=== PATIENT | male | born 1965 | race Caucasian/White ===

== ENCOUNTER 2020-01-15 10:59 | Emergency (ER) | payer BC, SELFPAY ==
[2020-01-15 11:02] VITALS: BP 142/78; PULSE 95; RESP 20; TEMP 36.8; O2SAT 99
--- NOTE | 2020-01-15 11:55 | PC.NURSE ---
pt refusing iv access at this time, does not want medications that have been ordered. is agreeable for labs to be drawn.
[2020-01-15 12:07] LABS: Basophils Absolute Auto 0.1 K/mm3 (0.0-0.1); Basophils Percent Auto 0.8 % (0.2-1.2); Eosinophils Absolute Auto 0.2 K/mm3 (0-0.3); Eosinophils Percent Auto 2.1 % (0-4.4); Hematocrit 39.9 % (42.0-52.0); Hemoglobin 14.4 g/dL (14.0-18.0); Immature Granulocyte Absolute 0.03 K/mm3 (0.00-0.031); Immature Granulocyte Percent A 0.3 % (0-0.5); Lymphocytes Absolute Auto 2.71 K/mm3 (0.9-3.2); Lymphocytes Percent Auto 28.7 % (18.3-44.2); Mean Corpuscular HGB Conc 36.1 g/dl (32-36); Mean Corpuscular Hemoglobin 34.8 pg (26-34); Mean Corpuscular Volume 96.4 fl (80-100); Mean Platelet Volume 8.9 fl (7.4-10.4); Monocytes Absolute Auto 0.8 K/mm3 (0.1-0.6); Monocytes Percent Auto 8.6 % (2.6-8.5); Neutrophils Absolute Auto 5.6 K/mm3 (1.3-6.7); Neutrophils Percent Auto 59.5 % (45.5-73.1); Platelet Count Result 215 k/mm3 (150-375); Red Blood Count 4.14 M/mm3 (4.6-6.20); Red Cell Distribution Width 12.6 % (11.5-14.5); White Blood Count 9.4 K/mm3 (4.5-10.0)
[2020-01-15 12:12] LABS: Add Urine Microscopic? NO; Appearance Urine Clear (Clear); Bilirubin Urine Negative (Negative); Blood Urine Negative (Negative); Color Urine Yellow (Yellow); Glucose Urine UA Negative (Negative); Ketones Urine Negative (Negative); Leukocyte Esterase Ur Negative LEU/UL (Negative); Nitrate Urine Negative (Negative); Protein Urine Negative (Negative); Specific Grav Ur 1.012 (1.001-1.035); Urobilinogen Urine Negative mg/dL (<2.0)
--- NOTE | 2020-01-15 12:22 | ED.BACK ---
HPI - Back Pain/Injury General Chief Complaint: Back Pain/Injury Stated Complaint: BACK PAIN Time Seen by Provider: 01/15/20 11:05 Related Data Home Medications Medication Instructions Recorded Confirmed carvedilol 12.5 mg tablet 12.5 mg PO Q12H 05/02/19 fenofibrate 50 mg capsule 50 mg PO DAILY 05/02/19 icosapent ethyl 1 gram capsule 2 gm PO BID 05/02/19 rosuvastatin 40 mg tablet 40 mg PO DAILY 05/02/19 ticagrelor 60 mg tablet 60 mg PO Q12H 05/02/19 cholecalciferol (vitamin D3) 125 5,000 unit PO DAILY 05/03/19 mcg (5,000 unit) tablet losartan 100 1 tablet PO DAILY 07/21/19 mg-hydrochlorothiazide 12.5 mg tablet semaglutide 1 mg/dose (2 mg/1.5 1 mg SUB-Q WEEKLY 07/21/19 mL) subcutaneous pen injector Allergies Allergy/AdvReac Type Severity Reaction Status Date / Time No Known Allergies Allergy Verified 01/15/20 12:02 [facility] Past Medical History Medical History (Updated 01/15/20 @ 12:44 by Matt Escobar PA-C) Obesity Screening for thyroid disorder Surgical History Surgical History (Updated 01/15/20 @ 12:23 by Matt Escobar PA-C) History of appendectomy Social History Social History Smoking status: Former smoker Smoking end date: 03/03/19 Alcohol intake: current Exam Narrative: Exam Narrative: GENERAL: Well-appearing, obese, and in no acute distress. HEAD: Normocephalic, atraumatic. EYES: PERRLA and EOMI. ENT: Nares clear, no rhinorrhea or epistaxis. Mucous membranes moist. CHEST: Clear to auscultation. No respiratory distress. No wheezes rales or rhonchi HEART: Regular rate and rhythm. No murmur heard. Normal peripheral pulses. ABDOMEN: Soft, nontender, distended EXTREMITIES: Normal range of motion. No edema. Tenderness across the lower lumbar spine no deformities noted SKIN: Warm, dry, no rash. NEURO: No focal deficits. Alert and oriented x3. Cranial nerves II through XII grossly intact PSYCH: Normal mood and affect. Course Course Emergency Course: Patient in the room in no distress aware of case findings treatment plan and diagnosis Vital Signs Vital signs: Vital Signs Temperature 98.3 F 01/15/20 11:02 Pulse Rate 95 01/15/20 11:02 Respiratory Rate 20 01/15/20 11:02 Blood Pressure 142/78 H 01/15/20 11:02 Pulse Oximetry 99 01/15/20 11:02 Temperature 98.3 F 01/15/20 11:02 Pulse Rate 95 01/15/20 11:02 Respiratory Rate 20 01/15/20 11:02 Blood Pressure 142/78 H 01/15/20 11:02 Pulse Oximetry 99 01/15/20 11:02 MDM - Back Pain/Injury MDM Narrative Medical decision making narrative: Patients pain is positional in nature and localized to back without signs of cord compression or cauda equina based on neurological exam, skeletal exam and history. No fever or other significant factors to suggest osteomyelitis or spinal epidural abscess. No symptoms or signs to suggest pain is referred from abdominal or / cardiopulmonary sources. No pulsatile masses noted on exam. Patient ambulates with steady gait and is stable for outpatient management given case findings. Lab Data Result diagrams: 01/15/20 11:57 01/15/20 11:57 Labs: Lab Results 01/15/20 01/15/20 01/15/20 Range/Units 11:57 11:57 12:03 WBC 9.4 (4.5-10.0) K/mm3 RBC 4.14 L (4.6-6.20) M/mm3 Hgb 14.4 (14.0-18.0) g/dL Hct 39.9 L (42.0-52.0) % MCV 96.4 (80-100) fl MCH 34.8 H (26-34) pg MCHC 36.1 H (32-36) g/dl RDW 12.6 (11.5-14.5) % Plt Count 215 (150-375) k/mm3 MPV 8.9 (7.4-10.4) fl Immature Gran % (Auto) 0.3 (0-0.5) % Neut % (Auto) 59.5 (45.5-73.1) % Lymph % (Auto) 28.7 (18.3-44.2) % Shelby % (Auto) 8.6 H (2.6-8.5) % Eos % (Auto) 2.1 (0-4.4) % Baso % (Auto) 0.8 (0.2-1.2) % Lymph # (Auto) 2.71 (0.9-3.2) K/mm3 Shelby # (Auto) 0.8 H (0.1-0.6) K/mm3 Eos # (Auto) 0.2 (0-0.3) K/mm3 Baso # (Auto)
[2020-01-15 12:23] LABS: Alanine Aminotransferase 21 U/L (4-50); Albumin Level 4.2 g/dL (3.5-5.1); Alkaline Phosphatase 36 U/L (38-126); Anion Gap 9 mmol/L (8-16); Aspartate Amino Transferase 27 U/L (17-59); Bilirubin,Total 0.5 mg/dL (0.2-1.3); Blood Urea Nitrogen 11 mg/dL (9-20); CRP 1.8 mg/dL (<1.0); Carbon Dioxide 23 mmol/L (22-30); Chloride 106 mmol/L (98-107); Estimated CRCL calculation 94 ml/min; Estimated Glomerular Filt Rate > 60; Glucose 120 mg/dL (75-110); Potassium 3.8 mmol/L (3.4-5.0); Sodium 138 mmol/L (137-145)
[2020-01-15 12:58] LABS: Erythrocyte Sedimentation Rate 20 mm/hr (0-20)
[2020-01-15] MEDS: KETOROLAC (*BKC) 60 MG/2 ML VIAL IM (13:02)
[2020-01-15 13:14] VITALS: BP 138/71; PULSE 82; RESP 20; TEMP 36.6; O2SAT 99
== END 2020-01-15 13:16 | disposition home or self-care (01) ==
PROVIDERS: Emergency Medicine Emergency Medical Services; Emergency Provider Emergency Medicine; PCP Family Medicine
DX: M54.5 Low back pain (principal); E66.9 Obesity, unspecified; Z68.34 Body mass index [BMI] 34.0-34.9, adult
CPT/HCPCS: 36415; 80053; 81003; 85025; 85652; 86140; 96372; 99283; J1885

== ENCOUNTER → 2020-03-19 09:28 | Outpatient (CLI) | payer BC, SELFPAY ==
--- NOTE | ~2020-03-19 | XR_ITS ---
XR lumbar spine 2-3V DATE: 03/19/2020 10:02 INDICATION: Low back pain TECHNIQUE: AP, lateral, coned lateral lumbosacral views COMPARISON: 01/05/2016 lumbar spine FINDINGS: There is prominent degenerative disc disease at L1-2, L2-3, moderate degenerative disease a t L3-4. There is grade 1 anterolisthesis and mild degenerative disc disease at L4-5. There is mild degenerative disc disease at L5-S1. There is degenerative change at the apophyseal joints. Included lower thoracic and lumbar pedicles are intact. The sacroiliac joints are normal. There is extensive calcification of the abdominal aorta and iliac arteries. IMPRESSION: Multilevel degenerative disc disease, greatest at L1-2 and L2-3 Degenerative change at the apophyseal joints with associated grade 1 anterolisthesis at L4-5 Reviewed, dictated and finalized at location A. IMPRESSION: Multilevel degenerative disc disease, greatest at L1-2 and L2-3 Degenerative change at the apophyseal joints with associated grade 1 anterolist hesis at L4-5
== END ==
PROVIDERS: PCP Family Medicine; Visit Provider Physician Assistant Medical
DX: M54.5 Low back pain (principal); M51.36 Other intervertebral disc degeneration, lumbar region; M43.16 Spondylolisthesis, lumbar region
CPT/HCPCS: 72100

== ENCOUNTER 2020-06-04 09:31 | Outpatient (NON) | payer BC, SELFPAY ==
[2020-06-04 22:22] LABS: SARS-CoV-2 RNA PCR Negative
== END 2020-06-04 09:32 ==
LOC: ANHCOVIDDT 09:32
PROVIDERS: PCP Family Medicine; Visit Provider Physician Assistant Medical
DX: R09.89 Other specified symptoms and signs involving the circulatory and respiratory systems (principal); Z20.822 Contact with and (suspected) exposure to COVID-19
CPT/HCPCS: C9803; U0003

== ENCOUNTER → 2020-06-06 16:56 | Outpatient (CLI) | payer BC, SELFPAY ==
--- NOTE | ~2020-06-06 | XR_ITS ---
EXAMINATION: XR chest 2V DATE: 06/06/2020 17:31 INDICATION: Acute bronchitis TECHNIQUE: PA and lateral views of the chest were obtained. COMPARISON: Chest radiograph dated 02/16/2019 FINDINGS: The lungs remain clear with no focal airspace opacities, pulmonary edema, pleural effusion or pneumot horax. The cardiomediastinal silhouette is normal. Coronary artery stenting. IMPRESSION: 1. No acute cardiopulmonary disease. Reviewed, dictated and finalized at location A. [employer]
== END ==
PROVIDERS: PCP Family Medicine; Visit Provider Physician Assistant Medical
DX: J20.9 Acute bronchitis, unspecified (principal)
CPT/HCPCS: 71046

== ENCOUNTER 2020-06-19 02:06 | Outpatient (CLI) | payer BC, SELFPAY ==
[2020-06-19 18:12] LABS: SARS-CoV-2 RNA PCR Negative
== END 2020-06-19 02:07 | disposition home or self-care (01) ==
LOC: ANHCOVIDDT 02:06
PROVIDERS: PCP Family Medicine; Visit Provider Internal Medicine Gastroenterology
DX: Z01.812 Encounter for preprocedural laboratory examination (principal); Z20.822 Contact with and (suspected) exposure to COVID-19
CPT/HCPCS: C9803; U0003; U0005

== ENCOUNTER 2020-06-22 01:39 | Day surgery (SDC) | payer BC, SELFPAY ==
[2020-06-18 10:34] VITALS: BMI 36.0
--- NOTE | 2020-06-20 13:29 | WPDANESEPPF ---
Anes - Initial Pre Proc Eval Procedure: Operation Date: 06/22/20 08:30 Proposed Procedures p Colonoscopy - Tashi Garcia MD Date/Time: 06/20/20 13:29 Surgeon: Tashi Garcia MD Pre Op Diagnosis: Diarrhea Patient Data Age: 55 Gender: M Height: 1.78 m Weight: 114 kg Allergies Allergy/AdvReac Type Severity Reaction Status Date / Time No Known Allergies Allergy Verified 06/22/20 07:09 Home Medications Medication Instructions Recorded Confirmed Type carvedilol 12.5 mg tablet 12.5 mg PO Q12H 05/02/19 06/18/20 History fenofibrate 50 mg capsule 50 mg PO DAILY 05/02/19 06/18/20 History icosapent ethyl 1 gram capsule 2 gm PO BID 05/02/19 06/18/20 History rosuvastatin 40 mg tablet 40 mg PO DAILY 05/02/19 06/18/20 History ticagrelor 60 mg tablet 60 mg PO Q12H 05/02/19 06/18/20 History cholecalciferol (vitamin D3) 125 5,000 unit PO DAILY 05/03/19 06/18/20 History mcg (5,000 unit) tablet losartan 100 1 tablet PO DAILY 07/21/19 06/18/20 History mg-hydrochlorothiazide 12.5 mg tablet acetaminophen [Tylenol Arthritis 650 mg PO Q8H PRN #7 tablet 01/15/20 06/18/20 Rx Pain] amlodipine 5 mg tablet 5 mg PO DAILY 03/13/20 06/18/20 History cyclobenzaprine 10 mg tablet 10 mg PO TID PRN #20 tablet 03/13/20 06/18/20 Rx spironolactone 50 mg tablet 50 mg PO DAILY 03/13/20 06/18/20 History albuterol sulfate 90 mcg/actuation 1 puff INHALATION Q4H PRN #8.5 gm 06/06/20 06/18/20 Rx aerosol inhaler sodium,potassium,mag sulfates See Rx Instructions .ROUTE 06/12/20 Rx [Suprep Bowel Prep Kit] .COMPLEX #1 ml gabapentin 300 mg PO TID PRN 06/18/20 06/18/20 History Patient hx anesthesia problems: none Family hx anesthesia problems: none PMFSH Past Medical History Medical History (Updated 06/20/20 @ 13:30 by Francisco J Saucedo DO) BMI 38.0-38.9,adult CAD (coronary artery disease) Essential hypertension Mixed hyperlipidemia Morbidly obese Obesity Screening for thyroid disorder Surgical History Surgical History (Updated 06/20/20 @ 13:30 by Francisco J Saucedo DO) History of appendectomy History of coronary artery stent placement x4 2017 Family History Family History Father Family history of diabetes mellitus in first degree relative Family history of heart disease in male family member before age 55 Mother Family history of malignant neoplasm of breast in first degree relative Other Diabetes mellitus Family history of cardiovascular disease Hypertension Social History Social History Smoking packs per day: 1 Smoking cigarettes per day: 20.0 Years smoked: 20 Smoking pack-years: 20.00 Smoking status: Light tobacco smoker Tobacco type: cigarettes Smoking end date: 03/03/19 Alcohol intake: current Drinks per week: 14 Alcohol use details: BEERS Substance use: never Substance use type: does not use Spiritual care concerns: No Anes - Eval Final PreProcedure Day of Procedure 06/20/20 13:29 Patient weight: obese Heart: regular rate and rhythm Lungs: clear to auscultation and normal air movement Airway: Mallampati scale class III Neurological: alert and oriented Last oral intake: >/= 8 hours ASA classification: III Emergent: no Anesthetic plan: proceed Anesthesia type and monitoring: general GIVS and standard monitoring Informed Consent: The patient's anesthetic plan and its attendant risks and benefits were discussed with the patient/family/POA. Questions were solicited and answers provided to the satisfaction of the patient/family/POA.
[2020-06-22] MEDS: LACTATED RINGERS 1,000 ML 150 ML IV CONT (07:27)
--- NOTE | 2020-06-22 08:09 | WPDGICN ---
Assessment and Plan Assessment and plan (1) Diarrhea: Code(s): R19.7 - Diarrhea, unspecified Status: Acute Assessment and Plan: Patient has had loose stools that have become more noticeable over the last 2 weeks. Plan is to proceed with colonoscopy to evaluate more thoroughly. Fiber supplementation may be of some benefit for possible irritable bowel syndrome. Further recommendations will be given after colonoscopy (2) Morbidly obese: Code(s): E66.01 - Morbid (severe) obesity due to excess calories Status: Acute Assessment and Plan: Patient is significantly overweight. Starting weight loss diet and monitoring weight is strongly advocated for this patient discussed with him today per (3) Screening for colon cancer: Code(s): Z12.11 - Encounter for screening for malignant neoplasm of colon Status: Acute Assessment and Plan: patient has never had a colonoscopy for this reason screening exam will be performed now the is over age 50. Occult blood was described in stool and will be assessed at the time of endoscopy. GI Consult Note Consult date/time: 06/22/20 08:09 HPI: Gary Carrero is a 55 year old male presents for colonoscopy. Patient reports several month history of loose diarrhea stools. This is intensified over the last 2 weeks. Patient denies any bleeding or weight loss. Patient has minimal abdominal pain. Outpatient laboratory stool tests were unremarkable aside from stool positive for occult blood. Patient visualize is no obvious blood in his stools. He reports his only medication is intermittent use of Imodium AED. For control of his stools. He has tried no other modalities to treat his diarrhea. Family history is noncontributory. Patient has not had a prior screening colonoscopy and for this reason screening colonoscopy was suggested. [facility] Past Medical History Medical History BMI 38.0-38.9,adult CAD (coronary artery disease) Essential hypertension Mixed hyperlipidemia Morbidly obese Obesity Screening for thyroid disorder Surgical History Surgical History (Updated 06/20/20 @ 13:30 by Francisco J Saucedo DO) History of appendectomy History of coronary artery stent placement x4 2017 Family History Family History Father Family history of diabetes mellitus in first degree relative Family history of heart disease in male family member before age 55 Mother Family history of malignant neoplasm of breast in first degree relative Other Diabetes mellitus Family history of cardiovascular disease Hypertension Social History Social History Smoking packs per day: 1 Smoking cigarettes per day: 20.0 Years smoked: 20 Smoking pack-years: 20.00 Smoking status: Light tobacco smoker Tobacco type: cigarettes Smoking end date: 03/03/19 Alcohol intake: current Drinks per week: 14 Alcohol use details: BEERS Substance use: never Substance use type: does not use Spiritual care concerns: No Meds Home Medications and Allergies Home Medications Medication Instructions Recorded Confirmed Type carvedilol 12.5 mg tablet 12.5 mg PO Q12H 05/02/19 06/18/20 History fenofibrate 50 mg capsule 50 mg PO DAILY 05/02/19 06/18/20 History icosapent ethyl 1 gram capsule 2 gm PO BID 05/02/19 06/18/20 History rosuvastatin 40 mg tablet 40 mg PO DAILY 05/02/19 06/18/20 History ticagrelor 60 mg tablet 60 mg PO Q12H 05/02/19 06/18/20 History cholecalciferol (vitamin D3) 125 5,000 unit PO DAILY 05/03/19 06/18/20 History mcg (5,000 unit) tablet losartan 100 1 tablet PO DAILY 07/21/19 06/18/20 History mg-hydrochlorothiazide 12.5 mg tablet acetaminophen [Tylenol Arthritis 650 mg PO Q8H PRN #7 tablet 01/15/20 06/18/20 Rx Pain] amlodipine 5 mg tablet 5 mg PO DAILY 03/13/2005/26
[2020-06-22 09:05] VITALS: BP 84/45; PULSE 81; RESP 18; O2SAT 96
[2020-06-22 09:15] VITALS: BP 95/51; PULSE 71; RESP 18; O2SAT 97
== END 2020-06-22 09:36 | disposition home or self-care (01) ==
PROVIDERS: PCP Family Medicine; Visit Provider Internal Medicine Gastroenterology
PROC: 0DJD8ZZ Inspection of Lower Intestinal Tract, Via Natural or Artificial Opening Endoscopic (ICD-10-PCS; CPT 45378; principal; 2020-06-22 08:30)
DX: Z12.11 Encounter for screening for malignant neoplasm of colon (principal); K52.831 Collagenous colitis; K52.832 Lymphocytic colitis; Z79.51 Long term (current) use of inhaled steroids; I25.10 Atherosclerotic heart disease of native coronary artery without angina pectoris; I10 Essential (primary) hypertension; E78.2 Mixed hyperlipidemia; E66.01 Morbid (severe) obesity due to excess calories; Z68.39 Body mass index [BMI] 39.0-39.9, adult; F17.210 Nicotine dependence, cigarettes, uncomplicated
CPT/HCPCS: 45380; 88305; J2001; J2370; J2704; J7120

== ENCOUNTER 2020-10-29 14:10 | Outpatient (CLI) | payer BC, SELFPAY ==
--- NOTE | ~2020-10-29 | US_ITS ---
EXAMINATION:US venous doppler LE BI INDICATION:Bilateral lower extremity pain TECHNIQUE: Multiple grayscale, color flow and Doppler images of the right and left lower extremity de ep venous systems were obtained and reviewed. COMPARISON:03/24/2018 FINDINGS: The common femoral, superficial femoral and popliteal veins demonstrate normal respiratory variation, augmentation and compressibility. Color flow is also seen within the posterior tibial, pe roneal, greater saphenous and profunda veins. IMPRESSION: 1: No lower extremity deep venous thrombosis. Reviewed, dictated and finalized at location B.
--- NOTE | ~2020-10-29 | XR_ITS ---
EXAMINATION: XR knee LT 3V DATE: 10/29/2020 14:50 INDICATION: Left knee pain. TECHNIQUE: 3 views of left knee were obtained. COMPARISON: Left knee radiograph 11/05/2012 FINDINGS: Bone alignment is normal. No fracture. There is mild osteoarthritis of medial and patellofe moral compartments. No knee joint effusion. IMPRESSION: 1. Mild left knee osteoarthritis. Reviewed, dictated and finalized at location A.
--- NOTE | ~2020-10-29 | XR_ITS ---
EXAMINATION: XR lumbar spine 2-3V DATE: 10/29/2020 14:50 INDICATION: Chronic low back pain TECHNIQUE: Anteroposterior and lateral views of the lumbar spine, and cone-down lateral view of the l umbosacral junction were obtained. COMPARISON: 03/19/2020 FINDINGS: Mild lumbar levocurvature which is not appreciated on the prior study and which may be positional. No significant interval change in 3 mm retrolisthesis L2 on L3 and 4-5 mm anterolisthesis L4 on L5. Mod erate disc height loss at L1-L2 and L2-L3, mild disc height loss at L3-L4 and L5-S1. Mild to moderate lower lumbar predominant facet osteoarthritis. Sacral arches and sacroiliac joints are normal. Exten sive atherosclerotic calcific a cyst along the aorta and common iliac arteries. IMPRESSION: 1. Minimal progression of moderate lumbar spondylosis. 2. No significant change in 3 mm retrolisthesis L2 on L3 and 4-5 mm anterolisthesis L4 on L5. Reviewed, dictated and finalized at location A. IMPRESSION: 1. Minimal progression of moderate lumbar spondylosis. 2. No significant change in 3 mm retrolisthesis L2 on L3 and 4-5 mm anterolisth esis L4 on L5.
[2020-10-29 15:10] LABS: Basophils Absolute Auto 0.1 K/mm3 (0.0-0.1); Basophils Percent Auto 0.5 % (0.2-1.2); Eosinophils Percent Auto 0.3 % (0-4.4); Hematocrit 44.6 % (42.0-52.0); Hemoglobin 15.7 g/dL (14.0-18.0); Immature Granulocyte Absolute 0.06 K/mm3 (0.00-0.031); Immature Granulocyte Percent A 0.5 % (0-0.5); Lymphocytes Percent Auto 19.9 % (18.3-44.2); Mean Corpuscular HGB Conc 35.2 g/dl (32-36); Mean Corpuscular Hemoglobin 35.5 pg (26-34); Mean Corpuscular Volume 100.9 fl (80-100); Monocytes Absolute Auto 1.1 K/mm3 (0.1-0.6); Monocytes Percent Auto 9.4 % (2.6-8.5); Neutrophils Percent Auto 69.4 % (45.5-73.1); Platelet Count Result 185 k/mm3 (150-375); Red Blood Count 4.42 M/mm3 (4.6-6.20); Red Cell Distribution Width 12.5 % (11.5-14.5); White Blood Count 11.5 K/mm3 (4.5-10.0)
[2020-10-29 15:30] LABS: D Dimer 0.34 ug/mL (<0.48)
[2020-10-29 16:42] LABS: Anion Gap 9 mmol/L (8-16); Blood Urea Nitrogen 16 mg/dL (9-20); Calcium 9.7 mg/dL (8.4-10.2); Carbon Dioxide 25 mmol/L (22-30); Chloride 105 mmol/L (98-107); Estimated Glomerular Filt Rate > 60; Glucose 107 mg/dL (75-110); Potassium 3.9 mmol/L (3.4-5.0); Sodium 139 mmol/L (137-145); Uric Acid 4.4 mg/dL (3.5-8.5)
== END 2020-10-29 14:11 | disposition home or self-care (01) ==
LOC: ANHIMG 14:15
PROVIDERS: PCP Family Medicine; Visit Provider Nurse Practitioner Family
DX: M79.89 Other specified soft tissue disorders (principal); M79.662 Pain in left lower leg; E66.01 Morbid (severe) obesity due to excess calories; R20.0 Anesthesia of skin; M25.562 Pain in left knee; M47.816 Spondylosis without myelopathy or radiculopathy, lumbar region; M43.16 Spondylolisthesis, lumbar region; M17.12 Unilateral primary osteoarthritis, left knee
CPT/HCPCS: 36415; 72100; 73562; 80048; 84550; 85025; 85380; 93970

== ENCOUNTER 2020-11-01 12:37 | Emergency (ER) | payer BC, SELFPAY ==
--- NOTE | ~2020-11-01 | CT_ITS ---
EXAMINATION: CT lumbar spine w con DATE: 11/01/2020 15:27 INDICATION: Intermittent numbness of the bilateral legs. TECHNIQUE: Computed tomography (CT) of the lumbar spine was performed with 100 mL Omnipaque 350 intra venous contrast. Automated exposure control and iterative reconstruction technique were employed. The dose-length product was 1200.90 mGy-cm. COMPARISON: Lumbar spine radiographs 10/29/20 FINDINGS: There is 3 degrees levocurvature of lumbar spine. There is 3 mm retrolisthesis of L1 on L2 and L2 on L3 and 3 mm anterolisthesis of L4 on L5. There is mild chronic anterior wedging of L1 verte bral body. There is moderately decreased disc height at L1-L2 and L2-L3, mildly decreased disc height at L3-L4, and moderately decreased disc height at L5-S1. Epidural lipomatosis is noted. There is Baa strup disease at L4-L5. The following disc levels are specifically discussed: L1-L2: The disc is bulging. There is mild bilateral facet joint osteoarthritis. There is mild bilater al neural foraminal stenosis. There is moderate central canal stenosis. L2-L3: The disc is bulging. There is severe bilateral facet joint osteoarthritis. There is moderate b ilateral neural foraminal stenosis. There is moderate central canal stenosis. L3-L4: The disc is bulging. There is severe bilateral facet joint osteoarthritis. There is mild right and moderate left neural foraminal stenosis. There is severe central canal stenosis. L4-L5: The disc is bulging. There is severe bilateral facet joint osteoarthritis. There is moderate b ilateral neural foraminal stenosis. There is severe central canal stenosis. L5-S1: The disc is bulging. There is severe bilateral facet joint osteoarthritis. There is mild right and moderate left neural foraminal stenosis. There is severe central canal stenosis. IMPRESSION: 1. Severe lumbar spondylosis. Reviewed, dictated and finalized at location A.
--- NOTE | 2020-11-01 13:02 | ED.GENADULT ---
HPI - General Adult General Chief complaint: Urogenital-Male Stated complaint: GROIN NUMBNESS X WEEKS Time Seen by Provider: 11/01/20 12:54 Source: patient Mode of arrival: ambulatory Limitations: no limitations History of Present Illness HPI narrative: Patient is a 55 year old male who presents to the ED for bilateral lower extremity numbness and pain x 2 weeks. He reports intermittent numbness to buttocks. He reports numbness starts at groin and hip and radiates to left knee pain. Patient reports recently had venous u/s of legs which was negative for DVT. Patient also had xray of lumbar spine and knee. Spine shows no changes but history of DDD and xray knee shows osteoarthritis. Patient reports he is waiting for approval of insurance for MRI. Patient is demanding MRI in ED. Denies loss of bowel or bladder control at this time. Reports pain to bilateral legs and numbness at times. Related Data Home Medications Medication Instructions Recorded Confirmed carvedilol 12.5 mg tablet 12.5 mg PO Q12H 05/02/19 10/29/20 fenofibrate 50 mg capsule 50 mg PO DAILY 05/02/19 10/29/20 icosapent ethyl 1 gram capsule 2 gm PO BID 05/02/19 10/29/20 rosuvastatin 40 mg tablet 40 mg PO DAILY 05/02/19 10/29/20 cholecalciferol (vitamin D3) 125 5,000 unit PO DAILY 05/03/19 10/29/20 mcg (5,000 unit) tablet losartan 100 1 tablet PO DAILY 07/21/19 10/29/20 mg-hydrochlorothiazide 12.5 mg tablet gabapentin 300 mg PO TID PRN 06/18/20 10/29/20 clopidogrel 75 mg tablet 75 mg PO DAILY 10/15/20 10/29/20 Allergies Allergy/AdvReac Type Severity Reaction Status Date / Time No Known Allergies Allergy Verified 10/29/20 12:32 Review of Systems Review of Systems: Narrative: CONSTITUTIONAL: Denies fever, chills, or sweats. EYES: Denies visual changes, redness, or discharge. ENT: Denies rhinorrhea, congestion, sore throat, or otalgia. CARDIOVASCULAR: Denies chest pain, palpitations, or edema. RESPIRATORY: Denies cough or dyspnea. GASTROINTESTINAL: Denies abdominal pain, nausea, vomiting, or diarrhea. GENITOURINARY: Denies dysuria or hematuria. SKIN: Denies rash or itching. MUSCULOSKELETAL: Reports numbness, tingling and pain to bilateral lower extremities reports worse at right groin and hip NEUROLOGIC: Denies headache, numbness, dizziness, or weakness. PSYCHIATRIC: Denies anxiety or depression. [facility] Past Medical History Medical History BMI 38.0-38.9,adult CAD (coronary artery disease) Colonoscopy planned Essential hypertension Microscopic colitis Mixed hyperlipidemia Morbidly obese Obesity Obesity, morbid, BMI 40.0-49.9 Screening for thyroid disorder Tobacco dependence Surgical History Surgical History History of appendectomy History of coronary artery stent placement x4 2017 Family History Family History Father Family history of diabetes mellitus in first degree relative Family history of heart disease in male family member before age 55 Mother Family history of malignant neoplasm of breast in first degree relative Breast cancer Sibling No problems noted. Other Diabetes mellitus Family history of cardiovascular disease Hypertension Social History Social History Smoking packs per day: 1 Smoking cigarettes per day: 20.0 Years smoked: 20 Smoking pack-years: 20.00 Smoking status: Current some day smoker Tobacco type: cigarettes Alcohol intake: current Drinks per week: 14 Substance use: never Substance use type: does not use Additional occupation/education comments: [employer] Gender identity (if verbalized by the patient): Male Spiritual care concerns: No Comments At the time of signature, I have reviewed and agree with nursing past medical, surgical, social, and family histo
[2020-11-01 13:32] VITALS: BP 128/87; PULSE 79; RESP 18; TEMP 36.5; O2SAT 98
--- NOTE | 2020-11-01 13:41 | PC.NURSE ---
Pt unable to urinate at this time, given urinal, declines straight cath - states will continue to try.
[2020-11-01 13:57] LABS: Basophils Absolute Auto 0.1 K/mm3 (0.0-0.1); Basophils Percent Auto 0.9 % (0.2-1.2); Eosinophils Absolute Auto 0.1 K/mm3 (0-0.3); Eosinophils Percent Auto 0.9 % (0-4.4); Hematocrit 44.3 % (42.0-52.0); Hemoglobin 15.2 g/dL (14.0-18.0); Immature Granulocyte Absolute 0.03 K/mm3 (0.00-0.031); Immature Granulocyte Percent A 0.3 % (0-0.5); Lymphocytes Absolute Auto 2.51 K/mm3 (0.9-3.2); Lymphocytes Percent Auto 27.2 % (18.3-44.2); Mean Corpuscular HGB Conc 34.3 g/dl (32-36); Mean Corpuscular Hemoglobin 35.3 pg (26-34); Mean Corpuscular Volume 102.8 fl (80-100); Mean Platelet Volume 9.2 fl (7.4-10.4); Monocytes Percent Auto 10.3 % (2.6-8.5); Neutrophils Absolute Auto 5.6 K/mm3 (1.3-6.7); Neutrophils Percent Auto 60.4 % (45.5-73.1); Platelet Count Result 182 k/mm3 (150-375); Red Blood Count 4.31 M/mm3 (4.6-6.20); Red Cell Distribution Width 12.7 % (11.5-14.5); White Blood Count 9.2 K/mm3 (4.5-10.0)
[2020-11-01 15:01] LABS: Estimated Glomerular Filt Rate 57
[2020-11-01 15:08] LABS: Add Urine Microscopic? YES; Appearance Urine Clear (Clear); Bacteria Urine Trace /hpf; Bilirubin Urine Negative (Negative); Blood Urine Negative (Negative); Color Urine Yellow (Yellow); Glucose Urine UA Negative (Negative); Ketones Urine Negative (Negative); Leukocyte Esterase Ur Negative LEU/UL (Negative); Mucus Urine Rare /lpf; Nitrate Urine Negative (Negative); Protein Urine 1+ mg/dL (Negative); RBC Urine 0-2 /hpf (0-2); Urobilinogen Urine Negative mg/dL (<2.0); WBC Urine 0-3 /hpf
[2020-11-01 15:18] LABS: Alanine Aminotransferase 25 U/L (4-50); Albumin Level 4.1 g/dL (3.5-5.1); Alkaline Phosphatase 30 U/L (38-126); Anion Gap 9 mmol/L (8-16); Aspartate Amino Transferase 30 U/L (17-59); Bilirubin,Total 0.6 mg/dL (0.2-1.3); Blood Urea Nitrogen 19 mg/dL (9-20); Calcium 9.8 mg/dL (8.4-10.2); Carbon Dioxide 24 mmol/L (22-30); Chloride 105 mmol/L (98-107); Estimated Glomerular Filt Rate > 60; Glucose 112 mg/dL (75-110); Potassium 4.1 mmol/L (3.4-5.0); Sodium 138 mmol/L (137-145)
--- NOTE | 2020-11-01 15:26 | PC.NURSE ---
pt to CT scan via stretcher at this time
[2020-11-01 15:51] VITALS: BP 130/81; PULSE 73; RESP 17; O2SAT 98
[2020-11-01 16:46] VITALS: BP 128/77; PULSE 90; RESP 18; O2SAT 100
== END 2020-11-01 16:46 | disposition home or self-care (01) ==
PROVIDERS: Emergency Provider Nurse Practitioner; PCP Family Medicine
DX: M47.26 Other spondylosis with radiculopathy, lumbar region (principal); I25.10 Atherosclerotic heart disease of native coronary artery without angina pectoris; I10 Essential (primary) hypertension; E78.2 Mixed hyperlipidemia; E66.01 Morbid (severe) obesity due to excess calories; Z95.5 Presence of coronary angioplasty implant and graft; F17.210 Nicotine dependence, cigarettes, uncomplicated
CPT/HCPCS: 36415; 72132; 80053; 81001; 85025; 99284; Q9967

== ENCOUNTER 2020-11-16 13:57 | Outpatient (CLI) | payer BC, SELFPAY ==
--- NOTE | ~2020-11-16 | MR_ITS ---
EXAMINATION: MR lumbar spine wo con DATE: 11/16/2020 14:56 INDICATION: Anesthesia of skin. Degeneration of lumbar intervertebral disc. TECHNIQUE: Magnetic resonance imaging (MRI) of the lumbar spine was performed without intravenous con trast. Sequences included sagittal T2-weighted FSE, sagittal T2-weighted FS FSE, sagittal T1-weighted FSE, and axial T2-weighted FSE. COMPARISON: CT lumbar spine 11/01/2020 FINDINGS: There is 3 mm retrolisthesis of L1 on L2 and L2 on L3. There is mild chronic anterior wedgi ng of L1 and L2 vertebral bodies. There is moderately decreased disc height at L1-L2 and L2-L3, mildl y decreased disc height at L3-L4, and moderately decreased disc height at L5-S1. Epidural lipomatosis is noted. The distal spinal cord signal intensity is normal. The conus medullaris is at L1. The foll owing disc levels are specifically discussed: L1-L2: The disc is bulging. There is mild bilateral facet joint osteoarthritis. There is mild bilater al neural foraminal stenosis. There is severe central canal stenosis. L2-L3: The disc is bulging and has an annular fissure. There is severe bilateral facet joint osteoart hritis. There is moderate bilateral neural foraminal stenosis. There is moderate central canal stenos is. L3-L4: The disc is bulging and has an annular fissure. There is severe bilateral facet joint osteoart hritis. There is mild bilateral neural foraminal stenosis. There is severe central canal stenosis. L4-L5: The disc does not extend beyond the endplate margins. There is severe bilateral facet joint os teoarthritis. There is mild bilateral neural foraminal stenosis. There is moderate central canal sten osis. L5-S1: The disc is bulging. There is severe bilateral facet joint osteoarthritis. There is mild bilat eral neural foraminal stenosis. There is severe central canal stenosis. IMPRESSION: 1. Severe lumbar spondylosis with central canal stenosis primarily due to epidural lipomatosis. Reviewed, dictated and finalized at location A. IMPRESSION: 1. Severe lumbar spondylosis with central canal stenosis primarily due to epidu ral lipomatosis.
--- NOTE | ~2020-11-16 | XR_ITS ---
XR knee RT 3V 11/16/2020 14:18 Indication: Right knee pain Procedure: 3 views right knee Comparison: 11/05/2012 Findings: No fracture, subluxation or dislocation. No significant joint effusion. There is atheroscle rosis. No foreign bodies. There is mild osteoarthritis. Impression: 1: Mild osteoarthritis of the right knee. Reviewed, dictated and finalized at location B. Impression: 1: Mild osteoarthritis of the right knee.
== END 2020-11-16 13:58 | disposition home or self-care (01) ==
PROVIDERS: PCP Family Medicine; Visit Provider Nurse Practitioner Family
DX: M51.36 Other intervertebral disc degeneration, lumbar region (principal); R20.0 Anesthesia of skin; M25.561 Pain in right knee; M47.816 Spondylosis without myelopathy or radiculopathy, lumbar region; M48.061 Spinal stenosis, lumbar region without neurogenic claudication; E88.2 Lipomatosis, not elsewhere classified; M17.11 Unilateral primary osteoarthritis, right knee
CPT/HCPCS: 72148; 73562

== ENCOUNTER 2021-03-08 15:37 | Outpatient (CLI) | payer BC, SELFPAY ==
--- NOTE | ~2021-03-08 | MR_ITS ---
EXAMINATION: MR knee RT wo con DATE: 03/08/2021 16:52 INDICATION: Internal derangement of right knee. TECHNIQUE: Magnetic resonance imaging (MRI) of the right knee was performed without intravenous contr ast. Sequences included axial PD-weighted FS FSE, coronal PD-weighted FSE and PD-weighted FS FSE, sag ittal PD-weighted FSE, and sagittal T2-weighted FS FSE. COMPARISON: Right knee radiograph 11/16/2020 FINDINGS: Medial compartment: There is a complex tear involving body of medial meniscus. There is full-thickness cartilage loss of tibial condyle involving the central and medial articular surface with cortical remodeling and mild s ubchondral edema-like marrow signal intensity. There is full-thickness cartilage loss of femoral cond yle involving the central and medial articular surface with subchondral insufficiency fracture charac terized by subchondral sclerosis, less than 1 mm cortical depression, and moderate bone marrow edema. There is extensive partial thickness cartilage loss of tibial condyle and femoral condyle. Lateral compartment: Lateral meniscus is normal. There is cartilage surface irregularity of tibial condyle and femoral con dyle. Patellofemoral compartment: There is deep partial thickness cartilage loss and cartilage fissuring of patellar medial and lateral facets with mild subchondral edema-like marrow signal intensity. There is shallow partial-thickness cartilage loss of medial trochlea. Ligaments and tendons: There is a complete tear of anterior cruciate ligament. Posterior fusion ligament is intact. There ar e changes of prior sprains of medial collateral ligament and fibular collateral ligament characterize d by thickening and increased signal intensity. There is mild patellar tendinopathy. Fluid: There is a small knee joint effusion. There is a moderate-sized Dumas's cyst. There is moderate prepa tellar and superficial infrapatellar bursitis. IMPRESSION: 1. Severe chondrosis of medial compartment, moderate chondrosis of patellofemoral compartment, and mi ld chondrosis of lateral compartment. 2. Subchondral insufficiency fracture of medial femoral condyle. 3. Complete tear of anterior cruciate ligament. 4. Complex tear of medial meniscus. 5. Small knee joint effusion. 6. Moderate-sized Dumas's cyst. Reviewed, dictated and finalized at location A. IMPRESSION: 1. Severe chondrosis of medial compartment, moderate chondrosis of patellofemor al compartment, and mild chondrosis of lateral compartment. 2. Subchondral insufficiency fracture of medial femoral condyle. 3. Complete tear of anterior cruciate ligament. 4. Complex tear of medial meniscus. 5. Small knee joint effusion. 6. Moderate-sized Dumas's cyst.
== END 2021-03-08 15:38 | disposition home or self-care (01) ==
LOC: ANHIMG 15:43
PROVIDERS: PCP Family Medicine; Visit Provider Physician Assistant Surgical
DX: M23.91 Unspecified internal derangement of right knee (principal); M22.2X1 Patellofemoral disorders, right knee; M84.451A Pathological fracture, right femur, initial encounter for fracture; S83.511A Sprain of anterior cruciate ligament of right knee, initial encounter; S83.241A Other tear of medial meniscus, current injury, right knee, initial encounter; M25.461 Effusion, right knee; M71.21 Synovial cyst of popliteal space [Baker], right knee
CPT/HCPCS: 73721

== ENCOUNTER → 2021-06-25 07:36 | Outpatient (CLI) | payer BC, SELFPAY ==
[2021-06-25 19:06] LABS: SARS-CoV-2 RNA PCR Negative
== END ==
PROVIDERS: PCP Family Medicine; Visit Provider Physician Assistant Medical
DX: R68.89 Other general symptoms and signs (principal)
CPT/HCPCS: C9803; U0003; U0005

== ENCOUNTER 2021-07-09 15:32 | Outpatient (CLI) | payer BC, SELFPAY ==
--- NOTE | ~2021-07-09 | XR_ITS ---
XR ribs BI 3V w CXR 2V DATE: 07/09/2021 16:00 INDICATION: Chest pain TECHNIQUE: PA and lateral views. 3 views of right ribs. 3 views of left ribs. COMPARISON: 06/06/2020 2 view chest FINDINGS: Normal heart size. Coronary artery stent and/or coronary artery calcification. There is aor tic arch calcification. No hilar or mediastinal enlargement. No pulmonary infiltrate or consolidation , pleural effusion or pulmonary vascular congestion or pneumothorax. No left or right rib fracture or bone destruction is detected. IMPRESSION: No active cardiopulmonary disease Aortic arch calcification No rib fracture is detected Reviewed, dictated and finalized at location B. 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
--- NOTE | ~2021-07-09 | XR_ITS ---
XR wrist RT min 3V DATE: 07/09/2021 16:00 INDICATION: Ganglion TECHNIQUE: 4 views COMPARISON: None FINDINGS: Focal right wrist soft tissue swelling is noted anterolateral to the distal radius without calcification. No fracture or dislocation, periosteal reaction or bone destruction is detected. Arterial calcification is noted. IMPRESSION: Focal anterolateral wrist focal soft tissue swelling; no significant bony abnormality Reviewed, dictated and finalized at location B. RETE ANALYST IMPRESSION: Focal anterolateral wrist focal soft tissue swelling; no significan t bony abnormality
== END 2021-07-09 15:33 | disposition home or self-care (01) ==
LOC: ANHIMG 15:35
PROVIDERS: PCP Family Medicine; Visit Provider Nurse Practitioner Family
DX: R07.81 Pleurodynia (principal); R10.9 Unspecified abdominal pain; R05.9 Cough, unspecified; M67.40 Ganglion, unspecified site; I70.0 Atherosclerosis of aorta; M79.89 Other specified soft tissue disorders
CPT/HCPCS: 71046; 71110; 73110

== ENCOUNTER 2021-08-06 10:31 | Outpatient (CLI) | payer BC, SELFPAY ==
--- NOTE | ~2021-08-06 | US_ITS ---
US abdomen limited INDICATION: Right upper quadrant pain. PROCEDURE: Realtime right upper abdominal ultrasound. COMPARISON: No prior studies for comparison. FINDINGS: The pancreas is normal without focal mass or pancreatic ductal dilation. Liver echotexture is increased, consistent with fatty infiltration. There is normal directional flow in the portal ve in. The gallbladder is normal without stones, gallbladder wall thickening or pericholecystic fluid. Comm on bile duct measures 4 mm. No sonographic Jolley's sign. IMPRESSION: 1: Hepatic steatosis. Reviewed, dictated and finalized at location B. IMPRESSION: 1: Hepatic steatosis.
== END 2021-08-06 10:32 | disposition home or self-care (01) ==
LOC: ANHIMG 10:32
PROVIDERS: PCP Family Medicine; Visit Provider Nurse Practitioner Family
DX: M89.8X1 Other specified disorders of bone, shoulder (principal); R10.11 Right upper quadrant pain; K76.0 Fatty (change of) liver, not elsewhere classified
CPT/HCPCS: 76705

== ENCOUNTER 2021-08-30 09:38 | Emergency (ER) | payer BC, SELFPAY ==
[2021-08-30 09:47] VITALS: BP 149/87; PULSE 81; RESP 20; TEMP 36.9; O2SAT 100
--- NOTE | 2021-08-30 10:07 | ED.GENADULT ---
HPI - General Adult General Chief complaint: Unspecified Stated complaint: bleeding toenail, blood thinners Time Seen by Provider: 08/30/21 10:05 Source: patient Mode of arrival: ambulatory Limitations: no limitations History of Present Illness HPI narrative: Patient is a 66-year-old male who presents the ED with report of bleeding from his left 1st toe. Patient reports he was trimming his toenails last night around 10 PM when he accidentally clipped the skin around his left first toenail. He has had bleeding from the spot since then. He has tried holding pressure, but does report he has chronic back pain and has difficulty bending over that long. Patient is on Plavix and aspirin due to history of cardiac stents. He has been able to ambulate still. Patient denies any lightheadedness, dizziness, weakness, numbness, falls. No history of diabetes. Tetanus status unknown. Related Data Home Medications Medication Instructions Recorded Confirmed carvedilol 12.5 mg tablet 12.5 mg PO Q12H 05/02/19 08/30/21 fenofibrate 50 mg capsule 50 mg PO DAILY 05/02/19 08/30/21 icosapent ethyl 1 gram capsule 2 gm PO BID 05/02/19 08/30/21 cholecalciferol (vitamin D3) 125 5,000 unit PO DAILY 05/03/19 08/30/21 mcg (5,000 unit) tablet losartan 100 1 tablet PO DAILY 07/21/19 08/30/21 mg-hydrochlorothiazide 12.5 mg tablet clopidogrel 75 mg tablet 75 mg PO DAILY 10/15/20 08/30/21 aspirin [Aspirin Childrens] 81 mg PO DAILY 08/30/21 08/30/21 Allergies Allergy/AdvReac Type Severity Reaction Status Date / Time No Known Allergies Allergy Verified 08/30/21 09:53 Review of Systems Review of Systems: CONSTITUTIONAL: Denies fever. SKIN: Reports bleeding from avulsion on L 1st toe. Denies rash or itching. MUSCULOSKELETAL: Denies pain. NEUROLOGIC: Denies lightheadedness, dizziness, numbness, or weakness. All systems reviewed & are unremarkable except as noted in HPI and below PMFSH Past Medical History Medical History Abdominal pain Arthritis Atherosclerosis of abdominal aorta Bilateral primary osteoarthritis of knee BMI 38.0-38.9,adult BMI 50.0-59.9, adult Bulging discs CAD (coronary artery disease) Central stenosis of spinal canal Colonoscopy planned Conjunctivitis Costochondritis Degenerative disc disease Elevated glucose Elevated WBC count Epidural lipomatosis Essential hypertension Ganglion cyst Heart attack High cholesterol IBS (irritable bowel syndrome) Left knee DJD Microscopic colitis Mixed hyperlipidemia Morbidly obese Numbness Obesity Obesity, morbid, BMI 40.0-49.9 Osteoarthritis, knee Osteoporosis Pain in left knee Pain in right knee Pain of left calf Rib pain Right flank pain Right knee DJD Screening for thyroid disorder Swelling of left lower extremity Tobacco dependence Wears glasses Weight gain Surgical History Surgical History History of appendectomy History of coronary artery stent placement x4 2017 Family History Family History Father Family history of diabetes mellitus in first degree relative Family history of heart disease in male family member before age 55 Heart disease Cerebrovascular accident Mother Family history of malignant neoplasm of breast in first degree relative Breast cancer Sibling Hyperlipidemia Other Arthritis Diabetes mellitus Family history of cardiovascular disease Hypertension Social History Social History Smoking packs per day: 1 Smoking cigarettes per day: 20.0 Years smoked: 20 Smoking pack-years: 20.00 Tobacco type: cigarettes Second hand tobacco smoke exposure: No Alcohol intake: current Drinks per week: 14 Alcohol use details: BEERS Substance use: never Substance use type: does not use Additional occupatio
[2021-08-30] MEDS: TETANUS,DIPHTHERIA,AC PERTUSSIS ADULT (0.5 ML) BOOSTRIX IM (11:07)
[2021-08-30 11:12] VITALS: BP 134/88; PULSE 77; RESP 16; O2SAT 98
== END 2021-08-30 11:13 | disposition home or self-care (01) ==
PROVIDERS: Emergency Provider Emergency Medicine; PCP Family Medicine
DX: S91.102A Unspecified open wound of left great toe without damage to nail, initial encounter (principal); Z79.02 Long term (current) use of antithrombotics/antiplatelets; Z23 Encounter for immunization; I70.0 Atherosclerosis of aorta; I25.10 Atherosclerotic heart disease of native coronary artery without angina pectoris; I10 Essential (primary) hypertension; I25.2 Old myocardial infarction; E78.2 Mixed hyperlipidemia; E66.01 Morbid (severe) obesity due to excess calories; Z68.34 Body mass index [BMI] 34.0-34.9, adult; M17.11 Unilateral primary osteoarthritis, right knee; Z95.5 Presence of coronary angioplasty implant and graft; Z79.82 Long term (current) use of aspirin; F17.210 Nicotine dependence, cigarettes, uncomplicated; W26.8XXA Contact with other sharp object(s), not elsewhere classified, initial encounter
CPT/HCPCS: 12001; 90471; 90715; 99282

== ENCOUNTER 2021-11-12 18:12 | Emergency (ER) | payer BC, SELFPAY ==
[2021-11-12 18:56] VITALS: BP 125/94; PULSE 91; RESP 16; TEMP 36.8; O2SAT 100
[2021-11-12 19:17] LABS: Basophils Absolute Auto 0.1 K/mm3 (0.0-0.1); Basophils Percent Auto 0.8 % (0.2-1.2); Eosinophils Absolute Auto 0.2 K/mm3 (0-0.3); Eosinophils Percent Auto 2.3 % (0-4.4); Hematocrit 42.4 % (42.0-52.0); Hemoglobin 15.1 g/dL (14.0-18.0); Immature Granulocyte Absolute 0.02 K/mm3 (0.00-0.031); Immature Granulocyte Percent A 0.3 % (0-0.5); Lymphocytes Absolute Auto 2.17 K/mm3 (0.9-3.2); Lymphocytes Percent Auto 27.4 % (18.3-44.2); Mean Corpuscular HGB Conc 35.6 g/dl (32-36); Mean Corpuscular Hemoglobin 37.5 pg (26-34); Mean Corpuscular Volume 105.2 fl (80-100); Mean Platelet Volume 8.5 fl (7.4-10.4); Monocytes Absolute Auto 0.8 K/mm3 (0.1-0.6); Monocytes Percent Auto 10.1 % (2.6-8.5); Neutrophils Absolute Auto 4.7 K/mm3 (1.3-6.7); Neutrophils Percent Auto 59.1 % (45.5-73.1); Platelet Count Result 196 k/mm3 (150-375); Red Blood Count 4.03 M/mm3 (4.6-6.20); Red Cell Distribution Width 12.7 % (11.5-14.5); White Blood Count 7.9 K/mm3 (4.5-10.0)
[2021-11-12 19:26] LABS: Alanine Aminotransferase 29 U/L (6-50); Albumin Level 4.4 g/dL (3.5-5.1); Alkaline Phosphatase 33 U/L (38-126); Anion Gap 6 mmol/L (8-16); Aspartate Amino Transferase 28 U/L (17-59); Bilirubin,Total 0.8 mg/dL (0.2-1.3); Blood Urea Nitrogen 15 mg/dL (9-20); Calcium 9.9 mg/dL (8.4-10.2); Carbon Dioxide 25 mmol/L (22-30); Chloride 102 mmol/L (98-107); Estimated CRCL calculation 110 ml/min; Estimated Glomerular Filt Rate > 60; Glucose 110 mg/dL (65-110); Sodium 133 mmol/L (137-145)
[2021-11-12 19:29] LABS: Prothrombin Time 12.8 Seconds (11.1-14.7)
[2021-11-12 19:30] LABS: Partial Thromboplastin Time 25.4 SECONDS (22.3-36.8)
[2021-11-12 21:32] VITALS: BP 142/75; PULSE 79; RESP 18; O2SAT 100
--- NOTE | 2021-11-12 21:40 | ED.GENADULT ---
HPI - General Adult General Chief complaint: Extremity Injury, Lower Stated complaint: left leg injury Time Seen by Provider: 11/12/21 21:25 History of Present Illness HPI narrative: 56-year-old male presenting to the emergency department for evaluation of left lower leg edema. Patient reports he had a ground-level fall approximately 9 days ago. Since that time patient has had extensive swelling and ecchymosis of the left lower leg. Patient does have a cardiac history and does take Plavix. Patient also does report some dark stools as well. Patient denies any prior history of GI bleed. Related Data Home Medications Medication Instructions Recorded Confirmed carvedilol 12.5 mg tablet 12.5 mg PO Q12H 05/02/19 10/23/21 fenofibrate 50 mg capsule 50 mg PO DAILY 05/02/19 10/23/21 icosapent ethyl 1 gram capsule 2 gm PO BID 05/02/19 10/23/21 (Vascepa) cholecalciferol (vitamin D3) 125 5,000 unit PO DAILY 05/03/19 10/23/21 mcg (5,000 unit) tablet clopidogrel 75 mg tablet (Plavix) 75 mg PO DAILY 10/15/20 10/23/21 aspirin 81 mg chewable tablet 81 mg PO DAILY 08/30/21 10/23/21 (Aspirin Childrens) losartan 50 mg tablet 50 mg PO DAILY 10/14/21 10/23/21 hydrochlorothiazide 25 mg tablet 25 mg PO DAILY 10/23/21 10/23/21 Allergies Allergy/AdvReac Type Severity Reaction Status Date / Time No Known Allergies Allergy Verified 10/23/21 07:34 Review of Systems Review of Systems: CONSTITUTIONAL: Denies fever, chills, or sweats. EYES: Denies visual changes, redness, or discharge. ENT: Denies rhinorrhea, congestion, sore throat, or otalgia. CARDIOVASCULAR: Denies chest pain, palpitations, or edema. RESPIRATORY: Denies cough or dyspnea. GASTROINTESTINAL: Denies abdominal pain, nausea, vomiting, or diarrhea. GENITOURINARY: Denies dysuria or hematuria. SKIN: Denies rash or itching. MUSCULOSKELETAL: Chronic back pain and chronic lower extremity pain. See HPI NEUROLOGIC: Denies headache, numbness, or weakness. PSYCHIATRIC: Denies anxiety or depression. [facility] Past Medical History Medical History Abdominal pain Arthritis Atherosclerosis of abdominal aorta Bilateral primary osteoarthritis of knee BMI 38.0-38.9,adult BMI 50.0-59.9, adult Bulging discs CAD (coronary artery disease) Central stenosis of spinal canal Colonoscopy planned Conjunctivitis Costochondritis Degenerative disc disease Elevated glucose Elevated WBC count Epidural lipomatosis Essential hypertension Ganglion cyst Heart attack High cholesterol IBS (irritable bowel syndrome) Left knee DJD Microscopic colitis Mixed hyperlipidemia Morbidly obese Numbness Obesity Obesity, morbid, BMI 40.0-49.9 Osteoarthritis, knee Osteoporosis Pain in left knee Pain in right knee Pain of left calf Rib pain Right flank pain Right knee DJD Screening for thyroid disorder Swelling of left lower extremity Tobacco dependence Wears glasses Weight gain Surgical History Surgical History History of appendectomy History of coronary artery stent placement x4 2017 Family History Family History Father Family history of diabetes mellitus in first degree relative Family history of heart disease in male family member before age 55 Heart disease Cerebrovascular accident Mother Family history of malignant neoplasm of breast in first degree relative Breast cancer Sibling Hyperlipidemia Other Arthritis Diabetes mellitus Family history of cardiovascular disease Hypertension Social History Social History Smoking packs per day: 1 Smoking cigarettes per day: 20.0 Years smoked: 20 Smoking pack-years: 20.00 Smoking status: Former smoker Tobacco type: cigarettes Second hand tobacco smoke exposure: No Smoking end date: 03/03/19 Alc
[2021-11-12 23:17] VITALS: BP 128/83; PULSE 78; RESP 20; O2SAT 96
== END 2021-11-12 23:10 | disposition home or self-care (01) ==
PROVIDERS: Emergency Medicine; Emergency Provider Emergency Medicine; PCP Family Medicine
DX: R60.0 Localized edema (principal); I70.0 Atherosclerosis of aorta; I10 Essential (primary) hypertension; I25.2 Old myocardial infarction; I25.10 Atherosclerotic heart disease of native coronary artery without angina pectoris; E78.2 Mixed hyperlipidemia; E66.01 Morbid (severe) obesity due to excess calories; Z68.41 Body mass index [BMI] 40.0-44.9, adult; M17.0 Bilateral primary osteoarthritis of knee; Z87.891 Personal history of nicotine dependence
CPT/HCPCS: 36415; 80053; 85025; 85610; 85730; 86850; 86900; 86901; 99283

== ENCOUNTER 2021-11-13 09:12 | Outpatient (CLI) | payer BC, SELFPAY ==
--- NOTE | ~2021-11-13 | US_ITS ---
EXAMINATION: US venous doppler [facility] DATE: 11/13/2021 09:47 INDICATION: Left lower limb pain and swelling. TECHNIQUE: Grayscale ultrasound images without and with compression and Doppler ultrasound images of the left lower extremity veins were obtained. COMPARISON: Ultrasound 10/29/2020 FINDINGS: The visualized portions of left common femoral vein, profunda (deep) femoral vein, femoral vein, popl iteal vein, peroneal veins, posterior tibial veins, and greater saphenous vein outflow are patent. Th ere is a 9.3 x 1.1 x 3.1 cm predominantly cystic mass in anterior left lower leg, consistent with a h ematoma. IMPRESSION: 1. No deep venous thrombosis. 2. Predominantly cystic mass in anterior left lower leg, consistent with a hematoma. Reviewed, dictated and finalized at location A. IMPRESSION: 1. No deep venous thrombosis. 2. Predominantly cystic mass in anterior left lower leg, consistent with a stephanie rosario.
== END 2021-11-13 09:13 | disposition home or self-care (01) ==
LOC: ANHIMG 09:13
PROVIDERS: PCP Family Medicine; Visit Provider Emergency Medicine
DX: Z01.818 Encounter for other preprocedural examination (principal); M79.89 Other specified soft tissue disorders
CPT/HCPCS: 93971

== ENCOUNTER 2021-11-20 11:35 | Outpatient (CLI) | payer BC, SELFPAY ==
--- NOTE | ~2021-11-20 | XR_ITS ---
XR tibia fibula LT 2V DATE: 11/20/2021 11:56 INDICATION: Anterior proximal lateral swelling of the lower leg following injury from fall TECHNIQUE: AP and lateral views of the lower leg COMPARISON: None FINDINGS: Femoral, popliteal and trifurcation and dorsalis pedis artery calcifications. Prominent plantar calcaneal enthesopathy. No fracture or dislocation, periosteal reaction or bone destruction of the tibia or fibula. Normal a lignment at the knee and ankle joints. IMPRESSION: No fracture or dislocation of the tibia or fibula Reviewed, dictated and finalized at location B.
== END 2021-11-20 11:36 | disposition home or self-care (01) ==
PROVIDERS: PCP Family Medicine; Visit Provider Nurse Practitioner Family
DX: M79.605 Pain in left leg (principal); I70.202 Unspecified atherosclerosis of native arteries of extremities, left leg; M77.32 Calcaneal spur, left foot
CPT/HCPCS: 73590

== ENCOUNTER 2022-05-02 11:47 | Emergency (ER) | payer BC, SELFPAY ==
[2022-05-02 12:28] VITALS: BP 150/87; PULSE 74; RESP 18; TEMP 36.5; O2SAT 95
[2022-05-02] MEDS: methylPREDNISolone SOD SUCC 125 MG VIAL IM (13:03)
[2022-05-02] MEDS: HYDROmorphone HCL INJ (*CRX) 1 MG/ML SYR IM (13:03)
[2022-05-02] MEDS: ONDANSETRON HCL ODT 4 MG TABLET PO (13:04)
--- NOTE | 2022-05-02 14:09 | ED.BACK ---
HPI - Back Pain/Injury General Chief Complaint: Back Pain/Injury Stated Complaint: back pain since yesterday - chronic back problems Time Seen by Provider: 05/02/22 12:36 Source: patient, EMS and RN notes reviewed Mode of arrival: EMS Limitations: no limitations History of Present Illness HPI Narrative: THis is a 57 year old male with history of chronic back pain, arthritis who presents for evaluation right lower back pain. He developled pain yesterday at 4 pm when he was bending over to put on pants. He states he know this pain is muscular but it has gradually worsened over night. He reports sharp searing pain with movement to right lower back . He denies pain radiating down is legs or her abdomen. He reports having chronic spine issue that will cause his feet to get numb intermittently but he denies that occurring today. He denies leg weakness. He denies nausea, vomiting, fever, chills. He also denies hematuria or urinary incontinence or retention. He has been taking gabapentin twice day for arthritis. He tried taking flexeril for his pain but he states that did not help. Related Data Home Medications Medication Instructions Recorded Confirmed carvedilol 12.5 mg tablet 12.5 mg PO Q12H 05/02/19 10/23/21 fenofibrate 50 mg capsule 50 mg PO DAILY 05/02/19 10/23/21 icosapent ethyl 1 gram capsule 2 gm PO BID 05/02/19 10/23/21 (Vascepa) cholecalciferol (vitamin D3) 125 5,000 unit PO DAILY 05/03/19 10/23/21 mcg (5,000 unit) tablet clopidogrel 75 mg tablet (Plavix) 75 mg PO DAILY 10/15/20 10/23/21 aspirin 81 mg chewable tablet 81 mg PO DAILY 08/30/21 10/23/21 (Aspirin Childrens) losartan 50 mg tablet 50 mg PO DAILY 10/14/21 10/23/21 hydrochlorothiazide 25 mg tablet 25 mg PO DAILY 10/23/21 10/23/21 Allergies Allergy/AdvReac Type Severity Reaction Status Date / Time No Known Allergies Allergy Verified 05/02/22 11:48 Review of Systems Review of Systems: All systems reviewed & are unremarkable except as noted in HPI and below Constitutional: Constitutional: Denies chills, Denies fatigue and Denies fever(s) ENT: Denies nasal congestion and Denies sore throat Cardiovascular: Cardiovascular: Denies chest pain, Denies rapid heart rate and Denies radiating jaw, neck or arm pain Respiratory: Respiratory: Denies chest congestion, Denies cough and Denies dyspnea Gastrointestinal: Gastrointestinal: Denies abdominal pain, Denies nausea and Denies vomiting Genitourinary: Genitourinary: Denies hematuria, Denies oliguria, Denies dysuria and Denies urinary frequency Musculoskeletal: Musculoskeletal: Reports arthralgias Neurologic: Denies headache(s), Denies focal weakness and Denies numbness [facility] Past Medical History Medical History Abdominal pain Arthritis Atherosclerosis of abdominal aorta Bilateral primary osteoarthritis of knee BMI 38.0-38.9,adult BMI 50.0-59.9, adult Bulging discs CAD (coronary artery disease) Central stenosis of spinal canal Colonoscopy planned Conjunctivitis Costochondritis Degenerative disc disease Elevated glucose Elevated WBC count Epidural lipomatosis Essential hypertension Ganglion cyst Heart attack High cholesterol IBS (irritable bowel syndrome) Left knee DJD Microscopic colitis Mixed hyperlipidemia Morbidly obese Numbness Obesity Obesity, morbid, BMI 40.0-49.9 Osteoarthritis, knee Osteoporosis Pain in left knee Pain in right knee Pain of left calf Rib pain Right flank pain Right knee DJD Screening for thyroid disorder Swelling of left lower extremity Tobacco dependence Wears glasses Weight gain Surgical History Surgical History History of appendectomy History of coronary artery stent placement x4 2017 Family History Family History Father Family history of diabetes mellitus in first degree relative
== END 2022-05-02 14:39 | disposition home or self-care (01) ==
PROVIDERS: Emergency Provider General Practice; PCP Nurse Practitioner Family
DX: M54.50 Low back pain, unspecified (principal); G89.29 Other chronic pain; I70.0 Atherosclerosis of aorta; I25.10 Atherosclerotic heart disease of native coronary artery without angina pectoris; I10 Essential (primary) hypertension; I25.2 Old myocardial infarction; E78.2 Mixed hyperlipidemia; M81.0 Age-related osteoporosis without current pathological fracture; M17.0 Bilateral primary osteoarthritis of knee; E66.01 Morbid (severe) obesity due to excess calories; Z68.41 Body mass index [BMI] 40.0-44.9, adult; Z95.5 Presence of coronary angioplasty implant and graft; Z87.891 Personal history of nicotine dependence; Z79.82 Long term (current) use of aspirin
CPT/HCPCS: 96372; 99284; A9270; J1170; J2930

== ENCOUNTER 2022-07-25 09:43 | Emergency (ER) | payer OTHER, SELFPAY ==
--- NOTE | ~2022-07-25 | CT_ITS ---
EXAMINATION: CT abdomen pelvis w con DATE: 07/25/2022 12:30 INDICATION: Right abdominal pain. TECHNIQUE: Computed tomography (CT) of the abdomen and pelvis was performed with 100 mL Omnipaque 350 intravenous contrast. Automated exposure control and iterative reconstruction technique were employe d. The dose-length product was 1577.43 mGy-cm. COMPARISON: None. FINDINGS: The visualized portions of the lung bases demonstrate subpleural bands in the lower lobes. No pleural effusion. The heart size is normal. 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 There are coronary artery calcifications. No pericardial effusi on. The liver, gallbladder, spleen, pancreas, adrenal glands, and left kidney are normal. There is a delayed and decreased right-sided contrast nephrogram. There is mild right hydronephrosis and hydrour eter. There is a 3 mm stone in distal right ureter. There are no dilated loops of bowel. The appendix is not visualized. There are no pathologically enlarged lymph nodes. There is no free intraperitonea l fluid. There is moderate lumbar spondylosis. IMPRESSION: 1. 3 mm stone in distal right ureter with mild right hydronephrosis and hydroureter. Reviewed, dictated and finalized at location A. 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 3 mm stone in distal right ureter with mild right hydronephrosis and hydrour eter.
[2022-07-25 09:59] VITALS: BP 174/96; PULSE 100; RESP 18; TEMP 36.6; O2SAT 97
[2022-07-25 10:32] LABS: Basophils Absolute Auto 0.1 K/mm3 (0.0-0.1); Basophils Percent Auto 0.6 % (0.2-1.2); Eosinophils Absolute Auto 0.2 K/mm3 (0-0.3); Eosinophils Percent Auto 1.3 % (0-4.4); Hematocrit 43.4 % (42.0-52.0); Hemoglobin 15.3 g/dL (14.0-18.0); Immature Granulocyte Absolute 0.05 K/mm3 (0.00-0.031); Immature Granulocyte Percent A 0.4 % (0-0.5); Lymphocytes Absolute Auto 1.78 K/mm3 (0.9-3.2); Lymphocytes Percent Auto 15.5 % (18.3-44.2); Mean Corpuscular HGB Conc 35.3 g/dl (32-36); Mean Corpuscular Hemoglobin 36.1 pg (26-34); Mean Corpuscular Volume 102.4 fl (80-100); Mean Platelet Volume 9.4 fl (7.4-10.4); Monocytes Absolute Auto 1.6 K/mm3 (0.1-0.6); Monocytes Percent Auto 14.3 % (2.6-8.5); Neutrophils Absolute Auto 7.8 K/mm3 (1.3-6.7); Neutrophils Percent Auto 67.9 % (45.5-73.1); Platelet Count Result 188 k/mm3 (150-375); Red Blood Count 4.24 M/mm3 (4.6-6.20); Red Cell Distribution Width 12.7 % (11.5-14.5); White Blood Count 11.5 K/mm3 (4.5-10.0)
[2022-07-25 10:45] LABS: Alanine Aminotransferase 33 U/L (6-50); Albumin Level 4.2 g/dL (3.5-5.1); Alkaline Phosphatase 44 U/L (38-126); Anion Gap 7 mmol/L (8-16); Aspartate Amino Transferase 33 U/L (17-59); Blood Urea Nitrogen 15 mg/dL (9-20); Calcium 9.2 mg/dL (8.4-10.2); Carbon Dioxide 25 mmol/L (22-30); Chloride 101 mmol/L (98-107); Estimated CRCL calculation 63 ml/min; Estimated Glomerular Filt Rate 45; Glucose 104 mg/dL (65-110); Lipase 55 U/L (23-300); Potassium 3.9 mmol/L (3.4-5.0); Sodium 133 mmol/L (137-145)
[2022-07-25 11:48] LABS: Appearance Urine Clear (Clear); Bacteria Urine None Seen /hpf; Bilirubin Urine Negative (Negative); Blood Urine 2+ (Negative); Color Urine Yellow (Yellow); Glucose Urine UA Negative (Negative); Ketones Urine Negative (Negative); Leukocyte Esterase Ur Negative LEU/UL (Negative); Nitrate Urine Negative (Negative); Non Pathogenic Casts 0-2; Protein Urine Negative (Negative); RBC Urine 21-50 /hpf (0-2); Specific Grav Ur 1.015 (1.001-1.035); Squamous Epithelial Cell Urine None seen /hpf (Few); WBC Urine 0-5 /hpf
[2022-07-25] MEDS: SODIUM CHLORIDE 0.9% IV 1,000 ML 999 ML IV CONT (11:55)
[2022-07-25 11:58] LABS: Add Urine Microscopic? YES
--- NOTE | 2022-07-25 12:16 | ED.ABDPAIN ---
HPI - Abdominal Pain General Chief Complaint: Abdominal Pain Stated Complaint: R ABD PAIN X1D Time Seen by Provider: 07/25/22 11:37 History of Present Illness HPI narrative: 57-year-old male with a history of microscopic colitis here for evaluation of right flank and right abdominal pain over the past several days. Patient states that he has not passed gas since yesterday and has not had a bowel movement. Yesterday his bowel movement was normal. Yesterday he had some subjective chills but did not take his temperature. No changes to his urine. He follows with Dr. Guy for his microscopic colitis and has had a colonoscopy recently. Related Data Home Medications Medication Instructions Recorded Confirmed carvedilol 12.5 mg tablet 12.5 mg PO Q12H 05/02/19 10/23/21 fenofibrate 50 mg capsule 50 mg PO DAILY 05/02/19 10/23/21 icosapent ethyl 1 gram capsule 2 gm PO BID 05/02/19 10/23/21 (Vascepa) cholecalciferol (vitamin D3) 125 5,000 unit PO DAILY 05/03/19 10/23/21 mcg (5,000 unit) tablet clopidogrel 75 mg tablet (Plavix) 75 mg PO DAILY 10/15/20 10/23/21 aspirin 81 mg chewable tablet 81 mg PO DAILY 08/30/21 10/23/21 (Aspirin Childrens) losartan 50 mg tablet 50 mg PO DAILY 10/14/21 10/23/21 hydrochlorothiazide 25 mg tablet 25 mg PO DAILY 10/23/21 10/23/21 Allergies Allergy/AdvReac Type Severity Reaction Status Date / Time No Known Allergies Allergy Verified 05/02/22 11:48 Review of Systems Review of Systems: Gen: Denies fevers or chills Eyes: Denies eye pain or visual change ENT: Denies congestion Respiratory: Denies shortness of breath or cough CV: Denies chest pain or palpitations GI: Reports abdominal pain and constipation : denies burning, urgency, frequency or hematuria Musculoskeletal: Denies back pain or muscle pain Neuro: Denies numbness, tingling, weakness or focal weakness Skin: Denies rash Except as documented, all other systems reviewed and negative PMFSH Past Medical History Medical History Abdominal pain Arthritis Atherosclerosis of abdominal aorta Bilateral primary osteoarthritis of knee BMI 38.0-38.9,adult BMI 50.0-59.9, adult Bulging discs CAD (coronary artery disease) Central stenosis of spinal canal Colonoscopy planned Conjunctivitis Costochondritis Degenerative disc disease Elevated glucose Elevated WBC count Epidural lipomatosis Essential hypertension Ganglion cyst Heart attack High cholesterol IBS (irritable bowel syndrome) Left knee DJD Microscopic colitis Mixed hyperlipidemia Morbidly obese Numbness Obesity Obesity, morbid, BMI 40.0-49.9 Osteoarthritis, knee Osteoporosis Pain in left knee Pain in right knee Pain of left calf Rib pain Right flank pain Right knee DJD Screening for thyroid disorder Swelling of left lower extremity Tobacco dependence Wears glasses Weight gain Surgical History Surgical History History of appendectomy History of coronary artery stent placement x4 2017 Family History Family History Father Family history of diabetes mellitus in first degree relative Family history of heart disease in male family member before age 55 Heart disease Cerebrovascular accident Mother Family history of malignant neoplasm of breast in first degree relative Breast cancer Sibling Hyperlipidemia Other Arthritis Diabetes mellitus Family history of cardiovascular disease Hypertension Social History Social History Smoking packs per day: 1 Smoking cigarettes per day: 20.0 Years smoked: 20 Smoking pack-years: 20.00 Smoking status: Former smoker Tobacco type: cigarettes Second hand tobacco smoke exposure: No Smoking end date: 03/03/19 Alcohol intake: current Drinks per week: 14 Alcohol us
[2022-07-25] MEDS: HYDROcodone/acetaminophen (*CRX) 5-325 MG TABLET 1 TAB PO (12:57)
[2022-07-25 13:04] VITALS: BP 159/96; PULSE 76; RESP 16; O2SAT 99
== END 2022-07-25 13:05 | disposition home or self-care (01) ==
PROVIDERS: Emergency Medicine; Emergency Provider Physician Assistant; PCP Nurse Practitioner Family
DX: N13.2 Hydronephrosis with renal and ureteral calculous obstruction (principal); I25.10 Atherosclerotic heart disease of native coronary artery without angina pectoris; I10 Essential (primary) hypertension; I25.2 Old myocardial infarction; E78.00 Pure hypercholesterolemia, unspecified; E66.01 Morbid (severe) obesity due to excess calories; Z68.41 Body mass index [BMI] 40.0-44.9, adult; Z95.5 Presence of coronary angioplasty implant and graft; Z87.891 Personal history of nicotine dependence; Z79.02 Long term (current) use of antithrombotics/antiplatelets; Z79.82 Long term (current) use of aspirin; Z79.51 Long term (current) use of inhaled steroids
CPT/HCPCS: 36415; 74177; 80053; 81001; 83690; 85025; 96360; 99284; A9270; J7030; Q9967

== ENCOUNTER 2022-09-04 15:28 | Outpatient (CLI) | payer OTHER, SELFPAY ==
--- NOTE | ~2022-09-04 | CT_ITS ---
EXAMINATION: CT pelvis wo con DATE: 09/04/2022 15:54 INDICATION: Right ureteral stone TECHNIQUE: Computed tomography (CT) of the pelvis was performed without intravenous contrast. The dos e-length product (DLP) was 1142.88 mGy-cm. Automated exposure control and iterative reconstruction te nique were employed. COMPARISON: 07/25/2022 FINDINGS: The previously described 3 mm stone in the distal right ureter is no longer evident. No sto marielle are identified in the visualized ureters or within the urinary bladder. There are no pathological ly enlarged pelvic lymph nodes. No free intraperitoneal gas or evidence of bowel obstruction. There i s calcified atherosclerosis of the aorta and many of the other arteries. There is moderate lumbar spo ndylosis. IMPRESSION: 1. Interval treatment or passage of the previously described 3 mm stone of the distal right ureter. Reviewed, dictated and finalized at location F.
== END 2022-09-04 15:29 | disposition home or self-care (01) ==
PROVIDERS: PCP Nurse Practitioner Family
DX: N20.1 Calculus of ureter (principal)
CPT/HCPCS: 72192

== ENCOUNTER 2023-01-23 10:40 | Outpatient (CLI) | payer OTHER, SELFPAY ==
--- NOTE | ~2023-01-23 | MR_ITS ---
MRI of the lumbar spine Clinical History: Back pain Technique: Axial T2-weighted images, and sagittal T1-weighted, T2-weighted, and T2 fat-sat images wer e acquired. COMPARISON: 11/16/2020 Findings: There is no acute fracture of the lumbar spine. Stable 3 mm retrolisthesis of L2 over L3, a nd of L3 over L4. Intraosseous hemangioma noted at the L2 vertebral body. No suspicious bone marrow s ignal abnormality seen. At L1-L2, there is severe degenerative disc narrowing, without significant disc bulge or herniation. There is mild facet arthropathy. There is severe thecal sac compression due to extensive epidural fat . Bilateral neural foramina are preserved. At L2-L3, there is severe degenerative disc narrowing with severe facet arthropathy. There is severe thecal sac compression related to extensive epidural fat. No significant disc bulge or herniation. Th ere is moderate bilateral neural foraminal narrowing. At L3-L4, there is moderate degenerative disc change with mild diffuse disc bulge and moderate to adv anced facet arthropathy. There is severe thecal sac compression, largely related to extensive epidura l fat. There is mild right neural foraminal narrowing. Left neural foramen preserved. At L4-L5, there is severe facet arthropathy with mild disc bulge. There is severe thecal sac compress ion largely related to prominent epidural fat. There is mild bilateral neural foraminal narrowing. At L5-S1, there is mild disc bulge with advanced facet arthropathy. There is severe thecal sac compre ssion, which is entirely due to prominent epidural fat. There is mild to moderate left neural foramin al narrowing. Paravertebral soft tissues otherwise are unremarkable.. Impression: Extensive epidural lipomatosis throughout the lumbar spine results in diffuse, severe thecal sac comp ression throughout the lumbar spine. Underlying moderate to advanced degenerative changes, as above. 3 mm retrolisthesis of L2 over L3. 3 mm retrolisthesis of L3 over L4. Reviewed, dictated and finalized at location . Impression: Extensive epidural lipomatosis throughout the lumbar spine results in diffuse, severe thecal sac compression throughout the lumbar spine. Underlying moderate to advanced degenerative changes, as above. 3 mm retrolisthesis of L2 over L3. 3 mm retrolisthesis of L3 over L4.
== END 2023-01-23 10:41 | disposition home or self-care (01) ==
LOC: ANHIMG 10:42
PROVIDERS: PCP Nurse Practitioner Family; Visit Provider Nurse Practitioner Family
DX: M54.50 Low back pain, unspecified (principal)
CPT/HCPCS: 72148

== ENCOUNTER 2023-08-11 07:29 | Day surgery (SDC) | payer OTHER, SELFPAY ==
--- NOTE | 2023-07-27 13:54 | SUR.PREOP ---
pt states no change in health hx/ new time and date provided/acknowledges understanding
--- NOTE | ~2023-08-11 | XR_ITS ---
EXAMINATION: XR fluoroscopy no charge DATE: 08/11/2023 9:10 CDT INDICATION: ALAYNA L4-5 TRANFORAMINAL INJ . TECHNIQUE: 5 fluoroscopic images and 7 cine clips of the lumbar spine were obtained during bilateral L4-5 transforaminal injection, performed by Bobby Heart MD. I was not present during the procedu re. Fluoroscopy exposure time was 102.5 seconds. Air Kerma 120.53 mGy. COMPARISON: None FINDINGS/IMPRESSION: Fluoroscopic documentation of bilateral L4-5 transforaminal injection. Please refer to the operative note for complete procedural details. Reviewed, dictated and finalized at location K.
[2023-08-11 08:00] VITALS: BP 138/90; PULSE 84; RESP 18; TEMP 36.4; O2SAT 99
--- NOTE | 2023-08-11 09:02 | PM.HPGS ---
History of Present Illness History of Present Illness Consent: Risks, benefits, and alternatives have been discussed and questions answered. Patient agrees to proceed with procedure. Chief complaint: Lumbar Radiculopathy Narrative: Gary Carrero is a 58 year old male with chronic, recalcitrant and disabling bilateral lumbar radiculopathy secondary to lumbar spinal stenosis / disc protrusion with failure to respond to aggressive conservative measures including PT, oral and topical analgesics, opioid and nonopioid analgesics, rest, time and activity/behavioral modification for greater than 3 months who presents for bilateral L4-5 transforaminal epidural steroid injection under fluoroscopic guidance and with contrast control. Review of Systems Review of Systems: Patient denies any new infectious, allergic, cardiopulmonary, neurologic or constitutional symptoms or changes in activity tolerance or exercise capacity including new or progressive SOB/FREEMAN, peripheral edema, productive cough, dysuria, nausea/vomiting, diarrhea, weight change, fevers/chills/night sweats, new or progressive neurologic deficit, cognitive or mood changes since last seen, except as documented in the HPI. [facility] Past Medical History Medical History Abdominal pain Arthritis Atherosclerosis of abdominal aorta Bilateral primary osteoarthritis of knee BMI 38.0-38.9,adult BMI 50.0-59.9, adult Bulging discs CAD (coronary artery disease) Central stenosis of spinal canal Colonoscopy planned Conjunctivitis Costochondritis Degenerative disc disease Elevated glucose Elevated WBC count Epidural lipomatosis Essential hypertension Ganglion cyst Heart attack High cholesterol IBS (irritable bowel syndrome) Left knee DJD Microscopic colitis Mixed hyperlipidemia Morbidly obese Numbness Obesity Obesity, morbid, BMI 40.0-49.9 Osteoarthritis, knee Osteoporosis Pain in left knee Pain in right knee Pain of left calf Rib pain Right flank pain Right knee DJD Screening for thyroid disorder Swelling of left lower extremity Tobacco dependence Wears glasses Weight gain Surgical History Surgical History History of appendectomy History of coronary artery stent placement x4 2017 Family History Family History Father Family history of diabetes mellitus in first degree relative Family history of heart disease in male family member before age 55 Heart disease Cerebrovascular accident Mother Family history of malignant neoplasm of breast in first degree relative Breast cancer Sibling Hyperlipidemia Other Arthritis Diabetes mellitus Family history of cardiovascular disease Hypertension Social History Social History (Updated 06/29/23 @ 13:08 by Shonna Garcia [facility]) Years smoked: 20 Smoking status: Current every day smoker Tobacco type: cigarettes Second hand tobacco smoke exposure: No Smoking end date: 03/03/19 Alcohol intake: current Drinks per week: 14 Alcohol use details: 4 per day Substance use: never Substance use type: does not use Lack of Transportation: No Lack of Food: Never True Current Housing: I Have Housing Concerned About Future Housing: No Difficulty Paying Gas/Electric Bills: No Difficulty Paying for Meds: No Currently Unemployed: No Education: High School Diploma/GED Living arrangements: with family Occupation/Education: other Additional occupation/education comments: [employer]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
--- NOTE | 2023-08-11 09:06 | WPDHPUPDATE1 ---
History and Physical Update Update Date/Time: 08/11/23 09:06 History and Physical has been reviewed, including an updated exam of the patient. There are NO changes in the patient's condition. Risks, benefits, and alternatives have been discussed and questions answered. Patient agrees to proceed with procedure.
--- NOTE | 2023-08-11 09:07 | W.PM.PROC2 ---
Procedure Note - Detailed Date of Procedure 08/11/23 Pre-op Diagnosis Lumbar Radiculopathy Post-op Diagnosis Same Procedure Performed bilateral L4-5 transforaminal epidural steroid injection under fluoroscopic guidance with contrast control. Surgeon Bobby Heart MD Anesthesia Local Description of Procedure INFORMED CONSENT: Risks, benefits and alternatives to the procedure were discussed in detail with the patient who expressed explicit understanding and consent to proceed. Patient was informed verbally and in written form regarding the risks associated with the procedure including the low risk of serious infection, bleeding/bruising, allergic reaction, nerve or organ injury, paralysis, procedural site pain or discomfort, worsening pain and/or mobility, failure to treat and/or disfigurement. The patient expressed explicit understanding and consent to proceed. All materials required for the procedure were available prior to procedure start. Site and side was marked prior to procedure and confirmed in the presence of the patient. PROCEDURE IN DETAIL: The patient was brought to the procedural suite and placed in the prone position. Patient was made comfortable with use of pillows under the head/chest, hips and ankles. Skin overlying the injection site was prepared broadly with ChloraPrep applicator and draped in a sterile manner. Aseptic technique was employed throughout. The endplates of the vertebral body at the site of interest were aligned in the AP view. Ipsilateral oblique angulation was utilized to better visualize the neuroforamen of interest. Local anesthesia was established by infiltration with approximately 5 mL of 2% lidocaine via a 1-1/2 inch 27-gauge needle. A 22-gauge 7.0 inch Quincke (no pencil point 7.0 inch available) spinal needle was advanced until the needle approached the 6 o'clock position on the pedicle just superior to the exiting nerve root. on the right at L4-5. Lateral view was utilized to confirm appropriate position of the needle tip within the superior and posterior portion of the respective foramen. In an AP view, 1 mL of Omnipaque 300 contrast medium was injected after negative aspiration for CSF, blood or other bodily fluid, showing appropriate neurogram without evidence of intravascular or intrathecal spread of contrast. Digital subtraction imaging was used with an additional 1ml of the same contrast medium to confirm absence of intravascular contrast spread. A 1mL solution containing 3 mg of betamethasone was injected after negative repeat aspiration. Appropriate spread of the injectate was confirmed with washout of previously injected contrast. No parasthesias were elicited. Needle was removed completely intact without difficulty. The same exact procedure was repeated for all remaining levels on the contralateral side, left L4-5 neuroforamen, modified as necessary to accommodate for the new target location with identical findings and results and no evidence of complication. Images were saved and documented in the patient chart. Patient's skin was cleaned and sterile bandage applied. The patient tolerated the procedure well. The patient was transported to the recovery area in stable condition where they were observed for an appropriate amount of time prior to discharge, without evidence of complication. The patient was instructed to avoid excessive activity for the next 48 hours, including climbing and frequent use of stairs. Showers only for 48 hours. They were instructed not to drive or operate heavy machinery for 24 hours. They are to monitor for severe headaches, fevers, chills, night sweats, erythema/swelling at the site or any other signs of infection, bleeding/bruising, bowel or bladder changes as well as new pain, weakness or numbness in the upper or lower extremity. Should they notice these changes, they are instructed to call our office immediately or report directly to the nearest Emergency Department if no answer or i
[2023-08-11 09:19] VITALS: BP 141/80; PULSE 85; RESP 17; O2SAT 97
[2023-08-11] MEDS: BETAMETHASONE SODIUM PHOSPHATE PF INJ 6 MG/ML VIAL INFILTRATE (09:27)
[2023-08-11 09:29] VITALS: BP 137/78; PULSE 81; RESP 17; O2SAT 95
[2023-08-11 09:35] VITALS: BP 105/74; PULSE 80; RESP 20; O2SAT 98
[2023-08-11] MEDS: LIDOCAINE HCL 2% PF INJ 5 ML VIAL 2 ML INFILTRATE (09:35)
[2023-08-11] MEDS: LIDOCAINE HCL 1% PF INJ 5 ML VIAL 3 ML XX (09:36)
== END 2023-08-11 09:55 | disposition home or self-care (01) ==
PROVIDERS: PCP Family Medicine; Visit Provider Anesthesiology Pain Medicine
PROC: (CPT 64483; principal; 2023-08-11 08:30)
DX: M54.16 Radiculopathy, lumbar region (principal)
CPT/HCPCS: 64483; 99199

== ENCOUNTER 2023-08-13 13:36 | Outpatient (CLI) | payer MEDICARE, OTHER, SELFPAY ==
--- NOTE | ~2023-08-13 | XR_ITS ---
Lumbosacral Spine: AP and lateral views Clinical History: Pain Findings: No acute fracture identified. There is 9 mm retrolisthesis of L2 over L3. There is 8mm ante rolisthesis of L4 over L5. There are mild degenerative disc changes throughout the lumbar spine. No d efinite instability on flexion or extension. There is moderate to advanced facet arthropathy from L2 through S1. The sacroiliac joints are normally outlined. Impression: 9 mm retrolisthesis of L2 over L3. 8 mm anterolisthesis of L4 over L5. [id number] degenerative spondylosis otherwise, as above. Reviewed, dictated and finalized at location M. Impression: 9 mm retrolisthesis of L2 over L3. 8 mm anterolisthesis of L4 over L5. [id number] degenerative spondylosis otherwise, as above.
== END 2023-08-13 13:37 | disposition home or self-care (01) ==
PROVIDERS: PCP Family Medicine; Visit Provider Neurological Surgery
DX: M48.062 Spinal stenosis, lumbar region with neurogenic claudication (principal); M43.06 Spondylolysis, lumbar region
CPT/HCPCS: 72110

== ENCOUNTER 2023-12-22 10:44 | Outpatient (CLI) | payer MEDICARE, SELFPAY ==
--- NOTE | ~2023-12-22 | MR_ITS ---
MRI of the left knee Clinical history: Swelling, mass Technique: Coronal proton density and proton density-weighted images, sagittal proton-density and T2 fat-sat images, and axial proton-density fat-saturated images were acquired. Findings: Anterior and posterior cruciate ligaments are intact. Medial collateral ligament and the la teral collateral ligament complex are intact. Popliteus tendon is intact. There is complex tearing of the anterior horn and body of the medial meniscus. No lateral meniscal te ar seen. There is patchy moderate chondromalacia patella. There is extensive moderate chondral thinning of the femoral trochlea. There is extensive moderate chondromalacia of the medial femoral condyle. There is mild chondromalacia the lateral compartment. Minimal osteophytes are present. Extensor mechanism is intact. Small joint effusion present. Minimal Dumas's cyst. Impression: Complex tearing of the anterior horn and body of the medial meniscus. Mild to moderate tricompartmental degenerative change, as above. Small joint effusion and minimal Dumas's cyst. Reviewed, dictated and finalized at location . Impression: Complex tearing of the anterior horn and body of the medial meniscus. Mild to moderate tricompartmental degenerative change, as above. Small joint effusion and minimal Dumas's cyst.
== END 2023-12-22 10:45 | disposition home or self-care (01) ==
PROVIDERS: PCP Family Medicine; Visit Provider Nurse Practitioner Family
DX: S83.232A Complex tear of medial meniscus, current injury, left knee, initial encounter (principal); M17.12 Unilateral primary osteoarthritis, left knee; M25.462 Effusion, left knee; M71.22 Synovial cyst of popliteal space [Baker], left knee; X58.XXXA Exposure to other specified factors, initial encounter
CPT/HCPCS: 73721

== ENCOUNTER 2024-02-05 12:35 | Outpatient (CLI) | payer OTHER, SELFPAY ==
[2024-02-05 13:16] LABS: Anion Gap 11 mmol/L (4-12); Blood Urea Nitrogen 16 mg/dL (9-20); Calcium 9.3 mg/dL (8.4-10.2); Carbon Dioxide 28 mmol/L (22-30); Chloride 98 mmol/L (98-107); Estimated Glomerular Filt Rate > 60; Glucose 99 mg/dL (65-110); Sodium 137 mmol/L (137-145)
== END 2024-02-05 12:36 | disposition home or self-care (01) ==
LOC: ANHLAB 12:38
PROVIDERS: PCP Family Medicine; Visit Provider Anesthesiology
DX: Z79.899 Other long term (current) drug therapy (principal)
CPT/HCPCS: 36415; 80048

== ENCOUNTER 2024-02-08 00:54 | Day surgery (SDC) | payer MEDICARE, OTHER, SELFPAY ==
[2024-01-29 10:23] VITALS: BMI 45.8
--- NOTE | 2024-01-29 10:33 | PC.NURSE ---
Report to the Outpatient Waiting Room, entrance under the green pavilion located off [facility], at time _1000_ on date _[id number]_. Planned Procedure Time: _1200_.? Time changes happen often and if your time is changed the preop area will call you the afternoon before. - You and your visitor will be asked to self-screen and do not enter if you have any COVID symptoms. Please call surgeon if you need to reschedule. - A mask is optional within the hospital at this time. Patients may have clear liquids (water, carbonated beverages, clear teas, apple juice) until 3 hours prior to surgery with a maximum of 20 ounces. - No food from midnight until time of surgery and no smoking Take only the following medications with a SIP of water on the morning of surgery: ____Nebivilol and if needed may take Gabapenting and or Tylenol DO NOT STOP ANY OF YOUR OTHER PRESCRIPTION MEDICATIONS PRIOR TO SURGERY EXCEPT THE FOLLOWING Medications to discontinue per physician ___Plavix and Aspirin_ Date to take last gkzm__[id number] Zusb stop all vitamins and fish oil on 02-05-2024_ Please no make-up, nail japanese, hairspray, perfume, deodorant, or body powder the day of surgery.? No jewelry (including any body piercings) or valuables the day of surgery, leave them at home.? Please take a shower or bath the night before, or the morning of, surgery with an antibacterial soap.? Wear comfortable, loose fitting clothing.? - Jewelry must be removed prior to entering the operating room.? Rings and piercings that are not removed may be cut off. - The hospital will not accept responsibility for valuables.? - Please leave all valuables, including medications, at home the day of surgery. If you are going home after surgery, a licensed van driver must drive you home.? - NO public transportation without another adult if you receive anesthesia. - We recommend that an adult stay with you for 24 hours following discharge. - We also recommend that you do not drive, make important decision, drink alcoholic beverages, or take any drugs that were not prescribed by your health care provider for at least 24 hours after your discharge time. Follow any additional instructions given to you from your surgeon. Telephone instructions given to __Gary__and asked if any additional questions and then verbalized understanding. Patient advised to call surgeon office or pre surgery nurse liaison [phone] if any additional questions.
--- NOTE | 2024-01-29 10:47 | PC.NURSE ---
Report to the Outpatient Waiting Room, entrance under the green pavilion located off [facility], at time _1000_ on date _[id number]_. Planned Procedure Time: _1200_.? Time changes happen often and if your time is changed the preop area will call you the afternoon before. - You and your visitor will be asked to self-screen and do not enter if you have any COVID symptoms. Please call surgeon if you need to reschedule. - A mask is optional within the hospital at this time. - No food or drink from midnight until time of surgery and no smoking Take only the following medications with a SIP of water on the morning of surgery: ___Nebivilol and if needed Gabapentin and or Tylenol____ DO NOT STOP ANY OF YOUR OTHER PRESCRIPTION MEDICATIONS PRIOR TO SURGERY EXCEPT THE FOLLOWING Medications to discontinue per physician ___Plavix and aspirin 02-01-2024 and also Vitamins and fish oil [phone] Please no make-up, nail tamazight, hairspray, perfume, deodorant, or body powder the day of surgery.? No jewelry (including any body piercings) or valuables the day of surgery, leave them at home.? Please take a shower or bath the night before, or the morning of, surgery with an antibacterial soap.? Wear comfortable, loose fitting clothing.? - Jewelry must be removed prior to entering the operating room.? Rings and piercings that are not removed may be cut off. - The hospital will not accept responsibility for valuables.? - Please leave all valuables, including medications, at home the day of surgery. If you are going home after surgery, a licensed laborer driver must drive you home.? - NO public transportation without another adult if you receive anesthesia. - We recommend that an adult stay with you for 24 hours following discharge. - We also recommend that you do not drive, make important decision, drink alcoholic beverages, or take any drugs that were not prescribed by your health care provider for at least 24 hours after your discharge time. Follow any additional instructions given to you from your surgeon. Telephone instructions given to ___Gary___and asked if any additional questions and then verbalized understanding. Patient advised to call surgeon office or pre surgery nurse liaison [phone] if any additional questions.
[2024-02-08] VITALS (8 sets, daily range): BP systolic 119–161; BP diastolic 65–94; PULSE 68–83; RESP 16–20; TEMP 36.4–36.8; O2SAT 95–100
--- NOTE | ~2024-02-08 | XR_ITS ---
EXAMINATION: XR fluoroscopy no charge DATE: 02/08/2024 12:34 INDICATION: Bilateral L3-L4 and L4-L5 minimally invasive lumbar decompression TECHNIQUE: 12 fluoroscopic images of the bar spine were obtained during procedure performed by Dr. Tali escalante. Radiologist was not present for the imaging or procedure. The amount of fluoroscopy time used dur ing this procedure was 3.3 minutes. Total DAP was 49.6 712 Gycm^2 COMPARISON: None. FINDINGS/IMPRESSION: Images demonstrate the distal tip of a rongeur advanced through a cannula projecting over the interla minar spaces bilaterally at L3-L4 and L4-L5. See procedure note for further detail. Reviewed, dictated and finalized at location B.
[2024-02-08] MEDS: LACTATED RINGERS 1,000 ML 30 ML IV CONT (10:30)
[2024-02-08 11:12] LABS: Anion Gap 10 mmol/L (4-12); Blood Urea Nitrogen 12 mg/dL (9-20); Calcium 9.3 mg/dL (8.4-10.2); Carbon Dioxide 30 mmol/L (22-30); Chloride 97 mmol/L (98-107); Estimated CRCL calculation 112 ml/min; Estimated Glomerular Filt Rate > 60; Glucose 104 mg/dL (65-110); Potassium 4.4 mmol/L (3.4-5.0); Sodium 137 mmol/L (137-145)
--- NOTE | 2024-02-08 11:30 | WPDANESEPPF ---
Anes - Initial Pre Proc Eval Procedure: Operation Date: 02/08/24 12:00 Proposed Procedures p Bilateral L3-4, L4-5 Minimally Invasive Lumbar Decompression Under Fluoroscopic Guidance, Possible Epidurogram - Bobby Heart MD Date/Time: 02/08/24 11:30 Surgeon: Bobby Heart MD Pre Op Diagnosis: spinal stenosis Patient Data Age: 58 Gender: M Height: 1.78 m Weight: 145 kg Allergies Allergy/AdvReac Type Severity Reaction Status Date / Time No Known Allergies Allergy Verified 02/08/24 11:26 Home Medications Medication Instructions Recorded Confirmed Type fenofibrate 50 mg capsule 50 mg PO DAILY 05/02/19 01/29/24 History icosapent ethyl 1 gram capsule 2 gm PO BID 05/02/19 01/29/24 History (Vascepa) cholecalciferol (vitamin D3) 125 5,000 unit PO DAILY 05/03/19 01/29/24 History mcg (5,000 unit) tablet acetaminophen 650 mg 650 mg PO Q8H PRN pain #7 tabs 01/15/20 01/29/24 Rx tablet,extended release (Tylenol Arthritis Pain) clopidogrel 75 mg tablet (Plavix) 75 mg PO DAILY 10/15/20 02/08/24 History rosuvastatin 40 mg tablet See Rx Instructions .Route 02/04/21 01/29/24 Rx .COMPLEX #90 tabs albuterol sulfate 90 mcg/actuation 1 puff inhalation Q4H PRN 06/28/21 01/29/24 Rx aerosol inhaler shortness of breath or wheezing #8.5 grams aspirin 81 mg chewable tablet 81 mg PO DAILY 08/30/21 02/08/24 History (Aspirin Childrens) losartan 50 mg tablet 50 mg PO DAILY 10/14/21 01/29/24 History cyclobenzaprine 10 mg tablet 10 mg PO TID PRN muscle spasm #30 11/20/21 01/29/24 Rx tabs celecoxib 100 mg capsule (Celebrex) 100 mg PO BID #180 caps 10/01/23 01/29/24 Rx furosemide 20 mg tablet 20 mg PO DAILY 12/07/23 01/29/24 History nebivolol 20 mg tablet 20 mg PO DAILY 12/07/23 01/29/24 History gabapentin 300 mg capsule 300 mg PO TID PRN Pain 01/29/24 01/29/24 History Laboratory Tests 02/08/24 10:44 Sodium 137 mmol/L (137-145) Potassium 4.4 mmol/L (3.4-5.0) Chloride 97 L mmol/L (98-107) Carbon Dioxide 30 mmol/L (22-30) Anion Gap 10 mmol/L (4-12) BUN 12 mg/dL (9-20) Creatinine 0.90 mg/dL (0.7-1.3) Estim Creat Clear Calc 112 ml/min Estimated GFR > 60 (59 - ) Glucose 104 mg/dL (65-110) Calcium 9.3 mg/dL (8.4-10.2) Patient hx anesthesia problems: none Family hx anesthesia problems: none Results Review: All pre-operative results and documents have been reviewed as part of the pre-operative evaluation. [facility] Past Medical History Medical History Abdominal pain Arthritis Atherosclerosis of abdominal aorta Bilateral primary osteoarthritis of knee BMI 38.0-38.9,adult BMI 50.0-59.9, adult Bulging discs CAD (coronary artery disease) Central stenosis of spinal canal Colonoscopy planned Conjunctivitis Costochondritis Degenerative disc disease Elevated glucose Elevated WBC count Epidural lipomatosis Essential hypertension Ganglion cyst Heart attack High cholesterol IBS (irritable bowel syndrome) Left knee DJD Mass of left knee Microscopic colitis Mixed hyperlipidemia Morbidly obese Numbness Obesity Obesity, morbid, BMI 40.0-49.9 Osteoarthritis, knee Osteoporosis Pain in left knee Pain in right knee Pain of left calf Rib pain Right flank pain Right knee DJD Screening for thyroid disorder Swelling of left lower extremity Tobacco dependence Wears glasses Weight gain Surgical History Surgical History History of appendectomy History of coronary artery stent placement x4 2017 Family History Family History Father Family history of diabetes mellitus in first degree relative Family history of heart disease in male family member before age 55 Heart disease Cerebrovascular accident Mother Family history of malignant neoplasm of breast in
--- NOTE | 2024-02-08 11:37 | PM.HPGS ---
History of Present Illness History of Present Illness Consent: Risks, benefits, and alternatives have been discussed and questions answered. Patient agrees to proceed with procedure. Chief complaint: spinal stenosis Narrative: Gary Carrero is a 58 year old male with chronic, recalcitrant and disabling bilateral lumbosacral spinal stenosis with neurogenic claudication secondary to degenerative spondylosis and ligamentum flavum hypertrophy with failure to respond to aggressive conservative measures including PT, oral and topical analgesics, opioid and nonopioid analgesics, rest, time and activity/behavioral modification over the past 1-2 years who presents for bilateral L3-4, L4-5 minimally invasive lumbar decompression with possible epidurogram under fluoroscopic guidance. Review of Systems Review of Systems: Patient denies any new infectious, allergic, cardiopulmonary, neurologic or constitutional symptoms or changes in activity tolerance or exercise capacity including new or progressive SOB/FREEMAN, peripheral edema, productive cough, dysuria, nausea/vomiting, diarrhea, weight change, fevers/chills/night sweats, new or progressive neurologic deficit, cognitive or mood changes since last seen, except as documented in the HPI. All systems reviewed & are unremarkable except as noted in HPI and below PMFSH Past Medical History Medical History Abdominal pain Arthritis Atherosclerosis of abdominal aorta Bilateral primary osteoarthritis of knee BMI 38.0-38.9,adult BMI 50.0-59.9, adult Bulging discs CAD (coronary artery disease) Central stenosis of spinal canal Colonoscopy planned Conjunctivitis Costochondritis Degenerative disc disease Elevated glucose Elevated WBC count Epidural lipomatosis Essential hypertension Ganglion cyst Heart attack High cholesterol IBS (irritable bowel syndrome) Left knee DJD Mass of left knee Microscopic colitis Mixed hyperlipidemia Morbidly obese Numbness Obesity Obesity, morbid, BMI 40.0-49.9 Osteoarthritis, knee Osteoporosis Pain in left knee Pain in right knee Pain of left calf Rib pain Right flank pain Right knee DJD Screening for thyroid disorder Swelling of left lower extremity Tobacco dependence Wears glasses Weight gain Surgical History Surgical History History of appendectomy History of coronary artery stent placement x4 2017 Family History Family History Father Family history of diabetes mellitus in first degree relative Family history of heart disease in male family member before age 55 Heart disease Cerebrovascular accident Mother Family history of malignant neoplasm of breast in first degree relative Breast cancer Sibling Hyperlipidemia Other Arthritis Diabetes mellitus Family history of cardiovascular disease Hypertension Social History Social History Smoking packs per day: 1 Smoking cigarettes per day: 20.0 Years smoked: 30 Smoking pack-years: 30.00 Smoking status: Current every day smoker Tobacco type: cigarettes Second hand tobacco smoke exposure: No Smoking end date: 03/03/19 Additional smoking assessment comments: Down to 2 or 3 cigarettes a day. Alcohol intake: current Drinks per week: 14 Alcohol use details: 4 per day Substance use: never Substance use type: does not use Do You Feel Safe in your Home?: Yes Lack of Transportation: No Lack of Food: Never True Current Housing: I Have Housing Concerned About Future Housing: No Difficulty Paying Gas/Electric Bills: No Difficulty Paying for Meds: No Currently Unemployed: No Education: High School Diploma/GED Living arrangements: with family Occupation/Education: other Additional occupation/education comments: [employer]
[2024-02-08] MEDS: ceFAZolin 3 GM/D5W 100 ML 100 ML IVPB (11:46)
--- NOTE | 2024-02-08 11:46 | WPDHPUPDATE1 ---
History and Physical Update Update Date/Time: 02/08/24 11:46 History and Physical has been reviewed, including an updated exam of the patient. There are NO changes in the patient's condition. Risks, benefits, and alternatives have been discussed and questions answered. Patient agrees to proceed with procedure.
--- NOTE | 2024-02-08 11:46 | W.PM.PROC2 ---
Procedure Note - Detailed Date of Procedure 02/08/24 Pre-op Diagnosis lumbar spinal stenosis with neurogenic claudication. Post-op Diagnosis Same Procedure Performed Bilateral Minimally Invasive Lumbar Decompression (MILD) at L3-4, L4-5 under Fluoroscopic Guidance. Surgeon Bobby Heart MD [employer] None Anesthesia Other ([Moderate IV sedation/MAC] with local anesthetic infiltration in the prone position) Description of Procedure INFORMED CONSENT: Risks, benefits, and alternatives to the procedure were discussed in detail with the patient who expressed explicit understanding and consent to proceed. Risks discussed with the patient included but were not limited to risk of serious local or systemic infection, bleeding/bruising, epidural hematoma, dural puncture or tear resulting in CSF leak and acute or chronic post-dural puncture headache, scarring/deformity, immediate or delayed allergic reaction, decreased mobility, failure to treat pain, inadvertent neurologic injury resulting in increased pain, weakness/paralysis or numbness, inadvertent organ injury, need for additional surgery, allergic reaction, heart attack, stroke, seizure, coma, . Anesthetic risks were also briefly discussed by myself and the car retarder operator. The patient expressed understanding and consent to proceed, agreeing that potential benefits outweigh risk of harm. All materials required for the procedure were immediately available prior to procedure start. Site and side were confirmed with the patient, compared carefully to the patient chart and consent, and marked prior to transport to the operating room. Appropriate time out procedure was performed per protocol prior to procedure start. PROCEDURE IN DETAIL: The patient was brought to the operative suite and placed in the Supine position. Appropriate ASA standard monitors were attached. Anesthesia was initiated without difficulty or event. Eyes were protected. Patient was transitioned to the prone position. Pressure points were padded with joints in neutral position. When appropriate, breasts and genitals were evaluated and protected. Eyes were checked and were free from undue pressure. Skin overlying the procedure site was marked with sterile marker. Surgical area was prepared in a typical sterile fashion with ChloraPrep and allowed to dry for at least 3 minutes prior to sterilely draping the surgical site. The lumbar spine was identified in the AP fluoroscopic view with slight cephalad tilt perfectly aligning the endplates at the targeted levels with spinous processes bisecting the transpedicular plane. After identifying the intended incision site approximately 1.5 levels inferior to the level of interest, the area was anesthetized by infiltration with no more than 10ml of a 1:1 admixture of 0.5% PF bupivacaine with epinephrine and 2% PF lidocaine with epinepherine via a 27-gauge needle after negative aspiration. A 22-gauge spinal needle was used to provide additional and adequate local anesthesia to the level of the interspinous ligament, ligamentum flavum and the periosteum of the lamina at the intended treatment levels. In the AP view, a #11 scalpel blade was used to create a single stab incision at the intended incision site on the targeted side. The Vertos MILD kit was opened and the included cannula and trocar assembly was advanced through the incision to contact the midportion of the right lamina just adjacent to the spinous process at L5. Once seated, the lateral view was used to gauge depth demonstrating the most anterior tip of the trocar posterior to the epidural space at all times. The turbine assembler-provided cannula stabilizer was placed over the trocar flush to the patient's lumbar flank. Cannula obturator with handle was removed. Included depth guide was then attached to the insertion port on the cannula and set to an intitial depth of 15 mm. The bone rongeur was advanced to the depth of the lumbar lamina at the
[2024-02-08] MEDS: BUPIVACAINE/EPINEPHRINE 0.5% 50 ML VIAL 10 ML INFILTRATE (12:10)
[2024-02-08] MEDS: LIDOCAINE HCL 1% LOCAL INJ 20 ML VIAL 10 ML INFILTRATE (12:11)
== END 2024-02-08 14:20 | disposition home or self-care (01) ==
PROVIDERS: Anesthesiology; PCP Family Medicine; Visit Provider Anesthesiology Pain Medicine
PROC: (CPT 0275T; principal; 2024-02-08 12:00)
DX: M48.062 Spinal stenosis, lumbar region with neurogenic claudication (principal); I10 Essential (primary) hypertension; K58.9 Irritable bowel syndrome, unspecified; E78.2 Mixed hyperlipidemia; M17.0 Bilateral primary osteoarthritis of knee; M81.0 Age-related osteoporosis without current pathological fracture; I25.2 Old myocardial infarction; I25.10 Atherosclerotic heart disease of native coronary artery without angina pectoris; G89.29 Other chronic pain; F17.210 Nicotine dependence, cigarettes, uncomplicated; E66.01 Morbid (severe) obesity due to excess calories; Z68.43 Body mass index [BMI] 50.0-59.9, adult; Z79.02 Long term (current) use of antithrombotics/antiplatelets; Z79.51 Long term (current) use of inhaled steroids; Z79.82 Long term (current) use of aspirin; Z79.1 Long term (current) use of non-steroidal anti-inflammatories (NSAID); Z98.890 Other specified postprocedural states; Z95.5 Presence of coronary angioplasty implant and graft; Z80.3 Family history of malignant neoplasm of breast; Z82.49 Family history of ischemic heart disease and other diseases of the circulatory system; Z00.6 Encounter for examination for normal comparison and control in clinical research program
CPT/HCPCS: 0275T; 36415; 80048; 99199; C1889; J0690; J7120; Q9965

== ENCOUNTER 2024-06-21 14:15 | Outpatient (RCR) | payer MEDICARE, MEDICAID, SELFPAY ==
--- NOTE | 2024-04-26 13:27 | OPREHPOC ---
Outpatient Therapy Plan of Care This is a Multidisciplinary Plan of Care that may contain components documented by all disciplines (PT, OT, and ST.) PT Problem 1 PT Problem #1 Knowledge Deficit PT Goal 1 Goal / Goal Update *indep with HEP for land and water Target Visit 8 PT Problem 2 PT Problem #2 Pain PT Goal 1 Goal / Goal Update * report pain rating at worst of 8/10 Target Visit 8 PT Goal 2 Goal / Goal Update * self assessment Oswestry rating of 48% limitation in activity level Target Visit 8 PT Problem 3 PT Problem #3 Impaired Functional Mobility PT Goal 1 Goal / Goal Update * maximum walking distance of 250' with cane Target Visit 8 PT Goal 2 Goal / Goal Update * able to go up/down 8 steps with alternating step pattern and one hand railing. Target Visit 8 PT Problem 4 PT Problem #4 Impaired Strength PT Goal 1 Goal / Goal Update * pt able to perform 40 minutes of aquatic exercises Target Visit 8 PT Goal 2 Goal / Goal Update *progression to land exercises and strengthening as tolerated Target Visit 8
--- NOTE | 2024-04-26 13:27 | PTOPEVAL1 ---
Assessment and note entered by Luann Sterling, PT Evaluation Information Assessment Status Evaluation ICD-10 Condition Codes (PT) Pain in low back M54.50,M54.16,R26.9,Weakness R53. 1 Other ICD-10 Condition Codes ( spinal stenosis M 48.062 PT) Onset Jun 2023 Subjective Information chronic issues with back pain, have had for about 5 years, keeps getting worse; 02-08-24: had MILD L 3-4, L 4-[address] Murray-- did not help his pain; have seen ortho dr about knee pain-- have injections, help few months; is not TKR candidate due to cardiac issues; previous PT for back, at another facility- had stim, heat, massage- helped when on but not last; sitting exercises; Activity: use cane when going out in community, do not use in home; indep with bathing, dressing, use motorized cart in shopping store; live with his parents; not working outside of home. Reported Pain Level Pain Score Self Report Additional Pain Score Comments pain range in the past week 0-10/10; radicular to R and L LE, intermittent whole leg ; with standing and walking too long--varies few minutes to 10 minutes, both legs go numb and cannot feel them. with sitting, varies 20- 60 minutes increase pain: standing, walking decrease pain: sit, lie down; gabapentin 2-3x/day tylenol arthritis & muscle relaxers--PRN report sleeping, pain does not wake him up; Assessment PT Clinical Summary Gary has the diagnosis of spinal stenosis, back pain, radicular pain--intermittent into both legs. Oswestry self assessment rating of 56% limitation in activity level. He reports decreased walking, sitting, standing tolerances due to pain. His goal is to be able to walk more and go up/down stairs easier--his bedroom is on the second floor of home. Medical history includes bilateral knee osteoarthritis--gets injections; coronary stents, obesity, MILD of L 3-4 and L 4-5 in Jan. With the evaluation: standing tolerance about 30 seconds, supine tolerance about 1 minute and walking with cane 150'- then had to sit down due to pain. Unable to obtain a full assessment of strength and ROM due to limited activity tolerance Skilled PT services are indicated for modalities to decrease pain; aquatic and land exercises to increase strength and mobility skills, with education for HEP and posture correction. Plan of Care Interventions Aquatic Therapy,Electrical Stimulation,Gait Training,Hot Pack/Cold Pack,Manual Therapy,Neuro Re-education,Patient/Caregiver Education,Therapeutic Activities,Therapeutic Exercise,Ultrasound PT Services Indicated Yes Treatment Frequency and 2x/wk for 8 visits Duration These treatments will address the objective and functional deficits as defined above. The patient will be advanced safely and appropriately in order for the patient to progress towards his/her prior level of function. Additional exercises will be introduced and as well as a comprehensive home exercise program upon discharge, if needed, ?to ensure carryover of functional gains achieved in the clinic. This treatment plan has been reviewed and agreement upon by the patient.
--- NOTE | 2024-05-23 15:28 | PCPTNOTE ---
pt called and canceled appointment due to his father passed.
--- NOTE | 2024-06-03 09:07 | PCPTNOTE ---
pt canceled due to weather
--- NOTE | 2024-07-15 11:40 | PTOPDC ---
Assessment and note entered by Luann Sterling, PT Assessment Status Discharge - Pt Not Present ICD-10 Condition Codes (PT) Pain in low back M54.50,Radiculopathy, lumbar region M54.16,Abnormalities of gait and mobility R26.9,Weakness R53.1 Other ICD-10 Condition Codes ( spinal stenosis M 48.062 PT) Onset Jun 2023 Subjective Information pt was not seen this date. Assessment PT Clinical Summary Gary has received 2 PT sessions in April. He called and canceled 5 appointments due to bad weather and illness. Discharge PT services. The goals were not assessed. Plan of Care PT Services Indicated No
== END 2024-07-15 16:16 | disposition home or self-care (01) ==
LOC: ANHPT 14:15
PROVIDERS: PCP Family Medicine; Visit Provider Anesthesiology Pain Medicine
DX: M48.062 Spinal stenosis, lumbar region with neurogenic claudication (principal); M54.16 Radiculopathy, lumbar region; M47.817 Spondylosis without myelopathy or radiculopathy, lumbosacral region; M54.9 Dorsalgia, unspecified
CPT/HCPCS: 97113; 97161; 97530

== ENCOUNTER 2024-10-03 09:54 | Emergency (ER) | payer OTHER, SELFPAY ==
--- OUTSIDE RECORDS SUMMARY | 2024-10-03 10:01 | XMS_ITS | Clinical Summary ---
Author Organization [facility] Address [address] [place] [id number] Care Team Providers Care Financial Services Specialist Name Role Phone Yemi Bay MD Primary Care Provider [phone] Social History Tobacco Use Types Packs/Day Years Used Date Smoking Tobacco: Never Assessed Sex and Gender Information Value Date Recorded Sex Assigned at Not on file Legal Sex Male 5:16 PM CDT Gender Identity Not on file Sexual Orientation Not on file Plan of Treatment Upcoming Encounters Date Type Department Care Team (Late st Contact Info) Description 10/07/2024 12:30 PM CDT Office Visit [facility] [id number] Jorge Arshad MD [facility] [address] [place] [phone] Health Maintenance Due Date Last Done Comments Colorectal Cancer Screening Colonoscopy (10 Years) 1964 Annual Physical 1967 Hepatitis C 1982 DTaP, Tdap and Td Vaccines ( 1 - Tdap) 1983 Pneumococcal Vaccine: 50+ Years (1 of 1 - PCV) 2014 Zoster Vaccines (1 of 2) 2014 021, 01/05/2021 COVID-19 Vaccine ( - 2023-2 5 season) 2024 02/10/2022, 09/16/2021 RSV Immunization or 60+ Years (1 - 1-dose 75+ series) 2039 Meningococcal B Vaccine Aged Out No l onger eligible based on patient's age to complete this topic Meningococcal Vaccine Aged Out No alphonso jeremy eligible based on patient's age to complete this topic RSV Immunizations Under 20 Months Aged Out No longer eligible b ased on patient's age to complete this [place] [id number] FOREST Care Teams Financial Services Specialist Relationship Specialty Start Date End Date Yemi Bay MD [address] [place], [place] [phone] PCP - General FAMILY PRACTICE 07/08/24
--- OUTSIDE RECORDS SUMMARY | 2024-10-03 10:01 | XMS_ITS | Data Portability ---
Author Organization [email or web address], Main Office Address [address] [place] [address] Assessment Encounter Date Assessment Date Assessment LastModified by Organization Details LastModified Time 11/05/2022 11/05/2022 Will have labs done in Dec 2022 prior to echo. Cardiology dimmet. Not available 11/05/2022 16:14:16 01/14/2023 01/14/2023 Will have labs done in Dec 2022 prior to echo. Cardiology Dimmet. Not available 01/14/2023 11:26:21 04/01/2023 04/01/2023 Will have labs done in Dec 2022 prior to echo. Cardiology Dimmet. Not available 04/01/2023 16:09:28 Plan of Treatment Reminders Order Date Submit Date Provider Last Modified By Organization Details Last Modified Time Details Appointments None recorded. Lab urinalysis, dipstick 2022 023 [facility], [address] [place] [address], [id number], 16:07:10 Referral physical therapist referral - Lower back pain, into bilateral legs. Not sure he can tolerate, but can't get MRI until he tries (or fails) PT 2022 023 [facility], [address], [place], [address], 3 16:46:37 Procedures None recorded. Surgeries None recorded. Imaging MRI, lumbar spine, w/o contrast - 336 lbsHx severe spondylosis lumbar and central canal stenosis. Last MRI lumbar 10/2020 to compare was done at [facility]. 2022 023 [facility], [address], [place], [address], 13:08:10 Medication Orders Chantix Starting Month Box 0.5 mg (11)-1 mg (42) tablets in dose pack 2022 023 [facility] [place], [address], 16:12:10 Patient TargetsNo targets recorded. Patient Instructions Encounter Date Encounter Id Patient Instructions Last Modified By Organization Details Last Modified Time 11/05/2022 [id number] 5 mo fu lumbar back, weight, htn, lipid, smoking, vit d def. Not available 11/05/2022 16:18:41 01/14/2023 [id number] Fu in March or routine check up. Not available 01/14/2023 11:34:43 04/01/2023 [id number] FU in 4-6 mo lumbar stenosis, osteoarthritis, tobacco use, morbid obese, vit d def, hx [place] with 4 stents, HTN, Hyperlipidemia Not available 04/01/2023 16:15:07 Reason for Referral Physical Therapist Referral for Degeneration of lumbar intervertebral disc Lower back pain, into bilateral legs. Not sure he can tolerate, but can't get MRI until he tries (or fails) PT Referring Physician: Frida Banegas, Family Medicine, Encounter Date: 11/05/2022 Results Created Date Observation Date Name Description Value Unit Range Abnormal Flag Note LastModifiedBy Organization Detail LastModifiedTime 08/01/1907/31/2022 urina lysis , dipst ick Leukocytes (reference range: negative thien/ l) Negati ve Not Available [facility] [address], [place], [address], 07/31/2022 14:31:46 08/01/1907/31/2022 urina lysis , dipst ick Nitrite (reference rage: negative mg/dl) negati ve Not Available [address], [address], 07/31/2022 14:31:46 08/01/1907/31/2022 urina lysis , dipst ick Urobilinogen (reference range: 0.2-1 mg/dl) 4 Not Available [address], [address], 07/31/2022 14:31:46 08/01/1907/31/2022 urina lysis , dipst ick Protein (reference range: negative mg/dl) Trace Not Available [address], [address], 07/31/2022 14:31:46 08/01/1907/31/2022 urina lysis , dipst ick pH (reference range: 5-7) 6.5 Not Available [address], [address], 07/31/2022 14:31:46 08/01/1907/31/2022 urina lysis , dipst ick Blood (reference range: negative Adrian/ l) Non-He molyze d: Trace Not Available [address], [address], 07/31/2022 14:31:46 08/01/1907/31/2022 urina lysis , dipst ick Specific [place] (reference range: 1.005-1.030) 1.015 Not Available [address], [address], 07/31/2022 14:31:46 08/01/19 23 07/31/2022 urina lysis , dipst ick Ketone (reference range: negative mg/dl) Trace Not Available [address], [address], 07/31/2022 14:31:46 08/01/19 23 07/31/2022 urina lysis , dipst ick Bilirubin (reference range: negative mg/dl) Small Not Available [address], [address], 07/31/2022 14:31:46 08/01/19 23 07/31/2022 urina lysis , dipst ick Glucose (reference range: negative mg/dl) Negati ve Not Available [address], [address], 07/31/2022 14:31:46 08/01/19 23 07/31/2022 urina lysis , dipst ick Appearance Clear Not Available [address], [address], 07/31/2022 14:31:46 08/01/19 23 07/31/2022 urina lysis , dipst ick Color Yellow Not Available [address], [address], 07/31/2022 14:31:46 07/26/19 23 07/25/2022 CT, abdom en + pelvi s, w/o contr ast No observ ation record ed. [address], [place], [address], 07/25/2022 18:20:04 09/05/19 23 09/04/2022 CT, pelvi s, w/o contr ast No observ ation record ed. [place] [id number] [address], [place], [address], 09/05/2022 07:59:11 01/24/20 23 01/23/2023 MRI, lumba r spine , w/o contr ast No observ ation record ed. [facility] [address], [place], [address], 04/01/2023 16:14:30 11/20/19 24 11/18/2023 home sleep study No observ ation record ed. [email or web address] [facility] [address], [place], [address], 11/23/2023 13:25:03 Result Notes None recorded. Problems Name Problem SNOMED Code Status Onset Date Resolution Date Notes Provider Name and Address Organization Details Recorded Time Bilateral arthritis of knees 238138278353 9108 Active 2021 Not Available [facility] 3 23:11:40 Tobacco user 637980884 Active 2021 Not Available [facility] 3 23:11:40 Cataract 004565306 Active 2021 Not Available [facility] 3 23:11:40 Myocardial infarction 16713899 Active 2021 7 had 4 stints Not Available [facility] 3 23:11:40 Microscopi c colitis 994016301 Active 2021 Not Available [facility] 3 23:11:41 Morbid obesity 002185252 Active 2021 Not Available [facility] 3 23:11:41 Chronic low back pain 532803457 Active 2021 Not Available [facility] 3 23:11:41 Osteoarthr itis of left knee joint 338269462617 109 Active 2021 Not Available [facility] 3 23:11:41 Osteoarthr itis of right knee joint 758473025615 100 Active 2021 Not Available [facility] 3 23:11:41 Vitamin D deficiency 55812194 Active 2021 Not Available [facility] 3 23:11:41 Hypertensi ve disorder 56523864 Active 2021 Not Available [facility] 3 23:11:41 Osteoarthr itis 208937883 Active 2021 Not Available [facility] 3 23:11:41 History of myocardial infarction 956104570 Active 2021 Not Available [facility] 3 23:11:41 Obesity 316410772 Active 2021 Not Available [facility] 3 23:11:41 Epidural lipomatosi s 948869253 Active 2021 Not Available [facility] 3 23:11:41 History of percutaneo us translumin al coronary angioplast y 144493319 Active 2021 Not Available [facility] 3 23:11:41 Pain of bilateral knee joints 250683758923 104 Active 2021 Not Available [facility] 3 23:11:42 Essential hypertensi on 09353195 Active 2021 Not Available [facility] 3 23:11:42 Chronic bronchitis 34818587 Active 2021 Not Available [facility] 3 23:11:42 Smoker 30476638 Active 2021 Not Available [facility] 3 23:11:42 Kidney stone 28065078 Active 2022 Frida Banegas NP [address], [address], [place], [address] , [employer] 3 14:16:52 Degenerati on of lumbar interverte bral disc 11438900 Active 2022 Frida Banegas NP [address], [address], [place], [address] , [employer] 3 15:58:56 Hyperlipid emia 06518500 Active 2022 Frida Banegas NP [address], [address], [place], [address] , [employer] 3 16:09:53 Problem Notes None recorded. Procedures Surgical History Date Name Laterality Status Provider Name and Address Organization Details Recorded Time colonoscopy completed Not Available [facility] 07/23/2022 23:10:48 [facility]end[facility] completed [facility] 23:10:48 Knee arthroscopy/surge ry completed Not Available [facility] 07/23/2022 23:10:48 procedure on heart completed Not Available [facility] 07/23/2022 23:10:48 Imaging Results Imaging Date Name Status LastModified by Organiz ation Details LastModified Time 07/25/2022 CT, abdomen + pelvis, w/o contrast completed [address], [address], 07/25/2022 18:20:04 09/04/2022 CT, pelvis, w/o contrast completed [address], [address], 09/05/2022 07:59:11 01/23/2023 MRI, lumbar spine, w/o contrast completed [address], [address], 04/01/2023 16:14:30 11/18/2023 home sleep study completed [id number] [address], [place], [address], 11/23/2023 13:25:03 Procedure Notes None recorded. Medical Equipment None Reported. Allergies No known drug allergies Medications Name Sig Start Date Stop Date Status Note LastModified by Organization Details LastModified Time losartan 50 mg tablet TAKE 1 TABLET BY MOUTH ONCE DAILY 12/25 completed cardiolo gy Not Available Not Available Not Available cyclobenz aprine 10 mg tablet TAKE 1 TABLET BY MOUTH 3 TIMES A DAY NEEDED FOR MUSCLE SPASMS active Not Available Not Available No t Available carvedilo l 25 mg tablet TAKE 1 TABLET BY MOUTH TWICE DAILY active Not Available Not Available No t Available nicotine 14 mg/24 hr daily transderm al patch Apply 1 patch every day by transder mal route as directed for 30 days. 05/07 completed Not Available Not Available Not Available sulfasala zine 500 mg tablet Take 2 tablets 3 times a day by oral route with meals for 90 days. 07/10 completed Not Available Not Available Not Available azithromy barry 250 mg tablet TAKE 2 TABLETS BY MOUTH TODAY, THEN TAKE 1 TABLET DAILY FOR 4 DAYS 12/04 completed Not Available Not Available Not Available ofloxacin 0.3 % eye drops INSTILL 1 DROP THREE TIMES DAILY INTO SURGICAL EYE BEGINNIN G 2 DAYS PRIOR TO SURGERY 05/07 completed Not Available Not Available Not Available hydrocodo ne 5 mg-acetam inophen 325 mg tablet TAKE 1 TABLET BY MOUTH EVERY 8 HOURS NEEDED FOR PAIN 11/05 completed Not Available Not Available Not Available clopidogr el 75 mg tablet TAKE 1 TABLET BY MOUTH ONCE DAILY active Not Available Not Available No t Available amlodipin e 5 mg tablet TAKE 1 TABLET BY MOUTH EVERY DAY 05/07 completed Not Available Not Available Not Available spironola ctone 25 mg tablet TAKE 1 TABLET BY MOUTH ONCE DAILY active Not Available Not Available No t Available fenofibra te micronize d 134 mg capsule Take 1 capsule every day by oral route. 11/05 completed Not Available Not Available Not Available ketorolac 0.5 % eye drops INSTILL ONE DROP INTO THE SURGICAL EYE FOUR TIMES DAILY. TO BEGIN TWO DAYS PRIOR TO SURGERY 12/06 completed Not Available Not Available Not Available meloxicam 7.5 mg tablet Take 1 tablet every day by oral route as needed for 30 days. 05/07 completed Take with food. Not Available Not Available Not Available prednisol one acetate 1 % eye drops,[employer] INSTILL ONE DROP INTO THE SURGICAL EYE THREE TIMES DAILY. TO BEGIN AFTER SURGERY 05/07 completed Not Available Not Available Not Available methocarb felix 750 mg tablet TAKE 1 TABLET BY MOUTH 4 TIMES DAILY 05/07 completed Not Available Not Available Not Available Kenalog 10 mg/mL suspensio n for injection In office injectio n administ ered by the provider 12/06 completed [facility]: [id number] 20 Not Available Not Available Not Available erythromy barry 5 mg/gram (0.5 %) eye ointment APPLY 0.5 INCH EACH EYE TWICE DAILY. active Not Available Not Available No t Available lidocaine 5 % topical patch 11/05 completed Not Available Not Available Not Available gabapenti n 300 mg capsule TAKE 1 CAPSULE BY MOUTH THREE TIMES DAILY FOR PAIN 2022 active Not Available Not Available Not Avai lable hydrochlo rothiazid e 25 mg tablet Take 1 tablet every day by oral route. 07/31 completed Not Available Not Available Not Available budesonid e DR - ER 3 mg capsule,d elayed,ex tended release TAKE 3 CAPSULES BY MOUTH DAILY 04/01 completed Not Available Not Available Not Available cefuroxim e axetil 500 mg tablet TAKE 1 TABLET BY MOUTH EVERY 12 HOURS FOR 10 DAYS 12/06 completed Not Available Not Available Not Available methylpre dnisolone 4 mg tablets in a dose pack TAKE BY MOUTH DIRECTED ON INSIDE OF PACKAGE 07/10 completed Not Available Not Available Not Available albuterol sulfate HFA 90 mcg/actua tion aerosol inhaler INHALE 1 PUFF BY MOUTH EVERY 4 HOURS NEEDED FOR SHORTNES S OF BREATH OR WHEEZING 2022 active Not Available Not Available Not Avai lable celecoxib 100 mg capsule Take 1 capsule by mouth twice daily active Not Available Not Available No t Available losartan 100 mg tablet TAKE 1 TABLET BY MOUTH ONCE DAILY active Not Available Not Available No t Available spironola ctone 50 mg tablet TAKE 1 TABLET BY MOUTH EVERY DAY 05/07 completed Not Available Not Available Not Available Mapap Arthritis Pain 650 mg tablet,ex tended release TAKE 1 TABLET BY MOUTH EVERY 8 HOURS NEEDED FOR PAIN 12/04 completed Not Available Not Available Not Available cholestyr amine (with sugar) 4 gram oral powder PLEASE SEE ATTACHED FOR DETAILED DIRECTIO NS 12/04 completed Not Available Not Available Not Available rosuvasta tin 40 mg tablet TAKE 1 TABLET BY MOUTH ONCE DAILY active Not Available Not Available No t Available ORTHOVISC 30 mg/2 mL intra-art icular syringe Injectio ns given in the office by the doctor. 09/02 completed [facility]: [id number] 001 Not Available Not Available Not Available losartan 100 mg-hydroc hlorothia zide 12.5 mg tablet TAKE 1 TABLET BY MOUTH EVERY DAY 07/31 completed Not Available Not Available Not Available lidocaine (PF) 10 mg/mL (1 %) injection solution In office injectio n administ ered by the provider 12/06 completed [facility]: [id number] 11-08 Not Available Not Available Not Available varenicli ne tartrate 1 mg tablet TAKE 1 TABLET BY MOUTH TWICE DAILY 04/01 completed Not Available Not Available Not Available varenicli ne tartrate 0.5 mg tablet TAKE 1/2 (ONE-HAROLDO F) TABLET BY MOUTH ONCE DAILY FOR 3 DAYS, THEN TAKE ONE HALF TABLET TWICE DAILY FOR 4 DAYS. CONTINUE ON 1 MG DOSE 09/02 completed Not Available Not Available Not Available fenofibra te nanocryst allized 145 mg tablet TAKE 1 TABLET BY MOUTH ONCE DAILY active Not Available Not Available No t Available mesalamin e 1.2 gram tablet,de layed release Take 2 tablets every day by oral route in the morning for 90 days. 07/31 completed Not Available Not Available Not Available fenofibri c acid (choline) 135 mg capsule,d elayed release TAKE 1 CAPSULE BY MOUTH EVERY DAY 04/01 completed Not Available Not Available Not Available Apriso 0.375 gram capsule,e xtended release Take 4 capsules every day by oral route in the morning. 07/10 completed Not Available Not Available Not Available Suprep Bowel Prep Kit 17.5 gram-3.13 gram-1.6 gram oral solution DILUTE SEE DR. MABRY S PREP INSTRUCT IONS THAT WERE MAILED. 12/04 completed Not Available Not Available Not Available Chantix Starting Month Box 0.5 mg (11)-1 mg (42) tablets in dose pack take as directed on label. 11/05 completed Not Available Not Available Not Available Vascepa 1 gram capsule TAKE 2 CAPSULES BY MOUTH TWICE DAILY active Not Available Not Available No t Available Brilinta 60 mg tablet TAKE 1 TABLET BY MOUTH TWICE A DAY 12/04 completed Not Available Not Available Not Available Vitals Date Recorded Body mass index (BMI) Body height Oxygen saturation Oxygen saturation in Arterial blood by Pulse oximetry Heart rate Respiratory rate Body temperature Body weight Systolic blood pressure Diastolic blood pressure Systolic blood pressure Diastolic blood pressure Provider Name and Address Organization Details Last Updated DateTime 3 46.2 kg/m2 177.8 cm 98 % 98 % 87 /min 16 /min 97 [degF] 710701. 74 g 156 mm[Hg] 87 mm[Hg] 148 mm[Hg] 92 mm[Hg] Not Available [facility] 3 23:11:13 Date Recorded Body height Body mass index (BMI) Body weight Respiratory rate Oxygen saturation Oxygen saturation in Arterial blood by Pulse oximetry Body temperature Heart rate Systolic blood pressure Diastolic blood pressure Provider Name and Address Organization Details Last Updated DateTime 3 177.8 cm 46.2 kg/m2 094564. 74 g 16 /min 98 % 98 % 98.4 [degF] 86 /min 152 mm[Hg] 88 mm[Hg] LUCIA Stubbs [employer] [email or web address] 3 14:03:14 Date Recorded Body height Body mass index (BMI) Body weight Body temperature Heart rate Respiratory rate Oxygen saturation Oxygen saturation in Arterial blood by Pulse oximetry Pain severity - 0-10 verbal numeric rating [Score] - Reported Systolic blood pressure Diastolic blood pressure Provider Name and Address Organization Details Last Updated DateTime 3 177.8 cm 47 kg/m2 198289. 45 g 96.9 [degF] 81 /min 20 /min 94 % 94 % 5 134 mm[Hg] 92 mm[Hg] Frida Mckeon RN [facility] [email or web address] 3 15:51:46 Date Recorded Body height Body mass index (BMI) Body weight Body temperature Heart rate Respiratory rate Oxygen saturation Oxygen saturation in Arterial blood by Pulse oximetry Pain severity - 0-10 verbal numeric rating [Score] - Reported Systolic blood pressure Diastolic blood pressure Provider Name and Address Organization Details Last Updated DateTime 3 177.8 cm 48.2 kg/m2 898681. 44 g 96.4 [degF] 81 /min 20 /min 97 % 97 % 5 114 mm[Hg] 64 mm[Hg] Frida Mckeon RN [email or web address] 3 11:07:10 Date Recorded Body height Body mass index (BMI) Body weight Body temperature Heart rate Respiratory rate Oxygen saturation Oxygen saturation in Arterial blood by Pulse oximetry Pain severity - 0-10 verbal numeric rating [Score] - Reported Systolic blood pressure Diastolic blood pressure Provider Name and Address Organization Details Last Updated DateTime 177.8 cm 48.7 kg/m2 029599. 51 g 96.3 [degF] 80 /min 20 /min 95 % 95 % 5 126 mm[Hg] 70 mm[Hg] Frida Mckeon RN [facility] 15:56:41 Social History Question Answer Notes LastModified by Organization Details LastModified Time Tobacco Smoking Status Current Every Day Smoker Sandra lomas, [facility] 04/01/2023 15:38:32 Do You Have An Advance Directive? No [id number] Information not available 07/23/2022 Do You Wear A Helmet When Biking? No Information not available 04/01/2023 Is Blood Transfusion Acceptable In An Emergency? Yes Information not available 04/01/2023 What Is Your Level Of Caffeine Consumption? Occasional [id number] Information not available 07/23/2022 What Is Your Code Status? Full Code Information not available 04/01/2023 In The 14 Days Before Symptom Onset, Have You Had Close Contact With A Laboratory-confi rmed COVID-19 While That Case Was Ill? No Information not available 04/01/2023 In The 14 Days Before Symptom Onset, Have You Had Close Contact With A Person Who Is Under Investigation For COVID-19 While That Person Was Ill? No Information not available 04/01/2023 What Type Of Diet Are You Following? REGULAR [id number] Information not available 07/23/2022 What Is The Highest Grade Or Level Of School You Have Completed Or The Highest Degree You Have Received? [id number] Information not available 04/01/2023 Have There Been Any Changes To Your Family Or Social Situation? No Information not available 04/01/2023 What Is The Fluoride Status Of Your Home? Unknown Information not available 04/01/2023 Do You Use Insect Repellent Routinely? No Information not available 04/01/2023 Where Do You Live? SingleLevelHouse Information not available 04/01/2023 Do You Have A Medical Power Of Sander And Buffer? No Information not available 04/01/2023 What Was The Date Of Your Most Recent Tobacco Screening? 03/12/2022 Information not available 04/01/2023 Do You Have Any Pets? Yes Information not available 04/01/2023 What Is Your Relationship Status? Single [id number] Information not available 07/23/2022 Do You Use Your Seat Belt Or Car Seat Routinely? Yes Information not available 04/01/2023 Are You Sexually Active? No Information not available 04/01/2023 Do You Have Smoke And Carbon Monoxide Detectors In Your Home? Yes Information not available 04/01/2023 At What Age Did You Start Smoking Tobacco? 16 Information not available 04/01/2023 Are You Passively Exposed To Smoke? Yes Information not available 04/01/2023 Are There Any Smokers In Your House? Yes Information not available 04/01/2023 How Much Tobacco Do You Smoke? No 1-2 A Day [email or web address] Information not available 01/14/2023 Do You Participate In Social Media? Yes Information not available 04/01/2023 Do You Use Sunscreen Routinely? No Information not available 04/01/2023 Have You Recently Traveled Abroad? No Information not available 04/01/2023 Are You Currently In School? No Information not available 04/01/2023 Do You Have Any Dietary Restrictions? No Information not available 04/01/2023 Sex: Male Functional Status Question Answer Note LastModified by Organizat ion Details LastModified Time Do you or have you ever used any other forms of tobacco or nicotine? No Information not available 04/01/2023 What is your level of alcohol consumption? Moderate [id number] Information not available 07/23/2022 Are you currently employed? No Information not available 04/01/2023 What is your exercise level? None [id number] Information not available 07/23/2022 Mental Status Question Answer Note LastModified by Organization D etails LastModified Time Do you feel stressed (tense, restless, nervous, or anxious, or unable to sleep at night)? [id number] Information not available 04/01/2023 Family History Relationship Description Onset Age of this Age Resolved Age Notes LastModified by Organization Details LastModified Time Father Heart disease [id number] Not available 07/23/2022 23:10:48 Father Diabetes mellitus [id number] Not available 07/23/2022 23:10:48 Father Essential hypertension Not available 12/2022 15:38:31 Mother Malignant tumor of breast Not available 2022 15:38:32 Notes:has stints Medical History Condition Response ARTHRITIS Y OBESITY Y USE OF BLOOD THINNERS Y HEART DISEASE/HEART PROBLEMS Y USE OF NSAIDS Y BOWEL PROBLEMS Y BACK / NECK PROBLEMS Y HYPERTENSION Y HIGH CHOLESTEROL / HYPERLIPIDEMIA Y Immunizations Vaccine Type Date Status Note Provider Nam e and Address Organization Details Recorded Time SARS-COV-2 (COVID-19) vaccine, UNSPECIFIED 2 completed Not Available [facility] 07/23/2022 23:12:48 SARS-COV-2 (COVID-19) vaccine, UNSPECIFIED 2 completed Not Available [facility] 07/23/2022 23:12:48 zoster, unspecified formulation 1 completed Not Available [facility] 07/23/2022 23:12:48 pneumococcal, unspecified formulation 1 completed Not Available [facility] 07/23/2022 23:12:48 zoster, unspecified formulation 1 completed Not Available [facility] 07/23/2022 23:12:48 Influenza, split virus, quadrivalent, PF 2 completed Not Available [facility] 07/23/2022 23:12:49 Past Encounters Encounter ID Performer Location Encounter Start Date Encounter Closed Date Diagnosis/Indication Diagnosis SNOMED-CT Code Diagnosis ICD10 Code Diagnosis Note [id number] SHIVA Garcia [facility] [place] [address] [place] [id number] 12/04/2020 00:00:00 12/04/2020 16:47:21 [id number] SHIVA Garcia [facility] [place] [address] [place] [id number] 01/15/2021 00:00:00 01/15/2021 14:42:42 [id number] SHIVA Garcia [facility] [place] [address] [place] [id number] 02/12/2021 00:00:00 02/12/2021 15:31:56 [id number] Santi Lewis MD [facility] [address] [place] [address] 03/14/2021 00:00:00 03/14/2021 12:29:16 [id number] Frida Banegas NP [facility] [place] [address] [place] [address], [place] [address] 12/06/2021 00:00:00 12/06/2021 14:18:46 [id number] Santi Lewis MD [facility] [place] [address] [place] [address] 12/16/2021 00:00:00 12/16/2021 12:04:30 [id number] _ATHN_MIGR ATION_1 _ATHENA_M IGRATION_ DEFAULT_1 _1 , 12/25/2021 00:00:00 12/25/2021 13:18:17 [id number] Santi Lewis MD [facility] [place] [address] [place] [address] 01/06/2022 00:00:00 01/06/2022 11:07:48 [id number] Santi Lewis MD [facility] [place] [address] [place] [address] 01/13/2022 00:00:00 01/13/2022 12:13:58 [id number] Santi Lewis MD [facility] [place] [address] [place] [address] 01/20/2022 00:00:00 01/20/2022 11:38:11 [id number] _ATHN_MIGR ATION_1 _ATHENA_M IGRATION_ DEFAULT_1 _1 , 02/12/2022 00:00:00 02/12/2022 15:31:33 [id number] Quinn Henderson MD [facility] [place] [address] [place] [address] 02/27/2022 00:00:00 02/27/2022 14:28:28 [id number] Quinn Henderson MD [facility] [place] [address] [facility] [address] 03/11/2022 00:00:00 03/11/2022 12:39:47 [id number] _ATHN_MIGR ATION_1 _ATHENA_M IGRATION_ DEFAULT_1 _1 , 03/12/2022 00:00:00 03/12/2022 13:07:26 [id number] Quinn Henderson MD [facility] [place] [address] [place] [address] 03/28/2022 00:00:00 03/28/2022 14:22:48 [id number] Quinn Henderson MD [facility] [place] [address] [place] [address] 05/07/2022 00:00:00 05/07/2022 17:03:52 [id number] Quinn Henderson MD [facility] [place] [address] [place] [address] 05/27/2022 00:00:00 05/27/2022 12:56:19 [id number] Quinn Henderson MD [facility] [place] [address] [place] [address] 07/10/2022 00:00:00 07/10/2022 13:54:07 [id number] Frida Banegas NP [facility] [place] [address] [place] [address] 07/31/2022 13:55:42 07/31/2022 14:47:02 Tobacco user [id number] Z72.0 Chantix started 07/31/22. Pt was told pill or patches is covered. Kidney stone 21623518 N2 0.0 May have passed it. No discomfort . Drinking lots of water. [id number] Frida Banegas NP [address] [address] 11/05/2022 15:31:52 11/05/2022 16:23:02 Osteoarthritis 484803141 M19.90 Tobacco user 412703407 Z 72.0 Chantix started 07/31/22. No longer having taste for cigarettes as of 11/05/22. Smoking no more than 4 daily. Goal to stop completely by dec. Morbid obesity 173039899 E66.01 Diet discussed. Not able to exercise due to pain. Vitamin D deficiency 347 54557 E55.9 vit d supplement . History of myocardial infarction 350134232 I25.2 Clopidogre l daily. Essential hypertension 31129611 I10 Budesonide ER-ER 3 mg, Carvedilol 25 mg po daily. Spironolac tone 25 mg po daily. losartan 100 mg po daily. Degenerati on of lumbar intervertebral disc 59627572 M51.36 gabapentin 300 mg po nightly tid, but only taking at nigh due to fatigue.Fl exeril prn.Celeco xib 100 mg po bid. Hyperlipidemia 24613971 E78.5 Vascepa 1 gm po bid.Rosuva statin 20 mg po nightly.Fe nofibric acid 135 mg [id number] Frida Banegas NP [facility] [place] [address] [place] [address] 01/14/2023 10:51:58 01/14/2023 11:35:51 Chronic low back pain 515133684 M54.50 Has neurosurge ry appt in March 2023.Had MRI October 2020. Severe lumbar spondylosi s with central canal stenosis.U sing cane to walk Osteoarthritis 187011871 M19.90 Bilateral knees shot and needs replaced. Weight gain not helping. Seeing ortho.MVI with d and calcium.Ce lecoxib 100 mg po bid Tobacco user 643743629 Z 72.0 Chantix started 07/31/22. down to 1-2 cigarettes daily. Morbid obesity 080014584 E66.01 Diet discussed. Not able to exercise due to pain.Has gained 9 lbs with trying not to smoke. Vitamin D deficiency 347 90836 E55.9 vit d supplement otc daily. History of myocardial infarction 505604227 I25.2 Clopidogre l daily. Essential hypertension 20086165 I10 Budesonide ER-ER 3 mg, Carvedilol 25 mg po daily. Spironolac tone 25 mg po daily. losartan 100 mg po daily. Degenerati on of lumbar intervertebral disc 45004029 M51.36 gabapentin 300 mg po nightly tid, but only taking at nigh due to fatigue.Fl exeril prn.Celeco xib 100 mg po bid. Hyperlipidemia 61802771 E78.5 Vascepa 1 gm po bid.Rosuva statin 20 mg po nightly.Fe nofibric acid 135 mg [id number] Frida Banegas NP [facility] [address] [address] 04/01/2023 15:37:34 04/01/2023 16:19:00 Chronic low back pain 904094147 M54.50 [address]t [address]. Farhana Hurt [facility] in March 2023.Had MRI October 2020. Severe lumbar spondylosi s with central canal stenosis.U sing cane to walk Osteoarthritis 963847860 M19.90 Bilateral knees shot and needs replaced. Weight gain not helping. Seeing ortho.MVI with d and calcium.Ce lecoxib 100 mg po bid Tobacco user 074684434 Z 72.0 Chantix started 07/31/22. down to 1-2 cigarettes daily. Morbid obesity 056336535 E66.01 Diet discussed. Not able to exercise due to pain.Stabl e for 6 mo. Vitamin D deficiency 347 25618 E55.9 vit d supplement otc daily. History of myocardial infarction 577366134 I25.2 Clopidogre l daily. Essential hypertension 75496150 I10 Budesonide ER-ER 3 mg, Carvedilol 25 mg po daily. Spironolac tone 25 mg po daily. losartan 100 mg po daily. Degenerati on of lumbar intervertebral disc 03951621 M51.36 gabapentin 300 mg po nightly tid, but only taking at nigh due to fatigue.Fl exeril prn.Celeco xib 100 mg po bid. Hyperlipidemia 36840491 E78.5 Vascepa 1 gm po bid.Rosuva statin 40 mg po every other nightFenof ibric acid 135 mg Stented co ronary artery 383018964 Z95.5 4 cardiac stents. Health Concerns Section Related Observation LastModified by Organization Detai ls LastModified Time None Recorded Concern Status LastModified by Organization Details LastModified Time None Recorded Advance Directives Directive N: Payers Encounter Date Sequence Insurance Name Policy Number Policy Acevedo Covered Member ID Acevedo Member ID Guarantor Name 07/31/2022 1 [facility] (MEDICAID HMO) [id number] Gary Carrero [id number] Gary Carrero 11/05/2022 1 [facility] (MEDICAID HMO) [id number] Gary Carrero [id number] Gary Carrero 01/14/2023 1 [facility] (MEDICAID HMO) [id number] Gary Carrero [id number] Gary Carrero 04/01/2023 1 [facility] (MEDICAID HMO) [id number] Gary Carrero [id number] Gary Carrero Notes Date Note Type Note Provider Name and Address Organization Details Recorded Time 07/31/2022 text/html Here for [facility] follow up.. States started to have pain and it started moving. Thursday morning had to go to hospital. Was getting dehydrated. Had a CT scan and diagnosed with kidney stone.Now, not uncomfortable, no issues with urination. No blood in urine. Has been straining urine and hasn't seen any stone. Wants to stop smoking. Was told per insurance he could have pill or patch Frida Banegas NP [address] [facility] [facility] [address], [place], [address], [facility] [employer] 07/31/2022 14:43:12 11/05/2022 text/html Here for check u p. Echo and labs from cardiology.Injecti ons to both knees were helpful. Still using cane. Back pain still present. Can't see neurosurgeon until he gets MRI. MRI was denied per insurance. Needs to have note stating he can't do activity, or refer to PT and they can state if he is unable to do activities. Not using muscle relaxer in a while. Sleeping ok at night. Not needing naps. Feeling pretty good, for myself Frida Banegas NP [address], [place], [address], [employer] 11/05/2022 16:19:38 01/14/2023 text/html Here for check u p. Has almost quit smoking. No cravings like used to.Back pain- went to PT and strengthened legs, but back still painful. Had therapy in [facility] and went for at least 6 weeks. Ready to get MRI for further eval of back. Pain into legs and numbness at times. Knee pain and needing replaced. Seeing ortho Had ECHO yesterday. Has appt with cardiology next week.Had labs done thursday- no results to us today, but he will get it sent. Has been working to stay hydrated and eat better. Joints hurt if dehydrated. Trying to stay off sweets. Frida Banegas NP [address], [place], [address], [employer] 01/14/2023 11:35:01 04/01/2023 text/html Here for 3 mo fu . States he sees the neurosurgeon next week. Female provider. Unsure name or address. Believes it's smart . May be [facility]. Pain in back and in legs. Using cane to get around. Colitis- off and on flares. Seeing GI. Smoking 2 cigarettes daily.thirsty all the time. Frida Banegas NP [address], [place], [address], [employer] 04/01/2023 16:17:50
--- OUTSIDE RECORDS SUMMARY | 2024-10-03 10:01 | XMS_ITS | CONTINUITY OF CARE DOCUMENT ---
Author Name orlando marinaketan Address Unknown Organization [facility] Address [address] [place] [address] Phone [phone] Care Team Providers Care Fraud Representative Name Role Phone Maksim Hollis DO Unavailable [phone] Makenzie [employer] FINISHER[employer], Frida Rubi Unavailable Makenzie HAND FLATWORK FINISHER-BC, Frida Rubi Unavailable PROBLEMS Condition Status Date Provider Notes AMI anterior wall active Maksim Hollis DO CAD active Maksim Hollis DO Dyspnea on exertion active Maksim Hollis DO Hypercholesterolemia active Maksim Hollis DO HTN essential active Maksim Hollis DO Tobacco abuse active Maksim Hollis DO Family Hx heart disease completed - Maksim Hollis DO Claudication Intermittent completed 10/07 - Maksim Hollis DO PVD - unspecified active Maksim Hollis DO Hypertriglyceridemia, severe , improved with meds/diet! active Maksim Hollis DO Overweight active Maksim Hollis DO Sleep apnea active Maksim Hollis DO Sleep apnea has sx will r/o completed 2023 - Maksim Hollis DO Blood glucose abnormal-- 01/23 09/11 Glu 105 completed - Maksim Hollis DO Swelling of bilateral legs completed 01/09 - Maksim Hollis DO ENCOUNTERS Date Type Provider Location Encounter Diag nosis 2 - 2 In-person encounter Office Visit Maksim Hollis DO [facility] Sleep apnea has sx will r/oSleep apnea 0 - 0 In-person encounter Office Visit Maksim Hollis DO [facility] 0 - 0 In-person encounter Office Visit Maksim Hollis DO [facility] Blood glucose abnormal-- 02/06/20 Glu 105 9 - 9 In-person encounter Office Visit Maksim [facility] 2 - 2 In-person encounter Office Visit Maksim Hollis DO [facility] Family Hx heart diseaseSwelling of bilateral legs 8 - 8 In-person encounter Office Visit Maksim Hollis DO [facility] Office - 1 In-person encounter Office Visit Maksim [facility] 2 - 2 In-person encounter Office Visit Mak[facility] - 9 In-person encounter Office Visit [facility] 9 - 9 In-person encounter Office Visit [facility] 4 - 4 In-person encounter Office Visit [facility] 2 - 2 In-person encounter Office Visit Maksim [facility] 4 - 6 In-person encounter Office Visit Y[facility] 5 - 6 In-person encounter Office Visit Maksim Hollis DO [facility] 8 - 8 In-person encounter Office Visit Maksim Hollis DO [facility] Swelling of bilateral legs 2 - 2 In-person encounter Office Visit Maksim Hollis DO [facility] 7 - 7 In-person encounter Office Visit Maksim Hollis DO [facility] 3 - 3 In-person encounter Office Visit Maksim Hollis DO [facility] Overweight 6 - 6 In-person encounter Office Visit Maksim Hollis DO [facility] 0 - 0 In-person encounter Office Visit Maksim Hollis DO [facility] Hypertriglyceridemia, severe, improved with meds/diet! 9 - 9 In-person encounter Office Visit Maksim Hollis DO [facility] 2 - 2 In-person encounter Office Visit Maksim Hollis DO [facility] 8 - 8 In-person encounter Office Visit Maksim Hollis DO [facility] 1 - 1 In-person encounter Office Visit Maksim Hollis DO [facility] 5 - 5 In-person encounter Office Visit Maksim Hollis DO [facility] Claudication IntermittentPVD - unspecified 6 - 6 In-person encounter Office Visit Maksim Hollis DO [facility] 2 - 2 In-person encounter Office Visit Maksim Hollis DO [facility] AMI anterior wallCADDyspnea on exertionHypercholesterolemiaHTN essentialTobacco abuse VITAL SIGNS Date Observation Value Provider Body Mass Index (Ratio) 49.93 kg/m2 Judi Aragon Bunny blood pressure, diastolic 84 mm[Hg] Nick mojica Linn blood pressure, systolic 144 mm[Hg] Kyleigh good Linn oxygen saturation, oximetry 94 % [facility] pulse rate 74 /min [facility] weight E&M 358 [lb_av] [facility] blood pressure, cuff size regular Nick galina Linn height E&M 71 [in_i] [facility] Body Mass Index (Ratio) 49.09 kg/m2 [facility] Mahesh Hollis blood pressure, diastolic 80 mm[Hg] An randi Fernando blood pressure, systolic 127 mm[Hg] Ling makenzie Fernando pulse rate 93 /min Delilah King weight E&M 352 [lb_av] Delilah Fernando blood pressure, cuff size large An randi Fernando height E&M 71 [in_i] Delilah Fernando Body Mass Index (Ratio) 48.81 kg/m2 [facility] Mahesh Hollis DO blood pressure, cuff size large Ke rri Chaseuenetracyfort [facility] blood pressure, diastolic 80 mm[Hg] Ke rri Chaseuenetracyfort [facility] blood pressure, systolic 156 mm[Hg] Ker ri Kimonenfso oxygen saturation, oximetry 96 % Darcy Kimonerupesh respiratory rate E&M 12 /min Darcy G gailenerupesh pulse rate 92 /min Darcy Gruenenfe [facility] weight E&M 350 [lb_av] Darcy Gruenenfe [facility] height E&M 71 [in_i] Darcy Gruenenfe [facility] Body Mass Index (Ratio) 47.83 kg/m2 [facility] Mahesh Hollis DO blood pressure, cuff size large Ke rri Gruenenfelder blood pressure, diastolic 80 mm[Hg] Ke rri Gruenenfelder blood pressure, systolic 122 mm[Hg] Pravin Malinnenfelder oxygen saturation, oximetry 96 % Darcy Hardinelder respiratory rate E&M 12 /min Darcy G ruenenfelder pulse rate 91 /min Darcy Wilfrede lder weight E&M 343 [lb_av] Darcy Grzacknetracye tameraer height E&M 71 [in_i] Darcy Kimonenfe tameraer Body Mass Index (Ratio) 45.74 kg/m2 [facility] Mahesh Bunny DO blood pressure, diastolic 95 mm[Hg] Li nkLog blood pressure, systolic 145 mm[Hg] Valerie kLog blood pressure, diastolic 95 mm[Hg] Ga emerson Car blood pressure, systolic 145 mm[Hg] [facility] jeremi Car oxygen saturation, oximetry 98 % Mely Car pulse rate 94 /min Mely smyth respiratory rate E&M 16 /min Jenn Car weight E&M 328 [lb_av] Mely smyth height E&M 71 [in_i] Mely smyth Body Mass Index (Ratio) 45.32 kg/m2 [facility] Mahesh Bunny DO blood pressure, diastolic 88 mm[Hg] Te ri Nya blood pressure, systolic 133 mm[Hg] Ter i Fay oxygen saturation, oximetry 97 % Yadira Fay respiratory rate E&M 14 /min Yadira Naren omalley pulse rate 81 /min Yadira Fay weight E&M 325 [lb_av] Yadira Fay Body Mass Index (Ratio) 42.95 kg/m2 [facility] blood pressure, cuff size large Ke rri Gruenenfelder blood pressure, diastolic 92 mm[Hg] Ke rri Gruenenfelder blood pressure, systolic 152 mm[Hg] Ker ri Gruenenfelder oxygen saturation, oximetry 98 % Darcy Gruenenfelder respiratory rate E&M 16 /min Darcy G ruenenfelder pulse rate 77 /min Darcy Gruenenfe [facility] weight E&M 308 [lb_av] Darcy Gruenenfe er height E&M 71 [in_i] Darcy Gruenenfe er Body Mass Index (Ratio) 44.35 kg/m2 [facility] blood pressure, diastolic 74 mm[Hg] Li nkLogic blood pressure, systolic 132 mm[Hg] Valerie kLogic blood pressure, cuff size large Ke rri Gruenenfelder blood pressure, diastolic 74 mm[Hg] Ke rri Gruenenfelder blood pressure, systolic 132 mm[Hg] Ker ri Gruenenfelder oxygen saturation, oximetry 95 % Darcy Gruenenfelder respiratory rate E&M 16 /min Darcy G ruenenfelder pulse rate 78 /min Darcy Gruenenfe lder weight E&M 318 [lb_av] Darcy Gruenenfe lder height E&M 71 [in_i] Darcy Gruenenfe er Body Mass Index (Ratio) 40.86 kg/m2 [facility] blood pressure, diastolic 70 mm[Hg] Naila gutiérrezLogic blood pressure, systolic 130 mm[Hg] Valerie kLogic blood pressure, cuff size regular Ramone Whitmore blood pressure, diastolic 70 mm[Hg] Ramone isabiola [place] blood pressure, systolic 130 mm[Hg] Kri stdavid Chackoby pulse rate 83 /min Esperanza Whitmore oxygen saturation, oximetry 98 % Esperanza Whitmore respiratory rate E&M 19 /min Esperanza Whitmore weight E&M 293 [lb_av] Esperanza Chackoby height E&M 71 [in_i] Esperanza Hampton Body Mass Index (Ratio) 40.44 kg/m2 [facility] Mahesh Hollis blood pressure, diastolic 87 mm[Hg] Naila gutiérrezLog blood pressure, systolic 107 mm[Hg] Valerie [facility] blood pressure, diastolic 87 mm[Hg] Basim Brandt blood pressure, systolic 107 mm[Hg] Cassie murrietamakenzie Brandt oxygen saturation, oximetry 98 % Savannahmakenzie Brandt pulse rate 100 /min Savannahmakenzie Brandt blood pressure, resting Yes Santy Raya respiratory rate E&M 18 /min Savannahmakenzie Brandt blood pressure, cuff size regular Basim bagley Karly weight E&M 290 [lb_av] Savannah Karly height E&M 71 [in_i] Savannahmakenzie Brandt Body Mass Index (Ratio) 39.72 kg/m2 [facility] Mahesh Hollis blood pressure, cuff size regular Ramone Whitmore blood pressure, diastolic 80 mm[Hg] Ramone frye Haim blood pressure, systolic 140 mm[Hg] Kri stdavid Chackoby oxygen saturation, oximetry 98 % Esperanza Chackoby respiratory rate E&M 17 /min Esperanza Haim pulse rate 82 /min Esperanza Haim blood pressure, resting Yes Bhaskar Chackoby weight E&M 284.8 [lb_av] Esperanza Haim height E&M 71 [in_i] Esperanza Hampton Body Mass Index (Ratio) 40.16 kg/m2 Prad eep Mahesh Bunny AGUILERA blood pressure, diastolic 68 mm[Hg] Rh onbeth Karly blood pressure, systolic 115 mm[Hg] Rho ndmakenzie Brandt oxygen saturation, oximetry 99 % Savannah Brandt pulse rate 80 /min Savannah Brandt weight E&M 288 [lb_av] Savannah Brandt blood pressure, resting Yes Santy Raya blood pressure, cuff size regular Basim bagley Karly respiratory rate E&M 18 /min Savannah Brandt height E&M 71 [in_i] Savannah Karly Body Mass Index (Ratio) 39.88 kg/m2 Rodritheo Campbell pulse rate 90 /min Angela [facility] blood pressure, diastolic 82 mm[Hg] Br ittany Pipo blood pressure, systolic 120 mm[Hg] Susan ttany [facility] oxygen saturation, oximetry 98 % Angela [facility] weight E&M 286 [lb_av] Angela [facility] respiratory rate E&M 16 /min Moratan y Block height E&M 71 [in_i] Angela [facility] Body Mass Index (Ratio) 39.47 kg/m2 Prad eep Mahesh Hollis DO blood pressure, diastolic 77 mm[Hg] Fe connor Stephens blood pressure, systolic 114 mm[Hg] Fel icia Stephens oxygen saturation, oximetry 97 % Perlita Stephens respiratory rate E&M 16 /min Perlita Stephens pulse rate 83 /min Perlita Stephens weight E&M 283 [lb_av] Perlita Stephens height E&M 71 [in_i] Perlita Stephens Body Mass Index (Ratio) 39.47 kg/m2 [facility] Mahesh [facility] blood pressure, cuff size regular Ramone isty Haim weight E&M 283 [lb_av] Esperanza Haim respiratory rate E&M 18 /min Esperanza Haim oxygen saturation, oximetry 99 % Esperanza Hampton pulse rate 79 /min Esperanza Hampton blood pressure, diastolic 70 mm[Hg] Ramone isty Haim blood pressure, systolic 140 mm[Hg] Kri sty [place] height E&M 71 [in_i] Esperanza [place] Body Mass Index (Ratio) 40.02 kg/m2 [facility] Mahesh [facility] blood pressure, cuff size regular Ramone isabiola [place] blood pressure, diastolic 90 mm[Hg] Ramone isty [place] blood pressure, systolic 150 mm[Hg] Kri sty Haim oxygen saturation, oximetry 95 % Esperanza Haim pulse rate 88 /min Esperanza Hampton respiratory rate E&M 17 /min Esperanza Haim weight E&M 287 [lb_av] Esperanza Haim height E&M 71 [in_i] Esperanza Haim Body Mass Index (Ratio) 38.49 kg/m2 [facility] Mahesh Hollis pulse rate 94 /min Angela Block blood pressure, diastolic 98 mm[Hg] Lindsey Foss blood pressure, systolic 182 mm[Hg] Susan mcelroy Block oxygen saturation, oximetry 97 % Angela Foss weight E&M 276 [lb_av] Angela Block respiratory rate E&M 16 /min Edward hernandez height E&M 71 [in_i] Angela Body Mass Index (Ratio) 37.65 kg/m2 [facility] Mahesh Hollis oxygen saturation, oximetry 98 % Esperanza Haim respiratory rate E&M 17 /min Esperanza Hampton blood pressure, diastolic 90 mm[Hg] Ramone isty Haim blood pressure, systolic 158 mm[Hg] Kri sty [place] pulse rate 83 /min Esperanza Hampton blood pressure, cuff size regular Ramone frye Haim weight E&M 270 [lb_av] Esperanza Haim height E&M 71 [in_i] Esperanza Haim Body Mass Index (Ratio) 37.79 kg/m2 [facility] Mahesh Hollis pulse rate 92 /min Esperanza Hampton blood pressure, diastolic 80 mm[Hg] Ramone isty Hampton blood pressure, systolic 142 mm[Hg] Kri sty [place] oxygen saturation, oximetry 98 % Esperanza Hami respiratory rate E&M 18 /min Esperanza Hampton blood pressure, cuff size regular Ramone isty [place] weight E&M 271 [lb_av] Esperanza Haim height E&M 71 [in_i] Esperanza Haim Body Mass Index (Ratio) 37.10 kg/m2 [facility]h Hollis blood pressure, diastolic 80 mm[Hg] Ramone isty Haim blood pressure, systolic 140 mm[Hg] Kri sty Hampton oxygen saturation, oximetry 97 % Esperanza Hampton respiratory rate E&M 17 /min Esperanza Haim pulse rate 93 /min Esperanza Haim blood pressure, cuff size regular Ramone Chackoby weight E&M 266 [lb_av] Esperanza Haim height E&M 71 [in_i] Esperanza Body Mass Index (Ratio) 35.56 kg/m2 [facility] Mahesh [facility] blood pressure, diastolic 80 mm[Hg] [facility], systolic 122 mm[Hg] Marimar peraza [place] oxygen saturation, oximetry 99 % [facility] respiratory rate E&M 16 /min [facility] 95 /min [facility] weight E&M 255 [lb_av] [facility] height E&M 71 [in_i] Miguel Angel Dyre Body Mass Index (Ratio) 35.28 kg/m2 [facility] Mahesh [facility] blood pressure, cuff size regular Ramone Chacko blood pressure, diastolic 80 mm[Hg] Ramone frye blood pressure, systolic 138 mm[Hg] Geovany mota respiratory rate E&M 16 /min Esperanza pulse rate 96 /min Esperanza oxygen saturation, oximetry 98 % Esperanza weight E&M 253 [lb_av] Esperanza height E&M 71 [in_i] Esperanza Body Mass Index (Ratio) 35.00 kg/m2 [facility] Mahesh [facility] blood pressure, diastolic 80 mm[Hg] Ramone Chacko blood pressure, systolic 130 mm[Hg] Ramonei david oxygen saturation, oximetry 99 % Esperanza Chackoby respiratory rate E&M 16 /min Esperanza Haim pulse rate 82 /min Esperanza Hampton blood pressure, cuff size regular Ramone Chackoby weight E&M 251 [lb_av] Esperanza Hampton height E&M 71 [in_i] Esperanza Body Mass Index (Ratio) 35.00 kg/m2 [facility] Mahesh Hollis blood pressure, cuff size regular Ramone Chackoby respiratory rate E&M 17 /min Esperanza Haim pulse rate 81 /min Esperanza Haim oxygen saturation, oximetry 98 % Esperanza height E&M 71 [in_i] Esperanza weight E&M 251 [lb_av] Esperanza Body Mass Index (Ratio) 36.59 kg/m2 [facility] Mahesh [facility] blood pressure, cuff size regular Ramone Whitmore blood pressure, diastolic 80 mm[Hg] Ramone Chackoby blood pressure, systolic 138 mm[Hg] Geovany mota [place] oxygen saturation, oximetry 98 % Esperanza Chackoby respiratory rate E&M 17 /min Esperanza Haim pulse rate 102 /min Esperanza Haim weight E&M 262.4 [lb_av] Esperanza height E&M 71 [in_i] Esperanza Body Mass Index (Ratio) 37.68 kg/m2 [facility] Mahesh Bunny blood pressure, cuff size large Te reggie Selena blood pressure, diastolic 82 mm[Hg] Te reggie Walters blood pressure, systolic 130 mm[Hg] Garcia Walters oxygen saturation, oximetry 98 % Deisy Walters respiratory rate E&M 18 /min Deisy Nunezhley pulse rate 90 /min Deisy Nunezhley weight E&M 270.2 [lb_av] Deisy hernandez Body Mass Index (Ratio) 37.29 kg/m2 Prad eep Mahesh Hollis DO blood pressure, cuff size large Te reggie Nunezhley blood pressure, diastolic 98 mm[Hg] Te reggie Nunezhley blood pressure, systolic 144 mm[Hg] Garcia Nunezhley height E&M 71 [in_i] Deisy Selena blood pressure, resting Yes Giuseppe Nunezhley oxygen saturation, oximetry 98 % Deisy Walters respiratory rate E&M 18 /min Deisy Walters pulse rate 76 /min Deisy Walters weight E&M 267.4 [lb_av] Deisy hernandez ALLERGIES No Known Drug Allergies RESULTS Date Observation Value Provider Reference Range Interpretation Location hemoglobin A1C, blood, as % of total hemoglobin 5.3 % OF TOTAL HGB LinkLogic <5.7 Normal C-reactive protein, by highly sensitive test 0.5 mg/L LinkLogic Normal basophils as percent of blood leukocytes 1.4 % [facility] Normal eosinophils as percent of blood leukocytes 3.8 % [facility] Normal monocyte count, blood 10.4 % Link[facility] Normal lymphocyte count, blood 38.4 % [facility] Normal neutrophils as percent of blood leukocytes 46 % [facility] Normal basophils, absolute, manual 94 cells/mcL [facility] 0-200 Normal eosinophils, absolute, manual 255 cells/mcL [facility] 15-500 Normal monocytes, absolute, manual 697 cells/mcL [facility] 200-950 Normal lymphocytes, absolute 2573 CELLS/UL [facility] 850-3900 Normal Absolute Neutrophil count 3082 cells/mcL [facility] 2919-1107 Normal mean platelet volume 9.1 fL [facility] 7.5-12.5 Normal platelet count 204 THOUSAND/UL [facility] 140-400 Normal red blood cell distribution width 13.5 % [facility] 11.0-15.0 Normal mean corpuscular hemoglobin concentration, RBC 35.0 G/DL [facility] 32.0-36.0 Normal mean corpuscular hemoglobin, RBC 34.9 pg Link[facility]ic 27.0-33.0 High mean corpuscular volume, RBC 99.8 fL [facility] 80.0-100.0 Normal hematocrit, blood 43.4 % [facility] 38.5-50.0 Normal hemoglobin electrophoresis, blood 15.2 [facility] 13.2-17.1 Normal erythrocyte (RBC) count 4.35 MILLION/UL Link[facility] 4.20-5.80 Normal leukocyte (white blood cells) count, blood 6.7 THOUSAND/UL [facility] 3.8-10.8 Normal NT-pro BNP 97 Link[facility] <125 Normal calcium, serum 9.5 mg/dL [facility] 8.6-10.3 Normal carbon dioxide, venous blood 24 mmol/L [facility] 20-32 Normal chloride, serum 100 mmol/L [facility] 98-110 Normal potassium, serum 4.6 mmol/L [facility] 3.5-5.3 Normal sodium, serum 134 mmol/L [facility] 135-146 Low urea nitrogen/creatinine ratio, serum SEE NOTE: (calc) LinkLogic 6-22 creatinine, serum 1.11 mg/dL Link[facility]ic 0.70-1.30 Normal urea nitrogen, blood 14 mg/dL [facility] 7-25 Normal blood glucose, random 100 mg/dL [facility] 65-99 High microalbumin/creati nine ratio, urine 4 MCG/MG CREAT [facility] <30 Normal microalbumin/total urine volume 7 mg/L [facility] Units converted. See lab report for original value. Normal creatinine, random, urine 181 mg/dL [facility] 20-320 Normal cholesterol, non-HDL, total 96 MG/DL (CALC) [facility] <130 Normal cholesterol/HDL ratio, serum, percent 3.7 (calc) [facility] <5.0 Normal LDL cholesterol, serum 65 MG/DL (CALC) [facility] Normal triglyceride, serum, fasting 298 mg/dL [facility] <150 High HDL cholesterol, serum 36 mg/dL LinkLogic > OR = 40 Low cholesterol, serum 132 mg/dL [facility] <200 Normal pro brain natriuretic peptide 393 pg/mL Link[facility] 0-210 High lipoprotein, beta, serum, point, quantitative, calculated 60 mg/dL Link[facility]ic 0-99 HDL cholesterol, serum 34 mg/dL Link[facility]ic >39 Low triglyceride, serum, random 316 mg/dL [facility] 0-149 High cholesterol, serum 143 mg/dL [facility] 253-506 8197/01 /04 alanine aminotransferase (SGPT), serum 26 1/L [facility] 0-44 aspartate aminotransferase (SGOT), serum 23 1/L [facility] 0-40 alkaline phosphatase, serum 35 1/L [facility] 44-121 Low bilirubin, serum, total 0.5 mg/dL [facility]ic 0.0-1.2 albumin/globulin ratio, serum 2.1 [facility] 1.2-2.2 globulin, serum 2.0 [facility] 1.5-4.5 albumin, serum 4.2 g/dL LinkLogic 3.8-4.9 protein, total, serum 6.2 g/dL Link[facility] 6.0-8.5 calcium, serum 9.0 mg/dL LinkLogic 8.7-10.2 carbon dioxide, venous blood 22 mmol/L Link[facility]ic 20-29 chloride, serum 103 mmol/L [facility] 96-106 potassium, serum 4.4 mmol/L Link[facility]ic 3.5-5.2 sodium, serum 140 mmol/L [facility] 161-611 1780/01 /04 urea nitrogen/creatinine ratio, serum 13 [facility] 9-20 creatinine, serum 0.90 mg/dL [facility] 0.76-1.27 urea nitrogen, blood 12 mg/dL Link[facility]ic 6-24 blood glucose, random 90 mg/dL [facility] 70-99 hemoglobin A1C, blood, as % of total hemoglobin 5.8 % [facility] 4.8-5.6 High basophil count, absolute 0.1 x10E3/uL [facility] 0.0-0.2 Eosinophil Absolute Count 0.2 X10E3/UL Link[facility] 0.0-0.4 monocyte count, blood, automated 0.7 X10E3/UL [facility] 0.1-0.9 lymphocyte count, blood, automated 2.4 X10E3/UL Link[facility] 0.7-3.1 Absolute Neutrophils 2.7 X10E3/UL Link[facility]ic 1.4-7.0 basophils as percent of blood leukocytes 1 % LinkLogic Not Estab. eosinophils as percent of blood leukocytes 4 % LinkLogic Not Estab. monocytes as percent of blood leukocytes 12 % Link[facility]ic Not Estab. lymphocytes as percent of blood leukocytes 38 % [facility] Not Estab. neutrophils as percent of blood leukocytes 45 % [facility] Not Estab. platelet count 181 X10E3/UL [facility] 026-692 6502/01 /04 red blood cell distribution width 12.8 % [facility] 11.6-15.4 mean corpuscular hemoglobin concentration, RBC 35.0 G/DL [facility] 31.5-35.7 mean corpuscular hemoglobin, RBC 36.3 pg [facility] 26.6-33.0 High mean corpuscular volume, RBC 104 fL [facility] 79-97 High hematocrit, blood 44.8 % [facility] 37.5-51.0 hemoglobin, blood 15.7 g/dL Link[facility] 13.0-17.7 erythrocyte (RBC) count 4.33 X10E6/UL Link[facility] 4.14-5.80 leukocyte count, blood 6.1 X10E3/UL [facility] 3.4-10.8 pro brain natriuretic peptide 99 pg/mL [facility] 0-210 HDL cholesterol, serum 30 mg/dL Link[facility]ic >39 Low triglyceride, serum, random 420 mg/dL [facility] 0-149 High cholesterol, serum 136 mg/dL [facility] 710-535 4853/09 /15 calcium, serum 10.5 mg/dL [facility] 8.7-10.2 High carbon dioxide, venous blood 23 mmol/L [facility] 20-29 chloride, serum 102 mmol/L [facility] 96-106 potassium, serum 4.4 mmol/L [facility] 3.5-5.2 sodium, serum 137 mmol/L [facility] 378-545 1635/09 /15 urea nitrogen/creatinine ratio, serum 17 [facility] 9-20 eGFR if 82 mL/min/{1.73_ m2} [facility] >59 eGFR if not 71 mL/min/{1.73_ m2} [facility] >59 creatinine, serum 1.15 mg/dL [facility] 0.76-1.27 urea nitrogen, blood 20 mg/dL [facility] 6-24 blood glucose, random 105 mg/dL [facility] 65-99 High lipoprotein, beta, serum, point, quantitative, calculated 65 mg/dL [facility] 0-99 very low density lipoproteins 50 mg/dL [facility] 5-40 High HDL cholesterol, serum 41 mg/dL [facility] >39 triglyceride, serum, random 249 mg/dL [facility] 0-149 High cholesterol, serum 156 mg/dL [facility] 844-250 2019/08 /22 pro brain natriuretic peptide 190 pg/mL [facility] 0-121 High free thyroxine index 2.0 [facility] 1.2-4.9 triiodothyronine resin uptake 26 % [facility] 24-39 thyroxine, serum, total 7.5 ug/dL [facility] 4.5-12.0 thyroid stimulating hormone, serum 1.420 u[IU]/mL [facility] 0.450-4.500 lipoprotein, beta, serum, point, quantitative, calculated 56 mg/dL [facility] 0-99 very low density lipoproteins 46 mg/dL [facility] 5-40 High HDL cholesterol, serum 38 mg/dL [facility]ic >39 Low triglyceride, serum, random 229 mg/dL [facility] 0-149 High cholesterol, serum 140 mg/dL [facility] [phone]/08 /22 alanine aminotransferase (SGPT), serum 24 1/L [facility] 0-44 aspartate aminotransferase (SGOT), serum 23 1/L [facility] 0-40 alkaline phosphatase, serum 36 1/L [facility] 39-117 Low bilirubin, serum, total 0.5 mg/dL [facility] 0.0-1.2 albumin/globulin ratio, serum 2.0 [facility] 1.2-2.2 globulin, serum 2.4 [facility] 1.5-4.5 albumin, serum 4.7 g/dL [facility] 3.5-5.5 protein, total, serum 7.1 g/dL [facility] 6.0-8.5 calcium, serum 9.8 mg/dL [facility] 8.7-10.2 carbon dioxide, venous blood 20 mmol/L [facility] 20-29 chloride, serum 105 mmol/L [facility] 96-106 potassium, serum 4.2 mmol/L [facility] 3.5-5.2 sodium, serum 142 mmol/L [facility] 349-120 4357/08 /22 urea nitrogen/creatinine ratio, serum 14 [facility] 9-20 eGFR if 113 mL/min/{1.73_ m2} [facility] >59 eGFR if not 98 mL/min/{1.73_ m2} [facility] >59 creatinine, serum 0.87 mg/dL [facility] 0.76-1.27 urea nitrogen, blood 12 mg/dL [facility] 6-24 blood glucose, random 88 mg/dL [facility] 65-99 hemoglobin A1C, blood, as % of total hemoglobin 5.4 % [facility] 4.8-5.6 basophil count, absolute 0.0 x10E3/uL [facility] 0.0-0.2 Eosinophil Absolute Count 0.2 X10E3/UL [facility] 0.0-0.4 monocyte count, blood, automated 0.7 X10E3/UL [facility] 0.1-0.9 lymphocyte count, blood, automated 2.5 X10E3/UL [facility] 0.7-3.1 Absolute Neutrophils 3.4 X10E3/UL [facility] 1.4-7.0 basophils as percent of blood leukocytes 1 % [facility] Not Estab. eosinophils as percent of blood leukocytes 3 % [facility] Not Estab. monocytes as percent of blood leukocytes 11 % [facility] Not Estab. lymphocytes as percent of blood leukocytes 37 % [facility] Not Estab. neutrophils as percent of blood leukocytes 48 % [facility] Not Estab. platelet count 184 X10E3/UL [facility] [phone]/08 /22 red blood cell distribution width 13.8 % [facility] 12.3-15.4 mean corpuscular hemoglobin concentration, RBC 34.8 G/DL [facility] 31.5-35.7 mean corpuscular hemoglobin, RBC 35.1 pg [facility] 26.6-33.0 High mean corpuscular volume, RBC 101 fL [facility] 79-97 High hematocrit, blood 45.4 % [facility] 37.5-51.0 hemoglobin, blood 15.8 g/dL [facility] 13.0-17.7 erythrocyte (RBC) count 4.50 X10E6/UL [facility] 4.14-5.80 leukocyte count, blood 6.9 X10E3/UL [facility] 3.4-10.8 lipoprotein, beta, serum, point, quantitative, calculated 64 mg/dL [facility] 0-99 very low density lipoproteins 43 mg/dL [facility] 5-40 High HDL cholesterol, serum 38 mg/dL [facility] >39 Low triglyceride, serum, random 216 mg/dL [facility] 0-149 High cholesterol, serum 145 mg/dL [facility] 507-120 8620/01 /09 alanine aminotransferase (SGPT), serum 24 1/L [facility] 0-44 aspartate aminotransferase (SGOT), serum 28 1/L [facility] 0-40 alkaline phosphatase, serum 39 1/L [facility] 39-117 bilirubin, serum, total 0.8 mg/dL [facility] 0.0-1.2 albumin/globulin ratio, serum 2.0 [facility] 1.2-2.2 globulin, serum 2.4 [facility] 1.5-4.5 albumin, serum 4.8 g/dL [facility] 3.5-5.5 protein, total, serum 7.2 g/dL [facility] 6.0-8.5 calcium, serum 9.6 mg/dL [facility] 8.7-10.2 carbon dioxide, venous blood 20 mmol/L [facility] 20-29 chloride, serum 100 mmol/L [facility] 96-106 potassium, serum 4.0 mmol/L [facility] 3.5-5.2 sodium, serum 136 mmol/L [facility] 546-530 5497/01 /09 urea nitrogen/creatinine ratio, serum 16 [facility] 9-20 eGFR if 95 mL/min/{1.73_ m2} [facility] >59 eGFR if not 82 mL/min/{1.73_ m2} [facility] >59 creatinine, serum 1.03 mg/dL [facility] 0.76-1.27 urea nitrogen, blood 16 mg/dL [facility] 6-24 blood glucose, random 90 mg/dL [facility] 65-99 hemoglobin A1C, blood, as % of total hemoglobin 5.4 % [facility] 4.8-5.6 pro brain natriuretic peptide 150 pg/mL [facility] 0-121 High free thyroxine index 2.0 [facility] 1.2-4.9 triiodothyronine resin uptake 29 % [facility] 24-39 thyroxine, serum, total 6.9 ug/dL [facility] 4.5-12.0 thyroid stimulating hormone, serum 1.530 u[IU]/mL [facility] 0.450-4.500 lipoprotein, beta, serum, point, quantitative, calculated See report mg/dL [facility] 0-99 very low density lipoproteins See report mg/dL [facility] 5-40 HDL cholesterol, serum 32 mg/dL [facility] >39 Low triglyceride, serum, random 536 mg/dL [facility] 0-149 High cholesterol, serum 154 mg/dL [facility] [phone]/05 /24 basophil count, absolute 0.0 x10E3/uL [facility] 0.0-0.2 Eosinophil Absolute Count 0.2 X10E3/UL [facility] 0.0-0.4 monocyte count, blood, automated 0.7 X10E3/UL [facility] 0.1-0.9 lymphocyte count, blood, automated 2.7 X10E3/UL [facility] 0.7-3.1 Absolute Neutrophils 3.2 X10E3/UL [facility] 1.4-7.0 basophils as percent of blood leukocytes 1 % [facility] Not Estab. eosinophils as percent of blood leukocytes 3 % [facility] Not Estab. monocytes as percent of blood leukocytes 10 % [facility] Not Estab. lymphocytes as percent of blood leukocytes 40 % [facility] Not Estab. neutrophils as percent of blood leukocytes 46 % [facility] Not Estab. platelet count 189 X10E3/UL [facility] 200-886 2279/05 /24 red blood cell distribution width 13.8 % [facility] 12.3-15.4 mean corpuscular hemoglobin concentration, RBC 34.7 G/DL [facility] 31.5-35.7 mean corpuscular hemoglobin, RBC 35.6 pg [facility] 26.6-33.0 High mean corpuscular volume, RBC 103 fL [facility] 79-97 High hematocrit, blood 46.4 % [facility] 37.5-51.0 hemoglobin, blood 16.1 g/dL [facility] 13.0-17.7 erythrocyte (RBC) count 4.52 X10E6/UL [facility] 4.14-5.80 leukocyte count, blood 6.9 X10E3/UL [facility] 3.4-10.8 alanine aminotransferase (SGPT), serum 25 1/L [facility] 0-44 aspartate aminotransferase (SGOT), serum 26 1/L [facility] 0-40 alkaline phosphatase, serum 52 1/L [facility] 39-117 bilirubin, serum, total 0.5 mg/dL [facility] 0.0-1.2 albumin/globulin ratio, serum 2.0 [facility] 1.2-2.2 globulin, serum 2.3 [facility] 1.5-4.5 albumin, serum 4.7 g/dL [facility] 3.5-5.5 protein, total, serum 7.0 g/dL [facility] 6.0-8.5 calcium, serum 9.4 mg/dL [facility] 8.7-10.2 carbon dioxide, venous blood 21 mmol/L [facility] 18-29 chloride, serum 103 mmol/L [facility] 96-106 potassium, serum 4.4 mmol/L [facility] 3.5-5.2 sodium, serum 142 mmol/L [facility] 873-847 2732/05 /24 urea nitrogen/creatinine ratio, serum 15 [facility] 9-20 eGFR if 119 mL/min/{1.73_ m2} [facility] >59 eGFR if not 103 mL/min/{1.73_ m2} [facility] >59 creatinine, serum 0.78 mg/dL [facility] 0.76-1.27 urea nitrogen, blood 12 mg/dL [facility] 6-24 blood glucose, random 84 mg/dL [facility] 65-99 prostate specific antigen 0.6 ng/mL [facility] < OR = 4.0 Normal basophils as percent of blood leukocytes 1.2 % [facility] Normal eosinophils as percent of blood leukocytes 3.1 % [facility] Normal monocyte count, blood 8.7 % [facility] Normal lymphocyte count, blood 49.9 % [facility] Normal neutrophils as percent of blood leukocytes 37.1 % [facility] Normal basophils, absolute, manual 62 cells/mcL [facility] 0-200 Normal eosinophils, absolute, manual 161 cells/mcL [facility] 15-500 Normal monocytes, absolute, manual 452 cells/mcL [facility] 200-950 Normal lymphocytes, absolute 2595 CELLS/UL [facility] 850-3900 Normal Absolute Neutrophil count 1929 cells/mcL [facility] [phone] Normal mean platelet volume 9.3 fL [facility] 7.5-12.5 Normal platelet count 187 THOUSAND/UL [facility] 140-400 Normal red blood cell distribution width 12.9 % [facility] 11.0-15.0 Normal mean corpuscular hemoglobin concentration, RBC 35.1 G/DL [facility] 32.0-36.0 Normal mean corpuscular hemoglobin, RBC 35.7 pg [facility] 27.0-33.0 High mean corpuscular volume, RBC 101.6 fL [facility] 80.0-100.0 High hematocrit, blood 44.7 % [facility] 38.5-50.0 Normal hemoglobin electrophoresis, blood 15.7 [facility] 13.2-17.1 Normal erythrocyte (RBC) count 4.40 MILLION/UL [facility] 4.20-5.80 Normal leukocyte (white blood cells) count, blood 5.2 THOUSAND/UL [facility] 3.8-10.8 Normal alanine aminotransferase (SGPT), serum 29 1/L [facility] 9-46 Normal aspartate aminotransferase (SGOT), serum 26 1/L [facility] 10-35 Normal alkaline phosphatase, serum 48 1/L [facility] 40-115 Normal bilirubin, serum, total 0.5 mg/dL [facility] 0.2-1.2 Normal albumin/globulin ratio, serum 1.8 (calc) [facility] 1.0-2.5 Normal globulins, serum, total 2.4 G/DL (CALC) [facility] 1.9-3.7 Normal albumin, serum 4.4 g/dL [facility] 3.6-5.1 Normal protein, total, serum 6.8 g/dL [facility] 6.1-8.1 Normal calcium, serum 9.3 mg/dL [facility] 8.6-10.3 Normal carbon dioxide, venous blood 22 mmol/L [facility] 20-31 Normal chloride, serum 108 mmol/L [facility] 98-110 Normal potassium, serum 4.0 mmol/L [facility] 3.5-5.3 Normal sodium, serum 141 mmol/L [facility] 135-146 Normal urea nitrogen/creatinine ratio, serum NOT APPLICABLE (calc) [facility] 6-22 Estimated Glomerular Filtration Rate (calc) 125 mL/min/{1.73_ m2} [facility] > OR = 60 Normal creatinine, serum 0.71 mg/dL [facility] 0.70-1.33 Normal urea nitrogen, blood 10 mg/dL [facility] 7-25 Normal blood glucose, random 86 mg/dL [facility] 65-99 Normal cholesterol, non-HDL, total 91 MG/DL (CALC) [facility] <130 Normal cholesterol/HDL ratio, serum, percent 3.9 (calc) [facility] <5.0 Normal LDL cholesterol, serum 56 MG/DL (CALC) [facility] Normal triglyceride, serum, fasting 336 mg/dL [facility] <150 High HDL cholesterol, serum 31 mg/dL [facility] >40 Low cholesterol, serum 122 mg/dL [facility] <200 Normal ferritin, serum 498 ng/mL [facility] 20-380 High NT-pro BNP 671 [facility] High basophils as percent of blood leukocytes 0.9 % [facility] Normal eosinophils as percent of blood leukocytes 2.9 % [facility] Normal monocyte count, blood 8.5 % [facility] Normal lymphocyte count, blood 40.1 % [facility] Normal neutrophils as percent of blood leukocytes 47.6 % [facility] Normal basophils, absolute, manual 57 cells/mcL [facility] 0-200 Normal eosinophils, absolute, manual 183 cells/mcL [facility] 15-500 Normal monocytes, absolute, manual 536 cells/mcL [facility] 200-950 Normal lymphocytes, absolute 2526 CELLS/UL [facility] 850-3900 Normal Absolute Neutrophil count 2999 cells/mcL [facility] 7439-4135 Normal mean platelet volume 7.1 fL [facility] 7.5-12.5 Low platelet count 203 THOUSAND/UL [facility] 140-400 Normal red blood cell distribution width 13.7 % [facility] 11.0-15.0 Normal mean corpuscular hemoglobin concentration, RBC 33.4 G/DL [facility] 32.0-36.0 Normal mean corpuscular hemoglobin, RBC 34.5 pg [facility] 27.0-33.0 High mean corpuscular volume, RBC 103.1 fL [facility] 80.0-100.0 High hematocrit, blood 43.8 % [facility] 38.5-50.0 Normal hemoglobin electrophoresis, blood 14.6 [facility] 13.2-17.1 Normal erythrocyte (RBC) count 4.25 [facility] Normal leukocyte (white blood cells) count, blood 6.3 [facility]AND/[facility] 3.8-10.8 Normal alanine aminotransferase (SGPT), serum 21 1/L [facility] 9-46 Normal aspartate aminotransferase (SGOT), serum 20 1/L [facility] 10-35 Normal alkaline phosphatase, serum 51 1/L [facility] 40-115 Normal bilirubin, serum, total 0.8 mg/dL [facility] 0.2-1.2 Normal albumin/globulin ratio, serum 1.6 (calc) [facility] 1.0-2.5 Normal globulins, serum, total 2.7 G/DL (CALC) [facility] 1.9-3.7 Normal albumin, serum 4.4 g/dL [facility] 3.6-5.1 Normal protein, total, serum 7.1 g/dL [facility] 6.1-8.1 Normal calcium, serum 9.6 mg/dL [facility] 8.6-10.3 Normal carbon dioxide, venous blood 23 mmol/L [facility] 20-31 Normal chloride, serum 105 mmol/L [facility] 98-110 Normal potassium, serum 4.3 mmol/L [facility] 3.5-5.3 Normal sodium, serum 139 mmol/L [facility] 135-146 Normal urea nitrogen/creatinine ratio, serum NOT APPLICABLE (calc) [facility] 6- Estimated Glomerular Filtration Rate (calc) 121 mL/min/{1.73_ m2} [facility] > OR = 60 Normal creatinine, serum 0.77 mg/dL [facility] 0.70-1.33 Normal urea nitrogen, blood 16 mg/dL [facility] 7-25 Normal blood glucose, random 82 mg/dL [facility] 65-99 Normal iron saturation percent, serum 40 % (CALC) [facility] 15-60 Normal iron binding capacity, total 326 MCG/DL (CALC) [facility] 250-425 Normal iron, serum 130 ug/dL [facility] 50-180 Normal cholesterol, non-HDL, total 143 MG/DL (CALC) [facility] Normal cholesterol/HDL ratio, serum, percent 5.1 (calc) [facility] < OR = 5.0 High LDL cholesterol, serum * mg/dL (calc) [facility] <130 triglyceride, serum, fasting 633 mg/dL [facility] <150 High HDL cholesterol, serum 35 mg/dL [facility] > OR = 40 Low cholesterol, serum 178 mg/dL [facility] 125-200 Normal HISTORY OF MEDICATION USE Medication Status Instructions Dates Provider Indications Com ments losartan 100 mg tablet active Take 1 tablet by mouth once daily 07/04 Misty Rushing furosemide 20 mg tablet active Take 1 tablet by mouth once a day 11/09 Maksim Hollis DO nebivolol 20 mg tablet active Take 1 tablet by mouth once a day 11/08 Maksim Hollis DO rosuvastatin 40 mg tablet active Take 1 tablet by mouth once daily 09/28 Misty Rushing losartan 100 mg tablet completed Take 1 tablet by mouth once a day 07/22 - 07/04 Misty Williamazsweetie Vascepa 1 gram capsule active Take 2 capsules by mouth twice daily 07/13 Misty Rushisweetie Zepbound 5 mg/0.5 mL pen injector active Inject 5 mg subcutaneously once a week 06/23 Maksim Hollis DO losartan 100 mg tablet completed Take 1 tablet by mouth once daily 07/16 - 07/22 Darcy Dhillon carvedilol 25 mg tablet completed Take 1 tablet by mouth twice daily 06/20 - 11/08 Maksim Hollis DO clopidogrel 75 mg tablet active Take 1 tablet by mouth once daily Misty Rushisweetei varenicline 1 mg tablet completed - 06/23 Darcy Dhillon Aldactone 25 mg tablet active Take 1 tablet by mouth once a day 09/23 Maksim Hollis DO losartan 100 mg tablet completed Take 1 tablet by mouth once a day new dose 100mg replaces 50mg 12/12 - 07/16 [facility] losartan 50 mg tablet completed Take 1 tablet by mouth once a day 10/03 - 12/12 Maksim Hollis DO hydrochlorothiazi de 25 mg tablet completed Take 1 tablet by mouth once a day 10/03 - 12/12 Darcy Dhillon fenofibrate nanocrystallized 145 mg tablet active Take 1 tablet by mouth once daily 08/16 Misty Linares Tricor 145 mg tablet completed Take 1 tablet by mouth once a day One tablet by mouth once daily 05/27 - 07/26 Manuela King RN losartan-hydrochl orothiazide 100-12.5 mg tablet completed Take 1/2 tablet by mouth once a day Take 1 tablet by mouth once daily - 10/03 Darcy Dhillon Aspirin Childrens 81 mg tablet,chewable active Take 1 tablet by mouth once a day Maksim Hollis DO albuterol sulfate 90 mcg/actuation HFA aerosol inhaler completed - 12/12 Darcy Dhillon celecoxib 100 mg capsule active Take 1 capsule by mouth twice a day Darcy Dhillon losartan-hydrochl orothiazide 100-12.5 mg tablet completed - Esperanza Whitmore gabapentin 300 mg capsule active Take 1 capsule by mouth once a day as needed Darcy Dhillon Plavix 75 mg tablet completed 1 tablet by mouth once a day 09/25 - Darrian Marie budesonide 3 mg capsule,delayed,e xtend.release completed Take 3 capsule by mouth once a day 09/04 - Esperanza Whitmore #[id number], 90 days supply, Prescribed by GERARDO JENKINS, Filled 09/05/2020 ALDACTONE 50 MG ORAL TABLET completed ONE TAB. DAILY 01/09 - 06/26 Maksim Hollis DO FUROSEMIDE 20 MG ORAL TABLET completed take one tablet once daily 11/27 - 01/09 Maksim Hollis DO AMLODIPINE BESYLATE 5 MG ORAL TABLET completed ONE TAB. DAILY 08/17 - 06/26 Maksim Hollis DO HYDROCHLOROTHIAZI DE 12.5 MG ORAL CAPSULE completed ONE TAB. DAILY 10/20 - 11/27 Marguerite Herbert RN replaces the Hyzaar SEMAGLUTIDE/PLACE STANISLAV completed once weekly injection 07/06 - 09/05 Kate Guevara ProAir HFA 90 mcg/actuation HFA aerosol inhaler active as needed 07/11 Maksim Hollis DO ADIPEX-P 37.5 MG ORAL TABLET completed one tab by mouth daily 01/25 - 07/11 Maksim Hollis DO fenofibric acid (choline) 135 mg capsule,delayed release(DR/EC) completed Take 1 capsule by mouth once a day 09/08 - 05/27 Manuela King RN Hyzaar 100-12.5 mg tablet completed 1 tablet by mouth once a day 10/20 - Maksim Hollis DO replaced the Hyzaar LISINOPRIL 20 MG ORAL TABLET completed ONE TAB. DAILY - 10/20 Maksim Hollis DO Vascepa 1 gram capsule completed Take 2 capsule by mouth twice a day 12/20 - 07/13 Misty Rushisweetie EZETIMIBE 10 MG ORAL TABLET completed one tab by mouth daily 10/07 - 01/06 Maksim Hollis DO aspirin 81 mg tablet,delayed release (DR/EC) completed Take 1 tablet by mouth once a day 11/15 - Esperanza Whitmore Coreg 25 mg tablet completed 1 tablet by mouth twice a day 09/23 - 06/20 Misty Rushisweetie BRILINTA 60 MG ORAL TABLET completed Take 1 tablet by mouth twice daily 07/10 - 09/25 Maksimchad Hollis DO rosuvastatin 40 mg tablet completed Take 1 tablet by mouth once a day 10/31 - 09/28 Misty Linares LISINOPRIL 10 MG ORAL TABLET completed ONE TAB. DAILY 09/23 - Maksim Hollis DO IBUPROFEN 600 MG ORAL TABLET completed 2-3 times daily as needed 09/23 - Maksim Hollis DO cholecalciferol (vitamin D3) 125 mcg (5,000 unit) capsule active 1 tablet by mouth once a day 09/23 Esperanzadavid Whitmore 5-MTHF 1 MG ORAL CAPSULE completed 09/23 - Esperanza Whitmore OMEGA-3 FISH OIL 1000 MG ORAL CAPSULE completed One tab. daily 09/23 - 01/06 Maksim Hollis DO SOCIAL HISTORY Date Observation Value Provider drug use no Delilah King alcohol use yes Delilah King smoking/tobacco cess ation, patient education and counseling yes Delilah King chewing tobacco use Current Delilah canales number of years as a smoker 1982 a Delilah King smoking history, tot al pack/day 4-5 cigs a day Delilah King cigarette use yes Delilah King smoking status Current every da y smoker Delilah King seatbelt usage 50 % Mely Cuevas caffeine use, averag e drinks per day 2 /d Mely Car smoking/tobacco cess ation, patient education and counseling yes Mely Car chewing tobacco use Current Mely Car number of years as a smoker 1982 a Mely Car smoking history, tot al pack/day 4-5 cigs a day Mely Car cigarette use yes Mely Mcfadden nd smoking status Current every da y smoker Mely Car seatbelt usage 50 % Yadira Fay caffeine use, averag e drinks per day 2 /d Yadira Fay drug use no Yadira Fay alcohol use yes Yadira Fay chewing tobacco use Current Yadira borges smoking status Current every da y smoker Yadira Fay smoking history, tot al pack/day 4-5 cigs a day Darcy Stoneriky smoking/tobacco cess ation, patient education and counseling yes Darcy Jacquie number of years as a smoker 1982 a Darcy Jacquie cigarette use yes Darcy Stonezackkallie so smoking status Current every da y smoker Darcy Stoneolvintracyso smoking/tobacco cess ation, patient education and counseling yes Darcy Jacquie number of years as a smoker 1982 a Darcy Jacquie cigarette use yes Darcy Stoneolvintracy so smoking status Current every da y smoker Darcy Stoneriky smoking/tobacco cess ation, patient education and counseling yes Esperanza Haim number of years as a smoker 1982 a Esperanza Chackoby cigarette use yes Esperanza Haim smoking status Current every da y smoker Esperanza Haim smoking status Current every da y smoker Savannah Karly smoking/tobacco cess ation, patient education and counseling yes Esperanza Haim number of years as a smoker 1982 a Esperanza Haim cigarette use yes Esperanza Whitmore smoking status Current every da y smoker Esperanza Chackoby smoking status Current every da y smoker Savannah Karly number of grandchildren Yakov Deras MD social history E&M S moking History: P attoya currently smokes every day. P atient has been counseled to quit. Yakov Deras MD social history reviewed E&M revi ewed - no changes required Yakov Deras MD smoking status Current every da y smoker Angela Foss smoking/tobacco cess ation, patient education and counseling yes Angela Foss number of years as a smoker 1982 a Angela Foss cigarette use yes Angela Block smoking/tobacco cess ation, patient education and counseling yes Perlita Stephens number of years as a smoker 1982 a Perlita Stephens cigarette use yes Perlita Stephens smoking status Current every da y smoker Perlita Stephens smoking/tobacco cess ation, patient education and counseling yes Esperanza Chackoby number of years as a smoker 1982 a Esperanza Chackoby cigarette use yes Esperanza Haim smoking status Current every da y smoker Esperanza Chackoby smoking/tobacco cess ation, patient education and counseling yes Esperanza Chackoby number of years as a smoker 1982 a Esperanza Chackoby cigarette use yes Esperanza Haim smoking status Current every da y smoker Esperanza Chackoby smoking/tobacco cess ation, patient education and counseling yes Angela Foss number of years as a smoker 1982 a Angela Foss cigarette use yes Angela Foss smoking status Current every da y smoker Angela Foss smoking/tobacco cess ation, patient education and counseling yes Esperanza Hampton number of years as a smoker 1982 a Esperanza Haim cigarette use yes Esperanza Hampton smoking status Current every da y smoker Esperanza Hampton smoking/tobacco cess ation, patient education and counseling yes Miguel Angel Dyer number of years as a smoker 1982 a Le Mars Dyer cigarette use yes Miguel Angel Dyer smoking status Current every da y smoker Miguel Angel Luceroam smoking/tobacco cess ation, patient education and counseling yes Esperanza Haim number of years as a smoker 1982 a Esperanza Hampton cigarette use yes Esperanza Hampton smoking status Current every da y smoker Esperanza Haim smoking/tobacco cess ation, patient education and counseling yes Esperanza Haim number of years as a smoker 1982 a Esperanza Haim cigarette use yes Esperanza Hampton smoking status Current every da y smoker Esperanza Hampton smoking/tobacco cess ation, patient education and counseling yes Maksim Mahesh Bunny DO number of grandchildren Maksim Smyth O Deisy Walters number of years as a smoker 1982 a Deisyhattie Villarrealey cigarette use yes Deisy Lashle y smoking status Current every da y smoker Deisy Selena FUNCTIONAL STATUS Date Observation Value Provider HRA, CV Assess/Plan, Angina (inactive) Management Plan continue current therapy Maksim Mahesh Bunny DO HRA, CV Assess/Plan, Angina (inactive) Management Plan continue current therapy Maksim Mahesh Bunny DO HRA, CV Assess/Plan, Angina (inactive) Management Plan continue current therapy Yakov Deras MD HRA, CV Assess/Plan, Angina (inactive) Management Plan continue current therapy Maksim Mahesh Bunny DO HRA, CV Assess/Plan, Angina (inactive) Management Plan continue current therapy Maksim Mahesh Bunny DO HRA, CV Assess/Plan, Angina (inactive) Management Plan continue current therapy Maksim Mahesh Bunny DO HRA, CV Assess/Plan, Angina (inactive) Management Plan continue current therapy Maksim Mahesh Bunny DO HRA, CV Assess/Plan, Angina (inactive) Management Plan continue current therapy Maksim Mahesh Bunny DO HRA, CV Assess/Plan, Angina (inactive) Management Plan continue current therapy Maksim Hollis DO HRA, CV Assess/Plan, Angina (inactive) Management Plan continue current therapy Maksim Hollis DO HRA, CV Assess/Plan, Angina (inactive) Management Plan continue current therapy Maksim Hollis HRA, CV Assess/Plan, Angina (inactive) Management Plan continue current therapy Maksim Hollis DO HRA, CV Assess/Plan, Angina (inactive) Management Plan continue current therapy Maksim Hollis DO FAMILY HISTORY Family Member Condition Mother [place] female <65 Father Family History of Hy pertension: Father Family History of Di abetes: Mother Family History Breas t Cancer: INSURANCE PROVIDERS Payer name Policy type / Coverage type [place] red democrat ID [employer] MEDICARE Medicare [id number] ADVANCE DIRECTIVES Name Date DISCUSSED - NO DECISION MADE TREATMENT PLAN Date Name Performer [id number],C, a dipex did not tolerate nor covered by insurance. t ry intermittent fasting. [facility] Mahesh Hollis [id number],C, m ild on chris Maksimchad Hollis [id number],C, o n vescapa/fibrate m uch better L abs 06/16: probnp 393, cmp ok, LDL 60 Trigs 316, cbc ok, a1c 5.8% L ab 01/14: LDL 65, LPa 17, trigs 298 bmp ok, probnp 19, crp nml, cbc ok, a1c5.3% His updated medication list for this problem includes: Fenofibrate Nanocrystallized 145 Mg Tablet (Fenofibrate nanocrystallized) ..... Take 1 tablet by mouth once daily Vascepa 1 Gram Capsule (Icosapent ethyl) ..... Take 2 capsule by mouth twice a day Rosuvastatin 40 Mg Tablet (Rosuvastatin) ..... Take 1 tablet by mouth once a day Maksim Hollis [id number],C, s /p large anterior mi p romus NICOLE to LAD, staged pci to rca 10/08 w ould cont dapt stop brilinta start plavix instead (easy bruising) h as quit smoking o n good meds n eg nuc 01/10 E cho 11/13: EF 50%, apical wall motion abnormality, mild MR/TR a dd aldactone 25 may be able to tolerate now l ipid panel better, LDL < 70 now L abs 06/16: probnp 393, cmp ok, LDL 60 Trigs 316, cbc ok, a1c 5.8% Maksim Hollis DO [id number],C, H e underwent emergency revascularization which was difficult and challenging because of the vessel being calcified and tortuous. I had to use a GuideLiner and ultimately placed 2 long Promus Premier drug-eluting stents in the proximal half of the LAD with a good anatomical result. He had a sizable infarction by enzymes and ECG. The patient was also found to have significant right coronary disease with a long area of tubular stenosis stenosis in the midportion of the vessel and also in the distal portion. this was later stented. Maksim Hollis [id number],C, t rigs were too high [place] [place] not even calculated cause trigs > 600. o n crestor 40 will try holding or take every other day to see if this improves myalgias cant tolerate zetia o n fibrate o n vasecpea R epeat lipids 06/01/18: LDL 64, Trigs 216, HDL 38!!!!\ L ipid 01/10 LDL 56 HDL 38 Trigs 229 1 07/13 LDL 65 Trigs 249 R ecent labs 02/06/20 reviewed: probnp 99 (nml), cr 1.1, k 4.4, LDL 44, Trigs 420 L abs 06/2021: a1c 5.5%, LFTs ok, cbc ok, gfr nml, LDL 41 Trigs 288 L abs 06/16: probnp 393, cmp ok, LDL 60 Trigs 316, cbc ok, a1c 5.8% L ab 01/14: LDL 65, LPa 17, trigs 298 bmp ok, probnp 19, crp nml, cbc ok, a1c5.3% His updated medication list for this problem includes: Fenofibrate Nanocrystallized 145 Mg Tablet (Fenofibrate nanocrystallized) ..... Take 1 tablet by mouth once daily Vascepa 1 Gram Capsule (Icosapent ethyl) ..... Take 2 capsule by mouth twice a day Rosuvastatin 40 Mg Tablet (Rosuvastatin) ..... Take 1 tablet by mouth once a day Maksimrobson Hollis [id number],C, H is updated medication list for this problem includes: Aldactone 25 Mg Tablet (Spironolactone) ..... Take 1 tablet by mouth once a day Coreg 25 Mg Tablet (Carvedilol) ..... 1 tablet by mouth twice a day Losartan 100 Mg Tablet (Losartan) ..... Take 1 tablet by mouth once a day new dose 100mg replaces 50mg Aspirin Childrens 81 Mg Tablet,chewable (Aspirin) ..... Take 1 tablet by mouth once a day BP today: 122/80 P rior BP: 145/95 (09/23/2022) Labs Reviewed: C reat: 1.11 (01/16/2023) C hol: 132 (01/16/2023) HDL: 36 (01/16/2023) LDL: 65 MG/DL (CALC) (01/16/2023) T (01/16/2023) Maksim Mahesh Hollis [id number],C, ehsan Schaeffer Mahesh Bunny [id number],C,a dd aldactone 25 may be able to tolerate now His updated medication list for this problem includes: Coreg 25 Mg Tablet (Carvedilol) ..... 1 tablet by mouth twice a day Losartan 100 Mg Tablet (Losartan) ..... Take 1 tablet by mouth once a day new dose 100mg replaces 50mg Aspirin Childrens 81 Mg Tablet,chewable (Aspirin) ..... Take 1 tablet by mouth once a day BP today: 145/95 P rior BP: 133/88 (04/01/2022) Labs Reviewed: C reat: 0.90 (05/28/2022) C hol: 143 (05/28/2022) HDL: 34 (05/28/2022) Maksim Hollis [id number],C, s /p large anterior mi p romus NICOLE to LAD, staged pci to rca 10/08 w ould cont dapt stop brilinta start plavix instead (easy bruising) h as quit smoking o n good meds n eg nuc 01/10 E cho 11/13: EF 50%, apical wall motion abnormality, mild MR/TR a dd aldactone 25 may be able to tolerate now l ipid panel better, LDL < 70 now L abs 06/16: probnp 393, cmp ok, LDL 60 Trigs 316, cbc ok, a1c 5.8% Maksim Hollis [id number],C, t rigs were too high despite taking otc omega 3 [place] [place] LDL not even calculated cause trigs > 600. o n crestor 40 c ant tolerate zetia o n fibrate on vasecpea R epeat lipids 06/01/18: LDL 64, Trigs 216, HDL 38!!!!\ L ipid 01/10 LDL 56 HDL 38 Trigs 229 1 07/13 LDL 65 Trigs 249 R ecent labs 02/06/20 reviewed: probnp 99 (nml), cr 1.1, k 4.4, LDL 44, Trigs 420 L abs 06/2021: a1c 5.5%, LFTs ok, cbc ok, gfr nml, LDL 41 Trigs 288 L abs 06/16: probnp 393, cmp ok, LDL 60 Trigs 316, cbc ok, a1c 5.8% His updated medication list for this problem includes: Fenofibrate Nanocrystallized 145 Mg Tablet (Fenofibrate nanocrystallized) ..... Take 1 tablet by mouth once daily Vascepa 1 Gram Capsule (Icosapent ethyl) ..... Take 2 capsule by mouth twice a day Rosuvastatin 40 Mg Tablet (Rosuvastatin) ..... Take 1 tablet by mouth once a day Maksimrobson Hollis [id number],C, o n vescapa/fibrate m uch better L abs 06/16: probnp 393, cmp ok, LDL 60 Trigs 316, cbc ok, a1c 5.8% His updated medication list for this problem includes: Fenofibrate Nanocrystallized 145 Mg Tablet (Fenofibrate nanocrystallized) ..... Take 1 tablet by mouth once daily Vascepa 1 Gram Capsule (Icosapent ethyl) ..... Take 2 capsule by mouth twice a day Rosuvastatin 40 Mg Tablet (Rosuvastatin) ..... Take 1 tablet by mouth once a day Maksim Hollis [id number],C, m ild on chris Maksimchad Hollis [id number],C, s /p large anterior mi p romus NICOLE to LAD, staged pci to rca 10/08 w ould cont dapt stop brilinta start plavix instead (easy bruising) h as quit smoking o n good meds n eg nuc 01/10 e cp e f now 50%.01/10 lipid panel better, LDL < 70 now L abs 06/2021: a1c 5.5%, LFTs ok, cbc ok, gfr nml, LDL 41 Trigs 288 [facility] Mahesh Hollis [id number],C, t rigs were too high despite taking otc omega 3 [place] [place] LDL not even calculated cause trigs > 600. o n crestor 40 c ant tolerate zetia o n fibrate on vasecpea R epeat lipids 06/01/18: LDL 64, Trigs 216, HDL 38!!!!\ L ipid 01/10 LDL 56 HDL 38 Trigs 229 1 07/13 LDL 65 Trigs 249 R ecent labs 02/06/20 reviewed: probnp 99 (nml), cr 1.1, k 4.4, LDL 44, Trigs 420 L abs 06/2021: a1c 5.5%, LFTs ok, cbc ok, gfr nml, LDL 41 Trigs 288 [facility] Mahesh Hollis [id number],C,r pm trends ok, opts out now H is updated medication list for this problem includes: Losartan 100 Mg Tablet (Losartan) ..... Take 1 tablet by mouth once a day new dose 100mg replaces 50mg Coreg 25 Mg Tablet (Carvedilol) ..... 1 tablet by mouth twice a day Aspirin Childrens 81 Mg Tablet,chewable (Aspirin) ..... Take 1 tablet by mouth once a day BP today: 133/88 P rior BP: 152/92 (12/12/2021) Labs Reviewed: C reat: 1.15 (02/07/2020) C hol: 136 (02/07/2020) HDL: 30 (02/07/2020) [facility] Mahesh [facility] [id number],C, m ild on chris d enies of any claudication w alks a lot on the job [facility] Mahesh [facility] [id number],C, o n vescapa[facility] [id number],C, a dipex did not tolerate nor covered by insurance. t ry intermittent fasting. i n select r efer anguiano. [facility] Mahesh [facility] [id number],C, L ikely venous insufficiency. Will not add diuretic as he feels dehydrated. He has ordered compression stockings which I advised he wear. o ff amlodipine. [facility] Mahesh [facility] [id number],C,S topped taking hctz last month because he felt dizzy and dehydrated on this medication, in addition to other diuretics. l osartan 50 to 100 n o diuretics His updated medication list for this problem includes: Losartan 50 Mg Tablet (Losartan) ..... Take 1 tablet by mouth once a day Coreg 25 Mg Tablet (Carvedilol) ..... 1 tablet by mouth twice a day Aspirin Childrens 81 Mg Tablet,chewable (Aspirin) ..... Take 1 tablet by mouth once a day BP today: 152/92 P rior BP: 132/74 (10/03/2021) Labs Reviewed: C reat: 1.15 (02/07/2020) C hol: 136 (02/07/2020) HDL: 30 (02/07/2020) Maksim Hollis [id number],C, t rigs were too high despite [place]c [place] 3 [place] [place] LDL not even calculated cause trigs > 600. o n crestor 40 c ant tolerate zetia o n fibrate on vasecpea R epeat lipids 06/01/18: LDL 64, Trigs 216, HDL 38!!!!\ L ipid 01/10 LDL 56 HDL 38 Trigs 229 1 07/13 LDL 65 Trigs 249 R ecent labs 02/06/20 reviewed: probnp 99 (nml), cr 1.1, k 4.4, LDL 44, Trigs 420 L abs 06/2021: a1c 5.5%, LFTs ok, cbc ok, gfr nml, LDL 41 Trigs 288 Maksim Hollis [id number],C, s /p large anterior mi p romus NICOLE to LAD, staged pci to rca 10/08 w ould cont dapt stop brilinta start plavix instead (easy bruising) h as quit smoking o n good meds n eg nuc 01/10 e cp e f now 50%.01/10 lipid panel better, LDL < 70 now L abs 06/2021: a1c 5.5%, LFTs ok, cbc ok, gfr nml, LDL 41 Trigs 288 Maksim Hollis [id number],C, L ikely venous insufficiency. Will not add diuretic as he feels dehydrated. He has ordered compression stockings which I advised he wear. o ff amlodipine. Maksim Hollis [id number],C, H e underwent emergency revascularization which was difficult and challenging because of the vessel being calcified and tortuous. I had to use a GuideLiner and ultimately placed 2 long Promus Premier drug-eluting stents in the proximal half of the LAD with a good anatomical result. He had a sizable infarction by enzymes and ECG. The patient was also found to have significant right coronary disease with a long area of tubular stenosis stenosis in the midportion of the vessel and also in the distal portion. this was later stented. [facility] Mahesh [facility] [id number],C, s /p pci p fts ok. e cho planned [facility] Mahesh [facility] [id number],C, o n vescapa/fibrate m [facility] [id number],C, m ild on chris d enies of any claudication w alks a lot on the job [facility] Mahesh [facility] [id number],C, t rigs were too high despite taking otc [place] 3 [place] [place] LDL not even calculated cause trigs > 600. o n crestor 40 c ant tolerate zetia o n fibrate on vasecpea R epeat lipids 06/01/18: LDL 64, Trigs 216, HDL 38!!!!\ L ipid 01/10 LDL 56 HDL 38 Trigs 229 1 07/13 LDL 65 Trigs 249 R ecent labs 02/06/20 reviewed: probnp 99 (nml), cr 1.1, k 4.4, LDL 44, Trigs 420 L abs 06/2021: a1c 5.5%, LFTs ok, cbc ok, gfr nml, LDL 41 Trigs 288 [facility] Mahesh [facility] [id number],C,D iscussion of benefits for remote patient monitoring took place. Patient gives consent for remote monitoring of physiologic parameters including, but not limited to, weight, blood pressure, pulse oximetry, respiratory flow rate. His updated medication list for this problem includes: Losartan-hydrochlorothiazide 100-12.5 Mg Tablet (Losartan-hydrochlorothiazide) ..... Take 1/2 tablet by mouth once a day take 1 tablet by mouth once daily Coreg 25 Mg Tablet (Carvedilol) ..... 1 tablet by mouth twice a day Aspirin Childrens 81 Mg Tablet,chewable (Aspirin) ..... Take 1 tablet by mouth once a day BP today: 132/74 P rior BP: 130/70 (03/12/2021) Labs Reviewed: C reat: 1.15 (02/07/2020) C hol: 136 (02/07/2020) HDL: 30 (02/07/2020) Maksim Hollis DO [id number],C, H e underwent emergency revascularization which was difficult and challenging because of the vessel being calcified and tortuous. I had to use a GuideLiner and ultimately placed 2 long Promus Premier drug-eluting stents in the proximal half of the LAD with a good anatomical result. He had a sizable infarction by enzymes and ECG. The patient was also found to have significant right coronary disease with a long area of tubular stenosis stenosis in the midportion of the vessel and also in the distal portion. this was later stented. Maksim Hollis DO [id number],C, s /p large anterior mi p romus NICOLE to LAD, staged pci to rca 10/08 w ould cont dapt stop brilinta start plavix instead (easy bruising) h as quit smoking o n good meds n eg nuc 01/10 e cp e f now 50%.01/10 lipid panel better, LDL < 70 now L abs 06/2021: a1c 5.5%, LFTs ok, cbc ok, gfr nml, LDL 41 Trigs 288 Maksim Hollis DO [id number],C, L ikely venous insufficiency. Will not add diuretic as he feels dehydrated. He has ordered compression stockings which I advised he wear. o ff amlodipine. Maksim Hollis DO [id number],C, t rigs were too high despite taking otc [place] 3 [place] [place] LDL not even calculated cause trigs > 600. o n crestor 40 c ant tolerate zetia o n fibrate on vasecpea R epeat lipids 06/01/18: LDL 64, Trigs 216, HDL 38!!!!\ L ipid 01/10 LDL 56 HDL 38 Trigs 229 1 07/13 LDL 65 Trigs 249 R ecent labs 02/06/20 reviewed: probnp 99 (nml), cr 1.1, k 4.4, LDL 44, Trigs 420 Maksim Hollis [id number],C, a dipex did not tolerate nor covered by insurance. t ry intermittent fasting. i n select r efer anguiano. Maksim Hollis [id number],C, L ikely venous insufficiency. Will not add diuretic as he feels dehydrated. He has ordered compression stockings which I advised he wear. o ff amlodipine. Maksim Hollis [id number],C, m ild on chris d enies of any claudication w alks a lot on the job Maksim Hollis [id number],C, t rigs were too high despite taking otc [place] 3 [place] [place] LDL not even calculated cause trigs > 600. o n crestor 40 c ant tolerate zetia o n fibrate on vasecpea R epeat lipids 06/01/18: LDL 64, Trigs 216, HDL 38!!!!\ L ipid 01/10 LDL 56 HDL 38 Trigs 229 1 07/13 LDL 65 Trigs 249 R ecent labs 02/06/20 reviewed: probnp 99 (nml), cr 1.1, k 4.4, LDL 44, Trigs 420 Maksim Hollis [id number],C, H e underwent emergency revascularization which was difficult and challenging because of the vessel being calcified and tortuous. I had to use a GuideLiner and ultimately placed 2 long Promus Premier drug-eluting stents in the proximal half of the LAD with a good anatomical result. He had a sizable infarction by enzymes and ECG. The patient was also found to have significant right coronary disease with a long area of tubular stenosis stenosis in the midportion of the vessel and also in the distal portion. this was later stented. Maksim Hollis [id number],C, s /p large anterior mi p romus NICOLE to LAD, staged pci to rca 10/08 w ould cont dapt stop brilinta start plavix instead (easy bruising) h as quit smoking o n good meds n eg nuc 01/10 e cp e f now 50%.01/10 lipid panel better, LDL < 70 now Maksim Hollis DO [id number],C, T he following medications were removed from the medication list: Aspirin 81 Mg Tablet,delayed Release (dr/ec) (Aspirin) ..... Take 1 tablet by mouth once a day His updated medication list for this problem includes: Coreg 25 Mg Tablet (Carvedilol) ..... 1 tablet by mouth twice a day Hyzaar 100-12.5 Mg Tablet (Losartan-hydrochlorothiazide) ..... 1 tablet by mouth once a day Losartan-hydrochlorothiazide 100-12.5 Mg Tablet (Losartan-hydrochlorothiazide) BP today: 130/70 P rior BP: 107/87 (11/20/2020) Labs Reviewed: C reat: 1.15 (02/07/2020) C hol: 136 (02/07/2020) HDL: 30 (02/07/2020) Mkasim Hollis DO [id number],C, H e underwent emergency revascularization which was difficult and challenging because of the vessel being calcified and tortuous. I had to use a GuideLiner and ultimately placed 2 long Promus Premier drug-eluting stents in the proximal half of the LAD with a good anatomical result. He had a sizable infarction by enzymes and ECG. The patient was also found to have significant right coronary disease with a long area of tubular stenosis stenosis in the midportion of the vessel and also in the distal portion. this was later stented. Maksim Hollis DO [id number],C, s /p large anterior mi p romus NICOLE to LAD, staged pci to rca 10/08 w ould cont dapt stop brilinta start plavix instead (easy bruising) h as quit smoking o n good meds n eg nuc 01/10 e cp e f now 50%.01/10 lipid panel better, LDL < 70 now Maksim Hollis DO [id number],C, t rigs were too high despite taking otc omega 3 [place] [place] LDL not even calculated cause trigs > 600. o n crestor 40 c ant tolerate zetia o n fibrate on vasecpea R epeat lipids 06/01/18: LDL 64, Trigs 216, HDL 38!!!!\ L ipid 01/10 LDL 56 HDL 38 Trigs 229 1 07/13 LDL 65 Trigs 249 R ecent labs 02/06/20 reviewed: probnp 99 (nml), cr 1.1, k 4.4, LDL 44, Trigs 420 r echeck fasting lipids His updated medication list for this problem includes: Fenofibric Acid 135 Mg Oral Capsule Delayed Release (Choline fenofibrate) ..... Take 1 capsule by mouth once daily Vascepa 1gm Cap (Icosapent ethyl) ..... Take 2 capsules by mouth twice daily with food Rosuvastatin Calcium 40 Mg Tab (Rosuvastatin calcium) ..... Take 1 tablet by mouth every day Maksim Hollis [id number],C, H is updated medication list for this problem includes: Hyzaar 100-12.5 Mg Oral Tablet (Losartan potassium-hctz) ..... One daily Aspirin Low Ec 81mg Tab (Aspirin) ..... Take 1 by mouth once daily Coreg 25 Mg Oral Tablet (Carvedilol) ..... One tab. twice daily BP today: 107/87 P rior BP: 140/80 (09/25/2020) Labs Reviewed: C reat: 1.15 (02/07/2020) C hol: 136 (02/07/2020) HDL: 30 (02/07/2020) Maksimchad Hollis [id number],C, m ild on chris d enies of any claudication w alks a lot on the job Maksim Hollis [id number],C, o n vescapa/fibrate m uch better Maksim Hollis [id number],C, a dipex did not tolerate nor covered by insurance. t ry intermittent fasting. i n select Maksim Hollis [id number],C, L ikely venous insufficiency. Will not add diuretic as he feels dehydrated. He has ordered compression stockings which I advised he wear. o ff amlodipine. Maksim Hollis Cardiology: Ross noyola underwent emergency revascularization which was difficult and challenging because of the vessel being calcified and tortuous. I had to use a GuideLiner and ultimately placed 2 long Promus Premier drug-eluting stents in the proximal half of the LAD with a good anatomical result. He had a sizable infarction by enzymes and ECG. The patient was also found to have significant right coronary disease with a long area of tubular stenosis stenosis in the midportion of the vessel and also in the distal portion. this was later stented. Maksim Hollis Cardiology: m ild on chris Maksim Hollis Cardiology: s /p large anterior mi p romus NICOLE to LAD, staged pci to rca 10/08 w ould cont dapt stop brilinta start plavix instead (easy bruising) h as quit smoking o n good meds n eg nuc 01/10 E cho 11/13: EF 50%, apical wall motion abnormality, mild MR/TR a dd aldactone 25 may be able to tolerate now l ipid panel better, LDL < 70 now goal < 55 given risk screen prevail L abs 06/16: probnp 393, cmp ok, LDL 60 Trigs 316, cbc ok, a1c 5.8% Maksim Hollis Cardiology: t rigs were too high despite taking otc [place] 3 [place] [place] LDL not even calculated cause trigs > 600. o n crestor 40 c ant tolerate zetia o n fibrate o n vasecpea R epeat lipids 06/01/18: LDL 64, Trigs 216, HDL 38!!!!\ L ipid 01/10 LDL 56 HDL 38 Trigs 229 1 07/13 LDL 65 Trigs 249 R ecent labs 02/06/20 reviewed: probnp 99 (nml), cr 1.1, k 4.4, LDL 44, Trigs 420 L abs 06/2021: a1c 5.5%, LFTs ok, cbc ok, gfr nml, LDL 41 Trigs 288 L abs 06/16: probnp 393, cmp ok, LDL 60 Trigs 316, cbc ok, a1c 5.8% L ab 01/14: LDL 65, LPa 17, trigs 298 bmp ok, probnp 19, crp nml, cbc ok, a1c5.3% L DL < 70 now goal < 55 given risk ; in PREVAIL. His updated medication list for this problem includes: Vascepa 1 Gram Capsule (Icosapent ethyl) ..... Take 2 capsules by mouth twice daily Fenofibrate Nanocrystallized 145 Mg Tablet (Fenofibrate nanocrystallized) ..... Take 1 tablet by mouth once daily Rosuvastatin 40 Mg Tablet (Rosuvastatin) ..... Take 1 tablet by mouth once daily Maksim Hollis DO Cardiology: H is updated medication list for this problem includes: Furosemide 20 Mg Tablet (Furosemide) ..... Take 1 tablet by mouth once a day Nebivolol 20 Mg Tablet (Nebivolol) ..... Take 1 tablet by mouth once a day Losartan 100 Mg Tablet (Losartan) ..... Take 1 tablet by mouth once a day Aldactone 25 Mg Tablet (Spironolactone) ..... Take 1 tablet by mouth once a day Aspirin Childrens 81 Mg Tablet,chewable (Aspirin) ..... Take 1 tablet by mouth once a day BP today: 144/84 P rior BP: 127/80 (09/22/2023) Labs Reviewed: C reat: 1.11 (01/16/2023) C hol: 132 (01/16/2023) HDL: 36 (01/16/2023) LDL: 65 MG/DL (CALC) (01/16/2023) T (01/16/2023) Maksim Hollis DO Cardiology:severe. c ant tolerate cpap. gonna try nasal. Maksim Hollis DO Cardiology: a dipex did not tolerate nor covered by insurance. t ried glp1 no coverage t ry intermittent fasting. Maksim Hollis DO Cardiology: s /p large anterior mi p romus NICOLE to LAD, staged pci to rca 10/08 w ould cont dapt stop brilinta start plavix instead (easy bruising) h as quit smoking o n good meds n eg nuc 01/10 E cho 11/13: EF 50%, apical wall motion abnormality, mild MR/TR a dd aldactone 25 may be able to tolerate now l ipid panel better, LDL < 70 now goal < 55 given risk screen prevail L abs 06/16: probnp 393, cmp ok, LDL 60 Trigs 316, cbc ok, a1c 5.8% Maksim Hollis Cardiology: o n vescapa/fibrate m uch better L abs 06/16: probnp 393, cmp ok, LDL 60 Trigs 316, cbc ok, a1c 5.8% L ab 01/14: LDL 65, LPa 17, trigs 298 bmp ok, probnp 19, crp nml, cbc ok, a1c5.3% His updated medication list for this problem includes: Fenofibrate Nanocrystallized 145 Mg Tablet (Fenofibrate nanocrystallized) ..... Take 1 tablet by mouth once daily Vascepa 1 Gram Capsule (Icosapent ethyl) ..... Take 2 capsules by mouth twice daily Rosuvastatin 40 Mg Tablet (Rosuvastatin) ..... Take 1 tablet by mouth once a day Maksim Hollis Cardiology: quit Maksim Hollis Cardiology: H is updated medication list for this problem includes: Losartan 100 Mg Tablet (Losartan) ..... Take 1 tablet by mouth once a day Carvedilol 25 Mg Tablet (Carvedilol) ..... Take 1 tablet by mouth twice daily Aldactone 25 Mg Tablet (Spironolactone) ..... Take 1 tablet by mouth once a day Aspirin Childrens 81 Mg Tablet,chewable (Aspirin) ..... Take 1 tablet by mouth once a day BP today: 127/80 P rior BP: 156/80 (06/23/2023) Labs Reviewed: C reat: 1.11 (01/16/2023) C hol: 132 (01/16/2023) HDL: 36 (01/16/2023) LDL: 65 MG/DL (CALC) (01/16/2023) T (01/16/2023) Maksim Hollis DO Cardiology: t rigs were too high despite taking otc omega 3 fish oil ([facility]), LDL not even calculated cause trigs > 600. o n crestor 40 c ant tolerate zetia o n fibrate o n vasecpea R epeat lipids 06/01/18: LDL 64, Trigs 216, HDL 38!!!!\ L ipid 01/10 LDL 56 HDL 38 Trigs 229 1 07/13 LDL 65 Trigs 249 R ecent labs 02/06/20 reviewed: probnp 99 (nml), cr 1.1, k 4.4, LDL 44, Trigs 420 L abs 06/2021: a1c 5.5%, LFTs ok, cbc ok, gfr nml, LDL 41 Trigs 288 L abs 06/16: probnp 393, cmp ok, LDL 60 Trigs 316, cbc ok, a1c 5.8% L ab 01/14: LDL 65, LPa 17, trigs 298 bmp ok, probnp 19, crp nml, cbc ok, a1c5.3% L DL < 70 now goal < 55 given risk ; in PREVAIL. His updated medication list for this problem includes: Fenofibrate Nanocrystallized 145 Mg Tablet (Fenofibrate nanocrystallized) ..... Take 1 tablet by mouth once daily Vascepa 1 Gram Capsule (Icosapent ethyl) ..... Take 2 capsules by mouth twice daily Rosuvastatin 40 Mg Tablet (Rosuvastatin) ..... Take 1 tablet by mouth once a day C HOL: 132 (01/16/2023) LDL: 65 MG/DL (CALC) (01/16/2023) HDL: 36 (01/16/2023) T (01/16/2023) C RP: 0.5 mg/L (01/16/2023) Maksimrobson Hollis DO Cardiology: Ross noyola underwent emergency revascularization which was difficult and challenging because of the vessel being calcified and tortuous. I had to use a GuideLiner and ultimately placed 2 long Promus Premier drug-eluting stents in the proximal half of the LAD with a good anatomical result. He had a sizable infarction by enzymes and ECG. The patient was also found to have significant right coronary disease with a long area of tubular stenosis stenosis in the midportion of the vessel and also in the distal portion. this was later stented. Maksim Hollis DO Cardiology: s /p large anterior mi p romus NICOLE to LAD, staged pci to rca 10/08 w ould cont dapt stop brilinta start plavix instead (easy bruising) h as quit smoking o n good meds n eg nuc 01/10 E cho 11/13: EF 50%, apical wall motion abnormality, mild MR/TR a dd aldactone 25 may be able to tolerate now l ipid panel better, LDL < 70 now goal < 55 given risk screen prevail L abs 06/16: probnp 393, cmp ok, LDL 60 Trigs 316, cbc ok, a1c 5.8% Maksim Hollis DO Cardiology: t rigs were too high despite taking otc [place] 3 [place] [place] LDL not even calculated cause trigs > 600. o n crestor 40 c ant tolerate zetia o n fibrate o n vasecpea R epeat lipids 06/01/18: LDL 64, Trigs 216, HDL 38!!!!\ L ipid 01/10 LDL 56 HDL 38 Trigs 229 1 07/13 LDL 65 Trigs 249 R ecent labs 02/06/20 reviewed: probnp 99 (nml), cr 1.1, k 4.4, LDL 44, Trigs 420 L abs 06/2021: a1c 5.5%, LFTs ok, cbc ok, gfr nml, LDL 41 Trigs 288 L abs 06/16: probnp 393, cmp ok, LDL 60 Trigs 316, cbc ok, a1c 5.8% L ab 01/14: LDL 65, LPa 17, trigs 298 bmp ok, probnp 19, crp nml, cbc ok, a1c5.3% L DL < 70 now goal < 55 given risk screen prevail I spent 53 minutes of direct professional time reviewing previous records, test results, patient histroy and review of systems, physical examination, formulating a plan and providing written correspondance to physicians on the care team. Medical decision making is complex due to the number of high acuity diagnoses and test review. H is updated medication list for this problem includes: Fenofibrate Nanocrystallized 145 Mg Tablet (Fenofibrate nanocrystallized) ..... Take 1 tablet by mouth once daily Vascepa 1 Gram Capsule (Icosapent ethyl) ..... Take 2 capsule by mouth twice a day Rosuvastatin 40 Mg Tablet (Rosuvastatin) ..... Take 1 tablet by mouth once a day [facility]simchad Hollis [facility]: H is updated medication list for this problem includes: Losartan 100 Mg Tablet (Losartan) ..... Take 1 tablet by mouth once daily Carvedilol 25 Mg Tablet (Carvedilol) ..... Take 1 tablet by mouth twice daily Aldactone 25 Mg Tablet (Spironolactone) ..... Take 1 tablet by mouth once a day Aspirin Childrens 81 Mg Tablet,chewable (Aspirin) ..... Take 1 tablet by mouth once a day BP today: 156/80 P rior BP: 122/80 (02/10/2023) Labs Reviewed: C reat: 1.11 (01/16/2023) C hol: 132 (01/16/2023) HDL: 36 (01/16/2023) LDL: 65 MG/DL (CALC) (01/16/2023) T (01/16/2023) [facility]: m ild on chris Maksimrobson Aragon [facility]: o n vescapa/fibrate m uch better L abs 06/16: probnp 393, cmp ok, LDL 60 Trigs 316, cbc ok, a1c 5.8% L ab 01/14: LDL 65, LPa 17, trigs 298 bmp ok, probnp 19, crp nml, cbc ok, a1c5.3% His updated medication list for this problem includes: Fenofibrate Nanocrystallized 145 Mg Tablet (Fenofibrate nanocrystallized) ..... Take 1 tablet by mouth once daily Vascepa 1 Gram Capsule (Icosapent ethyl) ..... Take 2 capsule by mouth twice a day Rosuvastatin 40 Mg Tablet (Rosuvastatin) ..... Take 1 tablet by mouth once a day Maksimrobson Hollis [facility]: a dipex did not tolerate nor covered by insurance. t ry intermittent fasting. Maksimrobson Hollis [facility]: a dipex did not tolerate nor covered by insurance. t ry intermittent fasting. Maksimchad Hollis [facility]: m ild on chris Maksimchad Hollis [facility]: o n vescapa/fibrate m uch better L abs 06/16: probnp 393, cmp ok, LDL 60 Trigs 316, cbc ok, a1c 5.8% L ab 01/14: LDL 65, LPa 17, trigs 298 bmp ok, probnp 19, crp nml, cbc ok, a1c5.3% His updated medication list for this problem includes: Fenofibrate Nanocrystallized 145 Mg Tablet (Fenofibrate nanocrystallized) ..... Take 1 tablet by mouth once daily Vascepa 1 Gram Capsule (Icosapent ethyl) ..... Take 2 capsule by mouth twice a day Rosuvastatin 40 Mg Tablet (Rosuvastatin) ..... Take 1 tablet by mouth once a day [facility]: s /p large anterior mi p romus NICOLE to LAD, staged pci to rca 10/08 w ould cont dapt stop brilinta start plavix instead (easy bruising) h as quit smoking o n good meds n eg nuc 01/10 E cho 11/13: EF 50%, apical wall motion abnormality, mild MR/TR a dd aldactone 25 may be able to tolerate now l ipid panel better, LDL < 70 now L abs 06/16: probnp 393, cmp ok, LDL 60 Trigs 316, cbc ok, a1c 5.8% [facility]: H e underwent emergency revascularization which was difficult and challenging because of the vessel being calcified and tortuous. I had to use a GuideLiner and ultimately placed 2 long Promus Premier drug-eluting stents in the proximal half of the LAD with a good anatomical result. He had a sizable infarction by enzymes and ECG. The patient was also found to have significant right coronary disease with a long area of tubular stenosis stenosis in the midportion of the vessel and also in the distal portion. this was later stented. [facility] Walkerra [facility] Cardiology: t rigs were too high [place]c [place] 3 [place] [place] LDL not even calculated cause trigs > 600. o n crestor 40 will try holding or take every other day to see if this improves myalgias cant tolerate zetia o n fibrate o n vasecpea R epeat lipids 06/01/18: LDL 64, Trigs 216, HDL 38!!!!\ L ipid 01/10 LDL 56 HDL 38 Trigs 229 1 07/13 LDL 65 Trigs 249 R ecent labs 02/06/20 reviewed: probnp 99 (nml), cr 1.1, k 4.4, LDL 44, Trigs 420 L abs 06/2021: a1c 5.5%, LFTs ok, cbc ok, gfr nml, LDL 41 Trigs 288 L abs 06/16: probnp 393, cmp ok, LDL 60 Trigs 316, cbc ok, a1c 5.8% L ab 01/14: LDL 65, LPa 17, trigs 298 bmp ok, probnp 19, crp nml, cbc ok, a1c5.3% His updated medication list for this problem includes: Fenofibrate Nanocrystallized 145 Mg Tablet (Fenofibrate nanocrystallized) ..... Take 1 tablet by mouth once daily Vascepa 1 Gram Capsule (Icosapent ethyl) ..... Take 2 capsule by mouth twice a day Rosuvastatin 40 Mg Tablet (Rosuvastatin) ..... Take 1 tablet by mouth once a day Maksim Mahesh Bunny [facility] Card[facility]: H is updated medication list for this problem includes: Aldactone 25 Mg Tablet (Spironolactone) ..... Take 1 tablet by mouth once a day Coreg 25 Mg Tablet (Carvedilol) ..... 1 tablet by mouth twice a day Losartan 100 Mg Tablet (Losartan) ..... Take 1 tablet by mouth once a day new dose 100mg replaces 50mg Aspirin Childrens 81 Mg Tablet,chewable (Aspirin) ..... Take 1 tablet by mouth once a day BP today: 122/80 P rior BP: 145/95 (09/23/2022) Labs Reviewed: C reat: 1.11 (01/16/2023) C hol: 132 (01/16/2023) HDL: 36 (01/16/2023) LDL: 65 MG/DL (CALC) (01/16/2023) T (01/16/2023) [facility]: quit Maksim Hollis [facility]:add aldac tone 25 may be able to tolerate now His updated medication list for this problem includes: Coreg 25 Mg Tablet (Carvedilol) ..... 1 tablet by mouth twice a day Losartan 100 Mg Tablet (Losartan) ..... Take 1 tablet by mouth once a day new dose 100mg replaces 50mg Aspirin Childrens 81 Mg Tablet,chewable (Aspirin) ..... Take 1 tablet by mouth once a day BP today: 145/95 P rior BP: 133/88 (04/01/2022) Labs Reviewed: C reat: 0.90 (05/28/2022) C hol: 143 (05/28/2022) HDL: 34 (05/28/2022) [facility]sim Hollis [facility]: s /p large anterior mi p romus NICOLE to LAD, staged pci to rca 10/08 w ould cont dapt stop brilinta start plavix instead (easy bruising) h as quit smoking o n good meds n eg nuc 01/10 E cho 11/13: EF 50%, apical wall motion abnormality, mild MR/TR a dd aldactone 25 may be able to tolerate now l ipid panel better, LDL < 70 now L abs 06/16: probnp 393, cmp ok, LDL 60 Trigs 316, cbc ok, a1c 5.8% Maksim Hollis [facility]: t rigs were too high despite taking otc omega 3 [place] [place] LDL not even calculated cause trigs > 600. o n crestor 40 c ant tolerate zetia o n fibrate o n vasecpea R epeat lipids 06/01/18: LDL 64, Trigs 216, HDL 38!!!!\ L ipid 01/10 LDL 56 HDL 38 Trigs 229 1 07/13 LDL 65 Trigs 249 R ecent labs 02/06/20 reviewed: probnp 99 (nml), cr 1.1, k 4.4, LDL 44, Trigs 420 L abs 06/2021: a1c 5.5%, LFTs ok, cbc ok, gfr nml, LDL 41 Trigs 288 L abs 06/16: probnp 393, cmp ok, LDL 60 Trigs 316, cbc ok, a1c 5.8% His updated medication list for this problem includes: Fenofibrate Nanocrystallized 145 Mg Tablet (Fenofibrate nanocrystallized) ..... Take 1 tablet by mouth once daily Vascepa 1 Gram Capsule (Icosapent ethyl) ..... Take 2 capsule by mouth twice a day Rosuvastatin 40 Mg Tablet (Rosuvastatin) ..... Take 1 tablet by mouth once a day [facility] Hollis [facility]: o n vescapa/fibrate m uch better L abs 06/16: probnp 393, cmp ok, LDL 60 Trigs 316, cbc ok, a1c 5.8% His updated medication list for this problem includes: Fenofibrate Nanocrystallized 145 Mg Tablet (Fenofibrate nanocrystallized) ..... Take 1 tablet by mouth once daily Vascepa 1 Gram Capsule (Icosapent ethyl) ..... Take 2 capsule by mouth twice a day Rosuvastatin 40 Mg Tablet (Rosuvastatin) ..... Take 1 tablet by mouth once a day [facility] Holl[facility]: m ild on chris Maksim Hollis [facility]: s /p large anterior mi p romus NICOLE to LAD, staged pci to rca 10/08 w ould cont dapt stop brilinta start plavix instead (easy bruising) h as quit smoking o n good meds n eg nuc 01/10 e cp e f now 50%.01/10 lipid panel better, LDL < 70 now L abs 06/2021: a1c 5.5%, LFTs ok, cbc ok, gfr nml, LDL 41 Trigs 288 Maksim Hollis [facility]: t rigs were too high despite taking otc omega 3 fish oil ([facility]), LDL not even calculated cause trigs > 600. o n crestor 40 c ant tolerate zetia o n fibrate o n vasecpea R epeat lipids 06/01/18: LDL 64, Trigs 216, HDL 38!!!!\ L ipid 01/10 LDL 56 HDL 38 Trigs 229 1 07/13 LDL 65 Trigs 249 R ecent labs 02/06/20 reviewed: probnp 99 (nml), cr 1.1, k 4.4, LDL 44, Trigs 420 L abs 06/2021: a1c 5.5%, LFTs ok, cbc ok, gfr nml, LDL 41 Trigs 288 Maksim Hollis Card[facility]:rpm trend s ok, opts out now H is updated medication list for this problem includes: Losartan 100 Mg Tablet (Losartan) ..... Take 1 tablet by mouth once a day new dose 100mg replaces 50mg Coreg 25 Mg Tablet (Carvedilol) ..... 1 tablet by mouth twice a day Aspirin Childrens 81 Mg Tablet,chewable (Aspirin) ..... Take 1 tablet by mouth once a day BP today: 133/88 Prior BP: 152/92 (12/12/2021) Labs Reviewed: C reat: 1.15 (02/07/2020) C hol: 136 (02/07/2020) HDL: 30 (02/07/2020) [facility]ad Hollis [facility]: m ild on chris d enies of any claudication w alks a lot on the job [facility]: o n vescapa/fibrate m uch better [facility]simchad Hollis [facility]: a dipex did not tolerate nor covered by insurance. t ry intermittent fasting. i n select r efer anguiano. Maksimchad Hollis Cardiology: L ikely venous insufficiency. Will not add diuretic as he feels dehydrated. He has ordered compression stockings which I advised he wear. o ff amlodipine. Maksimchad Hollis Card[facility]:Stopped t aking hctz last month because he felt dizzy and dehydrated on this medication, in addition to other diuretics. l osartan 50 to 100 n o diuretics His updated medication list for this problem includes: Losartan 50 Mg Tablet (Losartan) ..... Take 1 tablet by mouth once a day Coreg 25 Mg Tablet (Carvedilol) ..... 1 tablet by mouth twice a day Aspirin Childrens 81 Mg Tablet,chewable (Aspirin) ..... Take 1 tablet by mouth once a day BP today: 152/92 P rior BP: 132/74 (10/03/2021) Labs Reviewed: C reat: 1.15 (02/07/2020) C hol: 136 (02/07/2020) HDL: 30 (02/07/2020) Maksim Mahesh Hollis [facility]: t rigs were too high despite [place]c [place] 3 [place] [place] LDL not even calculated cause trigs > 600. o n crestor 40 c ant tolerate zetia o n fibrate o n vasecpea R epeat lipids 06/01/18: LDL 64, Trigs 216, HDL 38!!!!\ L ipid 01/10 LDL 56 HDL 38 Trigs 229 1 07/13 LDL 65 Trigs 249 R ecent labs 02/06/20 reviewed: probnp 99 (nml), cr 1.1, k 4.4, LDL 44, Trigs 420 L abs 06/2021: a1c 5.5%, LFTs ok, cbc ok, gfr nml, LDL 41 Trigs 288 Maksimrobson Hollis Cardiology: s /p large anterior mi p romus NICOLE to LAD, staged pci to rca 10/08 w ould cont dapt stop brilinta start plavix instead (easy bruising) h as quit smoking o n good meds n eg nuc 01/10 e cp e f now 50%.01/10 lipid panel better, LDL < 70 now L abs 06/2021: a1c 5.5%, LFTs ok, cbc ok, gfr nml, LDL 41 Trigs 288 Maksim Mahesh Bunny [facility] Cardiology: L ikely venous insufficiency. Will not add diuretic as he feels dehydrated. He has ordered compression stockings which I advised he wear. o ff amlodipine. Maksim Mahesh Bunny [facility]: H e underwent emergency revascularization which was difficult and challenging because of the vessel being calcified and tortuous. I had to use a GuideLiner and ultimately placed 2 long Promus Premier drug-eluting stents in the proximal half of the LAD with a good anatomical result. He had a sizable infarction by enzymes and ECG. The patient was also found to have significant right coronary disease with a long area of tubular stenosis stenosis in the midportion of the vessel and also in the distal portion. this [facility]. [facility]: s /p pci p fts ok. e cho planned [facility]: o n vescapa/fibrate m uch better [facility]: m ild on chris d enies of any claudication w alks a lot on the job [facility]: t rigs were too high despite taking otc omega 3 [place] [place] LDL not even calculated cause trigs > 600. o n crestor 40 c ant tolerate zetia o n fibrate o n vasecpea R epeat lipids 06/01/18: LDL 64, Trigs 216, HDL 38!!!!\ L ipid 01/10 LDL 56 HDL 38 Trigs 229 1 07/13 LDL 65 Trigs 249 R ecent labs 02/06/20 reviewed: probnp 99 (nml), cr 1.1, k 4.4, LDL 44, Trigs 420 L abs 06/2021: a1c 5.5%, LFTs ok, cbc ok, gfr nml, LDL 41 Trigs 288 [facility]:Discussio n of benefits for remote patient monitoring took place. Patient gives consent for remote monitoring of physiologic parameters including, but not limited to, weight, blood pressure, pulse oximetry, respiratory flow rate. His updated medication list for this problem includes: Losartan-hydrochlorothiazide 100-12.5 Mg Tablet (Losartan-hydrochlorothiazide) ..... Take 1/2 tablet by mouth once a day take 1 tablet by mouth once daily Coreg 25 Mg Tablet (Carvedilol) ..... 1 tablet by mouth twice a day Aspirin Childrens 81 Mg Tablet,chewable (Aspirin) ..... Take 1 tablet by mouth once a day BP today: 132/74 P rior BP: 130/70 (03/12/2021) Labs Reviewed: C reat: 1.15 (02/07/2020) C hol: 136 (02/07/2020) HDL: 30 (02/07/2020) Maksim Hollis DO Cardiology: H e underwent emergency revascularization which was difficult and challenging because of the vessel being calcified and tortuous. I had to use a GuideLiner and ultimately placed 2 long Promus Premier drug-eluting stents in the proximal half of the LAD with a good anatomical result. He had a sizable infarction by enzymes and ECG. The patient was also found to have significant right coronary disease with a long area of tubular stenosis stenosis in the midportion of the vessel and also in the distal portion. this was later stented. [facility] Hollis [facility]: s /p large anterior mi p romus NICOLE to LAD, staged pci to rca 10/08 w ould cont dapt stop brilinta start plavix instead (easy bruising) h as quit smoking o n good meds n eg nuc 01/10 e cp e f now 50%.01/10 lipid panel better, LDL < 70 now L abs 06/2021: a1c 5.5%, LFTs ok, cbc ok, gfr nml, LDL 41 Trigs 288 Maksim Hollis DO Cardiology: L ikely venous insufficiency. Will not add diuretic as he feels dehydrated. He has ordered compression stockings which I advised he wear. o ff amlodipine. Maksimrobson Hollis Cardiology: t rigs were too high despite taking otc omega 3 [place] [place] LDL not even calculated cause trigs > 600. o n crestor 40 c ant tolerate zetia o n fibrate o n vasecpea R epeat lipids 06/01/18: LDL 64, Trigs 216, HDL 38!!!!\ L ipid 01/10 LDL 56 HDL 38 Trigs 229 1 07/13 LDL 65 Trigs 249 R ecent labs 02/06/20 reviewed: probnp 99 (nml), cr 1.1, k 4.4, LDL 44, Trigs 420 Maksimrobson Hollis Card[facility]: a dipex did not tolerate nor covered by insurance. t ry intermittent fasting. i n select r efer anguiano. Maksim Hollis DO Cardiology: L ikely venous insufficiency. Will not add diuretic as he feels dehydrated. He has ordered compression stockings which I advised he wear. o ff amlodipine. Maksim Hollis DO Cardiology: m ild on chris d enies of any claudication w alks a lot on the job Maksim Hollis DO Cardiology: t rigs were too high despite taking otc omega 3 [place] [place] LDL not even calculated cause trigs > 600. o n crestor 40 c ant tolerate zetia o n fibrate o n vasecpea R epeat lipids 06/01/18: LDL 64, Trigs 216, HDL 38!!!!\ L ipid 01/10 LDL 56 HDL 38 Trigs 229 1 07/13 LDL 65 Trigs 249 R ecent labs 02/06/20 reviewed: probnp 99 (nml), cr 1.1, k 4.4, LDL 44, Trigs 420 Maksim Hollis [facility]: H e underwent emergency revascularization which was difficult and challenging because of the vessel being calcified and tortuous. I had to use a GuideLiner and ultimately placed 2 long Promus Premier drug-eluting stents in the proximal half of the LAD with a good anatomical result. He had a sizable infarction by enzymes and ECG. The patient was also found to have significant right coronary disease with a long area of tubular stenosis stenosis in the midportion of the vessel and also in the distal portion. this was later stented. Maksim Hollis [facility]: s /p large anterior mi p romus NICOLE to LAD, staged pci to rca 10/08 w ould cont dapt stop brilinta start plavix instead (easy bruising) h as quit smoking o n good meds n eg nuc 01/10 e cp e f now 50%.01/10 lipid panel better, LDL < 70 now Maksim Hollis DO Cardiology: T he following medications were removed from the medication list: Aspirin 81 Mg Tablet,delayed Release (dr/ec) (Aspirin) ..... Take 1 tablet by mouth once a day His updated medication list for this problem includes: Coreg 25 Mg Tablet (Carvedilol) ..... 1 tablet by mouth twice a day Hyzaar 100-12.5 Mg Tablet (Losartan-hydrochlorothiazide) ..... 1 tablet by mouth once a day Losartan-hydrochlorothiazide 100-12.5 Mg Tablet (Losartan-hydrochlorothiazide) BP today: 130/70 P rior BP: 107/87 (11/20/2020) Labs Reviewed: C reat: 1.15 (02/07/2020) C hol: 136 (02/07/2020) HDL: 30 (02/07/2020) Maksimrobson Hollis Cardiology: Ross noyola underwent emergency revascularization which was difficult and challenging because of the vessel being calcified and tortuous. I had to use a GuideLiner and ultimately placed 2 long Promus Premier drug-eluting stents in the proximal half of the LAD with a good anatomical result. He had a sizable infarction by enzymes and ECG. The patient was also found to have significant right coronary disease with a long area of tubular stenosis stenosis in the midportion of the vessel and also in the distal portion. this was later stented. Maksimrobson Hollis Cardiology: s /p large anterior mi p romus NICOLE to LAD, staged pci to rca 10/08 w ould cont dapt stop brilinta start plavix instead (easy bruising) h as quit smoking o n good meds n eg nuc 01/10 e cp e f now 50%.01/10 lipid panel better, LDL < 70 now Maksimrobson Hollis [facility]: t rigs were too high despite taking otc omega 3 [place] [place] LDL not even calculated cause trigs > 600. o n crestor 40 c ant tolerate zetia o n fibrate o n vasecpea R epeat lipids 06/01/18: LDL 64, Trigs 216, HDL 38!!!!\ L ipid 01/10 LDL 56 HDL 38 Trigs 229 1 07/13 LDL 65 Trigs 249 R ecent labs 02/06/20 reviewed: probnp 99 (nml), cr 1.1, k 4.4, LDL 44, Trigs 420 r echeck fasting lipids His updated medication list for this problem includes: Fenofibric Acid 135 Mg Oral Capsule Delayed Release (Choline fenofibrate) ..... Take 1 capsule by mouth once daily Vascepa 1gm Cap (Icosapent ethyl) ..... Take 2 capsules by mouth twice daily with food Rosuvastatin Calcium 40 Mg Tab (Rosuvastatin calcium) ..... Take 1 tablet by mouth every day Maksimchad Hollis [facility]: H is updated medication list for this problem includes: Hyzaar 100-12.5 Mg Oral Tablet (Losartan potassium-hctz) ..... One daily Aspirin Low Ec 81mg Tab (Aspirin) ..... Take 1 by mouth once daily Coreg 25 Mg Oral Tablet (Carvedilol) ..... One tab. twice daily BP today: 107/87 P rior BP: 140/80 (09/25/2020) Labs Reviewed: C reat: 1.15 (02/07/2020) C hol: 136 (02/07/2020) HDL: 30 (02/07/2020) [facility]: m ild on chris d enies of any claudication w alks a lot on the job Maksimchad Aragon [facility]: o n vescapa/fibrate m uch better [facility]: a dipex did not tolerate nor covered by insurance. t ry intermittent fasting. i n select Maksimchad Hollis Cardiology: L ikely venous insufficiency. Will not add diuretic as he feels dehydrated. He has ordered compression stockings which I advised he wear. o ff amlodipine. [facility]: i mproved s /p pci p fts ok. Maksimchad Hollis Cardiology: o n vescapa/fibrate m uch better [facility]: m ild on chris d enies of any claudication w alks a lot on the job Maksim Hollis DO Cardiology: H is updated medication list for this problem includes: Hyzaar 100-12.5 Mg Oral Tablet (Losartan potassium-hctz) ..... One daily Aspirin Low Ec 81mg Tab (Aspirin) ..... Take 1 by mouth once daily Coreg 25 Mg Oral Tablet (Carvedilol) ..... One tab. twice daily BP today: 140/80 P rior BP: 115/68 (06/26/2020) Labs Reviewed: C reat: 1.15 (02/07/2020) C hol: 136 (02/07/2020) HDL: 30 (02/07/2020) Maksim Mahesh Hollis Cardiology: t rigs were too high despite taking otc omega 3 fish oil ([place]), LDL not even calculated cause trigs > 600. o n crestor 40 c ant tolerate zetia o n fibrate o n vasecpea R epeat lipids 06/01/18: LDL 64, Trigs 216, HDL 38!!!!\ L ipid 01/10 LDL 56 HDL 38 Trigs 229 1 07/13 LDL 65 Trigs 249 R ecent labs 02/06/20 reviewed: probnp 99 (nml), cr 1.1, k 4.4, LDL 44, Trigs 420 His updated medication list for this problem includes: Fenofibric Acid 135 Mg Oral Capsule Delayed Release (Choline fenofibrate) ..... Take 1 capsule by mouth once daily Vascepa 1gm Cap (Icosapent ethyl) ..... Take 2 capsules by mouth twice daily with food Rosuvastatin Calcium 40 Mg Tab (Rosuvastatin calcium) ..... Take 1 tablet by mouth every day Maksimrobson Hollis Cardiology: s /p large anterior mi p romus NICOLE to LAD, staged pci to rca 10/08 w ould cont dapt stop brilinta start plavix instead (easy bruising) h as quit smoking o n good meds n eg nuc 01/10 e cp e f now 50%.01/10 lipid panel better, LDL < 70 now Maksim Mahesh Walkerra [facility]ERA Cardiology: H e underwent emergency revascularization which was difficult and challenging because of the vessel being calcified and tortuous. I had to use a GuideLiner and ultimately placed 2 long Promus Premier drug-eluting stents in the proximal half of the LAD with a good anatomical result. He had a sizable infarction by enzymes and ECG. The patient was also found to have significant right coronary disease with a long area of tubular stenosis stenosis in the midportion of the vessel and also in the distal portion. this was later stented. Maksim Hollis Cardiology: L ikely venous insufficiency. Will not add diuretic as he feels dehydrated. He has ordered compression stockings which I advised he wear. o ff amlodipine. Maksim Mahesh Hollis Cardiology: o n vescapa/fibrate m uch better [facility]: H dennys underwent emergency revascularization which was difficult and challenging because of the vessel being calcified and tortuous. I had to use a GuideLiner and ultimately placed 2 long Promus Premier drug-eluting stents in the proximal half of the LAD with a good anatomical result. He had a sizable infarction by enzymes and ECG. The patient was also found to have significant right coronary disease with a long area of tubular stenosis stenosis in the midportion of the vessel and also in the distal portion. this was later stented. Maksim Mahesh Hollis Cardiology: t rigs were too high despite taking otc omega 3 fish oil ([facility]), LDL not even calculated cause trigs > 600. o n crestor 40 c ant tolerate zetia o n fibrate o n vasecpea R epeat lipids 06/01/18: LDL 64, Trigs 216, HDL 38!!!!\ L ipid 01/10 LDL 56 HDL 38 Trigs 229 1 07/13 LDL 65 Trigs 249 R ecent labs 02/06/20 reviewed: probnp 99 (nml), cr 1.1, k 4.4, LDL 44, Trigs 420 His updated medication list for this problem includes: Fenofibric Acid 135 Mg Oral Capsule Delayed Release (Choline fenofibrate) ..... Take 1 capsule by mouth once daily Vascepa 1gm Cap (Icosapent ethyl) ..... Take 2 capsules by mouth twice daily with food Rosuvastatin Calcium 40 Mg Tab (Rosuvastatin calcium) ..... Take 1 tablet by mouth every day Maksim Hollis Cardiology: H is updated medication list for this problem includes: Aldactone 50 Mg Oral Tablet (Spironolactone) ..... One tab. daily Amlodipine Besylate 5 Mg Oral Tablet (Amlodipine besylate) ..... One tab. daily Hyzaar 100-12.5 Mg Oral Tablet (Losartan potassium-hctz) ..... One daily Aspirin Low Ec 81mg Tab (Aspirin) ..... Take 1 by mouth once daily Coreg 25 Mg Oral Tablet (Carvedilol) ..... One tab. twice daily BP today: 115/68 P rior BP: 120/82 (05/28/2020) Labs Reviewed: C reat: 1.15 (02/07/2020) C hol: 136 (02/07/2020) HDL: 30 (02/07/2020) Maksimrobson Hollis Cardiology: s /p large anterior mi p romus NICOLE to LAD, staged pci to rca 10/08 w ould cont dapt brilinta 60 bid h as quit smoking o n good meds n eg nuc 01/10 e cp e f now 50%.01/10 lipid panel better, LDL < 70 now Maksimrobson Hollis DO Cardiology: m ild on chris d enies of any claudication w alks a lot on the job Maksimrobson Hollis Cardiology: L ikely venous insufficiency. Will not add diuretic as he feels dehydrated. He has ordered compression stockings which I advised he wear. s top amlodipine. Maksim Mahesh Hollis Cardiology:trigs wer e too high [place] 3 [place] [place] LDL not even calculated cause trigs > 600. o n crestor 40 c ant tolerate zetia o n fibrate o n vasecpea R epeat lipids 06/01/18: LDL 64, Trigs 216, HDL 38!!!!\ L ipid 01/10 LDL 56 HDL 38 Trigs 229 1 07/13 LDL 65 Trigs 249 R ecent labs 02/06/20 reviewed: probnp 99 (nml), cr 1.1, k 4.4, LDL 44, Trigs 420 His updated medication list for this problem includes: Fenofibric Acid 135 Mg Oral Capsule Delayed Release (Choline fenofibrate) ..... Take 1 capsule by mouth once daily Vascepa 1gm Cap (Icosapent ethyl) ..... Take 2 capsules by mouth twice daily with food Rosuvastatin Calcium 40 Mg Tab (Rosuvastatin calcium) ..... Take 1 tablet by mouth every day [facility]:on vescap a/fibrate m uch better [facility] Cardiology:Blood pre ssure control is satisfactory. Advised reduced sodium intake and routine monitoring of the blood pressure. We aim for less than 130/80. [facility]:mild on a bi d enies of any claudication w alks a lot on the job [facility] Cardiology:Likely ve nous insufficiency. Will not add diuretic as he feels dehydrated. He has ordered compression stockings which I advised he wear. Will order venous doppler with reflux and he will f/u with Dr. Hollis. [facility]:s/p large anterior mi p romus NICOLE to LAD, staged pci to rca 10/08 w ould cont dapt brilinta 60 bid h as quit smoking o n good meds n eg nuc 01/10 e cp e f now 50%.01/10 lipid panel better, LDL < 70 now [facility] [place] [facility]: m ild on chris Maksim Mahesh Bunny DO Cardiology: s /p large anterior mi p romus NICOLE to LAD, staged pci to rca 10/08 w ould cont dapt brilinta 60 bid h as quit smoking o n good meds n eg nuc 01/10 e cp e f now 50%.01/10 lipid panel better, LDL < 70 now!! Maksim Mahesh Bunny DO Cardiology: t rigs were too high despite taking [place]c [place] 3 [place] [place] LDL not even calculated cause trigs > 600. o n crestor 40 c ant tolerate zetia o n fibrate o n vasecpea R epeat lipids 06/01/18: LDL 64, Trigs 216, HDL 38!!!!\ L ipid 01/10 LDL 56 HDL 38 Trigs 229 1 07/13 LDL 65 Trigs 249 R ecent labs 02/06/20 reviewed: probnp 99 (nml), cr 1.1, k 4.4, LDL 44, Trigs 420 His updated medication list for this problem includes: Fenofibric Acid 135 Mg Oral Capsule Delayed Release (Choline fenofibrate) ..... Take 1 capsule by mouth once daily Vascepa 1gm Cap (Icosapent ethyl) ..... Take 2 capsules by mouth twice daily with food Rosuvastatin Calcium 40 Mg Tab (Rosuvastatin calcium) ..... Take 1 tablet by mouth every day [facility] Mahes[facility] Cardiology: a dipex did not tolerate nor covered by insurance. t ry intermittent fasting. i n select [facility] Cardiology:check pro bnp s top lasix t ry aldactone o n hctz low dose with losartan already [facility] Cardiology: t rigs were too high despite taking otc omega 3 fish oil [place] [place] LDL not even calculated cause trigs > 600. o n crestor 40 c ant tolerate zetia o n fibrate o n vasecpea R epeat lipids 06/01/18: LDL 64, Trigs 216, HDL 38!!!!\ L ipid 01/10 LDL 56 HDL 38 Trigs 229 1 07/13 LDL 65 Trigs 249 [facility]: a dipex did not tolerate nor covered by insurance. t ry intermittent fasting. i n select [facility] Cardiology: o n vescapa/fibrate m uch better! [facility] Cardiology: t rigs were too high despite taking otc omega 3 [place] [place] LDL not even calculated cause trigs > 600. o n crestor 40 c ant tolerate zetia o n fibrate o n vasecpea R epeat lipids 06/01/18: LDL 64, Trigs 216, HDL 38!!!!\ L ipid 01/10 LDL 56 HDL 38 Trigs 229 1 07/13 LDL 65 Trigs 249 Maksim Hollis Cardiology: H is updated medication list for this problem includes: Furosemide 20 Mg Oral Tablet (Furosemide) ..... Take one tablet once daily Amlodipine Besylate 5 Mg Oral Tablet (Amlodipine besylate) ..... One tab. daily Losartan Potassium 100 Mg Oral Tablet (Losartan potassium) ..... Take one tablet daily Aspirin Low Ec 81mg Tab (Aspirin) ..... Take 1 by mouth once daily Coreg 25 Mg Oral Tablet (Carvedilol) ..... One tab. twice daily BP today: 140/70 P rior BP: 150/90 (08/04/2019) Labs Reviewed: C reat: 0.87 (01/13/2019) C hol: 156 (05/11/2019) HDL: 41 (05/11/2019) Maksim Hollis Cardiology: s /p large anterior mi p romus NICOLE to LAD, staged pci to rca 10/08 w ould cont dapt brilinta 60 bid h as quit smoking o n good meds n eg nuc 01/10 e cp e f now 50%.01/10 lipid panel better, LDL < 70 now!! Maksim Hollis Cardiology: m ild on chris Maksimhcad Hollis Cardiology: t rigs were too high despite taking otc omega 3 [place] [place] LDL not even calculated cause trigs > 600. o n crestor 40 c ant tolerate zetia o n fibrate o n vasecpea R epeat lipids 06/01/18: LDL 64, Trigs 216, HDL 38!!!!\ L ipid 01/10 LDL 56 HDL 38 Trigs 229 1 07/13 LDL 65 Trigs 249 Maksim Hollis Cardiology: H e underwent emergency revascularization which was difficult and challenging because of the vessel being calcified and tortuous. I had to use a GuideLiner and ultimately placed 2 long Promus Premier drug-eluting stents in the proximal half of the LAD with a good anatomical result. He had a sizable infarction by enzymes and ECG. The patient was also found to have significant right coronary disease with a long area of tubular stenosis stenosis in the midportion of the vessel and also in the distal portion. this was later stented. Maksim Hollis Cardiology: s /p large anterior mi p romus NICOLE to LAD, staged pci to rca 10/08 w ould cont dapt brilinta 60 bid h as quit smoking o n good meds n eg nuc 01/10 e cp e f now 50%.01/10 lipid panel better, LDL < 70 now!! Maksimchad Hollis Cardiology:increase coreg to 25 bid. a dd amlodipine 5 if needed BP today: 150/90 P rior BP: 182/98 (05/10/2019) Labs Reviewed: C reat: 0.87 (01/13/2019) C hol: 156 (05/11/2019) HDL: 41 (05/11/2019) His updated medication list for this problem includes: Hyzaar 100-12.5 Mg Oral Tablet (Losartan potassium-hctz) ..... One tab. daily Aspirin Low Ec 81mg Tab (Aspirin) ..... Take 1 by mouth once daily Carvedilol 12.5 Mg Oral Tablet (Carvedilol) ..... One tab twice a day Maksimchad Hollis Cardiology: m ild on chris Maksimchad Aragon Bunny Cardiology: o n vescapa/fibrate m uch better! Maksim Mahesh [facility] Cardiology: a dipex did not tolerate nor covered by insurance. t ry intermittent fasting. i n select Maksimchad Hollis Cardiology: quit Maksim Hollis Cardiology: H e underwent emergency revascularization which was difficult and challenging because of the vessel being calcified and tortuous. I had to use a GuideLiner and ultimately placed 2 long Promus Premier drug-eluting stents in the proximal half of the LAD with a good anatomical result. He had a sizable infarction by enzymes and ECG. The patient was also found to have significant right coronary disease with a long area of tubular stenosis stenosis in the midportion of the vessel and also in the distal portion. this was later stented. Maksim Hollis Cardiology: i mproved s /p pci p fts ok. Maksim Hollis Cardiology:adipex di d not tolerate nor covered by insurance. t ry intermittent fasting. s elect? Maksim Hollis Cardiology:losartan 50 to hyzaar 100/12.5 H is updated medication list for this problem includes: Hyzaar 100-12.5 Mg Oral Tablet (Losartan potassium-hctz) ..... One tab. daily Aspirin Low Ec 81mg Tab (Aspirin) ..... Take 1 by mouth once daily Carvedilol 12.5 Mg Oral Tablet (Carvedilol) ..... One tab twice a day BP today: 182/98 P rior BP: 158/90 (01/25/2019) Labs Reviewed: C reat: 0.87 (01/13/2019) C hol: 140 (01/13/2019) HDL: 38 (01/13/2019) Maksim Hollis Cardiology: o n vescapa/fibrate m uch better! Maksimchad Hollis Cardiology: m ild on chris Maksimchad Hollis Cardiology: s /p large anterior mi p romus NICOLE to LAD, staged pci to rca 10/08 w ould cont dapt brilinta 60 bid h as quit smoking o n good meds n eg nuc 01/10 e cp e f now 50%.01/10 lipid panel better, LDL < 70 now!! Maksim Hollis Cardiology: t rigs were too high despite taking [place]c [place] 3 [place] [place] LDL not even calculated cause trigs > 600. o n crestor 40 c ant tolerate zetia o n fibrate o n vasecpea R epeat lipids 06/01/18: LDL 64, Trigs 216, HDL 38!!!!\ L ipid 01/10 LDL 56 HDL 38 Trigs 229 r echeck today Maksim Hollis Cardiology:will give adipex. t ry intermittent fasting. Maksimchad Hollis Cardiology: i mproved s /p pci p fts ok. [facility] Ross noyola underwent emergency revascularization which was difficult and challenging because of the vessel being calcified and tortuous. I had to use a GuideLiner and ultimately placed 2 long Promus Premier drug-eluting stents in the proximal half of the LAD with a good anatomical result. He had a sizable infarction by enzymes and ECG. The patient was also found to have significant right coronary disease with a long area of tubular stenosis stenosis in the midportion of the vessel and also in the distal portion. this was later stented. [facility]: H is updated medication list for this problem includes: Losartan Potassium 50 Mg Oral Tablet (Losartan potassium) ..... Take one tablet daily Aspirin Low Ec 81mg Tab (Aspirin) ..... Take 1 by mouth once daily Carvedilol 12.5 Mg Oral Tablet (Carvedilol) ..... One tab twice a day BP today: 158/90 P rior BP: 142/80 (12/28/2018) Labs Reviewed: C reat: 0.87 (01/13/2019) C hol: 140 (01/13/2019) HDL: 38 (01/13/2019) [facility] Cardiology: o n vescapa/fibrate m uch better! [facility] Cardiology: m ild on chris [facility] Cardiology: s /p large anterior mi p romus NICOLE to LAD, staged pci to rca 10/08 w ould cont dapt brilinta 60 bid h as quit smoking o n good meds n eg nuc 01/10 e cp e f now 50%. lipid panel better, LDL < 70 now!! Maksim Hollis Cardiology: t rigs were too high despite taking otc omega 3 [place] [place] LDL not even calculated cause trigs > 600. o n crestor 40 c ant tolerate zetia o n fibrate o n vasecpea R epeat lipids 06/01/18: LDL 64, Trigs 216, HDL 38!!!!\ L ipid 01/10 LDL 56 HDL 38 Trigs 229 Maksimchad Hollis Cardiology:s/p large anterior mi p romus NICOLE to LAD, staged pci to rca 10/08 w ould cont dapt go brilinta 60 bid now h as quit smoking o n good meds m ore dyspnea ? anginal equivalent check stress test e cp if tests ok? e f now 55%. lipid panel better, LDL < 70 now!! Maksimrobson Hollis Cardiology: H e underwent emergency revascularization which was difficult and challenging because of the vessel being calcified and tortuous. I had to use a GuideLiner and ultimately placed 2 long Promus Premier drug-eluting stents in the proximal half of the LAD with a good anatomical result. He had a sizable infarction by enzymes and ECG. The patient was also found to have significant right coronary disease with a long area of tubular stenosis stenosis in the midportion of the vessel and also in the distal portion. this was later stented. Maksim Mahesh B[facility] Cardiology: m ild on chris Maksimchad Hollis Cardiology: t rigs were too high despite taking otc omega 3 fish oil ([employer]), LDL not even calculated cause trigs > 600. o n crestor 40 c ant tolerate zetia o n fibrate o n vasecpea R epeat lipids 06/01/18: LDL 64, Trigs 216, HDL 38!!!!\ LFTs ok Maksimrobson Walkerra Cardiology: H is updated medication list for this problem includes: Losartan Potassium 50 Mg Oral Tablet (Losartan potassium) ..... Take one tablet daily Aspirin Low Ec 81mg Tab (Aspirin) ..... Take 1 by mouth once daily Carvedilol 12.5 Mg Oral Tablet (Carvedilol) ..... One tab twice a day BP today: 142/80 P rior BP: 140/80 (06/03/2018) Labs Reviewed: C reat: 1.03 (06/02/2018) C hol: 145 (06/02/2018) HDL: 38 (06/02/2018) Maksimchad Hollis DO Cardiology: o n vescapa/fibrate m [facility] better! Maksim Hollis DO Cardiology:s/p large anterior mi p romus NICOLE to LAD, staged pci to rca 10/08 w ould cont dapt go brilinta 60 bid now h as quit smoking o n good meds m ore dyspnea ? anginal equivalent check stress test e f now 55%. lipid panel better, LDL < 70 now!! Maksim Hollis Cardiology: H is updated medication list for this problem includes: Losartan Potassium 50 Mg Oral Tablet (Losartan potassium) ..... Take one tablet daily Aspirin Adult Low Dose 81 Mg Oral Tablet Delayed Release (Aspirin) ..... One tab by mouth daily Carvedilol 12.5 Mg Oral Tablet (Carvedilol) ..... One tab twice a day BP today: 140/80 P rior BP: 122/80 (10/20/2017) L abs Reviewed: C reat: 1.03 (06/02/2018) C hol: 145 (06/02/2018) HDL: 38 (06/02/2018) Maksimchad Hollis Cardiology: i mproved s /p pci p fts ok. Maksim Hollis Cardiology: o n vescapa/fibrate m [facility] better! Maksim Hollis Cardiology: m ild on chris Maksimchad Hollis DO Cardiology: s /p large anterior mi p romus NICOLE to LAD, staged pci to rca 10/08 w ould cont dapt go brilinta 60 bid now n eeds to quit smoking almost there o n good meds e f now 55%. l ipid panel better, LDL < 70 now!! e xercise program. trigs were too high despite taking otc [place] 3 [place] [place] LDL not even calculated cause trigs > 600. o n crestor 40 c ant tolerate zetia o n fibrate o n vasecpea R epeat lipids 06/01/18: LDL 64, Trigs 216, HDL 38!!!!\ LFTs ok Maksim Hollis DO Cardiology: t rigs were too high despite taking otc omega 3 fish oil ([facility]), LDL not even calculated cause trigs > 600. o n crestor 40 c ant tolerate zetia o n fibrate o n vasecpea R epeat lipids 06/01/18: LDL 64, Trigs 216, HDL 38!!!!\ LFTs ok [facility]: n eeds to quit [facility]: m ild on chris [facility] Cardiology:adjust, s tart losartan instead of lisinopril The following medications were removed from the medication list: Lisinopril 20 Mg Oral Tablet (Lisinopril) ..... One tab. daily H is updated medication list for this problem includes: Losartan Potassium 50 Mg Oral Tablet (Losartan potassium) ..... Take one tablet daily Aspirin Adult Low Dose 81 Mg Oral Tablet Delayed Release (Aspirin) ..... One tab by mouth daily Carvedilol 12.5 Mg Oral Tablet (Carvedilol) ..... One tab twice a day BP today: 122/80 P rior BP: 138/80 (07/16/2017) Labs Reviewed: C reat: 0.78 (10/15/2017) C hol: 154 (10/15/2017) HDL: 32 (10/15/2017) [facility] Cardiology: Ross noyola underwent emergency revascularization which was difficult and challenging because of the vessel being calcified and tortuous. I had to use a GuideLiner and ultimately placed 2 long Promus Premier drug-eluting stents in the proximal half of the LAD with a good anatomical result. He had a sizable infarction by enzymes and ECG. The patient was also found to have significant right coronary disease with a long area of tubular stenosis stenosis in the midportion of the vessel and also in the distal portion. this was later stented. [facility]: s /p large anterior mi p romus NICOLE to LAD, staged pci to rca 10/08 w ould cont dapt go brilinta 60 bid now n eeds to quit smoking almost there o n good meds e f now 55%. lipid panel noted e xercise program. [facility] Cardiology: jean-pierre rubi ipid panel noted. e xercise program. w hole diet s tart fibric acid r epeat in 3 mo [facility] Cardiology: H is updated medication list for this problem includes: Lisinopril 20 Mg Oral Tablet (Lisinopril) ..... One tab. daily Aspirin Adult Low Dose 81 Mg Oral Tablet Delayed Release (Aspirin) ..... One tab by mouth daily Carvedilol 12.5 Mg Oral Tablet (Carvedilol) ..... One tab twice a day BP today: 138/80 P rior BP: 130/80 (04/21/2017) Labs Reviewed: Creat: 0.71 (04/12/2017) C hol: 122 (04/12/2017) HDL: 31 (04/12/2017) LDL: 56 MG/DL (CALC) (04/12/2017) T (04/12/2017) [facility]: Ross e underwent emergency revascularization which was difficult and challenging because of the vessel being calcified and tortuous. I had to use a GuideLiner and ultimately placed 2 long Promus Premier drug-eluting stents in the proximal half of the LAD with a good anatomical result. He had a sizable infarction by enzymes and ECG. The patient was also found to have significant right coronary disease with a long area of tubular stenosis stenosis in the midportion of the vessel and also in the distal portion. this was later stented. [facility]: jean-pierre rubi ipid panel noted. trigs improving. talked whole 30. e xercise program. [facility]: m ild on chris [facility] Cardiology: s /p large anterior mi p romus NICOLE to LAD, staged pci to rca 10/08 w ould cont dapt go brilinta 60 bid now n eeds to quit smoking almost there o n good meds e f now 55%. l ipid panel noted. trigs improving. talked whole 30. e xercise program. [facility]: Ross is updated medication list for this problem includes: Lisinopril 20 Mg Oral Tablet (Lisinopril) ..... One tab. daily Aspirin Adult Low Dose 81 Mg Oral Tablet Delayed Release (Aspirin) ..... One tab by mouth daily Carvedilol 12.5 Mg Oral Tablet (Carvedilol) ..... One tab twice a day BP today: 130/80 P rior BP: 138/80 (01/06/2017) Labs Reviewed: Creat: 0.71 (04/12/2017) C hol: 122 (04/12/2017) HDL: 31 (04/12/2017) LDL: 56 MG/DL (CALC) (04/12/2017) T (04/12/2017) [facility] Cardiology: Ross noyola underwent emergency revascularization which was difficult and challenging because of the vessel being calcified and tortuous. I had to use a GuideLiner and ultimately placed 2 long Promus Premier drug-eluting stents in the proximal half of the LAD with a good anatomical result. He had a sizable infarction by enzymes and ECG. The patient was also found to have significant right coronary disease with a long area of tubular stenosis stenosis in the midportion of the vessel and also in the distal portion. this was later stented. [facility] Cardiology:improved s /p pci p fts ok. [facility] Cardiology: o n vescapa l ipid panel noted. trigs improving. talked whole 30. e xercise program. lipids in 6 mo around 10/09 [facility]: m ild on chris [facility] Cardiology: s /p large anterior mi p romus NICOLE to LAD, staged pci to rca 10/08 n eeds dapt at least 6 mo through 11/08 lets go to 60 bid around 08/09. (mi was 07/23/16). n eeds to quit smoking on good meds e f now 55%. lipid panel noted. trigs improving. talked whole 30. e xercise program. lipids in 6 mo around 10/09 Maksim Hollis DO Cardiology: Ross noyola underwent emergency revascularization which was difficult and challenging because of the vessel being calcified and tortuous. I had to use a GuideLiner and ultimately placed 2 long Promus Premier drug-eluting stents in the proximal half of the LAD with a good anatomical result. He had a sizable infarction by enzymes and ECG. The patient was also found to have significant right coronary disease with a long area of tubular stenosis stenosis in the midportion of the vessel and also in the distal portion. this was later stented. Maksimrobson Hollis DO Cardiology: m ild on chris Maksimchad Hollis DO Cardiology: t rigs too high despite taking otc [place] 3 [place] [place] LDL not even calculated cause trigs > 600. o n crestor 40 c ant tolerate zetia n eed to get trigs down so can get accurage LDL then may need repatha. l ets do vascepa instead of otc fish oil first. await repeat lipid panel. Maksim Hollis DO Cardiology:lisinopri l 20mg a day, can increase to 40 if needed. i Keraderm refused sleep study. The following medications were removed from the medication list: Lisinopril 10 Mg Tabs (Lisinopril) ..... One tab. daily His updated medication list for this problem includes: Lisinopril 20 Mg Tabs (Lisinopril) ..... One tab. daily Aspirin Adult Low Dose 81 Mg Oral Tbec (Aspirin) ..... One tab by mouth daily Carvedilol 12.5 Mg Tabs (Carvedilol) ..... One tab twice a day Prior BP: 138/80 (01/06/2017) Labs Reviewed: C reat: 0.77 (10/11/2016) C hol: 178 (10/11/2016) HDL: 35 (10/11/2016) LDL: * mg/dL (calc) (10/11/2016) T (10/11/2016) Maksim Hollis DO Cardiology:on vescap a w ill recheck panel soon [facility]:s/p large anterior mi p romus NICOLE to LAD, staged pci to rca 10/08 n eeds dapt at least 6 mo through 11/08 lets go to 60 bid around 08/09. (mi was 07/23/16). n eeds to quit smoking o n good meds e f now 55%. [facility] Cardiology: t rigs too high despite taking otc omega 3 [place] [place] LDL not even calculated cause trigs > 600. o n crestor 40 c ant tolerate zetia n eed to get trigs down so can get accurage LDL then may need repatha. l ets do vascepa instead of otc fish oil first. [facility] Cardiology: s /p pci p fts ok. [facility] Cardiology: Ross noyola underwent emergency revascularization which was difficult and challenging because of the vessel being calcified and tortuous. I had to use a GuideLiner and ultimately placed 2 long Promus Premier drug-eluting stents in the proximal half of the LAD with a good anatomical result. He had a sizable infarction by enzymes and ECG. The patient was also found to have significant right coronary disease with a long area of tubular stenosis stenosis in the midportion of the vessel and also in the distal portion. this was later stented. [facility]: H is updated medication list for this problem includes: Aspirin Adult Low Dose 81 Mg Oral Tbec (Aspirin) ..... One tab by mouth daily Carvedilol 12.5 Mg Tabs (Carvedilol) ..... One tab twice a day Lisinopril 10 Mg Tabs (Lisinopril) ..... One tab. daily BP today: 138/80 P rior BP: 130/82 (10/07/2016) Labs Reviewed: C reat: 0.77 (10/11/2016) C hol: 178 (10/11/2016) HDL: 35 (10/11/2016) LDL: * mg/dL (calc) (10/11/2016) T (10/11/2016) [facility] Mahesh [facility]: n eeds to quit Maksimrobson Aragon [facility]:mild on chris Maksim mojica [facility]: s /p large anterior mi p romus NICOLE to LAD, staged pci to rca 10/08 n eeds dapt at least 6 mo through 11/08 lets go to 60 bid around 08/09. (mi was 07/23/16). n eeds to quit smoking o n good meds e f now 55%. [facility]: w ill get lipid panel o n crestor 40 w ill recheck will start zetia then if not at goal repatha [facility]:s/p pci p fts [facility]: H e underwent emergency revascularization which was difficult and challenging because of the vessel being calcified and tortuous. I had to use a GuideLiner and ultimately placed 2 long Promus Premier drug-eluting stents in the proximal half of the LAD with a good anatomical result. He had a sizable infarction by enzymes and ECG. The patient was also found to have significant right coronary disease with a long area of tubular stenosis stenosis in the midportion of the vessel and also in the distal portion [facility]: n [facility] to [facility]: w ill get lipid panel o n crestor [facility]: H is updated medication list for this problem includes: Aspirin Adult Low Dose 81 Mg Oral Tbec (Aspirin) ..... One tab by mouth daily Carvedilol 12.5 Mg Tabs (Carvedilol) ..... One tab twice a day Lisinopril 10 Mg Tabs (Lisinopril) ..... One tab. daily BP today: 130/82 P rior BP: 144/98 (09/23/2016) [facility] Mahesh [facility]: s /p large anterior mi p romus NICOLE to LAD, staged pci to rca 10/08 n eeds dapt at least 6 mo through 11/08 n eeds to quit smoking o n good meds e cho in 3 mo e f 40% right now Maksim Hollis DO Cardiology: H is updated medication list for this problem includes: Aspirin Adult Low Dose 81 Mg Oral Tbec (Aspirin) ..... One tab by mouth daily Carvedilol 12.5 Mg Tabs (Carvedilol) ..... One tab twice a day Lisinopril 10 Mg Tabs (Lisinopril) ..... One tab. daily BP today: 144/98 Maksim Hollis DO Cardiology:needs to quit Maksim Hollis DO Cardiology:will get lipid panel o n kimmyor Maksim Hollis DO Cardiology:plan pci rca if still sob after can try plavix or effient instead of brilinta n eed echo report Maksim Hollis DO Cardiology:He underw ent emergency revascularization which was difficult and challenging because of the vessel being calcified and tortuous. I had to use a GuideLiner and ultimately placed 2 long Promus Premier drug-eluting stents in the proximal half of the LAD with a good anatomical result. He had a sizable infarction by enzymes and ECG. The patient was also found to have significant right coronary disease with a long area of tubular stenosis stenosis in the midportion of the vessel and also in the distal portion Maksim Hollis DO Cardiology:s/p large anterior mi p romus NICOLE to LAD n eeds dapt one year s tage PCI to RCA planned will arrange n eed copy of echo n eeds to quit smoking o n good meds Maksim Hollis DO Date Name CRP, high sensitivit y CBC (INCLUDES DIFF/P LT) Microalb/Creatinine Urine, Random HEMOGLOBIN A1c PROBNP, N TERMINAL BASIC METABOLIC PANE L W/EGFR Lipoprotein (a) LIPID PANEL EKG Complete Echo EKG COMPREHENSIVE METABO LIC PANEL, W/EGFR CBC (INCLUDES DIFF/P LT) HEMOGLOBIN A1c PROBNP, N TERMINAL LIPID PANEL RPM (remote patient monitoring) Complete Echo COMPREHENSIVE METABO LIC PANEL, W/EGFR LIPID PANEL Arterial Duplex Bi-L ower EX Aorta Duplex Ultraso und HEMOGLOBIN A1c CBC (INCLUDES DIFF/P LT) LIPID PANEL COMPREHENSIVE METABO LIC PANEL, W/EGFR Venous Doppler Bilat eral LE - Reflux LIPID PANEL PROBNP, N TERMINAL BASIC METABOLIC PANE L W/EGFR LIPID PANEL THYROID PANEL WITH T SH, 3RD GENERATION HEMOGLOBIN A1c CBC (INCLUDES DIFF/P LT) COMPREHENSIVE METABO LIC PANEL, W/EGFR LIPID PANEL PROBNP, N TERMINAL Complete Echo Stress Exercise Card iolite Carotid Duplex Bilat eral HEMOGLOBIN A1c LIPID PANEL COMPREHENSIVE METABO LIC PANEL, W/EGFR THYROID PANEL WITH T SH, 3RD GENERATION CBC (INCLUDES DIFF/P LT) PROBNP, N TERMINAL LIPID PANEL COMPREHENSIVE METABO LIC PANEL, W/EGFR LIPID PANEL COMPREHENSIVE METABO LIC PANEL, W/EGFR VITAMIN D, 25-HYDROX Y, LC/MS/MS TSH, 3RD GENERATION W/REFLEX TO FT4 IRON AND TOTAL IRON BINDING CAPACITY FERRITIN CBC (INCLUDES DIFF/P LT) PROBNP, N TERMINAL LIPID PANEL COMPREHENSIVE METABO LIC PANEL, W/EGFR HISTORY OF PROCEDURES Procedure Date Procedure Name Provider Procedure Notes S tatus Complex e/m visit add on Maksim Mahesh Bunny DO completed EKG Maksim Mahesh Bunny DO completed EKG Mkasim Mahesh Bunny DO completed EKG Maksim Mahesh Bunny DO completed EKG Maksim Mahesh Bunny DO completed EKG Maksim Mahesh Bunny DO completed EKG Maksim Mahesh Bunny DO completed EKG Maksim Mahesh Bunny DO completed EKG Maksim Mahesh Bunny DO completed EKG Maksim Mahesh Bunny DO completed EKG Maksim Mahesh Bunny DO completed EKG Yakov Deras MD complet ed EKG Maksim Mahesh Bunny DO completed EKG Makism Mahesh Bunny DO completed EKG Maksim Mahesh Bunny DO completed EKG Maksim Mahesh Bunny DO completed EKG Maksim Mahesh Bunny DO completed Stress EKG Sorin angeles MD completed Regadenoson, 4 units Jesse Ortega MD completed Cardiolite, 2 units Jesse Ortega MD completed SPECT Images Jesse Ortega MD com pleted EKG Maksim Mahesh Walkerra DO completed EKG Maksim Mahesh Walkerra DO completed EKG Maksim Mahesh Walkerra DO completed EKG Maksim Mahesh Walkerra DO completed EKG Maksim Mahesh Walkerra DO completed SNOMED-CT: [id number] Current Medications Documented Maksim Hollis DO completed EKG Maksimchad Hollis DO completed SNOMED-CT: [id number] Current Medications Documented Maksimchad Hollis DO completed EKG Maksimchad Hollis DO completed SNOMED-CT: [id number] Current Medications Documented Maksim Hollis DO completed FVC / MVV with bronchodilator - 83149 Maksim Hollis DO completed FRC - 50199 Maksimchad Hollis DO completed SpO2 - 01761 Maksim Hollis DO completed DLCO - 83338 Maksim Hollis DO completed EKG Maksim Hollis DO completed SNOMED-CT: [id number] Current Medications Documented Maksim Hollis DO completed EKG Maksimchad Hollis DO completed SNOMED-CT: [id number] Current Medications Documented Maksim Hollis DO completed
--- OUTSIDE RECORDS SUMMARY | 2024-10-03 10:01 | XMS_ITS | Clinical Summary ---
Author Organization [facility] Address [address] [place] [phone] Care Team Providers Care Volcanology Teacher Name Role Phone Frida Banegas DRILL SHARPENER Primary Care Provider + Allergies No known active allergies Medications ticagrelor (BRILINTA) 90 mg tablet take 1 tablet by oral route 2 times every day 0 0 08/19/2016 Active rosuvastatin (CRESTOR) 40 mg tablet take 1/2 Tablet by oral route every day 0 0 08/19/2016 Active carvedilol (COREG) 25 mg tablet take 1 by Oral route 2 times every day 0 0 08/19/2016 Active CHILDREN'S ASPIRIN 81 mg chewable tablet CHEW AND SWALLOW ONE TABLET BY MOUTH ONCE DAILY 30 tablet 5 01/20/2017 Active lisinopril (PRINIVIL,ZESTR IL) 10 mg tablet TAKE ONE TABLET BY MOUTH ONCE DAILY 30 tablet 2 02/16/2017 Active Active Problems Problem Noted Date Diagnosed Date Right ureteral stone 08/21/2022 Family History Medical History Relation Name Comments Other Father 2 Alive and well; Other Mother 2 Alive and well; Relation Name Status Comments Father 1 Alive Father 2 Mother 1 Alive Mother 2 Social History Tobacco Use Types Packs/Day Years Used Date Smoking Tobacco: Light Smoker Comments:Smoking History Pac ks/day: 3 Cigarettes Alcohol Use Standard Drinks/Week Comments Yes 0 (1 standard drink = 0.6 oz pur e alcohol) Personal Safety Answer Date Recorded Getting School Help Needed Not on file 06/01 Sex and Gender Information Value Date Recorded Sex Assigned at Not on file 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 Gender Identity Not on file Sexual Orientation Not on file Obstetrics History Last Filed Vital Signs Vital Sign Reading Time Taken Comments Blood Pressure 139/86 08/21/2022 1:05 PM CDT Pulse 75 08/21/2022 1:05 PM CDT Temperature 36.9 C (98.5 F) 08/21/2022 1:05 PM CDT Respiratory Rate - - Oxygen Saturation - - Inhaled Oxygen Concentration - - Weight 146.9 kg (323 lb 12.8 oz) 08/21/2022 1:05 PM CDT Height 177.8 cm (5' 10 ) 08/19/2016 1:57 PM CDT Body Mass Index 46.46 08/19/2016 1:57 PM CDT Plan of Treatment Health Maintenance Due Date Last Done Comments Colon Cancer Screening-Colonoscopy 1964 Depression Screening 1964 Hepatitis C Screening 1964 Prostate Cancer Screening-PSA 1964 Hepatitis B Screening 1982 Regular Well Visit/Exam 18-64 1982 Pneumococcal vaccine <65 (2 of 2 - PCV) 03/10/2022 03/10/2021, 03/10/2021 Covid-19 Vaccine (2023-2 5 season) 2024 02/10/2022, 09/16/2021, 02/18/2021, Additional history exists Influenza Vaccine (Season Ended) 2025 03/11/2022, 02/03/2021, 02/19/2020, Additional history exists DTaP/Tdap/Td Vaccine (2 - Td or Tdap) 08/31/2031 08/30/2021 Zoster Vaccine Completed 03/10/2021, 02/22, 01/05/2021, Additional history exists Insurance [employer] [facility] Care Teams Volcanology Teacher Relationship Specialty Start Date End Date Frida Banegas NP PCP - General Nurse Practitioner 08/21/22
--- OUTSIDE RECORDS SUMMARY | 2024-10-03 10:01 | XMS_ITS | Referral Summary ---
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
--- OUTSIDE RECORDS SUMMARY | 2024-10-03 10:01 | XMS_ITS | Encounter Summary ---
Author Organization [facility] Address [address] [address] Care Team Providers Care Trench Digger Helper Name Role Phone Yemi Bay MD Primary Care Provider + [phone] Miscellaneous, Not In File Primary Care Provider Unavailable Miscellaneous, Not In File Primary Care Provider Unavailable Yemi Bay MD Primary Care Provider + [phone] Miscellaneous, Not In File Primary Care Provider Unavailable Unknown, Notinfile Primary Care Provider Unavail able Frida Banegas SCHOOL BOAT DRIVER Primary Care Provider + Encounter Details Date Type Department Care Team (Late st Contact Info) Description 08/14/2016 Orders Only [facility] ProviderChristina MD [address] [place] [id number] Social History Tobacco Use Types Packs/Day Years Used Date Smoking Tobacco: Never Assessed Sex and Gender Information Value Date Recorded Sex Assigned at Not on file 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 Historical Provider [facility] RIVERA SHEEHAN Final Result documented in this encounter Visit Diagnoses Not on filedocumented in this encounter Care Teams Trench Digger Helper Relationship Specialty Start Date End Date Yemi Bay MD PCP - General 08/22/16 08/31/16 Miscellaneous, Not In File PCP - General 09/04/16 Miscellaneous, Not In File PCP - General 09/01/16 Yemi Bay MD PCP - General 09/10/16 09/23/16 Miscellaneous, Not In File PCP - General 09/24/16 3 Unknown, Notinfile PCP - General 07/28/22 07/28/22 Frida Banegas NP PCP - General Nurse Practitioner 08/21/22 documented as of this encounter
--- OUTSIDE RECORDS SUMMARY | 2024-10-03 10:01 | XMS_ITS | Clinical Summary ---
Author Organization [facility] Address [address] [place] [address] Care Team Providers Care Game Artist Name Role Phone Steven Prado Primary Care Provider [phone] Source Comments [facility],non-owned Affiliates and Associated Physician Practices is amultiple site organization consisting of ambulatory clinics and hospital sitesin [place], [place], [place] and [place]. This disclosure is being madepursuant to the Care Everywhere program and may not contain all information available regarding this patient. Last updated 18.[facility] Allergies No known active allergies Medications * Be aware that medications may not be up to date on this document. Alwaysverify current medications with the patient. aspirin (ASPIRIN) 81 MG chew tablet Take 81 mg by mouth once daily Active cyclobenzaprine (FLEXERIL) 10 MG tablet Take 10 mg by mouth 3 times daily as needed for Muscle Spasms Active rosuvastatin (CRESTOR) 40 MG tablet Take 1 Tab by mouth once daily 30 Tab 5 10/03/2016 Active lisinopril (PRINIVIL; ZESTRIL) 40 MG tablet Take 1 Tab by mouth once daily 30 Tab 5 10/03/2016 Active carvedilol (COREG) 12.5 MG tablet Take 1 Tab by mouth 2 times daily with morning and evening meal 60 Tab 5 10/03/2016 Active ticagrelor (BRILINTA) 90 MG tablet Take 1 Tab by mouth 2 times daily 60 Tab 5 10/03/2016 Active orphenadrine citrate CR 12hr (NORFLEX) 100 MG tablet Take 1 tablet by mouth every 12 hours as needed for Muscle Spasms 15 tablet 10/31/2017 Active HYDROcodone-samir taminophen (NORCO) 5-325 MG tablet Take 1 tablet by mouth every 4 hours as needed for Pain 10 tablet 10/31/2017 Active ibuprofen (MOTRIN) 600 MG tablet Take 1 tablet by mouth every 6 hours as needed for Pain 20 tablet 10/31/2017 Active Social History Tobacco Use Types Packs/Day Years Used Date Smoking Tobacco: Every Day Cigarettes Smokeless Tobacco: Never Sex and Gender Information Value Date Recorded Sex Assigned at Not on file Legal Sex Male 10:55 AM CDT Gender Identity Not on file Sexual Orientation Not on file Last Filed Vital Signs Vital Sign Reading Time Taken Comments Blood Pressure 134/95 10/31/2017 6:30 PM CDT Pulse 83 10/31/2017 6:30 PM CDT Temperature 36.7 C (98.1 F) 10/31/2017 2:18 PM CDT Respiratory Rate 12 10/31/2017 5:15 PM CDT Oxygen Saturation 97% 10/31/2017 6:30 PM CDT Inhaled Oxygen Concentration - - Weight 111.1 kg (245 lb) 10/31/2017 2:22 PM CDT Height 180.3 cm (5' 11 ) 10/31/2017 2:22 PM CDT Body Mass Index 34.17 10/31/2017 2:22 PM CDT Plan of Treatment Health Maintenance Due Date Last Done Comments COLOGUARD (AGES 45-75) - COL ON CA SCREENING 1964 COLON MONITORING 1964 COLONOSCOPY - COLON CA SCREENING 1964 CT COLONOGRAPHY - COLON CA SCREENING 1964 Colorectal Cancer Screening 1964 FIT - COLON CA SCREENING 1964 FLEX SIG - COLON CA SCREENING 1964 HIV SCREENING 1979 HEPATITIS C SCREENING 04/10/1982 DTAP/TDAP/TD VACCINES (1 - Tdap) 1983 PNEUMOCOCCAL VACCINE 50+ (1 of 2 - PCV) 1983 ZOSTER VACCINE (1 of 2) 2014 COVID-19 VACCINE ( - 2023-2 5 season) 2024 DEPRESSION SCREENING 05/25/2024 INFLUENZA VACCINE (Season Ended) 2025 Respiratory Syncytial Virus (RSV) Vaccine Pt: or over 60 yrs (1 - 1-dose 75+ series) 2039 HEPATITIS B VACCINE Aged Out No longe r eligible based on patient's age to complete this topic HIB VACCINE Aged Out No longer eligi ble based on patient's age to complete this topic HPV VACCINE Aged Out No longer eligi ble based on patient's age to complete this topic MENINGOCOCCAL (Group B) VACC INE SHARED DECISION-MAKING Aged Out No longer eligibl e based on patient's age to complete this topic MENINGOCOCCAL GROUPS A/C/Y/W VACCINE Aged Out No longer eligible b ased on patient's age to complete this topic Insurance [facility] Advance Directives Documents on File Type Date Recorded Patient Acquisitions Logistics Analyst Expl anation Adv Directive/Living Will/POA 09/29/2016 * Full Code (Latest Code Status on File) Date Activated Date Inactivated Comments 10/02/2016 10:20 AM 10/03/2016 4:04 PM Care Teams Game Artist Relationship Specialty Start Date End Date Steven Prado [address] [place] [address] PCP - General 06/25/20
[2024-10-03 10:09] VITALS: BP 156/58; PULSE 86; RESP 18; TEMP 36.7; O2SAT 100
--- OUTSIDE RECORDS SUMMARY | 2024-10-03 10:29 | XMS_ITS | Clinical Summary ---
Author Organization [facility] [employer] Address [address] [place] [address] Care Team Providers Care Instructor Adjunct Pharmacy Technician Name Role Phone Steven Prado Primary Care Provider [phone] Source Comments [facility] [employer],non-owned Affiliates and Associated Physician Practices is amultiple site organization consisting of ambulatory clinics and hospital sitesin [place], [place], [place] and [place]. This disclosure is being madepursuant to the Care Everywhere program and may not contain all information available regarding this patient. Last updated 18.[facility] [employer] Allergies No known active allergies Medications * [...] patient's age to complete this topic Insurance [facility] Address: [facility] [id number] [place] [address] Advance Directives Documents on File Type Date Recorded Patient Splitting Machine Operator Expl anation Adv Directive/Living Will/POA 09/29/2016 * Full Code (Latest Code Status on File) Date Activated Date Inactivated Comments 10/02/2016 10:20 AM 10/03/2016 4:04 PM Care Teams Instructor Adjunct Pharmacy Technician Relationship Specialty Start Date End Date Steven Prado [address] [facility] [place] [address] PCP - General 06/25/20
--- OUTSIDE RECORDS SUMMARY | 2024-10-03 10:30 | XMS_ITS | Clinical Summary ---
Author Organization [facility] Address [address] [place] [id number] Care Team Providers Care Director Of Corporate Sales Name Role Phone Yemi Bay MD Primary Care Provider [phone] Social History Tobacco Use Types Packs/Day Years Used Date Smoking Tobacco: Never Assessed Sex and Gender Information Value Date Recorded Sex Assigned at Not on file Legal Sex Male 5:16 PM CDT Gender Identity Not on file Sexual Orientation Not on file Plan of Treatment Upcoming Encounters Date Type Department Care Team (Late st Contact Info) Description 10/07/2024 12:30 PM CDT Office Visit [facility] [phone] Jorge Arshad MD [address] [facility] [address] [place] [phone] Health Maintenance Due Date Last Done [...] complete [place] [address] [place] Care Teams Director Of Corporate Sales Relationship Specialty Start Date End Date Yemi Bay MD [address] [place], [place] [id number] PCP - General FAMILY PRACTICE 07/08/24
--- OUTSIDE RECORDS SUMMARY | 2024-10-03 10:30 | XMS_ITS | CONTINUITY OF CARE DOCUMENT ---
Author Name orlando marinaketan Address Unknown Organization [facility] Address [address] [place] [address] Phone [phone] Care Team Providers Care Derrick Barge Operator Name Role Phone Maksim Hollis DO Unavailable [phone] Makenzie LIQUID FLAVOR COMPOUNDER-BC, Frida Rubi Unavailable Makenzie LIQUID FLAVOR COMPOUNDER-BC, Frida Rubi Unavailable PROBLEMS Condition Status Date [...] Hollis DO Overweight active Maksim Hollis DO Swelling of bilateral legs completed 01/09 - Maksim Hollis DO Blood glucose abnormal-- 01/23 09/11 Glu 105 completed - Maksim Hollis DO Sleep apnea has sx will r/o completed 2023 - Maksim Hollis DO Sleep apnea active Maksim Hollis DO ENCOUNTERS Date Type Provider Location Encounter Diag nosis 2 - 2 In-person encounter Office Visit Maksim Hollis DO [facility] Sleep apnea has sx will r/oSleep apnea 0 - 0 In-person encounter Office Visit Maksim Hollis [facility] 0 - 0 In-person encounter Office Visit Mak[facility] Holl[facility] Blood glucose abnormal-- 02/06/20 Glu 105 9 - 9 In-person encounter Office Visit Maksim [facility] 2 - 2 In-person encounter Office Visit Maksim Hollis DO [facility] Family Hx heart diseaseSwelling of bilateral legs 8 - 8 In-person encounter Office Visit Maksim Hollis DO [facility] 1 - 1 In-person encounter Office [...] In-person encounter Office Visit Maksim Hollis DO [facility] 8 - 8 In-person encounter Office Visit Maksim Hollis DO [facility] Swelling of bilateral legs 2 - 2 In-person encounter Office Visit Maksim Hollis DO [facility] 7 - 7 In-person encounter Office Visit Maksim Hollis DO [facility] 3 - 3 In-person encounter Office Visit Maksim Hollis DO [facility] Overweight 6 - 6 In-person encounter Office Visit Maksim Hollis DO [facility] 0 - 0 In-person encounter Office Visit Maksim Hollis DO [facility] Hypertriglyceridemia, severe, improved with meds/diet! 9 - 9 In-person encounter Office Visit Maksim Hollis DO [facility] 2 - 2 In-person encounter Office Visit Maksim Hollis DO [facility] 8 - 8 In-person encounter Office Visit Maksim Hollis DO [facility] 1 - 1 In-person encounter Office Visit Maksim Hollis DO [facility] 5 - 5 In-person encounter Office Visit Maksim Hollis DO [facility] Claudication IntermittentPVD - unspecified 6 - 6 In-person encounter Office Visit Maksim Hollis DO [facility] 2 - 2 In-person encounter Office Visit Maksim Hollis DO [facility] AMI anterior wallCADDyspnea on exertionHypercholesterolemiaHTN essentialTobacco abuse VITAL SIGNS Date Observation Value Provider Body Mass Index (Ratio) 49.93 kg/m2 Judi Aragon Bunny blood pressure, diastolic 84 mm[Hg] Nick mojica Linn blood pressure, systolic 144 mm[Hg] Kyleigh good Linn oxygen saturation, oximetry 94 % [facility] pulse rate 74 /min [facility]inn weight E&M 358 [lb_av] [facility] Linn blood pressure, cuff size regular Nick galina Linn height E&M 71 [in_i] [facility] Linn Body Mass Index (Ratio) 49.09 kg/m2 [facility] Mahesh Hollis blood pressure, diastolic 80 mm[Hg] An randi Fernando blood pressure, systolic 127 mm[Hg] Ling makenzie Fernando pulse rate 93 /min Delilah King weight E&M 352 [lb_av] Delilah Fernando blood pressure, cuff size large An randi Fernando height E&M 71 [in_i] Delilah Fernando Body Mass Index (Ratio) 48.81 kg/m2 [facility] Mahesh Hollis DO blood pressure, cuff size large Ke rri [facility] blood pressure, diastolic 80 mm[Hg] Ke rri [facility] blood pressure, systolic 156 mm[Hg] Ker ri Kimonenfso oxygen saturation, oximetry 96 % Darcy Kimonerupesh respiratory rate E&M 12 /min Darcy G gailenerupesh pulse rate 92 /min Darcy Gruenenfe [facility] weight E&M 350 [lb_av] Darcy Gruenenfe [facility] height E&M 71 [in_i] Darcy Gruenenfe [facility] Body Mass Index (Ratio) 47.83 kg/m2 [facility] Mahesh Hollis DO blood pressure, [...] Body Mass Index (Ratio) 45.74 kg/m2 [facility] Mahesh Bunny DO blood pressure, diastolic 95 mm[Hg] Li nkLog blood pressure, systolic 145 mm[Hg] Valerie kLog blood pressure, diastolic 95 mm[Hg] Tx emerson Car blood pressure, systolic 145 mm[Hg] [facility] jeremi Car oxygen saturation, oximetry 98 % Mely Car pulse rate 94 /min Mely smyth respiratory rate E&M 16 /min Jenn Car weight E&M 328 [lb_av] Mely smyth height E&M 71 [in_i] Mely smyth Body Mass Index (Ratio) 45.32 kg/m2 [facility] Mahesh Bunny DO blood pressure, diastolic 88 mm[Hg] Te ri Nya blood pressure, systolic 133 mm[Hg] Ter i Fay oxygen saturation, oximetry 97 % Yadira Fay respiratory rate E&M 14 /min Yadira Naren omalley pulse rate 81 /min Yadira Fay weight E&M 325 [lb_av] Yadira Fay Body Mass Index (Ratio) 42.95 kg/m2 [facility] blood pressure, cuff size large Ke rri Gruenenfelder blood pressure, diastolic 92 mm[Hg] Ke rri Gruenenfelder blood pressure, systolic 152 mm[Hg] Ker ri Gruenenfelder oxygen saturation, oximetry 98 % Darcy Gruenenfelder respiratory rate E&M 16 /min Darcy G ruenenfelder pulse rate 77 /min Darcy Gruenenfe [facility] weight E&M 308 [lb_av] Darcy Gruenenfe er height E&M 71 [in_i] Darcy Gruenenfe er Body Mass Index (Ratio) 44.35 kg/m2 [facility] blood pressure, diastolic 74 mm[Hg] Li nkLogic [...] er Body Mass Index (Ratio) 40.86 kg/m2 [facility] blood pressure, diastolic 70 mm[Hg] Naila gutiérrezLogic blood pressure, systolic 130 mm[Hg] Valerie kLogic blood pressure, cuff size regular Ramone Whitmore blood pressure, diastolic 70 mm[Hg] Ramone isabiola Kenney blood pressure, systolic 130 mm[Hg] Kri stdavid Chackoby pulse rate 83 /min Esperanza Whitmore oxygen saturation, oximetry 98 % Esperanza Whitmore respiratory rate E&M 19 /min Esperanza Whitmore weight E&M 293 [lb_av] Esperanza Chackoby height E&M 71 [in_i] Esperanza Kenney Body Mass Index (Ratio) 40.44 kg/m2 [facility] Mahesh Hollis blood pressure, diastolic 87 mm[Hg] Naila gutiérrezLog blood pressure, systolic 107 mm[Hg] Valerie [facility] blood [facility], diastolic 87 mm[Hg] Basim [...] Brandt Body Mass Index (Ratio) 39.72 kg/m2 [facility] Mahesh Hollis blood pressure, cuff size regular Ramone Whitmore blood pressure, diastolic 80 mm[Hg] Ramone frye Haim blood pressure, systolic 140 mm[Hg] Kri stdavid Chackoby oxygen saturation, oximetry 98 % Esperanza Chackoby respiratory rate E&M 17 /min Esperanza Haim pulse rate 82 /min Esperanza Haim blood pressure, resting Yes Bhaskar Chackoby weight E&M 284.8 [lb_av] Esperanza Haim height E&M 71 [in_i] Esperanza Kenney Body Mass Index (Ratio) 40.16 kg/m2 Prad [...] Rodritheo Campbell pulse rate 90 /min Angela [facility] blood pressure, diastolic 82 mm[Hg] Br ittany Pipo blood pressure, systolic 120 mm[Hg] Susan ttany [facility] oxygen saturation, oximetry 98 % Angela [facility] weight E&M 286 [lb_av] Angela [facility] respiratory rate E&M 16 /min Moratan y Block height E&M 71 [in_i] Angela [facility] Body Mass Index (Ratio) 39.47 kg/m2 Prad [...] Body Mass Index (Ratio) 39.47 kg/m2 [facility] Mahesh [facility] blood pressure, cuff size regular Ramone isty Haim weight E&M 283 [lb_av] Esperanza Haim respiratory rate E&M 18 /min Esperanza Haim oxygen saturation, oximetry 99 % Esperanza Kenney pulse rate 79 /min Esperanza Kenney blood pressure, diastolic 70 mm[Hg] Ramone isty Haim blood pressure, systolic 140 mm[Hg] Kri sty Kenney height E&M 71 [in_i] Esperanza Kenney Body Mass Index (Ratio) 40.02 kg/m2 [facility] Mahesh [facility] blood pressure, cuff size regular Raomne isabiola Kenney blood pressure, diastolic 90 mm[Hg] Ramone isty Kenney blood pressure, systolic 150 mm[Hg] Kri sty Haim oxygen saturation, oximetry 95 % Esperanza Haim pulse rate 88 /min Esperanza Kenney respiratory rate E&M 17 /min Esperanza Haim weight E&M 287 [lb_av] Esperanza Haim height E&M 71 [in_i] Esperanza Haim Body Mass Index (Ratio) 38.49 kg/m2 [facility] Mahesh Hollis pulse rate 94 /min Angela Block blood pressure, diastolic 98 mm[Hg] Lindsey Foss blood pressure, systolic 182 mm[Hg] Susan mcelroy Block oxygen saturation, oximetry 97 % Angela Foss weight E&M 276 [lb_av] Angela Block respiratory rate E&M 16 /min Edward hernandez height E&M 71 [in_i] Angela Body Mass Index (Ratio) 37.65 kg/m2 [facility] Mahesh Hollis oxygen saturation, oximetry 98 % Esperanza Haim respiratory rate E&M 17 /min Esperanza Kenney blood pressure, diastolic 90 mm[Hg] Ramone isty Haim blood pressure, systolic 158 mm[Hg] Kri sty Kenney pulse rate 83 /min Esperanza Kenney blood pressure, cuff size regular Ramone frye Haim weight E&M 270 [lb_av] Esperanza Haim height E&M 71 [in_i] Esperanza Haim Body Mass Index (Ratio) 37.79 kg/m2 [facility] Mahesh Hollis pulse rate 92 /min Esperanza Kenney blood pressure, diastolic 80 mm[Hg] Ramone isty Kenney blood pressure, systolic 142 mm[Hg] Kri sty Kenney oxygen saturation, oximetry 98 % Esperanza Haim respiratory rate E&M 18 /min Esperanza Kenney blood pressure, cuff size regular Ramone isty Kenney weight E&M 271 [lb_av] Esperanza Haim height E&M 71 [in_i] Esperanza Haim Body Mass Index (Ratio) 37.10 kg/m2 [facility] Hollis blood pressure, diastolic 80 mm[Hg] Ramone isty Haim blood pressure, systolic 140 mm[Hg] Kri sty Kenney oxygen saturation, oximetry 97 % Esperanza Kenney respiratory rate E&M 17 /min Esperanza Haim pulse rate 93 /min Esperanza Haim blood pressure, cuff size regular Ramone Chackoby weight E&M 266 [lb_av] Esperanza Haim height E&M 71 [in_i] Esperanza Body Mass Index (Ratio) 35.56 kg/m2 [facility] Mahesh [facility] blood pressure, diastolic 80 mm[Hg] [facility] blood pressure, systolic 122 mm[Hg] Marimar peraza [place] oxygen saturation, oximetry 99 % [facility] respiratory rate E&M 16 /min [facility] pulse rate 95 /min [facility] weight E&M 255 [lb_av] Miguel [facility] height E&M 71 [in_i] Miguel Angel Dyer Body Mass Index (Ratio) 35.28 kg/m2 [facility] Mahesh [facility] blood pressure, cuff size regular Ramone Chacko blood pressure, diastolic 80 mm[Hg] Ramone frye blood pressure, systolic 138 mm[Hg] Geovany mota respiratory rate E&M 16 /min Esperanza pulse rate 96 /min Esperanza oxygen saturation, oximetry 98 % Esperanza weight E&M 253 [lb_av] Esperanza height E&M 71 [in_i] Esperanza Body Mass Index (Ratio) 35.00 kg/m2 [facility] Mahesh [facility] blood pressure, diastolic 80 mm[Hg] Ramone Chacko blood pressure, systolic 130 mm[Hg] Ramonei david oxygen saturation, oximetry 99 % Esperanza Chackoby respiratory rate E&M 16 /min Esperanza Haim pulse rate 82 /min Esperanza Kenney blood pressure, cuff size regular Ramone Chackoby weight E&M 251 [lb_av] Esperanza Kenney height E&M 71 [in_i] Esperanza Body Mass Index (Ratio) 35.00 kg/m2 [facility] Mahesh Hollis blood pressure, cuff size regular Ramone Chackoby respiratory rate E&M 17 /min Esperanza Haim pulse rate 81 /min Esperanza Haim oxygen saturation, oximetry 98 % Esperanza height E&M 71 [in_i] Esperanza weight E&M 251 [lb_av] Esperanza Body Mass Index (Ratio) 36.59 kg/m2 [facility] Mahesh [facility] blood pressure, cuff size regular Ramone Whitmore blood pressure, diastolic 80 mm[Hg] Ramone Chackoby blood pressure, systolic 138 mm[Hg] Geovany mota Kenney oxygen saturation, oximetry 98 % Esperanza Chackoby respiratory rate E&M 17 /min Esperanza Haim pulse rate 102 /min Esperanza Haim weight E&M 262.4 [lb_av] Esperanza height E&M 71 [in_i] Esperanza Body Mass Index (Ratio) 37.68 kg/m2 [facility] Mahesh Bunny blood pressure, cuff [...] Normal Absolute Neutrophil count 3082 cells/mcL LinkLogic [phone] Normal mean platelet volume 9.1 fL LinkLogic [...] 0-149 High cholesterol, serum 143 mg/dL LinkLogic [phone]/01 /04 alanine aminotransferase (SGPT), serum 26 1/L [...] LinkLogic 3.5-5.2 sodium, serum 140 mmol/L LinkLogic [phone]/01 /04 urea nitrogen/creatinine ratio, serum 13 LinkLogic [...] Not Estab. platelet count 181 X10E3/UL LinkLogic [phone]/01 /04 red blood cell distribution width 12.8 [...] 0-149 High cholesterol, serum 136 mg/dL LinkLogic [phone]/09 /15 calcium, serum 10.5 mg/dL LinkLog[facility] 8.7-10.2 High carbon dioxide, venous blood 23 mmol/L LinkLog[facility] 20-29 chloride, serum 102 mmol/L [facility] 96-106 potassium, serum 4.4 mmol/L LinkLog[facility] 3.5-5.2 sodium, serum 137 mmol/L [facility] [phone]/09 /15 urea nitrogen/creatinine ratio, serum 17 LinkLogic [...] 0-149 High cholesterol, serum 156 mg/dL LinkLogic [phone]/08 /22 pro brain natriuretic peptide 190 pg/mL [...] 0-149 High cholesterol, serum 140 mg/dL LinkLogic [phone]/08 /22 alanine aminotransferase (SGPT), serum 24 1/L [...] LinkLogic 3.5-5.2 sodium, serum 142 mmol/L LinkLogic [phone]/08 /22 urea nitrogen/creatinine ratio, serum 14 LinkLogic [...] Not Estab. platelet count 184 X10E3/UL LinkLogic [phone]/08 /22 red blood cell distribution width 13.8 [...] 0-149 High cholesterol, serum 145 mg/dL LinkLogic [phone]/01 /09 alanine aminotransferase (SGPT), serum 24 1/L [...] LinkLogic 3.5-5.2 sodium, serum 136 mmol/L LinkLogic [phone]/01 /09 urea nitrogen/creatinine ratio, serum 16 LinkLogic [...] 0-149 High cholesterol, serum 154 mg/dL LinkLogic [phone]/05 /24 basophil count, absolute 0.0 x10E3/uL LinkLogic [...] Not Estab. platelet count 189 X10E3/UL LinkLogic [phone]/05 /24 red blood cell distribution width 13.8 [...] LinkLogic 3.5-5.2 sodium, serum 142 mmol/L LinkLogic [phone]/05 /24 urea nitrogen/creatinine ratio, serum 15 LinkLogic [...] Normal Absolute Neutrophil count 1929 cells/mcL LinkLogic [phone] Normal mean platelet volume 9.3 fL LinkLogic [...] Normal Absolute Neutrophil count 2999 cells/mcL LinkLog [phone] Normal mean platelet volume 7.1 fL [facility] 7.5-12.5 Low platelet count 203 THOUSAND/UL [facility] 140-400 Normal red blood cell distribution width 13.7 % LinkLog 11.0-15.0 Normal mean corpuscular hemoglobin concentration, RBC 33.4 G/DL LinkLog 32.0-36.0 Normal mean corpuscular hemoglobin, RBC 34.5 pg LinkLog 27.0-33.0 High mean corpuscular volume, RBC 103.1 fL [facility] 80.0-100.0 High hematocrit, blood 43.8 % LinkLog 38.5-50.0 Normal hemoglobin electrophoresis, blood 14.6 LinkLog 13.2-17.1 Normal erythrocyte (RBC) count 4.25 MILLION/[facility] 4[facility]5.80 Normal leukocyte (white blood cells) count, blood 6.3 THOUSAND/UL [facility] 3.8-10.8 Normal alanine aminotransferase (SGPT), serum 21 1/L [facility] 9-46 Normal aspartate aminotransferase (SGOT), serum [...] once a day 07/22 - 07/04 Misty Williamaksweetie Vascepa 1 gram capsule active Take 2 [...] 1 tablet by mouth once daily Misty Rushisweetie varenicline 1 mg tablet completed - 06/23 Darcy Dhillon Aldactone 25 mg tablet active Take 1 tablet by mouth once a day 09/23 Maksim Hollis DO losartan 100 mg tablet completed Take 1 tablet by mouth once a day new dose 100mg replaces 50mg 12/12 - 07/16 [facility] Specialist losartan 50 mg tablet completed [...] ation, patient education and counseling yes Esperanza Kenney number of years as a smoker 1982 a Esperanza Haim cigarette use yes Esperanza Kenney smoking status Current every da y smoker Esperanza Kenney smoking/tobacco cess ation, patient education and counseling yes Miguel Angel Dyer number of years as a smoker 1982 a Sapphire Dyer cigarette use yes Miguel Angel Dyer smoking status Current every da y smoker Miguel Angel Luceroam smoking/tobacco cess ation, patient education and counseling yes Esperanza Haim number of years as a smoker 1982 a Esperanza Kenney cigarette use yes Esperanza Kenney smoking status Current every da y smoker Esperanza Haim smoking/tobacco cess ation, patient education and counseling yes Esperanza Haim number of years as a smoker 1982 a Esperanza Haim cigarette use yes Esperanza Kenney smoking status Current every da y smoker Esperanza Kenney smoking/tobacco cess ation, patient education and counseling [...] DO FAMILY HISTORY Family Member Condition Mother [place] female <65 Father Family History of Hy pertension: Father Family History of Di abetes: Mother Family History Breas t Cancer: INSURANCE PROVIDERS Payer name Policy type / Coverage type Rutledge red republican ID MARTINEZ MEDICARE Medicare [id number] ADVANCE DIRECTIVES Name Date DISCUSSED - NO DECISION MADE TREATMENT PLAN Date Name Performer [id number],C, a dipex did not tolerate nor covered by insurance. t ry intermittent fasting. [facility] Mahesh Hollis [id number],C, m ild on chris Maksimchad Hollis [id number],C, o n vescapa/fibrate m uch better L [...] by mouth once a day Maksim Hollis [id number],C, s /p large anterior mi p romus [...] cbc ok, a1c 5.8% Maksim Hollis DO [id number],C, H e underwent emergency revascularization which was [...] portion. this was later stented. Maksim Hollis [id number],C, t rigs were too high despite taking otc omega 3 fish oil ([facility]), LDL not even calculated cause trigs > [...] by mouth once a day Maksimrobson Hollis [id number],C, H is updated medication list for this [...] ([facility]) (01/16/2023) T (01/16/2023) Maksim Mahesh Hollis [id number],C, ehsan Schaeffer Mahesh Bunny [id number],C,a dd aldactone 25 may be able to [...] 143 (05/28/2022) HDL: 34 (05/28/2022) Maksim Hollis [id number],C, s /p large anterior mi p romus [...] 316, cbc ok, a1c 5.8% Maksim Hollis [id number],C, t rigs were too high despite taking otc omega 3 fish oil ([facility]), LDL not even calculated cause trigs > [...] by mouth once a day Maksimrobson Hollis [id number],C, o n vescapa/fibrate m uch better L [...] by mouth once a day Maksim Hollis [id number],C, m ild on chris Maksimchad Hollis [id number],C, s /p large anterior mi p romus [...] ok, gfr nml, LDL 41 Trigs 288 [facility] Mahesh Hollis [id number],C, t rigs were too high despite taking otc omega 3 fish oil ([facility]), LDL not even calculated cause trigs > [...] ok, gfr nml, LDL 41 Trigs 288 [facility] Mahesh Hollis [id number],C,r pm trends ok, opts out now H [...] C hol: 136 (02/07/2020) HDL: 30 (02/07/2020) [facility] Mahesh [facility] [id number],C, m ild on chris d enies of any claudication w alks a lot on the job [facility] Mahesh [facility] [id number],C, o n vescapa/fibrate m uch better [facility] [id number],C, a dipex did not tolerate nor covered by insurance. t ry intermittent fasting. i n select r efer anguiano. [facility] Mahesh [facility] [id number],C, L ikely venous insufficiency. Will not add diuretic as he feels dehydrated. He has ordered compression stockings which I advised he wear. o ff amlodipine. [facility] Mahesh [facility] [id number],C,S topped taking hctz last month because he [...] 136 (02/07/2020) HDL: 30 (02/07/2020) Maksim Hollis [id number],C, t rigs were too high despite taking otc omega 3 fish oil ([facility]), LDL not even calculated cause trigs > [...] nml, LDL 41 Trigs 288 Maksim Hollis [id number],C, s /p large anterior mi p romus [...] nml, LDL 41 Trigs 288 Maksim Hollis [id number],C, L ikely venous insufficiency. Will not add diuretic as he feels dehydrated. He has ordered compression stockings which I advised he wear. o ff amlodipine. Maksim Hollis [id number],C, H e underwent emergency revascularization which was [...] the distal portion. this was later stented. [facility] Mahesh [facility] [id number],C, s /p pci p fts ok. e cho planned [facility] Mahesh [facility] [id number],C, o n vescapa/fibrate m uch better [facility] [id number],C, m ild on chris d enies of any claudication w alks a lot on the job [facility] Mahesh [facility] [id number],C, t rigs were too high despite taking otc omega 3 fish oil ([facility]), LDL not even calculated cause trigs > [...] ok, gfr nml, LDL 41 Trigs 288 [facility] Mahesh [facility] [id number],C,D iscussion of benefits for remote patient monitoring [...] (02/07/2020) HDL: 30 (02/07/2020) Maksim Hollis DO [id number],C, H e underwent emergency revascularization which was [...] this was later stented. Maksim Hollis DO [id number],C, s /p large anterior mi p romus [...] LDL 41 Trigs 288 Maksim Hollis DO [id number],C, L ikely venous insufficiency. Will not add diuretic as he feels dehydrated. He has ordered compression stockings which I advised he wear. o ff amlodipine. Maksim Hollis DO [id number],C, t rigs were too high despite taking otc omega 3 fish oil ([facility]), LDL not even calculated cause trigs > [...] 4.4, LDL 44, Trigs 420 Maksim Hollis [id number],C, a dipex did not tolerate nor covered by insurance. t ry intermittent fasting. i n select r efer anguiano. Maksim Hollis [id number],C, L ikely venous insufficiency. Will not add diuretic as he feels dehydrated. He has ordered compression stockings which I advised he wear. o ff amlodipine. Maksim Hollis [id number],C, m ild on chris d enies of any claudication w alks a lot on the job Maksim Hollis [id number],C, t rigs were too high despite taking otc omega 3 fish oil ([facility]), LDL not even calculated cause trigs > [...] 4.4, LDL 44, Trigs 420 Maksim Hollis [id number],C, H e underwent emergency revascularization which was [...] portion. this was later stented. Maksim Hollis [id number],C, s /p large anterior mi p romus NICOLE to LAD, staged pci to rca 10/08 w ould cont dapt stop brilinta start plavix instead (easy bruising) h as quit smoking o n good meds n eg nuc 01/10 e cp e f now 50%.01/10 lipid panel better, LDL < 70 now Maksim Hollis DO [id number],C, T he following medications were removed from [...] (02/07/2020) HDL: 30 (02/07/2020) Maksim Hollis DO [id number],C, H e underwent emergency revascularization which was [...] this was later stented. Maksim Hollis DO [id number],C, s /p large anterior mi p romus NICOLE to LAD, staged pci to rca 10/08 w ould cont dapt stop brilinta start plavix instead (easy bruising) h as quit smoking o n good meds n eg nuc 01/10 e cp e f now 50%.01/10 lipid panel better, LDL < 70 now Maksim Hollis DO [id number],C, t rigs were too high despite taking otc omega 3 fish oil ([facility]), LDL not even calculated cause trigs > [...] tablet by mouth every day Maksim Hollis [id number],C, H is updated medication list for this [...] 136 (02/07/2020) HDL: 30 (02/07/2020) Maksimchad Hollis [id number],C, m ild on chris d enies of any claudication w alks a lot on the job Maksim Hollis [id number],C, o n vescapa/fibrate m uch better Maksim Hollis [id number],C, a dipex did not tolerate nor covered by insurance. t ry intermittent fasting. i n select Maksim Hollis [id number],C, L ikely venous insufficiency. Will not add diuretic as he feels dehydrated. He has ordered compression stockings which I advised he wear. o ff amlodipine. Maksim Hollis Cardiology: oRss noyola underwent emergency revascularization which was difficult [...] despite taking otc omega 3 fish oil ([facility]), LDL not even calculated cause trigs > [...] despite taking otc omega 3 fish oil (formerly [facility], [facility]1983 [place]), LDL not even calculated cause trigs [...] s /p large anterior mi p romus NICOEL to LAD, staged pci to rca 10/08 [...] despite taking otc omega 3 fish oil ([facility]), LDL not even calculated cause trigs > [...] LDL: 65 MG/DL (CALC) (01/16/2023) T (01/16/2023) [facility] Cardiology: m ild on chris Maksimrobson Ar[facility] Cardiology: o n vescapa/fibrate m uch better [...] 1 tablet by mouth once a day [facility]: s /p large anterior mi p [...] 60 Trigs 316, cbc ok, a1c 5.8% [facility] Cardiology: H e underwent emergency revascularization which [...] the distal portion. this was later stented. [facility] Mahesh Walekrra AGUILERA Cardiology: t rigs were too high despite taking otc omega 3 fish oil ([facility]), LDL not even calculated cause trigs > [...] despite taking otc omega 3 fish oil ([facility]), LDL not even calculated cause trigs > [...] despite taking otc omega 3 fish oil (formerly [facility], 1928[facility] [place]), LDL not even calculated cause trigs [...] despite taking otc omega 3 fish oil ([facility]), LDL not even calculated cause trigs > [...] the distal portion. this was later stented. [facility]: s /p pci p fts ok. e cho planned [facility] Cardiology: o n vescapa/fibrate m uch better [facility]: m ild on chris d enies of any claudication w alks a lot on the job [facility] Cardiology: t rigs were too high despite taking otc omega 3 fish oil ([facility]), LDL not even calculated cause trigs > [...] ok, gfr nml, LDL 41 Trigs 288 [facility] Cardiology:Discussio n of benefits for remote patient [...] despite taking otc omega 3 fish oil ([facility]), LDL not even calculated cause trigs > [...] Maksim Hollis DO Cardiology: m ild on hcris d enies of any claudication w alks a lot on the job Maksim Hollis DO Cardiology: t rigs were too high despite taking otc omega 3 fish oil ([facility]), LDL not even calculated cause trigs > [...] despite taking otc omega 3 fish oil ([facility]), LDL not even calculated cause trigs > [...] C hol: 136 (02/07/2020) HDL: 30 (02/07/2020) [facility] Cardiology: m ild on chris d enies of any claudication w alks a lot on the job Maksimchad [facility] Cardiology: o n vescapa/fibrate m uch better [facility] Cardiology: a dipex did not tolerate nor covered by insurance. t ry intermittent fasting. i n select Maksimchad Hollis Cardiology: L ikely venous insufficiency. Will not add diuretic as he feels dehydrated. He has ordered compression stockings which I advised he wear. o ff amlodipine. Maksim [facility]: i mproved s /p pci p fts ok. Maksimchad Hollis Cardiology: o n vescapa/fibrate m uch better Maksim [facility]: m ild on chris d enies [...] despite taking otc omega 3 fish oil ([employer]), LDL not even calculated cause trigs > [...] Cardiology: o n vescapa/fibrate m uch better [facility]: H dennys underwent emergency revascularization which [...] despite taking otc omega 3 fish oil (formerly [facility], [facility] [place]), LDL not even calculated cause trigs [...] despite taking otc omega 3 fish oil ([facility]), LDL not even calculated cause trigs > [...] [facility]:on vescap a/fibrate m uch better [facility] Cardiology:Blood pre ssure control is satisfactory. Advised reduced sodium intake and routine monitoring of the blood pressure. We aim for less than 130/80. [facility] Cardiology:mild on a bi d enies of any claudication w alks a lot on the job [facility] Cardiology:Likely ve nous insufficiency. Will not [...] despite taking otc omega 3 fish oil ([facility]), LDL not even calculated cause trigs > [...] Take 1 tablet by mouth every day [facility] Cardiology: a dipex did not tolerate nor covered by insurance. t ry intermittent fasting. i n select [facility] Cardiology:check pro bnp s top lasix t ry aldactone o n hctz low dose with losartan already [facility] Cardiology: t rigs were too high despite taking otc omega 3 fish oil ([facility]), LDL not even calculated cause trigs > 600. o n crestor 40 c ant tolerate zetia o n fibrate o n vasecpea R epeat lipids 06/01/18: LDL 64, Trigs 216, HDL 38!!!!\ L ipid 01/10 LDL 56 HDL 38 Trigs 229 1 07/13 LDL 65 Trigs 249 [facility] Cardiology: a dipex did not tolerate nor covered by insurance. t ry intermittent fasting. i n select [facility] Cardiology: o n vescapa/fibrate m uch better! [facility] Cardiology: t rigs were too high despite taking otc omega 3 fish oil ([facility]), LDL not even calculated cause trigs > [...] despite taking otc omega 3 fish oil ([facility]), LDL not even calculated cause trigs > [...] n vescapa/fibrate m uch better! Maksim [facility]hes[facility] Cardiology: a dipex did not tolerate nor [...] despite taking otc omega 3 fish oil ([facility]), LDL not even calculated cause trigs > [...] [facility]: Ross noyola underwent emergency revascularization which [...] [facility]: H is updated medication list for [...] C hol: 140 (01/13/2019) HDL: 38 (01/13/2019) [facility] Cardiology: o n vescapa/fibrate m uch better! [facility] Cardiology: m ild on chris [facility] Cardiology: s /p large anterior mi p romus NICOLE to LAD, staged pci to rca 10/08 w ould cont dapt brilinta 60 bid h as quit smoking o n good meds n eg nuc 01/10 e cp e f now 50%. lipid panel better, LDL < 70 now!! Maksim Hollis Cardiology: t rigs were too high despite taking otc omega 3 fish oil ([facility]), LDL not even calculated cause trigs > [...] despite taking otc omega 3 fish oil ([employer]), LDL not even calculated cause trigs > [...] Hollis DO Cardiology: o n vescapa/fibrate m [facility] better! Maksim Hollis DO Cardiology:s/p large anterior [...] Maksim Hollis Cardiology: o n vescapa/fibrate m [facility] better! Maksim Hollis Cardiology: m ild on [...] despite taking otc omega 3 fish oil ([facility]), LDL not even calculated cause trigs > 600. o n crestor 40 c ant tolerate zetia o n fibrate o n vasecpea R epeat lipids 06/01/18: LDL 64, Trigs 216, HDL 38!!!!\ LFTs ok Maksim Hollis DO Cardiology: t rigs were too high despite taking otc omega 3 fish oil (formerly [facility], [facility] [place]), LDL not even calculated cause trigs > 600. o n crestor 40 c ant tolerate zetia o n fibrate o n vasecpea R epeat lipids 06/01/18: LDL 64, Trigs 216, HDL 38!!!!\ LFTs ok [facility]: n eeds to quit [facility] Cardiology: m ild on chris [facility] Cardiology:adjust, s tart losartan instead of lisinopril [...] C hol: 154 (10/15/2017) HDL: 32 (10/15/2017) [facility] Cardiology: Ross noyola underwent emergency revascularization [...] the distal portion. this was later stented. [facility] Cardiology: s /p large anterior mi p romus NICOLE to LAD, staged pci to rca 10/08 w ould cont dapt go brilinta 60 bid now n eeds to quit smoking almost there o n good meds e f now 55%. lipid panel noted e xercise program. [facility] Cardiology: jean-pierre rubi ipid panel noted. e xercise program. w hole diet s tart fibric acid r epeat in 3 mo [facility] Cardiology: H is updated medication list for [...] LDL: 56 MG/DL (CALC) (04/12/2017) T (04/12/2017) [facility] Cardiology: Ross e underwent emergency revascularization which [...] the distal portion. this was later stented. [facility] Cardiology: jean-pierre rubi ipid panel noted. trigs improving. talked whole 30. e xercise program. [facility] Cardiology: m ild on chris [facility] Cardiology: s /p large anterior mi p romus NICOLE to LAD, staged pci to rca 10/08 w ould cont dapt go brilinta 60 bid now n eeds to quit smoking almost there o n good meds e f now 55%. l ipid panel noted. trigs improving. talked whole 30. e xercise program. [facility] Cardiology: Ross is updated medication list for [...] LDL: 56 MG/DL (CALC) (04/12/2017) T (04/12/2017) [facility] Cardiology: Ross noyola underwent emergency revascularization [...] the distal portion. this was later stented. [facility] Cardiology:improved s /p pci p fts ok. [facility] Cardiology: o n vescapa l ipid panel noted. trigs improving. talked whole 30. e xercise program. lipids in 6 mo around 10/09 [facility] Card[facility]: m ild on chris [facility] Cardiology: s /p large anterior mi [...] despite taking otc omega 3 fish oil ([facility]), LDL not even calculated cause trigs > 600. o n crestor 40 c ant tolerate zetia n eed to get trigs down so can get accurage LDL then may need repatha. l ets do vascepa instead of otc fish oil first. await repeat lipid panel. Maksim Hollis DO Cardiology:lisinopri l 20mg a day, can increase to 40 if needed. i [employer] refused sleep study. The following medications were [...] vescap a w ill recheck panel soon [facility] Cardiology:s/p large anterior mi p romus NICOLE to LAD, staged pci to rca 10/08 n eeds dapt at least 6 mo through 11/08 lets go to 60 bid around 08/09. (mi was 07/23/16). n eeds to quit smoking o n good meds e f now 55%. [facility] Cardiology: t rigs too high despite taking otc omega 3 fish oil ([facility]), LDL not even calculated cause trigs > 600. o n crestor 40 c ant tolerate zetia n eed to get trigs down so can get accurage LDL then may need repatha. l ets do vascepa instead of otc fish oil first. [facility] Cardiology: s /p pci p fts ok. [facility] Cardiology: Ross noyola underwent emergency revascularization [...] the distal portion. this was later stented. [facility] Cardiology: H is updated medication list [...] LDL: * mg/dL (calc) (10/11/2016) T (10/11/2016) [facility] Cardiology: n eeds to quit Maksimrobson Aragon [facility] Cardiology:mild on chris Maksim mojica [facility] Cardiology: s /p large anterior mi p romus NICOLE to LAD, staged pci to rca 10/08 n eeds dapt at least 6 mo through 11/08 lets go to 60 bid around 08/09. (mi was 07/23/16). n eeds to quit smoking o n good meds e f now 55%. [facility] Card[facility]: w ill get lipid panel o n crestor 40 w ill recheck will start zetia then if not at goal repatha [facility] Cardiology:s/p pci p fts [facility] Cardiology: H e underwent emergency revascularization which [...] vessel and also in the distal portion [facility] Cardiology: n eeds to quit [facility] Cardiology: w ill get lipid panel o n crestor [facility] Cardiology: H is updated medication list for this problem includes: Aspirin Adult Low Dose 81 Mg Oral Tbec (Aspirin) ..... One tab by mouth daily Carvedilol 12.5 Mg Tabs (Carvedilol) ..... One tab twice a day Lisinopril 10 Mg Tabs (Lisinopril) ..... One tab. daily BP today: 130/82 P rior BP: 144/98 (09/23/2016) [facility] Cardiology: s /p large anterior mi p [...] EKG Maksim Mahesh Walkerra DO completed SNOMED-CT: [id number] Current Medications Documented Maksim Hollis DO completed EKG Maksimchad Hollis DO completed SNOMED-CT: [id number] Current Medications Documented Maksimchad Hollis DO completed EKG Maksimchad Hollis DO completed SNOMED-CT: [id number] Current Medications Documented Maksim Hollis DO completed FVC / MVV with bronchodilator - 27154 Maksim Hollis DO completed FRC - 52716 Maksimchad Hollis DO completed SpO2 - 72435 Maksim Hollis DO completed DLCO - 87571 Maksim Hollis DO completed EKG Maksim Hollis DO completed SNOMED-CT: [id number] Current Medications Documented Maksim Hollis DO completed EKG Maksimchad Hollis DO completed SNOMED-CT: [id number] Current Medications Documented Maksim Hollis DO completed
--- OUTSIDE RECORDS SUMMARY | 2024-10-03 10:30 | XMS_ITS | Referral Summary ---
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
--- OUTSIDE RECORDS SUMMARY | 2024-10-03 10:30 | XMS_ITS | Encounter Summary ---
Author Organization [facility] Address [address] [address] Care Team Providers Care Tester Armature Or Fields Name Role Phone Yemi Bay MD Primary Care Provider + [phone] Miscellaneous, Not In File Primary Care Provider Unavailable Miscellaneous, Not In File Primary Care Provider Unavailable Yemi Bay MD Primary Care Provider + [phone] Miscellaneous, Not In File Primary Care Provider Unavailable Unknown, Notinfile Primary Care Provider Unavail able Frida Banegas RECRUITER COORDINATOR Primary Care Provider + Encounter Details Date Type Department Care Team (Late st Contact Info) Description 08/14/2016 Orders Only [facility] ProviderChristina MD [address] [place] [id number] Social History Tobacco Use Types Packs/Day Years Used Date Smoking Tobacco: Never Assessed Sex and Gender Information Value Date Recorded Sex Assigned at Not on file 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
--- OUTSIDE RECORDS SUMMARY | 2024-10-03 10:30 | XMS_ITS | Clinical Summary ---
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
--- NOTE | 2024-10-03 10:45 | ED.SKABFB ---
HPI - Skin/Abscess/Foreign Bdy General Chief complaint: Skin/Abscess/Foreign Body Stated complaint: LUMP ON BACK Time Seen by Provider: 10/03/24 10:17 History of Present Illness HPI narrative: 59-year-old male presenting with abscess. States that about 2 days ago he noticed a scab in the middle of his upper back. He had his mom take a look and she drained a large amount of pus despite pushing on it. States that since that time it has been draining pus and blood. States that he was concerned for blood infection so he came in for evaluation. Denies fevers, vomiting, or other systemic symptoms but states he ?just does not feel right?. Related Data Home Medications ?Medication ?Instructions ?Recorded ?Confirmed ?Last Taken ?Type cholecalciferol (vitamin D3) 125 5,000 unit PO DAILY 05/03/19 07/04/24 08/10/23 History mcg (5,000 unit) tablet clopidogrel 75 mg tablet (Plavix) 75 mg PO DAILY 10/15/20 07/04/24 02/01/24 History aspirin 81 mg chewable tablet 81 mg PO DAILY 08/30/21 07/04/24 02/01/24 History (Aspirin Childrens) losartan 50 mg tablet 50 mg PO DAILY 10/14/21 07/04/24 08/11/23 History furosemide 20 mg tablet 20 mg PO DAILY 12/07/23 07/04/24 Unknown History nebivolol 20 mg tablet 20 mg PO DAILY 12/07/23 07/04/24 Unknown History gabapentin 300 mg capsule 300 mg PO TID PRN Pain 01/29/24 07/04/24 Unknown History Allergies Allergy/AdvReac Type Severity Reaction Status Date / Time No Known Allergies Allergy Verified 09/19/24 11:35 Review of Systems Review of Systems: All systems reviewed & are unremarkable except as noted in HPI and below PMFSH Past Medical History Medical History Elevated WBC count Elevated WBC count Sinusitis, acute Sebaceous cyst Changing skin lesion Acute bronchitis Acute postoperative pain Pain in left leg Pain of right scapula Hematoma Screening for prostate cancer Ureteral calculus Diarrhea Vitamin deficiency, unspecified Mass of left knee Arthritis Osteoporosis IBS (irritable bowel syndrome) Abdominal pain Heart attack High cholesterol Wears glasses Weight gain BMI 50.0-59.9, adult Bilateral primary osteoarthritis of knee Left knee DJD Right knee DJD Ganglion cyst Conjunctivitis Costochondritis Elevated glucose Right flank pain Rib pain Central stenosis of spinal canal Epidural lipomatosis Bulging discs Osteoarthritis, knee Pain in right knee Atherosclerosis of abdominal aorta Pain of left calf Degenerative disc disease Pain in left knee Swelling of left lower extremity Numbness Colonoscopy planned Obesity, morbid, BMI 40.0-49.9 Tobacco dependence Microscopic colitis CAD (coronary artery disease) Essential hypertension Mixed hyperlipidemia BMI 38.0-38.9,adult Morbidly obese Obesity Screening for thyroid disorder Surgical History Surgical History History of lumbar surgery History of coronary artery stent placement x4 2017 History of appendectomy Family History Family History Father Family history of diabetes mellitus in first degree relative Family history of heart disease in male family member before age 55 Heart disease Cerebrovascular accident Mother Family history of malignant neoplasm of breast in first degree relative Breast cancer Sibling Hyperlipidemia Other Arthritis Diabetes mellitus Family history of cardiovascular disease Hypertension Social History Social History Smoking packs per day: 1 Smoking cigarettes per day: 20.0 Years smoked: 30 Smoking pack-years: 30.00 Smoking status: Current every day smoker Tobacco type: cigarettes Second hand tobacco smoke exposure: No Smoking end date: 03/03/19 Additional smoking assessment comments: Down to 2 or 3 cigarettes a day. 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 EYES: PERRLA and EOMI. ENT: Mucous membranes moist. NECK: Supple. CHEST: Clear to auscultation. No respiratory distress. HEART: Regular rate and rhythm. ABDOMEN: Soft, nontender, nondistended EXTREMITIES: Normal range of motion. SKIN: Warm, dry, draining abscess mid upper back with purulent/bloody discharge and mild surrounding erythema without streaking or induration NEURO: No focal deficits. Alert and oriented x3. PSYCH: Normal mood and affect. Course Vital Signs Vital signs: Vital Signs Temperature 98.0 F 10/03/24 10:09 Pulse Rate 86 10/03/24 10:09 Respiratory Rate 18 10/03/24 10:09 Blood Pressure 156/58 H 10/03/24 10:09 Pulse Oximetry 100 10/03/24 10:09 Oxygen Delivery Room Air 10/03/24 10:09 Temperature 98.0 F 10/03/24 10:09 Pulse Rate 86 10/03/24 10:09 Respiratory Rate 18 10/03/24 10:09 Blood Pressure 156/58 H 10/03/24 10:09 Pulse Oximetry 100 10/03/24 10:09 Oxygen Delivery Room Air 10/03/24 10:09 MDM - Skin/Abscess/Foreign Bdy MDM Narrative Medical decision making narrative: 59year-old male with abscess on his upper back. He does have an abscess in his mid upper back that is actively draining bloody purulent material. There is small amount of surrounding erythema consistent with cellulitis. His vital signs are within normal limits, afebrile. I do not appreciate any fluctuance or significant induration on exam. Do not suspect a deeper infection at this time. Discussed appropriate supportive care with regular hot compress use will send out on antibiotics for the surrounding cellulitis. Recommend close PCP follow-up. Patient is agreeable this plan. Discharged in stable condition. Differential Diagnosis Differential diagnosis: Likely abscess of skin or subcutaneous tissue and cellulitis Medical Records Attestation: I reviewed the patient's medical records. Critical Care Time Critical Care Time Critical Care Time: No Discharge Plan Discharge Clinical Impression: Abscess of back, Cellulitis Patient Disposition: Home Condition: Stable Instructions: Antibiotic Form, Cellulitis (ED), Abscess (ED) Additional Instructions: Please complete the antibiotics as prescribed and apply a warm compress to the area 4 times a day. Keep the area clean with soapy water. Follow-up closely with your PCP. If your symptoms worsen or other concerning symptoms arise, please return to the ER. Patient Language: Citizen Of [place] Prescriptions: New cephalexin 500 mg capsule 500 mg PO Q6H 5 Days Qty: 20 0RF doxycycline hyclate 100 mg tablet 100 mg PO Q12H 5 Days Qty: 10 0RF No Action cholecalciferol (vitamin D3) 5,000 unit tablet 5,000 unit PO DAILY losartan 50 mg tablet 50 mg PO DAILY furosemide 20 mg tablet 20 mg PO DAILY nebivolol 20 mg tablet 20 mg PO DAILY icosapent ethyl [Vascepa] 1 gram capsule 2 g PO BID Qty: 360 3RF cyclobenzaprine 10 mg tablet 10 mg PO TID PRN (Reason: muscle spasm) Qty: 30 3RF clopidogrel [Plavix] 75 mg tablet 75 mg PO DAILY albuterol sulfate 90 mcg/actuation HFA aerosol inhaler 1 puff INHALATION Q4H PRN (Reason: shortness of breath or wheezing) Qty: 8.5 3RF acetaminophen [Tylenol Arthritis Pain] 650 mg tablet extended release 650 mg PO Q8H PRN (Reason: pain) Qty: 7 0RF aspirin [Aspirin Childrens] 81 mg tablet,chewable 81 mg PO DAILY gabapentin 300 mg capsule 300 mg PO TID PRN (Reason: Pain) Rx Instructions: TAKE 1 CAPSULE BY MOUTH THREE TIMES A DAY rosuvastatin 40 mg tablet See Rx Instructions .ROUTE .COMPLEX Qty: 90 3RF Dose Instruction: TAKE 1 TABLET BY MOUTH EVERY DAY Rx Instructions: TAKE 1 TABLET BY MOUTH EVERY DAY celecoxib [Celebrex] 100 mg capsule 100 mg PO BID Qty: 180 2RF fenofibrate nanocrystallized 145 mg tablet 145 mg PO ONCE Qty: 20 0RF Follow-up/Referrals: Yemi Bay MD [Primary Care Provider] -
--- NOTE | 2024-10-03 12:04 | PC.NURSE ---
Per Dr. Rosario, wound culture not needed.
[2024-10-03 12:05] VITALS: BP 151/94; PULSE 71; RESP 16; O2SAT 97
== END 2024-10-03 12:07 | disposition home or self-care (01) ==
PROVIDERS: Emergency Provider Emergency Medicine; PCP Family Medicine
DX: L02.212 Cutaneous abscess of back [any part, except buttock and flank] (principal); L03.312 Cellulitis of back [any part except buttock and flank]; I10 Essential (primary) hypertension; I25.10 Atherosclerotic heart disease of native coronary artery without angina pectoris; E78.2 Mixed hyperlipidemia; E66.01 Morbid (severe) obesity due to excess calories; Z68.43 Body mass index [BMI] 50.0-59.9, adult; K58.9 Irritable bowel syndrome, unspecified; M19.90 Unspecified osteoarthritis, unspecified site; M81.0 Age-related osteoporosis without current pathological fracture; M17.0 Bilateral primary osteoarthritis of knee; Z95.5 Presence of coronary angioplasty implant and graft; Z87.891 Personal history of nicotine dependence; Z79.82 Long term (current) use of aspirin; Z79.899 Other long term (current) drug therapy
CPT/HCPCS: 99283

== ENCOUNTER 2025-04-19 10:45 | Emergency (ER) | payer OTHER, SELFPAY ==
--- OUTSIDE RECORDS SUMMARY | 2025-02-14 05:28 | XMS_ITS | Continuity of Care Document ---
Author Organization [facility] Address [address] [place] [address] Phone Care Team Providers Care Radiation Oncology Therapist Name Role Phone Jordan FIERRO, FAC, Jesse Unavailable Unavail able Allergies, Adverse Reactions, Alerts Substance Reaction Status Criticality No Known Allergies Active No Inform ation Medications Medication Instructions Dosage Effective Dates (start - stop) Status Comments Vascepa 1 gram capsule - Act bj nebivolol 20 mg tablet take 1 tablet by oral route every day 20 MG - Active celecoxib 100 mg capsule TAKE 1 CAPSULE BY MOUTH TWICE DAILY - Active clopidogrel 75 mg tablet TAKE 1 TABLET B Y MOUTH ONCE DAILY - Active fenofibrate nanocrystallized 145 mg tablet TAKE 1 TABLET BY MOUTH ONCE DAILY - Active losartan 100 mg tablet TAKE 1 TABLET BY MOUTH ONCE DAILY - Active rosuvastatin 40 mg tablet TAKE 1 TABLET BY MOUTH ONCE DAILY - Active furosemide 20 mg tablet take 1 tablet by mouth once daily - Active cyclobenzaprine 10 mg tablet TAKE 1 TABLET BY MOUTH THREE TIMES DAILY NEEDED FOR MUSCLE SPASM - Active gabapentin 300 mg capsule - Active Procedures Procedure Date Complex e/m visit add on ELECTROCARDIOGRAM, COMPLETE OFFICE/OUTPATIENT VISIT, EST RESEARCH Advance Directives Directive Yes / No Effective Date File Name No Information Encounters Encounter Description Practice Location Reason(s) For Visit Diagnoses Date Provider Providers Copied on Encounter [facility], [address] [place] [address], [id number] , tel: [phone] [facility] No Information 5 Saheta Sanjaya. [address], [place], [place], [id number] , . tel: [phone] OFFICE/OUTPA TIENT VISIT, EST [facility], [address] [place] [address], [id number] , tel: [phone] [facility] FOLLOW UP (chief complaint) Body mass index [BMI] 50.0-59.9, adultSleep apneaEssential hypertensionHyper cholesterolaemiaC ADAcute anterior wall [place] Jan- 5 Saheta Sanjaya. [address], [place], [place], [id number] , [place]. tel: [phone] Referring Provider: Yemi Bay, [address], [place], [address]. tel:[phone] [facility], [address] [place] [address], [id number] , [place] tel: [phone] [facility] No Information 5 Bunny Schaeffer. [address] , [place], [address], [place]. tel:[phone] Referring Provider: Maksim Wu, [address] [place], [address]. tel:[phone] [facility], [address] [place] [address], [id number] , tel: [phone] [facility] No Information 5 Saheta Sanjaya. [address], [place], [place], [id number] , . tel: [phone] [facility], [address] [place] [address], [id number] , tel: [phone] [facility] No Information 0 5 Saheta Sanjaya. [address], [place], [place], [id number] , . tel: [phone] [facility], [address] [facility], [place], [place], [id number] , tel: [phone] [facility] No Information 5 Jordan Molina. [address] [facility], [place], [place], [id number] , . tel: [phone] Family History Family Member Type Diagnosis Age At Onset Father Problem (finding) Cardiac problems Payers Payer name Insurance type Covered alliance party ID Authortresaa marva(s) [employer] MED[place]ARE [place] MB [id number] Social History Type Description Quantity Date Captured Comments Alcohol Use Details Unknown Caffeine Use Details Unknown Tobacco Use Status Smoking Status No Information Sex Male Chief Complaint And Reason For Visit No Information Reason For Referral Reason For Referral No Information Plan Of Treatment Date Type Action Status Goal Dietary manageme nt education, guidance, and counseling completed Appointment Gary Carrero BOOKED Appointment Gary Carrero BOOKED History Of Present Illness Encounter Date Complaint History Of Prese nt Illness FOLLOW UP Functional Status Date Functional Assessmen t No Information Instructions Date Instruction Additional Infor mation Dietary management e ducation, guidance, and counseling Related to Body mass index [BMI] 50.0-59.9, adult Assessments Type Assessment Date No Information Patient Care Teams Name Effective Dates (start - stop) Status Members No Information
--- OUTSIDE RECORDS SUMMARY | 2025-02-14 05:28 | XMS_ITS | Continuity of Care Document ---
Author Organization [facility] Address [address] [place] [address] Phone Care Team Providers Care Director Operating Room Name Role Phone Jordan FIERRO, FAC, Jesse Unavailable Unavail able Allergies, Adverse Reactions, Alerts Substance Reaction Status Criticality No Known Allergies Active No Inform ation Medications Medication Instructions Dosage Effective Dates (start - stop) Status Comments Vascepa 1 gram capsule - Act bj nebivolol 20 mg tablet take 1 tablet by oral route every day 20 MG - Active clopidogrel 75 mg tablet TAKE 1 TABLET B Y MOUTH ONCE DAILY - Active celecoxib 100 mg capsule TAKE 1 CAPSULE BY MOUTH TWICE DAILY - Active fenofibrate nanocrystallized 145 mg [...] Diagnoses Date Provider Providers Copied on Encounter [facility], [address] [place] [address], [id number] , tel: [phone] [facility] No Information 5 Saheta Sanjaya. [address], [place], [place], [id number] , . tel: [phone] OFFICE/OUTPA TIENT VISIT, EST [facility], [address] [place] [address], [id number] , tel: [phone] [facility] FOLLOW UP (chief complaint) Body mass index [BMI] 50.0-59.9, adultSleep apneaEssential hypertensionHyper cholesterolaemiaC ADAcute anterior wall [place] Jan- 5 Saheta Sanjaya. [address], [place], [place], [id number] , [place]. tel: [phone] Referring Provider: Yemi Bay, [address], [place], [address]. tel:[phone] [facility], [address] [place] [address], [id number] , [place] tel: [phone] [facility] Research No Information 5 Bunny Schaeffer. [address] , [place], [address], [place]. tel:[phone] Referring Provider: Maksim Wu, [address] [place], [address]. tel:[phone] [facility], [address] [place] [address], [id number] , tel: [phone] [facility] No Information 5 Saheta Sanjaya. [address], [place], [place], [id number] , . tel: [phone] [facility], [address] [place] [address], [id number] , tel: [phone] [facility] No Information 0 5 Saheta Sanjaya. [address], [place], [place], [id number] , . tel: [phone] [facility], [address] [facility], [place], [place], [id number] , tel: [phone] [facility] No Information 5 Jordan Molina. [address] [facility], [place], [place], [id number] , . tel: [phone] Family History Family Member Type Diagnosis Age At Onset Father Problem (finding) Cardiac problems Payers Payer name Insurance type Covered libertarian ID Authortresaa marva(s) [employer]INE[employer] [place] [id number] Social History Type Description Quantity Date Captured [...]
--- NOTE | ~2025-04-19 | CT_ITS ---
CT HEAD NON-CONTRAST Clinical History: weakness Comparison: None Technique: Unenhanced axial images skull base to vertex Coronal, sagittal reformats CT images acquired with automatic exposure control for dose reduction DLP: 681 mGy-cm Findings: Mild white matter changes, typically chronic microvascular ischemic disease. Sulci, ventricles: Unremarkable. No intracerebral hemorrhage. No evidence acute territorial infarct. No mass effect, midline shift. Bony calvarium intact. Visualized paranasal sinuses: Clear. Mastoid air cells: Clear. IMPRESSION: 1. No acute intracranial findings. Reviewed, dictated and finalized at location R. HOLOGIST CHIEF
--- NOTE | ~2025-04-19 | CT_ITS ---
CT abdomen pelvis w con Clinical History: diarrhea/vomiting . Comparison: 07/25/2022 Technique: Axial images lung bases to symphysis pubis IV contrast information not listed in PACS Coronal, sagittal reformats CT images acquired with automatic exposure control for dose reduction DLP: 2081 mGy-cm Findings: Lung bases: Clear. Visualized heart and pericardium: Unremarkable. Liver: Enlarged. Steatosis. Gallbladder: Unremarkable. Spleen: Unremarkable. Pancreas: Unremarkable. Adrenal glands: Unremarkable. Kidneys: Right kidney- No hydronephrosis. Tiny stones. Left kidney- No hydronephrosis. No renal stones. Distal esophagus/stomach: Unremarkable. Small bowel loops: Normal caliber and wall thickness. Colon: Normal caliber and wall thickness. Appendix not seen. Air-fluid levels consistent with diarrheal state. Nodes: No enlarged nodes. Small retroperitoneal nodes persist. Peritoneum: No ascites. No free air. Urinary bladder: Wall thickening. Prostate: Unremarkable. Bones: No acute bony abnormality. Soft tissues: Unremarkable. Aorta: No aneurysm or dissection. Atherosclerotic disease. IVC: Unremarkable. Main portal vein/SMV/splenic vein: Patent. IMPRESSION: 1. Suspect cystitis. 2. Otherwise no acute inflammatory process. 3. Additional findings as above. Reviewed, dictated and finalized at location R. STIGATOR [employer]
--- NOTE | ~2025-04-19 | XR_ITS ---
EXAMINATION: XR chest 2V, 04/19/2025 14:00 REHABILITATION TECH HISTORY: weakness COMPARISON: No comparisons available. Technique: 2 views obtained. Findings: Moderate pulmonary venous congestion. No pneumothorax. Moderate cardiomegaly. Mediastinal and hilar contours are within normal limits. Bony thorax no acute abnormality. Impression: CHF Reviewed, dictated and finalized at location P. BILITATION TECH Impression: CHF
[2025-04-19 10:48] VITALS: BP 113/84; PULSE 88; RESP 16; TEMP 36.4; O2SAT 98
--- NOTE | 2025-04-19 10:52 | ECG_ITS ---
Test Date: 2025-04-19 10:59:43 Measurements Intervals May Rate: 83 P: 28 TX: 141 QRS: -20 QRSD: 93 T: 33 QT: 377 QTc: 445 Interpretive Statements SINUS RHYTHM ANTERIOR MYOCARDIAL INFARCTION , OF INDETERMINATE AGE [40+ ms Q WAVE AND/OR ST/T ABNORMALITY IN V3/V4] INFERIOR MYOCARDIAL INFARCTION , PROBABLY OLD [40+ ms Q WAVE AND/OR ST/T ABNORMALITY IN II/aVF] No previous ECG available for comparison Electronically Signed On 04-19-2025 13:40:59 DUDE WRANGLER by Julio Cesar Mooney M.D.
--- OUTSIDE RECORDS SUMMARY | 2025-04-19 11:34 | XMS_ITS | Clinical Summary ---
Author Organization [facility] Jeremy angeles [facility] Address [address] [address] Care Team Providers Care Paint Maker Name Role Phone Unavailable Primary Care Provider Unavailabl e Social History Tobacco Use Types Packs/Day Years Used Date Smoking Tobacco: Never Assessed Sex and Gender Information Value Date Recorded Sex Assigned at Not on file Legal Sex Male 11:53 AM CDT Gender Identity Not on file Sexual Orientation Not on file Plan of Treatment Upcoming Encounters Date Type Department Care Team (Late st Contact Info) Description 06/12/2025 10:30 AM ENGLISH INSTRUCTOR Office Visit [facility] Oncology and Hematology - Joshua [address] [facility] [address] [place] [address] Brandon Corado MD [address] [facility] [address] [place] [address] Health Maintenance Due Date Last Done Comments DTAP/TDAP/TD VACCINES (1 - Tdap) 1983 COLORECTAL SCREENING 2009 Colorectal Cancer Screening 2009 FIT-DNA Q 3 years 2009 FIT/FOBT Q 1 year 2009 Flex Sig/CT Colonography Q 5 years 2009 ZOSTER VACCINE (1 of 2) 2014 INFLUENZA VACCINE (#1) 2024 RSV VACCINE (60+ or ) (1 - 1-dose 75+ series) 2039 Insurance [place]
--- OUTSIDE RECORDS SUMMARY | 2025-04-19 11:34 | XMS_ITS | Clinical Summary ---
Author Organization [facility] Address [address] [place] [address] Care Team Providers Care Autopsy Pathologist Name Role Phone Steven Prado Primary Care Provider [phone] Source Comments [facility],non-owned Affiliates and Associated Physician Practices is amultiple site organization consisting of ambulatory clinics and hospital sitesin [place], [place], [place] and [place]. This disclosure is being madepursuant to the Care Everywhere program and may not contain all information available regarding this patient. Last updated 18.[facility] Allergies No known active allergies Medications * [...] 2:22 PM CDT Height 180.3 cm (5' 11) 10/31/2017 2:22 PM CDT Body Mass Index [...] 1983 ZOSTER VACCINE (1 of 2) 2014 DEPRESSION SCREENING 05/25/2024 COVID-19 VACCINE ( - 2024-2 6 season) 2025 INFLUENZA VACCINE (#1) 2025 Respiratory Syncytial Virus (RSV) Vaccine Pt: [...] patient's age to complete this topic Insurance [facility] Address: [facility] [id number] [place] [address] Advance Directives Documents on File Type Date Recorded Patient Housing Development Specialist Expl anation Adv Directive/Living Will/POA 09/29/2016 * Full Code (Latest Code Status on File) Date Activated Date Inactivated Comments 10/02/2016 10:20 AM 10/03/2016 4:04 PM Care Teams Autopsy Pathologist Relationship Specialty Start Date End Date Steven Prado [address] [facility] [place] [address] PCP - General 06/25/20
--- OUTSIDE RECORDS SUMMARY | 2025-04-19 11:34 | XMS_ITS | Encounter Summary ---
Author Organization [facility] Address [address] [address] Care Team Providers Care Tower Excavator Operator Name Role Phone Yemi Bay MD Primary Care Provider + [phone] Miscellaneous, Not In File Primary Care Provider Unavailable Miscellaneous, Not In File Primary Care Provider Unavailable Yemi Bay MD Primary Care Provider + [phone] Miscellaneous, Not In File Primary Care Provider Unavailable Unknown, Notinfile Primary Care Provider Unavail able Frida Banegas SHIELD OPERATOR Primary Care Provider + Encounter Details Date Type Department Care Team (Late st Contact Info) Description 08/14/2016 Orders Only [facility] ProviderChristina MD [address] [place] [address] Social History Tobacco Use Types Packs/Day Years Used Date Smoking Tobacco: Never Assessed Sex and Gender Information Value Date Recorded Sex Assigned at Not on file 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
--- OUTSIDE RECORDS SUMMARY | 2025-04-19 11:34 | XMS_ITS | Clinical Summary ---
Author Organization [facility] Address [address] [place] [address] Care Team Providers Care Surveying Or Spatial Science Technician Name Role Phone Yemi Bay MD Primary Care Provider [phone] Social History Tobacco Use Types Packs/Day Years Used Date Smoking Tobacco: Never Assessed Sex and Gender Information Value Date Recorded Sex Assigned at Not on file Legal Sex Male 5:16 PM CDT Gender Identity Not on file Sexual Orientation Not on file Plan of Treatment Health Maintenance Due Date Last Done Comments Colorectal Cancer Screening Colonoscopy (10 Years) 1964 Annual Physical 1967 Hepatitis C 1982 DTaP, Tdap and Td Vaccines ( 1 - Tdap) 1983 Pneumococcal Vaccine: 50+ Years (1 of 1 - PCV) 2014 Zoster Vaccines (1 of 2) 2014 021, 01/05/2021 COVID-19 Vaccine (3 - 2024-2 6 season) 2025 02/10/2022, 09/16/2021 Influenza Adult (#1) 2025 03/11/2022 RSV Immunization or 60+ Years (1 - 1-dose 75+ series) 2039 Hepatitis A Vaccines Aged Out No long er eligible based on patient's age to complete this topic Meningococcal B Vaccine Aged Out No l onger eligible based on patient's age to complete this topic Meningococcal Vaccine Aged Out No alphonso jeremy eligible based on patient's age to complete this topic RSV Immunizations Under 20 Months Aged Out No longer eligible b ased on patient's age to complete this topic Insurance [employer] MEDICA[employer] Care Teams Surveying Or Spatial Science Technician Relationship Specialty Start Date End Date Yemi Bay MD [address] [address] PCP - General FAMILY PRACTICE 07/08/24
--- OUTSIDE RECORDS SUMMARY | 2025-04-19 11:34 | XMS_ITS | Clinical Summary ---
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 Gender Identity Not on file Sexual [...] 1:05 PM CDT Height 177.8 cm (5' 10) 08/19/2016 1:57 PM CDT Body Mass Index 46.46 08/19/2016 1:57 PM CDT Plan of Treatment Health Maintenance Due Date Last Done Comments Colon Cancer Screening-Colonoscopy 1964 Depression Screening 1964 Hepatitis C Screening 1964 Prostate Cancer Screening-PSA 1964 Hepatitis B Screening 1982 Regular Well Visit/Exam 18-64 1982 Pneumococcal vaccine <65 (2 of 2 - PCV) 03/10/2022 03/10/2021, 03/10/2021 Covid-19 Vaccine (6 - 2024-2 6 season) 2025 02/10/2022, 09/16/2021, 02/18/2021, Additional history exists Influenza Vaccine (#1) 2025 , 02/03/2021, 02/19/2020, Additional history exists DTaP/Tdap/Td Vaccine (2 - Td or Tdap) 08/31/2031 08/30/2021 Zoster Vaccine Completed 03/10/2021, 02/22, 01/05/2021, Additional history exists Insurance [employer] [facility] Care Teams Tnt Powder Worker Relationship Specialty Start Date End Date Frida Banegas NP PCP - General Nurse Practitioner 08/21/22
--- OUTSIDE RECORDS SUMMARY | 2025-04-19 12:47 | XMS_ITS | Clinical Summary ---
Author Organization [facility] Jeremy angeles [facility] Address [address] [place] [address] Care Team Providers Care Tractor Mechanic Helper Name Role Phone Unavailable Primary Care Provider [...] st Contact Info) Description 06/12/2025 10:30 AM FIELD CONSULTANT Office Visit [facility] Oncology and Hematology - [place] [address] [facility] [address] [place] [address] Brandon Corado MD [address] [place] [address] Health Maintenance Due Date Last [...]
--- OUTSIDE RECORDS SUMMARY | 2025-04-19 12:47 | XMS_ITS | Clinical Summary ---
Author Organization [facility] Address [address] [place] [id number] Care Team Providers Care V Belt Skiver Name Role Phone Yemi Bay MD Primary Care Provider [phone] Social History Tobacco Use Types Packs/Day Years [...] this topic Insurance [employer] Care Teams V Belt Skiver Relationship Specialty Start Date End Date Yemi Bay MD [address] [address] PCP - General FAMILY PRACTICE 07/08/24
--- OUTSIDE RECORDS SUMMARY | 2025-04-19 12:47 | XMS_ITS | Clinical Summary ---
Author Organization [facility] Address [address] [place] [address] Care Team Providers Care Inventory Control/Shipping Receiving Name Role Phone Steven Prado Primary Care Provider [phone] Source Comments [facility],non-owned Affiliates and Associated Physician Practices is amultiple site organization consisting of ambulatory clinics and hospital sitesin [place], [place] and [place]. This disclosure is being madepursuant to the Care Everywhere program and may not contain all information available regarding this patient. Last updated 18.[facility] Allergies No known active allergies Medications * [...] patient's age to complete this topic Insurance [facility] Address: [facility] [id number] [place] [address] Advance Directives Documents on File Type Date Recorded Patient Solar Energy Specialist Expl anation Adv Directive/Living Will/POA 09/29/2016 * Full Code (Latest Code Status on File) Date Activated Date Inactivated Comments 10/02/2016 10:20 AM 10/03/2016 4:04 PM Care Teams Inventory Control/Shipping Receiving Relationship Specialty Start Date End Date Steven Prado [address] [place] [address] PCP - General 06/25/20
--- OUTSIDE RECORDS SUMMARY | 2025-04-19 12:47 | XMS_ITS | Data Portability ---
Author Organization [facility], Main Office Address [address] [place] [address] Assessment Encounter Date Assessment Date Assessment LastModified [...] None recorded. Lab urinalysis, dipstick 2022 023 [facility], [address] [place] [address], [address], 16:07:10 Referral physical therapist referral - Lower back pain, into bilateral legs. Not sure he can tolerate, but can't get MRI until he tries (or fails) PT 2022 023 [facility], [address], [place], [address], 3 16:46:37 Procedures None recorded. Surgeries None recorded. Imaging MRI, lumbar spine, w/o contrast - 336 lbs Hx severe spondylosis lumbar and central canal stenosis. Last MRI lumbar 10/2020 to compare was done at [facility]. 2022 023 [facility], [address] [facility] [address], [place], [address], 13:08:10 Medication Orders Chantix Starting Month Box 0.5 mg (11)-1 mg (42) tablets in dose pack 2022 023 [facility], [address] [place], [address], 16:12:10 Patient TargetsNo targets recorded. Patient Instructions Encounter Date Encounter Id Patient Instructions Last Modified By Organization Details Last Modified Time 11/05/2022 [id number] 5 mo fu lumbar back, weight, htn, lipid, smoking, vit d def. Not available 11/05/2022 16:18:41 01/14/2023 [id number] Fu in March or routine check up. Not available 01/14/2023 11:34:43 04/01/2023 [id number] FU in 4-6 mo lumbar stenosis, osteoarthritis, tobacco use, morbid obese, vit d def, hx ID with 4 stents, HTN, Hyperlipidemia Not available [...] negative thien/ l) Negati ve Not Available [facility] [address], [place], [address], 07/31/2022 14:31:46 03/09/20 23 07/31/2022 urina lysis , dipst ick Nitrite (reference rage: negative mg/dl) negati ve Not Available [address], [address], 07/31/2022 14:31:46 08/01/19 23 07/31/2022 urina lysis , dipst ick Urobilinogen (reference range: 0.2-1 mg/dl) 4 Not Available [address], [address], 07/31/2022 14:31:46 08/01/19 23 07/31/2022 urina lysis , dipst ick Protein (reference range: negative mg/dl) Trace Not Available [address], [address], 07/31/2022 14:31:46 08/01/19 23 07/31/2022 urina lysis , dipst ick pH (reference range: 5-7) 6.5 Not Available [address], [address], 07/31/2022 14:31:46 08/01/19 23 07/31/2022 urina lysis , dipst ick Blood (reference range: negative Adrian/ l) Non-He molyze d: Trace Not Available [address], [address], 07/31/2022 14:31:46 08/01/19 23 07/31/2022 urina lysis , dipst ick Specific [place] (reference range: 1.005-1.030) 1.015 Not Available [address], [address], 07/31/2022 14:31:46 08/01/19 23 07/31/2022 urina lysis , dipst ick Ketone (reference range: negative mg/dl) Trace Not Available [address], [address], 07/31/2022 14:31:46 08/01/19 23 07/31/2022 urina lysis , dipst ick Bilirubin (reference range: negative mg/dl) Small Not Available [address], [address], 07/31/2022 14:31:46 08/01/1907/31/2022 urina lysis , dipst ick Glucose (reference range: negative mg/dl) Negati ve Not Available [address], [address], 07/31/2022 14:31:46 08/01/19 23 07/31/2022 urina lysis , dipst ick Appearance Clear Not Available [address], [address], 07/31/2022 14:31:46 08/01/19 23 07/31/2022 urina lysis , dipst ick Color Yellow Not Available [address], [address], 07/31/2022 14:31:46 07/26/19 23 07/25/2022 CT, abdom en + pelvi s, w/o contr ast No observ ation record ed. [address] [place] [address], [address], 07/25/2022 18:20:04 09/05/19 23 09/04/2022 CT, pelvi s, w/o contr ast No observ ation record ed. [address], [place], [address], 09/05/2022 07:59:11 01/24/20 23 01/23/2023 MRI, lumba r spine , w/o contr ast No observ ation record ed. [facility] [address], [place], [address], 04/01/2023 16:14:30 11/20/19 24 11/18/2023 home sleep study No observ ation record ed. [email or web address] [facility] [address], [place], [address], 11/23/2023 13:25:03 Result Notes None recorded. Problems Name Problem SNOMED Code Status Onset Date Resolution Date Notes Provider Name and Address Organization Details Recorded Time Bilateral arthritis of knees 336371351500 9108 Active 2021 Not Available [facility] 3 23:11:40 Tobacco user 787731781 Active 2021 Not Available [facility] 3 23:11:40 Cataract 938650011 Active 2021 Not Available [facility] 3 23:11:40 Myocardial infarction 71502645 Active 2021 7 had 4 stints Not Available [facility] 3 23:11:40 Microscopi c colitis 455123664 Active 2021 Not Available [facility] 3 23:11:41 Hypertensi ve disorder 49774191 Active 2021 Not Available [facility] 3 23:11:41 Osteoarthr itis 264091836 Active 2021 Not Available [facility] 3 23:11:41 History of myocardial infarction 934270583 Active 2021 Not Available [facility] 3 23:11:41 Epidural lipomatosi s 123441933 Active 2021 Not Available [facility] 3 23:11:41 Pain of bilateral knee joints 607798832868 104 Active 2021 Not Available [facility] 3 23:11:42 Essential hypertensi on 56853362 Active 2021 Not Available [facility] 3 23:11:42 Chronic bronchitis 01130657 Active 2021 Not Available [facility] 3 23:11:42 Morbid obesity 138247132 Active 2021 Not Available [facility] 3 23:11:41 Osteoarthr itis of left knee joint 022151266810 109 Active 2021 Not Available [facility] 3 23:11:41 Osteoarthr itis of right knee joint 972866921916 100 Active 2021 Not Available [facility] 3 23:11:41 Obesity 388057179 Active 2021 Not Available [facility] 3 23:11:41 Chronic low back pain 663708030 Active 2021 Not Available [facility] 3 23:11:41 History of percutaneo us translumin al coronary angioplast y 461998749 Active 2021 Not Available [facility] 3 23:11:41 Smoker 13534463 Active 2021 Not Available [facility] 3 23:11:42 Vitamin D deficiency 41184334 Active 2021 Not Available [facility] 3 23:11:41 Kidney stone 57981276 Active 2022 Frida Banegas NP [address], [address], [place], [address] , [employer] 3 14:16:52 Degenerati on of lumbar interverte bral disc 52094875 Active 2022 Frida Banegas NP [address], [address], [place], [address] , [employer] 3 15:58:56 Hyperlipid emia 12311325 Active 2022 Frida Banegas NP [address], [place], [address] , [employer] 3 16:09:53 Problem Notes None recorded. Procedures Surgical History Date Name Laterality Status Provider Name and Address Organization Details Recorded Time colonoscopy completed Not Available [facility] 07/23/2022 23:10:48 Appendectomy completed Not Available [facility] 23:10:48 Knee arthroscopy/surge ry completed Not Available [facility] 07/23/2022 23:10:48 procedure on heart completed Not Available [facility] 07/23/2022 23:10:48 Imaging Results None recorded. Procedure Notes None recorded. Medical Equipment None [...] Available prednisol one acetate 1 % eye drops,amrk pension INSTILL ONE DROP INTO THE SURGICAL EYE THREE TIMES DAILY. TO BEGIN AFTER SURGERY 05/07 completed Not Available Not Available Not Available methocarb felix 750 mg tablet TAKE 1 TABLET BY MOUTH 4 TIMES DAILY 05/07 completed Not Available Not Available Not Available Kenalog 10 mg/mL suspensio n for injection In office injectio n administ ered by the provider 12/06 completed [facility]: 0003-049 09-11 Not Available Not Available Not Available erythromy [...] the office by the doctor. 09/02 completed [facility]: [id number] 001 Not Available Not Available Not Available losartan 100 mg-hydroc hlorothia zide 12.5 mg tablet TAKE 1 TABLET BY MOUTH EVERY DAY 07/31 completed Not Available Not Available Not Available lidocaine (PF) 10 mg/mL (1 %) injection solution In office injectio n administ ered by the provider 12/06 completed [facility]: 0409-427 11-08 Not Available Not Available Not [...] mass index (BMI) Body height Oxygen saturation Heart rate Respiratory rate Body temperature Body weight Systolic And Diastolic Systolic And Diastolic Provider Name and Address Organization Details Last Updated DateTime 3 46.2 kg/m2 177.8 cm 98 % 87 /min 16 /min 97 [degF] 121478. 74 g 156/87 mm[Hg] 148/92 mm[Hg] Not Available [facility] 3 23:11:13 Date Recorded Body height Body mass index (BMI) Body weight Respiratory rate Oxygen saturation Body temperature Heart rate Systolic And Diastolic Provider Name and Address Organization Details Last Updated DateTime 3 177.8 cm 46.2 kg/m2 468858. 74 g 16 /min 98 % 98.4 [degF] 86 /min 152/88 mm[Hg] LUCIA Stubbs [facility] [employer] [facility] 3 14:03:14 Date Recorded Body height Body mass index (BMI) Body weight Body temperature Heart rate Respiratory rate Oxygen saturation Pain severity - 0-10 verbal numeric rating [Score] - Reported Systolic And Diastolic Provider Name and Address Organization Details Last Updated DateTime 3 177.8 cm 47 kg/m2 740685. 45 g 96.9 [degF] 81 /min 20 /min 94 % 5 134/92 mm[Hg] Frida Mckeon, ZELDA [facility] [employer] [facility] 3 15:51:46 Date Recorded Body height Body mass index (BMI) Body weight Body temperature Heart rate Respiratory rate Oxygen saturation Pain severity - 0-10 verbal numeric rating [Score] - Reported Systolic And Diastolic Provider Name and Address Organization Details Last Updated DateTime 3 177.8 cm 48.2 kg/m2 355573. 44 g 96.4 [degF] 81 /min 20 /min 97 % 5 114/64 mm[Hg] Frida Mckeon RN [facility] [employer] [facility] 3 11:07:10 Date Recorded Body height Body mass index (BMI) Body weight Body temperature Heart rate Respiratory rate Oxygen saturation Pain severity - 0-10 verbal numeric rating [Score] - Reported Systolic And Diastolic Provider Name and Address Organization Details Last Updated DateTime 3 177.8 cm 48.7 kg/m2 085298. 51 g 96.3 [degF] 80 /min 20 /min 95 % 5 126/70 mm[Hg] Frida Mckeon RN [facility] [employer] [facility] 3 15:56:41 Social History Question Answer Notes LastModified by Organization Details LastModified Time Tobacco Smoking Status Current Every Day Smoker Sandra lomas [facility] [employer] [facility] 04/01/2023 15:38:32 Do You Have An Advance Directive? No [id number] Information not available 07/23/2022 Do You Wear A Helmet When Biking? No Information not available 04/01/2023 Is Blood Transfusion Acceptable In An Emergency? Yes Information not available 04/01/2023 What Is Your Level Of Caffeine Consumption? Occasional [id number] Information not available 07/23/2022 What Is Your [...] Of Diet Are You Following? REGULAR [id number] [id number] Information not available 07/23/2022 What Is The Highest Grade Or Level Of School You Have Completed Or The Highest Degree You Have Received? [id number] Information not available 04/01/2023 Have There Been Any Changes To Your Family Or Social Situation? No Information not available 04/01/2023 What Is The Fluoride Status Of Your Home? Unknown Information not available 04/01/2023 Do You Use Insect Repellent Routinely? No Information not available 04/01/2023 Where Do You Live? SingleLevelHouse Information not available 04/01/2023 Do You Have A Medical Power Of Camera Storage Clerk? No Information not available 04/01/2023 What Was The Date Of Your Most Recent Tobacco Screening? 03/12/2022 Information not available 04/01/2023 Do You Have Any Pets? Yes Information not available 04/01/2023 What Is Your Relationship Status? Single [id number] Information not available 07/23/2022 Do You Use [...] is your level of alcohol consumption? Moderate [id number] Information not available 07/23/2022 Are you currently employed? No Information not available 04/01/2023 What is your exercise level? None [id number] Information not available 07/23/2022 Mental Status Question Answer Note LastModified by Organization D etails LastModified Time Do you feel stressed (tense, restless, nervous, or anxious, or unable to sleep at night)? [id number] Information not available 04/01/2023 Family History Relationship Description Onset Age of this Age Resolved Age Notes LastModified by Organization Details LastModified Time Father Heart disease [id number] Not available 07/23/2022 23:10:48 Father Diabetes mellitus [id number] Not available 07/23/2022 23:10:48 Father Essential hypertension Not available 12/2022 15:38:31 Mother Malignant neoplasm of breast Not available 2022 15:38:32 Notes:has stints Medical History Condition Response HIGH CHOLESTEROL / HYPERLIPIDEMIA Y BOWEL PROBLEMS Y BACK / NECK PROBLEMS Y OBESITY Y ARTHRITIS Y USE OF BLOOD THINNERS Y USE OF NSAIDS Y HEART DISEASE/HEART PROBLEMS Y HYPERTENSION Y Immunizations Vaccine Type Date Status Note Provider Nam e and Address Organization Details Recorded Time SARS-COV-2 (COVID-19) vaccine, UNSPECIFIED 2 completed Not Available [facility] 07/23/2022 23:12:48 SARS-COV-2 (COVID-19) vaccine, UNSPECIFIED 2 completed Not Available [facility] 07/23/2022 23:12:48 zoster, unspecified formulation 1 completed Not Available [facility] 07/23/2022 23:12:48 pneumococcal, unspecified formulation 1 completed Not Available [facility] 07/23/2022 23:12:48 zoster, unspecified formulation 1 completed Not Available [facility] 07/23/2022 23:12:48 Influenza, split virus, quadrivalent, PF 2 completed Not Available [facility] 07/23/2022 23:12:49 Past Encounters Encounter ID Performer Location Encounter Start Date Encounter Closed Date Diagnosis/Indication Diagnosis SNOMED-CT Code Diagnosis ICD10 Code Diagnosis IMO Codes Diagnosis Note [id number] SHIVA Garcia [facility] [place] [address] [facility] [address] [place] [id number] 12/04/2020 00:00:00 12/04/2020 16:47:21 [id number] SHIVA Garcia [facility] [place] [address] [facility] [address] [place] [id number] 01/15/2021 00:00:00 01/15/2021 14:42:42 [id number] SHIVA Garcia [facility] [place] [address] [place] [id number] 02/12/2021 00:00:00 02/12/2021 15:31:56 [id number] Santi Lewis MD [facility] [place] [address] [facility] [address] [place] [id number] 03/14/2021 00:00:00 03/14/2021 12:29:16 [id number] Frida Banegas NP [address] [address] 12/06/2021 00:00:00 12/06/2021 14:18:46 [id number] Santi Lewis MD [facility] [place] [address] [facility] [address] [place] [id number] 12/16/2021 00:00:00 12/16/2021 12:04:30 [id number] _ATHN_MIGR ATION_1 _ATHENA_M IGRATION_ DEFAULT_1 _1 , 12/25/2021 00:00:00 12/25/2021 13:18:17 [id number] Santi Lewis MD [facility] [place] [address] [place] [id number] 01/06/2022 00:00:00 01/06/2022 11:07:48 [id number] Santi Lewis MD [facility] [place] [address] [place] [id number] 01/13/2022 00:00:00 01/13/2022 12:13:58 [id number] MD JESSE [facility] [place] [address] [place] [id number] 01/20/2022 00:00:00 01/20/2022 11:38:11 [id number] _ATHN_MIGR ATION_1 _ATHENA_M IGRATION_ DEFAULT_1 _1 , 02/12/2022 00:00:00 02/12/2022 15:31:33 [id number] Quinn Henderson MD [address] [address] 02/27/2022 00:00:00 02/27/2022 14:28:28 [id number] Quinn Henderson MD [address] [address] 03/11/2022 00:00:00 03/11/2022 12:39:47 [id number] _ATHN_MIGR ATION_1 _ATHENA_M IGRATION_ DEFAULT_1 _1 , 03/12/2022 00:00:00 03/12/2022 13:07:26 [id number] Quinn Henderson MD [address] [address] 03/28/2022 00:00:00 03/28/2022 14:22:48 [id number] Quinn Henderson MD [address] [address] 05/07/2022 00:00:00 05/07/2022 17:03:52 [id number] Quinn Henderson MD [address] [address] 05/27/2022 00:00:00 05/27/2022 12:56:19 [id number] Quinn Henderson MD [address] [address] 07/10/2022 00:00:00 07/10/2022 13:54:07 [id number] Frida Banegas NP [address] [address] 07/31/2022 13:55:42 07/31/2022 14:47:02 Tobacco user 711286361 Z72.0 Chantix started 07/31/22. Pt was told pill or patches is covered. Kidney stone 65513513 N2 0.0 May have passed it. No discomfort . Drinking lots of water. [id number] Frida Banegas NP [address] [address] 11/05/2022 15:31:52 11/05/2022 16:23:02 Osteoarthritis 645165504 M19.90 Tobacco user 508296581 Z 72.0 Chantix started 07/31/22. No longer having taste for cigarettes as of 11/05/22. Smoking no more than 4 daily. Goal to stop completely by dec. Morbid obesity 138941848 E66.01 Diet discussed. Not able to exercise due to pain. Vitamin D deficiency 347 49501 E55.9 vit d supplement . History of myocardial infarction 905897691 I25.2 Clopidogre l daily. Essential hypertension 33214281 I10 Budesonide ER-ER 3 mg, Carvedilol 25 mg po daily. Spironolac tone 25 mg po daily. losartan 100 mg po daily. Degenerati on of lumbar intervertebral disc 99842359 M51.36 gabapentin 300 mg po nightly tid, but only taking at nigh due to fatigue.Fl exeril prn.[employer] xib 100 mg po bid. Hyperlipidemia 30839848 E78.5 Vascepa 1 gm po bid.Rosuva statin 20 mg po nightly.Fe nofibric acid 135 mg [id number] Frida Banegas NP [address] [address] 01/14/2023 10:51:58 01/14/2023 11:35:51 Chronic low back pain 045521679 M54.50 Has neurosurge ry appt in March 2023.Had MRI October 2020. Severe lumbar spondylosi s with central canal stenosis.U sing cane to walk Osteoarthritis 346112403 M19.90 Bilateral knees shot and needs replaced. Weight gain not helping. Seeing ortho.MVI with d and calcium.Ce lecoxib 100 mg po bid Tobacco user 815436008 Z 72.0 Chantix started 07/31/22. down to 1-2 cigarettes daily. Morbid obesity 315081143 E66.01 Diet discussed. Not able to exercise due to pain.Has gained 9 lbs with trying not to smoke. Vitamin D deficiency 347 11949 E55.9 vit d supplement otc daily. History of myocardial infarction 888346856 I25.2 Clopidogre l daily. Essential hypertension 70492645 I10 Budesonide ER-ER 3 mg, Carvedilol 25 mg po daily. Spironolac tone 25 mg po daily. losartan 100 mg po daily. Degenerati on of lumbar intervertebral disc 05898221 M51.36 gabapentin 300 mg po nightly tid, but only taking at nigh due to fatigue.Fl exeril prn.Celeco xib 100 mg po bid. Hyperlipidemia 61507909 E78.5 Vascepa 1 gm po bid.Rosuva statin 20 mg po nightly.Fe nofibric acid 135 mg [id number] Frida Banegas NP [address] [address] 04/01/2023 15:37:34 04/01/2023 16:19:00 Chronic low back pain 289521990 M54.50 Has neurosurge ry appt Dr. Farhana Hurt [facility] in March 2023.Had MRI October 2020. Severe lumbar spondylosi s with central canal stenosis.U sing cane to walk Osteoarthritis 242468836 M19.90 Bilateral knees shot and needs replaced. Weight gain not helping. Seeing ortho.MVI with d and calcium.Ce lecoxib 100 mg po bid Tobacco user 356515158 Z 72.0 Chantix started 07/31/22. down to 1-2 cigarettes daily. Morbid obesity 830357186 E66.01 Diet discussed. Not able to exercise due to pain.Stabl e for 6 mo. Vitamin D deficiency 347 52936 E55.9 vit d supplement otc daily. History of myocardial infarction 884729712 I25.2 Clopidogre l daily. Essential hypertension 49593419 I10 Budesonide ER-ER 3 mg, Carvedilol 25 mg po daily. Spironolac tone 25 mg po daily. losartan 100 mg po daily. Degenerati on of lumbar intervertebral disc 44996776 M51.36 gabapentin 300 mg po nightly tid, but only taking at nigh due to fatigue.Fl exeril prn.Celeco xib 100 mg po bid. Hyperlipidemia 75482561 E78.5 Vascepa 1 gm po bid.Rosuva statin 40 mg po every other nightFenof ibric acid 135 mg Stented co ronary artery 395439132 Z95.5 4 cardiac stents. Health Concerns Section Related Observation LastModified by Organization Detai ls LastModified Time None Recorded Concern Status LastModified by Organization Details LastModified Time None Recorded Advance Directives Directive N: Payers Insurance Date Sequence Insurance Name Policy Number Policy Acevedo Covered Member ID Acevedo Member ID Guarantor Name 03/29/2023 1 [facility] (MEDICAID HMO) [id number] Gary Carrero [id number] Gary Carrero Notes Date Note Type Note Provider Name and Address Organization Details Recorded Time 07/31/2022 text/html Here for hospital follow up.. States started to have [...] pill or patch Frida Banegas NP [address] [facility] [facility] [address], [place], [address], [employer] 07/31/2022 14:43:12 11/05/2022 text/html Here for check up. Echo and labs from cardiology.Injecti ons to [...] good, for myself Frida Banegas NP [address], [place], [address], [employer] 11/05/2022 16:19:38 01/14/2023 text/html Here for check up. Has almost quit smoking. No cravings like used to.Back pain- went to PT and strengthened legs, but back still painful. Had therapy in [facility] and went for at least 6 weeks. [...] stay off sweets. Frida Banegas NP [address], [place], [address], [employer] 01/14/2023 11:35:01 04/01/2023 text/html Here for 3 mo fu. States he sees the neurosurgeon next week. Female provider. Unsure name or address. Believes it's smart. May be [facility]. Pain in back and in legs. Using cane to get around. Colitis- off and on flares. Seeing GI. Smoking 2 cigarettes daily.thirsty all the time. Frida Banegas NP [address], [place], [address], [employer] 04/01/2023 16:17:50
--- OUTSIDE RECORDS SUMMARY | 2025-04-19 12:47 | XMS_ITS | Clinical Summary ---
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
--- OUTSIDE RECORDS SUMMARY | 2025-04-19 12:47 | XMS_ITS | Encounter Summary ---
Author Organization [facility] Address [address] [address] Care Team Providers Care Veneer Repairer Machine Name Role Phone Yemi Bay MD Primary Care Provider + [phone] Miscellaneous, Not In File Primary Care Provider Unavailable Miscellaneous, Not In File Primary Care Provider Unavailable Yemi Bay MD Primary Care Provider + [phone] Miscellaneous, Not In File Primary Care Provider Unavailable Unknown, Notinfile Primary Care Provider Unavail able Frida Banegas ANIMAL RIDE MANAGER Primary Care Provider + Encounter Details Date Type Department Care Team (Late st Contact Info) Description 08/14/2016 Orders Only [facility] ProviderChristina MD [address] [place] [address] Social History Tobacco Use Types Packs/Day Years Used Date Smoking Tobacco: Never Assessed Sex and Gender Information Value Date Recorded Sex Assigned at Not on file 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
[2025-04-19 13:21] LABS: Hematocrit 42.8 % (42.0-52.0); Hemoglobin 15.0 g/dL (14.0-18.0); Immature Granulocyte Percent A 0.7 % (0-0.5); Lymphocytes Absolute Auto 1.19 K/mm3 (0.9-3.2); Mean Corpuscular HGB Conc 35.0 g/dl (32-36); Mean Corpuscular Hemoglobin 37.9 pg (26-34); Mean Corpuscular Volume 108.1 fl (80-100); Nucleated Red Blood Cells Absolute Auto 0.000 K/mm3 (0.0-0.012); Nucleated Red Blood Cells Perc 0.0 % (0.0-0.2); Platelet Count Result 138 k/mm3 (150-375); Red Blood Count 3.96 M/mm3 (4.6-6.20); White Blood Count 14.2 K/mm3 (4.5-10.0)
[2025-04-19 13:35] LABS: Alanine Aminotransferase 43 U/L (6-50); Albumin Level 3.9 g/dL (3.5-5.1); Alkaline Phosphatase 71 U/L (38-126); Anion Gap 7 mmol/L (4-12); Aspartate Amino Transferase 56 U/L (17-59); Bilirubin,Total 0.8 mg/dL (0.2-1.3); Blood Urea Nitrogen 34 mg/dL (9-20); Calcium 9.1 mg/dL (8.4-10.2); Carbon Dioxide 24 mmol/L (22-30); Chloride 102 mmol/L (98-107); Estimated CRCL calculation 54 ml/min; Estimated Glomerular Filt Rate 35; Glucose 111 mg/dL (65-110); Potassium 3.9 mmol/L (3.4-5.0); Sodium 133 mmol/L (137-145); Total Protein 7.2 g/dL (6.3-8.2)
[2025-04-19 13:39] LABS: Schistocytes None Seen
[2025-04-19 13:51] LABS: INR 1.1; Prothrombin Time 14.2 Seconds (11.1-14.7)
[2025-04-19 13:52] LABS: Partial Thromboplastin Time 34.2 Seconds (22.3-36.8)
[2025-04-19 13:57] LABS: Lipase 84 U/L (23-300)
[2025-04-19] MEDS: LACTATED RINGERS 1,000 ML 999 ML IV CONT (14:07)
[2025-04-19 14:29] LABS: CRP 33.0 mg/dL (<1.0)
--- NOTE | 2025-04-19 15:31 | ED_ITS ---
HPI - General Adult General Chief complaint: Weakness Stated complaint: urinary symptoms, achey, fever, nausea Time Seen by Provider: 04/19/25 12:37 History of Present Illness HPI narrative: 60-year-old male presenting with generalized malaise since this past Thursday. Patient also reports an increase in urinary frequency/urgency, dysuria, and intermittent fevers since Thursday and vomiting and diarrhea since yesterday. Patient denies a history of UTIs. Patient presently denies nausea, abdominal pain, and cough/congestion as well as hematuria and melena/hematochezia. Related Data Home Medications ?Medication ?Instructions ?Recorded ?Confirmed ?Last Taken ?Type cholecalciferol (vitamin D3) 125 5,000 unit PO DAILY 1 07/04/18 03/20/25 08/10/23 History mcg (5,000 unit) tablet clopidogrel 75 mg tablet (Plavix) 75 mg PO DAILY 10/1503/20/25 02/01/24 History aspirin 81 mg chewable tablet 81 mg PO DAILY 08/30/21 03/20/25 02/01/24 History (Aspirin Childrens) losartan 50 mg tablet 50 mg PO DAILY 10/14/2102/2308/11/23 History furosemide 20 mg tablet 20 mg PO DAILY 12/07/2302/23 Unknown History nebivolol 20 mg tablet 20 mg PO DAILY 12/07/2302/23 Unknown History Allergies Allergy/AdvReac Type Severity Reaction Status Date / Time No Known Allergies Allergy Verified 04/10/25 10:57 Review of Systems 2 Review of Systems: All systems reviewed & are unremarkable except as noted in HPI and below PMFSH Past Medical History Medical History Positive colorectal cancer screening using Cologuard test Elevated WBC count Elevated WBC count Sinusitis, acute Sebaceous cyst Changing skin lesion Acute bronchitis Acute postoperative pain Pain in left leg Pain of right scapula Hematoma Screening for prostate cancer Ureteral calculus Diarrhea Vitamin deficiency, unspecified Mass of left knee Arthritis Osteoporosis IBS (irritable bowel syndrome) Abdominal pain Heart attack High cholesterol Wears glasses Weight gain BMI 50.0-59.9, adult Bilateral primary osteoarthritis of knee Left knee DJD Right knee DJD Ganglion cyst Conjunctivitis Costochondritis Elevated glucose Right flank pain Rib pain Central stenosis of spinal canal Epidural lipomatosis Bulging discs Osteoarthritis, knee Pain in right knee Atherosclerosis of abdominal aorta Pain of left calf Degenerative disc disease Pain in left knee Swelling of left lower extremity Numbness Colonoscopy planned Obesity, morbid, BMI 40.0-49.9 Tobacco dependence Microscopic colitis CAD (coronary artery disease) Essential hypertension Mixed hyperlipidemia BMI 38.0-38.9,adult Morbidly obese Obesity Screening for thyroid disorder Surgical History Surgical History History of lumbar surgery History of coronary artery stent placement x4 2017 History of appendectomy Family History Family History Father Family history of diabetes mellitus in first degree relative Family history of heart disease in male family member before age 55 Heart disease Cerebrovascular accident Mother Family history of malignant neoplasm of breast in first degree relative Breast cancer Sibling Hyperlipidemia Other Arthritis Diabetes mellitus Family history of cardiovascular disease Hypertension Social History Social History Smoking packs per day: 1 Smoking cigarettes per day: 20.0 Years smoked: 30 Smoking pack-years: 30.00 Smoking status: Current every day smoker Tobacco type: cigarettes Second hand tobacco smoke exposure: No Smoking end date: 03/03/19 Additional smoking assessment comments: Down to 2 or 3 cigarettes a day. 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 Large body habitus. HEAD: Normocephalic, atraumatic. EYES: PERRLA and EOMI. ENT: Nares clear, no rhinorrhea or epistaxis. Mucous membranes moist. Oropharynx without tonsillar hypertrophy exudate or other lesions. Bilateral TMs pearly peterson non-bulging NECK: Supple. No adenopathy or masses. No carotid bruits or JVD CHEST: Clear to auscultation. No respiratory distress. No wheezes rales or rhonchi HEART: Regular rate and rhythm. No murmur heard. Normal peripheral pulses. ABDOMEN: Soft, nontender, nondistended, normal active bowel sounds. EXTREMITIES: Normal range of motion. Mild LE swelling. SKIN: Warm, dry, no rash. No signs of skin infections. NEURO: No focal deficits. Alert and oriented x3. PSYCH: Normal mood and affect Course Vital Signs Vital signs: Vital Signs Temperature 97.5 F L 04/19/25 10:48 Pulse Rate 88 04/19/25 10:48 Respiratory Rate 16 04/19/25 10:48 Blood Pressure 113/84 04/19/25 10:48 Pulse Oximetry 98 04/19/25 10:48 Oxygen Delivery Room Air 04/19/25 10:48 Temperature 97.5 F L 04/19/25 10:48 Pulse Rate 88 04/19/25 10:48 Respiratory Rate 16 04/19/25 10:48 Blood Pressure 113/84 04/19/25 10:48 Pulse Oximetry 98 04/19/25 10:48 Oxygen Delivery Room Air 04/19/25 10:48 Medical Decision Making MDM Narrative Medical decision making narrative: 60-year-old male presenting with generalized malaise, intermittent fevers/chills, nausea/vomiting/diarrhea, and dysuria and increased urinary frequency/urgency. Upon my initial assessment patient is nontoxic with stable vitals including no fevers. Patient has mild pancytopenia although not far from his baseline. Leukocytosis of 14.2. CRP elevated at 33 but no lactic. CMP indicates an [place], administered 1L lactated ringers. Patient pulled out IV prior to finishing fluids. Patient counseled on importance of adequate hydration and need for close follow-up. Other labs WNL. CXR demonstrated signs of CHF. BNP also noted to be elevated; patient aware. Not presenting today with respiratory symptoms. Advised close follow-up with PCP for this as well. CT abdomen pelvis demonstrated cystitis otherwise no acute inflammatory process. CT brain also without acute intracranial abnormalities. EKG demonstrated no acute changes. UA shows signs of UTI. Will plan for outpatient treatment of cystitis with Keflex. Patient agrees with discussion and after shared medical decision making agrees with plan of care. All questions were answered to the patient's satisfaction. The patient is appropriate for outpatient treatment and follow-up. Given reasons to return. Medical Records Medical records reviewed: Yes I reviewed the external patient's medical records. Vital Signs Vital Signs: Vital Signs Temperature 97.5 F L 04/19/25 10:48 Pulse Rate 88 04/19/25 10:48 Respiratory Rate 16 04/19/25 10:48 Blood Pressure 113/84 04/19/25 10:48 Pulse Oximetry 98 04/19/25 10:48 Oxygen Delivery Room Air 04/19/25 10:48 Temperature 97.5 F L 04/19/25 10:48 Pulse Rate 88 04/19/25 10:48 Respiratory Rate 16 04/19/25 10:48 Blood Pressure 113/84 04/19/25 10:48 Pulse Oximetry 98 04/19/25 10:48 Oxygen Delivery Room Air 04/19/25 10:48 Lab Data Lab results reviewed: Yes I reviewed the patient's lab results. 04/19/25 13:13 04/19/25 13:13 Labs: Lab Results 04/19/25 04/19/25 04/19/25 Range/Units 13:13 13:56 14:39 WBC 14.2 H (4.5-10.0) K/mm3 RBC 3.96 L (4.6-6.20) M/mm3 Hgb 15.0 (14.0-18.0) g/dL Hct 42.8 (42.0-52.0) % MCV 108.1 H (80-100) fl MCH 37.9 H (26-34) pg MCHC 35.0 (32-36) g/dl RDW 12.6 (11.5-14.5) % Plt Count 138 L (150-375) k/mm3 MPV 9.2 (7.4-10.4) fl Immature Gran % (Auto) 0.7 H (0-0.5) % Neut % (Auto) 80.5 H (45.5-73.1) % Lymph % (Auto) 8.4 L (18.3-44.2) % [place] % (Auto) 9.6 H (2.6-8.5) % Eos % (Auto) 0.3 (0-4.4) % Baso % (Auto) 0.5 (0.2-1.2) % Lymph # (Auto) 1.19 (0.9-3.2) K/mm3 [place] # (Auto) 1.4 H (0.1-0.6) K/mm3 Eos # (Auto) 0.0 (0-0.3) K/mm3 Baso # (Auto) 0.1 (0.0-0.1) K/mm3 Abs Immat Gran (auto) 0.10 H (0.00-0.031) K/mm3 Absolute Neuts (auto) 11.4 H (1.3-6.7) K/mm3 Absolute Nucleated RBC 0.000 (0.0-0.012) K/mm3 Band Neutrophils % Not Reportable Nucleated RBC % 0.0 (0.0-0.2) % Platelet Estimate Slightly decreased (Adequate) Large Platelets Present Schistocytes None seen PT 14.2 (11.1-14.7) Seconds INR 1.1 APTT 34.2 (22.3-36.8) Seconds Sodium 133 L (137-145) mmol/L Potassium 3.9 (3.4-5.0) mmol/L Chloride 102 (98-107) mmol/L Carbon Dioxide 24 (22-30) mmol/L Anion Gap 7 (4-12) mmol/L BUN 34 H D (9-20) mg/dL Creatinine 1.98 H (0.7-1.3) mg/dL Estim Creat Clear Calc 54 ml/min Estimated GFR 35 L (59 - ) Glucose 111 H (65-110) mg/dL Lactic Acid 1.3 (0.7-2.0) mmol/L Calcium 9.1 (8.4-10.2) mg/dL Total Bilirubin 0.8 (0.2-1.3) mg/dL AST 56 (17-59) U/L ALT 43 (6-50) U/L Alkaline Phosphatase 71 (38-126) U/L C-Reactive Protein 33.0 H (<1.0) mg/dL NT-Pro-B Natriuret Pep 1700 H (19.9-100) pg/mL Total Protein 7.2 (6.3-8.2) g/dL Albumin 3.9 (3.5-5.1) g/dL Lipase 84 (23-300) U/L Urine Color (Yellow) Urine Appearance (Clear) Urine pH (5.0-9.0) Ur Specific [place] (1.001-1.035) Urine Protein (Negative) mg/dL Urine Glucose (UA) (Negative) mg/dL Urine Ketones (Negative) mg/dL Ur Blood (Man) (Negative) Urine Nitrate (Negative) Urine Bilirubin (Negative) Urine Urobilinogen (<2.0) mg/dL Leukocyte Esterase Rfl (Negative) MARY/UL Urine RBC (0-2) /hpf Urine WBC (0-3) /hpf Ur Squamous Epith Cells (Few) /hpf Urine Bacteria /hpf Urine Casts Influenza A (RT-PCR) Negative (Negative) Influenza B (RT-PCR) Negative (Negative) RSV (RT-PCR) Negative (Negative) SARS-CoV-2 RNA (RT-PCR) Negative (Negative) 04/19/25 Range/Units 15:53 WBC (4.5-10.0) K/mm3 RBC (4.6-6.20) M/mm3 Hgb (14.0-18.0) g/dL Hct (42.0-52.0) % MCV (80-100) fl MCH (26-34) pg MCHC (32-36) g/dl RDW (11.5-14.5) % Plt Count (150-375) k/mm3 MPV (7.4-10.4) fl Immature Gran % (Auto) (0-0.5) % Neut % (Auto) (45.5-73.1) % Lymph % (Auto) (18.3-44.2) % [place] % (Auto) (2.6-8.5) % Eos % (Auto) (0-4.4) % Baso % (Auto) (0.2-1.2) % Lymph # (Auto) (0.9-3.2) K/mm3 [place] # (Auto) (0.1-0.6) K/mm3 Eos # (Auto) (0-0.3) K/mm3 Baso # (Auto) (0.0-0.1) K/mm3 Abs Immat Gran (auto) (0.00-0.031) K/mm3 Absolute Neuts (auto) (1.3-6.7) K/mm3 Absolute Nucleated RBC (0.0-0.012) K/mm3 Band Neutrophils % Nucleated RBC % (0.0-0.2) % Platelet Estimate (Adequate) Large Platelets Schistocytes PT (11.1-14.7) Seconds INR APTT (22.3-36.8) Seconds Sodium (137-145) mmol/L Potassium (3.4-5.0) mmol/L Chloride (98-107) mmol/L Carbon Dioxide (22-30) mmol/L Anion Gap (4-12) mmol/L BUN (9-20) mg/dL Creatinine (0.7-1.3) mg/dL Estim Creat Clear Calc ml/min Estimated GFR (59 - ) Glucose (65-110) mg/dL Lactic Acid (0.7-2.0) mmol/L Calcium (8.4-10.2) mg/dL Total Bilirubin (0.2-1.3) mg/dL AST (17-59) U/L ALT (6-50) U/L Alkaline Phosphatase (38-126) U/L C-Reactive Protein (<1.0) mg/dL NT-Pro-B Natriuret Pep (19.9-100) pg/mL Total Protein (6.3-8.2) g/dL Albumin (3.5-5.1) g/dL Lipase (23-300) U/L Urine Color Yellow (Yellow) Urine Appearance Cloudy H (Clear) Urine pH 5.5 (5.0-9.0) Ur Specific [place] 1.030 (1.001-1.035) Urine Protein 2+ H (Negative) mg/dL Urine Glucose (UA) Negative (Negative) mg/dL Urine Ketones Negative (Negative) mg/dL Ur Blood (Man) 2+ H (Negative) Urine Nitrate Positive H (Negative) Urine Bilirubin Negative (Negative) Urine Urobilinogen 1.0 (<2.0) mg/dL Leukocyte Esterase Rfl 3+ H (Negative) MARY/UL Urine RBC 21-50 H (0-2) /hpf Urine WBC >100 H (0-3) /hpf Ur Squamous Epith Cells None seen (Few) /hpf Urine Bacteria 4+ H /hpf Urine Casts 0-2 Influenza A (RT-PCR) (Negative) Influenza B (RT-PCR) (Negative) RSV (RT-PCR) (Negative) SARS-CoV-2 RNA (RT-PCR) (Negative) Imaging Data Attestation: I personally reviewed and interpreted this imaging study as follows: Radiologist's impression: ITS Impressions Chest X-Ray 04/19/25 14:16 Impression: CHF Head CT 04/19/25 14:23 IMPRESSION: 1. No acute intracranial findings. Abdomen/Pelvis CT 04/19/25 14:26 IMPRESSION: 1. Suspect cystitis. 2. Otherwise no acute inflammatory process. 3. Additional findings as above. ECG Data EKG #1: ECG completion date: 04/19/25 ECG completion time: 10:59 EKG Interpretation: normal rate, sinus rhythm and no ST changes Discharge Plan Discharge Clinical Impression: Cystitis Patient Disposition: Home Condition: Stable Instructions: Antibiotic Form, Urinary Tract Infection in Men (ED) Additional Instructions: Return to the emergency department if you experience fever, chest pain, shortness of breath, abdominal pain with nausea and vomiting, weakness, numbness/tingling, or any other symptoms that are concerning to you. Remain well-hydrated and get plenty of rest. Take Tylenol or Motrin [id number] for pain as needed. Return to the emergency department if symptoms don't improve within 3 days or if symptoms worsen. Follow up with primary care doctor Patient Language: Tajik Prescriptions: New cephalexin 500 mg capsule 500 mg PO Q6H Qty: 28 0RF No Action cholecalciferol (vitamin D3) 5,000 unit tablet 5,000 unit PO DAILY losartan 50 mg tablet 50 mg PO DAILY furosemide 20 mg tablet 20 mg PO DAILY nebivolol 20 mg tablet 20 mg PO DAILY icosapent ethyl [Vascepa] 1 gram capsule 2 g PO BID Qty: 360 3RF cyclobenzaprine 10 mg tablet 10 mg PO TID PRN (Reason: muscle spasm) Qty: 30 3RF clopidogrel [Plavix] 75 mg tablet 75 mg PO DAILY albuterol sulfate 90 mcg/actuation HFA aerosol inhaler 1 puff INHALATION Q4H PRN (Reason: shortness of breath or wheezing) Qty: 8.5 3RF acetaminophen [Tylenol Arthritis Pain] 650 mg tablet extended release 650 mg PO Q8H PRN (Reason: pain) Qty: 7 0RF aspirin [Aspirin Childrens] 81 mg tablet,chewable 81 mg PO DAILY rosuvastatin 40 mg tablet See Rx Instructions .ROUTE .COMPLEX Qty: 90 3RF Dose Instruction: TAKE 1 TABLET BY MOUTH EVERY DAY Rx Instructions: TAKE 1 TABLET BY MOUTH EVERY DAY celecoxib [Celebrex] 100 mg capsule 100 mg PO BID Qty: 180 2RF fenofibrate nanocrystallized 145 mg tablet 145 mg PO ONCE Qty: 20 0RF gabapentin 300 mg capsule See Rx Instructions .ROUTE .COMPLEX Qty: 90 0RF Dose Instruction: TAKE 1 CAPSULE BY MOUTH THREE TIMES DAILY FOR PAIN Rx Instructions: TAKE 1 CAPSULE BY MOUTH THREE TIMES DAILY FOR PAIN Follow-up/Referrals: Yemi Bay MD [Primary Care Provider, Family Practice]
[2025-04-19 15:38] LABS: Influenza A QL RT-PCR Negative (Negative); Influenza B QL RT-PCR Negative (Negative); RSV RNA, RT-PCR Negative (Negative); SARS-CoV-2 RNA PCR Negative (Negative)
[2025-04-19 15:54] LABS: NT Pro B Type Natriuretic Pept 1700 pg/mL (19.9-100)
[2025-04-19 16:29] LABS: Add Urine Microscopic? YES; Appearance Urine Cloudy (Clear); Glucose Urine UA Negative (Negative); Leukocyte Esterase Ur 3+ LEU/UL (Negative); Nitrate Urine Positive (Negative); Non Pathogenic Casts 0-2; Specific Grav Ur 1.030 (1.001-1.035)
[2025-04-19] MEDS: ACETAMINOPHEN 500 MG TABLET 1000 MG PO (17:09)
== END 2025-04-19 18:33 | disposition home or self-care (01) ==
PROVIDERS: Emergency Medicine; PCP Family Medicine
DX: N30.90 Cystitis, unspecified without hematuria (principal); Z20.822 Contact with and (suspected) exposure to COVID-19; I25.2 Old myocardial infarction; I70.0 Atherosclerosis of aorta; I25.10 Atherosclerotic heart disease of native coronary artery without angina pectoris; I50.9 Heart failure, unspecified; I11.0 Hypertensive heart disease with heart failure; E66.01 Morbid (severe) obesity due to excess calories; Z68.43 Body mass index [BMI] 50.0-59.9, adult; E78.2 Mixed hyperlipidemia; K58.9 Irritable bowel syndrome, unspecified; M81.0 Age-related osteoporosis without current pathological fracture; M17.0 Bilateral primary osteoarthritis of knee; Z95.5 Presence of coronary angioplasty implant and graft; Z87.891 Personal history of nicotine dependence; R94.31 Abnormal electrocardiogram [ECG] [EKG]
CPT/HCPCS: 36415; 70450; 71046; 74177; 80053; 81001; 83605; 83690; 83880; 85025; 85610; 85730; 86140; 87040; 87077; 87086; 87186; 87637; 93005; 96360; 99284; A9270; J7120; Q9967